=== PATIENT | female | born 1965 | race Caucasian/White ===

== ENCOUNTER 2024-10-25 10:07 | Inpatient (IN) | payer MEDICARE, SELFPAY ==
[2024-10-25] VITALS (18 sets, daily range): BP systolic 106–124; BP diastolic 59–75; PULSE 100–119; RESP 16–20; TEMP 36.2–36.4; O2SAT 89–97; BMI 22.7
--- NOTE | 2024-10-25 11:17 | CRLHL7_ITS ---
For Patients: As a result of the 21st Century Cures Act, medical imaging exams and procedure reports are released immediately into your electronic medical record. You may view this report before your referring provider. If you have questions, please contact your health care provider. Indication: DIFFUSE ABD PAIN, HX PANCREAS CANCER Technique: CT abdomen/pelvis with IV contrast, 65 mL Isovue 370 Comparison: None Findings: Lower thorax: The heart is normal in size. Coronary artery calcifications/stenting. No pericardial effusion. Small left pleural effusion. Mild bibasilar atelectatic changes. Abdomen/pelvis: Diffuse hepatic steatosis without suspicious focal hepatic lesion. Postsurgical changes of Whipple without apparent complication. Atrophic pancreatic tail. The spleen is unremarkable with small splenule seen anterior to the spleen. No adrenal nodules. The kidneys are normal in size and perfused in a normal fashion. No suspicious enhancing renal masses or lesions. Subcentimeter low-density right renal lesion likely a small benign cyst/angiomyolipoma, too small to characterize. Nonobstructing renal stones bilaterally measuring up to approximately 5 millimeters. No hydroureteronephrosis. The bladder is normal in appearance. The uterus and bilateral ovaries are normal in appearance. There is some thickening of the stomach and proximal small bowel with mild to moderate submucosal edema. There is no evidence of bowel obstruction. The appendix is within normal limits in appearance. Moderate volume abdominopelvic ascites. No free air. No abscess. No pathologically enlarged lymph nodes throughout the abdomen or pelvis. No abdominal aortic aneurysm. Mild calcific atherosclerosis of the aortoiliac system and its branches. Soft tissue/musculoskeletal: Moderate soft tissue anasarca. Small fat containing bilateral inguinal hernias. No acute fracture or malalignment. There are some degenerative changes of the spine. No suspicious osseous lesions. Impression: 1. There is some thickening of the stomach and proximal small bowel with mild to moderate submucosal edema, suggestive of gastritis/enteritis. There is no evidence of bowel obstruction. 2. Postsurgical changes of Whipple without apparent complication. 3. Moderate volume abdominopelvic ascites. No free air. No abscess. 4. Additional incidental findings as detailed above. Please note that all CT scans at this facility use dose modulation, iterative reconstruction, and/or weight-based dosing when appropriate to reduce radiation dose to as low as reasonably achievable. Dictated by Zaheer Felipe MD @ 10/25/2024 1:49:02 PM (Electronically Signed)
--- NOTE | 2024-10-25 11:18 | ED.GENADULT ---
HPI - General Adult General Chief complaint: Abdominal Pain Stated complaint: Abdominal pain Time Seen by Provider: 10/25/24 11:06 Source: patient Limitations: no limitations History of Present Illness HPI narrative: 59-year-old female coming in today complaining of abdominal pain for about a week. Patient was diagnosed with a large gastric ulcer the week of . She has been on Protonix b.i.d. and Carafate q.i.d. for the last month. In the last week the pain came back. It is epigastric it radiates everywhere around the belly according to the patient. Movement makes it worse. She states that she has not had a bowel movement in 2 days. Last week she had light green bowel movements with dark specks in it which appears similar to what she had when she was diagnosed with her ulcer. She has felt very nauseated with no appetite. She has not vomited. She denies any fevers or chills. She states that she has not passed gas in the last 2 days. She denies dysuria, increased urinary frequency or urgency. Past medical history significant for coronary artery disease status post [place] in 2008, diabetes type 2, fibromyalgia and chronic pain, peptic ulcer disease, migraine headaches, obesity, history of pancreatic cancer. Past surgical history significant for appendectomy, cholecystectomy, what sounds like a potential Whipple procedure for pancreatic cancer. Related Data Home Medications ?Medication ?Instructions ?Recorded ?Confirmed amitriptyline 50 mg tablet 50 mg PO QHS 10/25/24 10/25/24 aspirin 81 mg tablet,delayed 81 mg PO DAILY 10/25/24 10/25/24 release (Adult Low Dose Aspirin) atorvastatin 40 mg tablet 40 mg PO QHS 10/25/24 10/25/24 cetirizine 10 mg capsule 10 mg PO DAILY PRN 10/25/24 10/25/24 gabapentin 600 mg tablet 600 mg PO TID 10/25/24 10/25/24 insulin aspart U-100 100 unit/mL 1 sliding scale dose subcut 10/25/24 10/25/24 (3 mL) subcutaneous pen (Novolog USEASDIRECTD FlexPen U-100 Insulin aspart) insulin glargine 100 unit/mL (3 20 unit subcut QPM 10/25/24 10/25/24 mL) subcutaneous pen (Lantus Solostar U-100 Insulin) pantoprazole 40 mg granules 40 mg PO BID 10/25/24 10/25/24 delayed-release for susp in packet (Protonix) potassium chloride 10 mEq 10 meq PO BID 10/25/24 10/25/24 tablet,extended release (Klor-Con) sucralfate 1 gram tablet (Carafate) 1 g PO QID 10/25/24 10/25/24 topiramate 50 mg tablet (Topamax) 50 mg PO QHS 10/25/24 10/25/24 Allergies Allergy/AdvReac Type Severity Reaction Status Date / Time omeprazole Allergy Vomiting Verified 10/25/24 12:45 Penicillins Allergy Hive Verified 10/25/24 12:45 Review of Systems Status of ROS: Reports: 10 or more systems reviewed and unremarkable except as noted in History and below [facility] Social History Smoking Status: Former smoker What tobacco products do you use: cigarettes Smoking packs per day: 2 Smoking cigarettes per day: 40.0 Smoking quit date/years: <= 15 years ago Do you use any of these nicotine containing products: None Second hand tobacco smoke exposure: No How often do you have a drink containing alcohol: never AUDIT-C Alcohol total score: 0 Non-prescribed substance use: denies use service: No Exam Narrative: Exam Narrative: Centrally obese, well-developed patient in no acute distress. Alert and oriented. Answers questions appropriately. Mood and affect are appropriate. Thoughts are goal oriented and rational. No tangential or magical thinking noted. Patient speaks in full sentences without needing to catch her breath. HEENT: Normocephalic atraumatic. Pupils are equally round reactive to light. Extraocular muscles are intact. Conjunctivae are moist without any icterus noted. Dry mucous membranes. Posterior pharynx is normal. Neck is soft without any lymphadenopathy or thyromegaly. No masses are appreciated. Patient has poor dentition. Poor oral hygiene. Cardiovascular: Heart is regular rate and rhythm S1 and S2 are present without any murmurs. Lungs: Clear to auscultation bilaterally no wheezes rhonchi or rales are appreciated. Abdomen: Patient has diffuse abdominal tenderness throughout the entire abdomen. Abdomen is distended. Decreased bowel sounds. She is guarding. Extremities: Bilateral lower extremities show 2+ pitting edema bilaterally throughout both lower extremities and into the abdominal wall. She also has pitting edema of the upper extremities. Skin: Well perfused without any obvious rashes. Const: Vital Signs, click to edit/add: Vital Signs - 24 hr 10/25/24 10:37 10/25/24 11:45 10/25/24 12:38 Temperature 97.6 F Pulse Rate 104 H Pulse Rate [Pulse Oximeter] 109 H Respiratory Rate 20 Blood Pressure Blood Pressure [Ri ght Upper Arm] 111/69 Pulse Oximetry 96 96 93 Oxygen Delivery Me thod Room Air 10/25/24 12:45 10/25/24 13:08 10/25/24 13:09 Temperature Pulse Rate 102 H 101 H 100 Pulse Rate [Pulse Oximeter] Respiratory Rate 16 Blood Pressure 118/75 Blood Pressure [Ri ght Upper Arm] Pulse Oximetry 89 95 97 Oxygen Delivery Me thod Room Air 10/25/24 13:15 10/25/24 13:30 10/25/24 13:32 Temperature Pulse Rate 103 H 104 H 103 H Pulse Rate [Pulse Oximeter] Respiratory Rate Blood Pressure 118/71 Blood Pressure [Ri ght Upper Arm] Pulse Oximetry 97 96 95 Oxygen Delivery Me thod 10/25/24 13:45 10/25/24 14:00 10/25/24 14:02 Temperature Pulse Rate 104 H 108 H 106 H Pulse Rate [Pulse Oximeter] Respiratory Rate 18 Blood Pressure 114/74 Blood Pressure [Ri ght Upper Arm] Pulse Oximetry 96 96 95 Oxygen Delivery Me thod Room Air Course Course ED Course: Differential diagnosis includes small-bowel obstruction, colitis, diverticulitis, peptic ulcer disease. Unclear reason for anasarca but includes congestive heart failure, liver failure. IV is established, patient started on IV fluids and labs were drawn. Abdominal CT ordered. CBC showed hemoglobin of 11.6, otherwise unremarkable. Chemistries are unremarkable. Glucose 127. Calcium slightly low at 8.1. LFTs minimally abnormal with an AST of 39, ALT of 41, alkaline phosphatase of 189. CRP elevated at 3. BNP minimally elevated at 868. Protein levels and albumin levels are low at 5.2 and 2.8 respectively. Normal lipase. UA showing 2+ protein, 4+ ketones, 2+ urine bilirubin. CT scan showing anasarca, abdominal ascites and the mild to moderate submucosal edema of the stomach and proximal bowel consistent with a gastritis or enteritis. Given the amount of fluid visualized inside the abdomen we did proceed with a chest x-ray, TSH and coagulation studies. Chest x-ray, read by me, was unremarkable. Vital Signs Vital signs: Initial Vital Signs Temperature 97.6 F 10/25/24 10:37 Temperature Source Temporal Artery Scan 10/25/24 10:37 Pulse Rate 109 H 10/25/24 10:37 Respiratory Rate 20 10/25/24 10:37 Blood Pressure 111/69 10/25/24 10:37 Blood Pressure Mean 83 10/25/24 10:37 Blood Pressure Position Sitting 10/25/24 10:37 Pulse Oximetry 96 10/25/24 10:37 Oxygen Delivery Method Room Air 10/25/24 10:37 Vital Signs Temperature 97.6 F 10/25/24 10:37 Pulse Rate 109 H 10/25/24 10:37 Respiratory Rate 20 10/25/24 10:37 Blood Pressure 111/69 10/25/24 10:37 Pulse Oximetry 96 10/25/24 10:37 Oxygen Delivery Method Room Air 10/25/24 10:37 Temperature 97.6 F 10/25/24 10:37 Pulse Rate 106 H 10/25/24 14:02 Respiratory Rate 18 10/25/24 14:02 Blood Pressure 114/74 10/25/24 14:02 Pulse Oximetry 95 10/25/24 14:02 Oxygen Delivery Method Room Air 10/25/24 14:02 Medications Administered Medications: Discontinued Medications Generic Name Dose Route Start Last Admin Trade Name Freq PRN Reason Stop Dose Admin Sodium Chloride 1,000 mls @ 500 mls/hr 10/25/24 11:18 10/25/24 12:12 0.9 % Sodium Chloride 1000 Ml IV 10/25/24 13:17 500 mls/hr .Q2H BRODY Administration Morphine Sulfate 2 mg 10/25/24 12:32 10/25/24 12:42 Morphine 2 Mg/Ml Inj IVP 10/25/24 12:33 2 mg ONCE ONE Administration Ondansetron HCl 4 mg 10/25/24 12:32 10/25/24 12:42 Ondansetron 2 Mg/Ml Inj IVP 10/25/24 12:33 4 mg ONCE ONE Administration Medical Decision Making [facility] Narrative Medical decision making narrative: 59-year-old female with diffuse abdominal discomfort, anasarca and abdominal ascites. Patient does need more diagnostic studies pain management. Therefore she will be admitted for management at this time. Lab Data Lab results reviewed: Yes I reviewed the patient's lab results Labs: Lab Results 10/25/24 10/25/24 Range/Units 11:46 12:30 WBC 7.27 (4.50-11.00) K/uL RBC 3.78 L (4.00-5.20) m/uL Hgb 11.6 L (12.0-16.0) gm/dL Hct 36.6 (33.0-51.0) % MCV 97 (80-100) fL MCH 31 (26-34) pg MCHC 32 (32-36) gm/dL RDW Coeff of Konstantin 14.1 (11.5-15.5) % Plt Count 189 (140-440) K/uL Neut % (Auto) 71.9 (42.0-72.0) % Lymph % (Auto) 18.3 L (20-44) % [place] % (Auto) 9.4 (0.0-11.0) % Eos % (Auto) 0.3 (0.0-7.0) % Baso % (Auto) 0.0 (0.0-3.0) % Neut # (Auto) 5.23 (1.7-7.0) K/uL Lymph # (Auto) 1.30 (0.90-2.90) K/uL [place] # (Auto) 0.70 (0.00-0.90) K/UL Eos # (Auto) 0.02 (0.00-0.50) K/uL Baso # (Auto) 0.00 (0.00-0.30) K/uL Abs Immat Gran (auto) 0.01 (0.00-0.30) K/uL Imm/Tot Granulo (auto) 0.1 % Sodium 136 (135-149) mmol/L Potassium 3.5 L (3.6-5.1) mmol/L Chloride 107 (96-114) mmol/L Carbon Dioxide 20 (20-32) mmol/L Anion Gap 9 (7-15) mEq/L BUN 8 (7-30) mg/dL Creatinine 0.7 (0.5-1.5) mg/dL Estimated Creat Clear 73.80 Estimated GFR 99 ml/min Glucose 127 H (60-115) mg/dL Lactate 0.9 (0.5-1.9) mmol/L Calcium 8.1 L (8.4-10.6) mg/dL Total Bilirubin 0.7 (0.1-1.5) mg/dL Direct Bilirubin 0.4 (0.0-0.5) mg/dL AST 39 H (12-35) U/L ALT 41 H (4-35) U/L Alkaline Phosphatase 189 H (40-150) U/L C-Reactive Protein 3.0 H (0.5-1.0) mg/dL NT-Pro-B Natriuret Pep 868 pg/mL Total Protein 5.2 L (6.0-8.3) g/dL Albumin 2.8 L (3.3-5.0) g/dL Lipase 69 (23-300) U/L Urine Color Dark yellow (Yellow) Urine Appearance Clear (Clear) Urine pH 6.0 (5.0-8.5) Ur Specific [place] >= 1.030 (1.000-1.030) Urine Protein 2+ A (Negative) Urine Glucose (UA) Negative (Negative) Urine Ketones 4+ A (Negative) Urine Blood Negative (Negative) Urine Nitrite Negative (Negative) Urine Bilirubin 2+ A (Negative) Urine Urobilinogen 0.2 (0.2-1.0) Ur Leukocyte Esterase Negative (Negative) Urine RBC 0-2 (0-2) Urine WBC 0-2 (0-5) Ur Squamous Epith Cells Few (None-Few) Urine Bacteria Few A (None) Urine Mucus Many A (None) Imaging Data CT scan - abdomen: Attestation: I have reviewed the pertinent imaging results. Radiologist's impression: Indication: DIFFUSE ABD PAIN, HX PANCREAS CANCER Technique: CT abdomen/pelvis with IV contrast, 65 mL Isovue 370 Comparison: None Findings: Lower thorax: The heart is normal in size. Coronary artery calcifications/stenting. No pericardial effusion. Small left pleural effusion. Mild bibasilar atelectatic changes. Abdomen/pelvis: Diffuse hepatic steatosis without suspicious focal hepatic lesion. Postsurgical changes of Whipple without apparent complication. Atrophic pancreatic tail. The spleen is unremarkable with small splenule seen anterior to the spleen. No adrenal nodules. The kidneys are normal in size and perfused in a normal fashion. No suspicious enhancing renal masses or lesions. Subcentimeter low-density right renal lesion likely a small benign cyst/angiomyolipoma, too small to characterize. Nonobstructing renal stones bilaterally measuring up to approximately 5 millimeters. No hydroureteronephrosis. The bladder is normal in appearance. The uterus and bilateral ovaries are normal in appearance. There is some thickening of the stomach and proximal small bowel with mild to moderate submucosal edema. There is no evidence of bowel obstruction. The appendix is within normal limits in appearance. Moderate volume abdominopelvic ascites. No free air. No abscess. No pathologically enlarged lymph nodes throughout the abdomen or pelvis. No abdominal aortic aneurysm. Mild calcific atherosclerosis of the aortoiliac system and its branches. Soft tissue/musculoskeletal: Moderate soft tissue anasarca. Small fat containing bilateral inguinal hernias. No acute fracture or malalignment. There are some degenerative changes of the spine. No suspicious osseous lesions. Impression: 1. There is some thickening of the stomach and proximal small bowel with mild to moderate submucosal edema, suggestive of gastritis/enteritis. There is no evidence of bowel obstruction. 2. Postsurgical changes of Whipple without apparent complication. 3. Moderate volume abdominopelvic ascites. No free air. No abscess. 4. Additional incidental findings as detailed above. Chest x-ray: Attestation: I have reviewed the pertinent imaging results. Radiologist's impression: Chest radiographs, 2 views. COMPARISON: None. FINDINGS: Cardiovascular/Mediastinum: Normal heart size. Unremarkable. Lungs: No focal consolidation. Linear band like opacification of the lungs bilaterally, likely subsegmental atelectasis and/or scarring. Airways: Trachea remains midline. Pleura: No pleural effusions or pneumothorax. Bones: No acute osseous abnormalities. Upper abdomen: Unremarkable. IMPRESSION: No acute cardiopulmonary process. Discharge Plan Discharge Clinical Impression: Anasarca, Abdominal ascites Prescriptions: No Action topiramate [Topamax] 50 mg tablet 50 mg PO QHS potassium chloride [Klor-Con 10] 10 mEq tablet extended release 10 meq PO BID atorvastatin 40 mg tablet 40 mg PO QHS pantoprazole [Protonix] [address] for susp in packet 40 mg PO BID sucralfate [Carafate] 1 gram tablet 1 g PO QID gabapentin 600 mg tablet 600 mg PO TID amitriptyline 50 mg tablet 50 mg PO QHS cetirizine 10 mg capsule 10 mg PO DAILY PRN insulin aspart U-100 [Novolog FlexPen U-100 Insulin] 100 unit/mL (3 mL) insulin pen 1 sliding scale dose subcut USEASDIRECTD insulin glargine [Lantus Solostar U-100 Insulin] 100 unit/mL (3 mL) insulin pen 20 unit subcut QPM aspirin [Adult Low Dose Aspirin] 81 mg tablet,delayed release (DR/EC) 81 mg PO DAILY Follow Up/Referrals: Provider,Not a Local [Primary Care Provider] -
[2024-10-25 11:54] LABS: Lactate* 0.9 mmol/L (0.5-1.9)
[2024-10-25 11:57] LABS: Eosinophils Absolute Auto 0.02 K/uL (0.00-0.50); Eosinophils Percent Auto 0.3 % (0.0-7.0); Hematocrit 36.6 % (33.0-51.0); Hemoglobin* 11.6 gm/dL (12.0-16.0); Immature Granulocytes Abs Auto 0.01 K/uL (0.00-0.30); Immature Granulocytes Pct Auto 0.1 %; Lymphocytes Percent Auto 18.3 % (20-44); Mean Corpuscular HGB Conc 32 gm/dL (32-36); Mean Corpuscular Hemoglobin 31 pg (26-34); Mean Corpuscular Volume 97 fL (80-100); Monocytes Percent Auto 9.4 % (0.0-11.0); Neutrophils Absolute Auto 5.23 K/uL (1.7-7.0); Neutrophils Percent Auto 71.9 % (42.0-72.0); Platelet Count* 189 K/uL (140-440); RDW Coefficient of Variation % 14.1 % (11.5-15.5); Red Blood Count 3.78 m/uL (4.00-5.20); White Blood Count* 7.27 K/uL (4.50-11.00)
[2024-10-25 12:00] LABS: Slide Review Reflex No
[2024-10-25] MEDS: 0.9 % SODIUM CHLORIDE 1000 ml 1,000 ML 500 ML IV (12:12)
[2024-10-25 12:15] LABS: Albumin* 2.8 g/dL (3.3-5.0); Chloride* 107 mmol/L (96-114); Sodium* 136 mmol/L (135-149)
[2024-10-25 12:16] LABS: Potassium* 3.5 mmol/L (3.6-5.1)
[2024-10-25 12:18] LABS: Anion Gap 9 mEq/L (7-15); Aspartate Amino Transferase* 39 U/L (12-35); Bilirubin Direct* 0.4 mg/dL (0.0-0.5); Bilirubin Total* 0.7 mg/dL (0.1-1.5); Blood Urea Nitrogen* 8 mg/dL (7-30); Carbon Dioxide* 20 mmol/L (20-32); Creatinine* 0.7 mg/dL (0.5-1.5); Estimated Glomerular Filt Rate 99 ml/min; Total Protein* 5.2 g/dL (6.0-8.3)
[2024-10-25 12:19] LABS: Alanine Aminotransferase* 41 U/L (4-35); Alkaline Phosphatase* 189 U/L (40-150); Calcium* 8.1 mg/dL (8.4-10.6); Glucose* 127 mg/dL (60-115); Lipase* 69 U/L (23-300)
[2024-10-25 12:31] LABS: NT Pro B Type NatriureticPept* 868 pg/mL
[2024-10-25] MEDS: ONDANSETRON 2 MG/ML inj 4 MG IVP (12:42)
[2024-10-25] MEDS: MORPHINE 2 MG/ML inj IVP (12:42)
[2024-10-25 12:43] LABS: Appearance Urine Clear (Clear); Bilirubin Urine 2+ (Negative); Blood Urine Negative (Negative); Color Urine Dark yellow (Yellow); Glucose Urine Negative (Negative); Ketones Urine 4+ (Negative); Leukocyte Esterase Urine Negative (Negative); Nitrite Urine Negative (Negative); Protein Urine 2+ (Negative); Specific Gravity Urine >= 1.030 (1.000-1.030); Urobilinogen Urine 0.2 (0.2-1.0)
[2024-10-25 13:03] LABS: Bacteria Urine Few; Mucus Urine Many; RBC Urine 0-2 (0-2); Squamous Epithelial Cell Urine Few (None-Few); WBC Urine 0-2 (0-5)
--- NOTE | 2024-10-25 14:00 | CRLHL7_ITS ---
For Patients: As a result of the Century Cures Act, medical imaging exams and procedure reports are released immediately into your electronic medical record. You may view this report before your referring provider. If you have questions, please contact your health care provider. INDICATION: Dyspnea. TECHNIQUE: Chest radiographs, 2 views. COMPARISON: None. FINDINGS: Cardiovascular/Mediastinum: Normal heart size. Unremarkable. Lungs: No focal consolidation. Linear band like opacification of the lungs bilaterally, likely subsegmental atelectasis and/or scarring. Airways: Trachea remains midline. Pleura: No pleural effusions or pneumothorax. Bones: No acute osseous abnormalities. Upper abdomen: Unremarkable. IMPRESSION: No acute cardiopulmonary process. Dictated by Suhail Carr MD @ 10/25/2024 2:41:23 PM (Electronically Signed)
[2024-10-25 15:04] LABS: INR 1.14 (0.91-1.10); Prothrombin Time 15.4 Seconds
--- NOTE | 2024-10-25 16:09 | P.IMHP_ITS ---
Hospitalist- H&P: HPI History of Present Illness Date Seen: 10/25/24 Chief complaint: Abdominal pain Narrative: ADMISSION HISTORY AND PHYSICAL - HOSPITALIST Chief Complaint: Progressive swelling in her abdomen and legs x2 weeks, weakness HPI: Patient is a 59-year-old white female with a significant history of pancreatic cancer, status post Whipple, who presents to our ED with increasing weakness and overall abdominal swelling and legs swelling. She is traveling for the holidays and is staying with her cousin. She typically receives healthcare in [place]. It was there that she was diagnosed with pancreatic cancer and had her Whipple. She is followed by Oncology there. She is a type 2 diabetic, even prior to the Whipple, and recently was hospitalized for a gastric ulcer. She also has chronic pain and migraines. We discussed her past medical history and current medications in the room. She was able to use her phone and navigate to her notes. Her cousin is with her tonight in the ED. ER COURSE: Labs, abdominal pelvic CT, chest x-ray CODE STATUS: FULL CODE EMERGENCY CONTACT PLAN: Juan M Crespo Rel To Pat Family/Other Cell I've updated the PFSH, medications and allergies in the Expanse tabs. INVESTIGATIONS: LABS/MICRO/ECG/IMAGING CBC shows a and anemia at 11.6. MCV is 97. Normal platelet count. INR is 1.14 glucose is 127. Potassium is a little low at 3.5 - liver enzymes are elevated mildly AST 39, ALT 41. GGT 270. Alk-phos 189. However, her total is normal. There is an ammonia level pending. Her BNP is only 868. She does have low protein and albumin. Amylase and lipase are negative. Under TSH is normal. A1c is pending. She has 4+ ketones, 2+ bilirubin in her urine. She seems volume contracted. Her UDS is positive for tricyclics and opiates but these are both prescribed to her. Alcohol level was less than 0.01. There is a hep panel pending. Sinus tachy on ECG. Impression: 1. There is some thickening of the stomach and proximal small bowel with mild to moderate submucosal edema, suggestive of gastritis/enteritis. There is no evidence of bowel obstruction. 2. Postsurgical changes of Whipple without apparent complication. 3. Moderate volume abdominopelvic ascites. No free air. No abscess. 4. Additional incidental findings as detailed above. 5. Questionable history of reported appendectomy; however, there is a tubular structure arising from the cecum (series number 2, image [id number]), that appears to be a normal appendix. REVIEW OF SYSTEMS: 12-point ROS completed with patient and negative unless otherwise stated in HPI or below. PHYSICAL EXAM: CONSTITUTIONAL: Pale. Conversive, good historian. A/O. Knows setting and context. Looks older than stated age. GENERAL: Well-developed and above ideal body weight, in no respiratory distress. VITAL SIGNS: see record. HEENT: Sclerae are anicteric. No petechiae. CARDIAC: rhythm is regular. There is no S3 or rub. No harsh murmurs. extremities show 3+ pitting edema PULM: good air entry with no wheeze. ABDOMEN: severe ascites without obvious spider angiomata; but tense and tender. NEURO: Speech is fluent. A brief neurologic exam is negative. SKIN: No rashes, petechiae, concerning changes PSYCHIATRIC: Euthymic. ADMIT TO MEDSURG: FLOOR CARE DVT: Lovenox GI: PO intake Time spent: Today I spent 75 minutes seeing the patient, discussing the patient with ER staff, reviewing Expanse and EPIC notes/diagnostics, discussing the care plan with our care time that includes social work, PT/OT, pharmacy, RT, senior care and documenting my impressions and plan in the medical record. MEDICAL NECESSITY FOR HOSPITALIZATION Anticipated midnights in the hospital: 2-3 Admitting diagnosis: Severe anasarca, dehydration (4+ ketones, tachycardia), new liver lesion, type 2 insulin diabetes Risk of morbidity and mortality: high Acuity is characterized as high and reflected in: The sudden onset and severity of her anasarca, unclear etiology as this is her 1st presentation with ascites, insulin-requiring type 2 diabetes, history of pancreatic cancer and status post Whipple procedure in the last 2 years, poor mobility and chronic opioid use all increase her mortality and morbidity related to this new diagnosis. This patient will require hospital services as outlined in the assessment and plan in order to stabilize and be safely discharged to a lower level of care. Because of the risk and acuity as described above, this patient cannot be managed at a lower level of care. LENGTH OF STAY: 2 IP ? Anticipated LOS>2 midnights due to acuity of clinical presentation requiring inpatient level of care [facility] Medical History (Updated 10/26/24 @ 01:52 by Yolanda Sanchez MD) Migraines ?G43.909 - Migraine, unspecified, not intractable, without status migrainosus (ICD-10) Chronic pain ?G89.29 - Other chronic pain (ICD-10) Hx of gastric ulcer ?Z87.11 - Personal history of peptic ulcer disease (ICD-10) Pancreatic cancer ?C25.9 - Malignant neoplasm of pancreas, unspecified (ICD-10) Type 2 diabetes mellitus with insulin therapy ?E11.9 - Type 2 diabetes mellitus without complications (ICD-10) ?Z79.4 - prison (current) use of insulin (ICD-10) Surgical History (Updated 10/26/24 @ 01:31 by Yolanda Sanchez MD) History of Whipple procedure ?Z90.410 - Acquired total absence of pancreas (ICD-10) ?Z90.49 - Acquired absence of other specified parts of digestive tract (ICD- 10) Social History (Updated 10/25/24 @ 15:05 by Selene Donald MD) What is your current living situation?: I presently have a place to live Problems where you live: no known problems Problems where you live details: none In the past 12 months, utilities in danger of being shut off: no In past 12 months, lack of transportation kept you from medical appts, meetings, work, or getting things needed for daily living: no In the past 12 mos, have been you worried that your food would run out before you had money to buy more?: never true In the past 12 mos, the food you bought just didn't last and you didn't have money to buy more?: never true Smoking Status: Former smoker What tobacco products do you use: cigarettes Smoking packs per day: 2 Smoking cigarettes per day: 40.0 Smoking quit date/years: <= 15 years ago Do you use any of these nicotine containing products: None Second hand tobacco smoke exposure: No How often do you have a drink containing alcohol: never AUDIT-C Alcohol total score: 0 Non-prescribed substance use: denies use How often does anyone, including family, friends and others, physically hurt you : never How often does anyone, including family, friends and others, insult or talk down to you: never How often does anyone, including family, friends and others, threaten you with harm: never How often does anyone, including family, friends and others, scream or curse at you: never service: No Meds Home Medications and Allergies Home Medications ?Medication ?Instructions ?Recorded ?Confirmed ?Type amitriptyline 50 mg tablet 50 mg PO HS 10/25/24 10/25/24 History aspirin 81 mg tablet,delayed 81 mg PO DAILY 10/25/24 10/25/24 History release (Adult Low Dose Aspirin) atorvastatin 40 mg tablet 40 mg PO HS 10/25/24 10/25/24 History cetirizine 10 mg capsule 10 mg PO DAILY PRN 10/25/24 10/25/24 History gabapentin 600 mg tablet 600 mg PO TID 10/25/24 10/25/24 History insulin aspart U-100 100 unit/mL 1 sliding scale dose subcut 10/25/24 10/25/24 History (3 mL) subcutaneous pen (Novolog USEASDIRECTD FlexPen U-100 Insulin aspart) insulin glargine 100 unit/mL (3 20 unit subcut HS 10/25/24 10/25/24 History mL) subcutaneous pen (Lantus Solostar U-100 Insulin) oxycodone 10 mg tablet 10 mg PO TID PRN pain 10/25/24 10/25/24 History pantoprazole 40 mg granules 40 mg PO BID 10/25/24 10/25/24 History delayed-release for susp in packet (Protonix) potassium chloride 10 mEq 10 meq PO BID 10/25/24 10/25/24 History tablet,extended release (Klor-Con) sucralfate 1 gram tablet (Carafate) 1 g PO QID 10/25/24 10/25/24 History topiramate 50 mg tablet (Topamax) 50 mg PO HS 10/25/24 10/25/24 History Allergies Allergy/AdvReac Type Severity Reaction Status Date / Time omeprazole Allergy Vomiting Verified 10/25/24 12:45 Penicillins Allergy Hive Verified 10/25/24 12:45 Exam Const: Vital Signs, click to edit/add: Vital Signs - 24 hr 10/25/24 10:37 10/25/24 11:45 10/25/24 12:38 Temperature 97.6 F Pulse Rate 104 H Pulse Rate [Pulse Oximeter] 109 H Respiratory Rate 20 Blood Pressure Blood Pressure [Ri ght Upper Arm] 111/69 Pulse Oximetry 96 96 93 Oxygen Delivery Me thod Room Air 10/25/24 12:45 10/25/24 13:08 10/25/24 13:09 Temperature Pulse Rate 102 H 101 H 100 Pulse Rate [Pulse Oximeter] Respiratory Rate 16 Blood Pressure 118/75 Blood Pressure [Ri ght Upper Arm] Pulse Oximetry 89 95 97 Oxygen Delivery Me thod Room Air 10/25/24 13:15 10/25/24 13:30 10/25/24 13:32 Temperature Pulse Rate 103 H 104 H 103 H Pulse Rate [Pulse Oximeter] Respiratory Rate Blood Pressure 118/71 Blood Pressure [Ri ght Upper Arm] Pulse Oximetry 97 96 95 Oxygen Delivery Me thod 10/25/24 13:45 10/25/24 14:00 10/25/24 14:02 Temperature Pulse Rate 104 H 108 H 106 H Pulse Rate [Pulse Oximeter] Respiratory Rate 18 Blood Pressure 114/74 Blood Pressure [Ri ght Upper Arm] Pulse Oximetry 96 96 95 Oxygen Delivery Me thod Room Air 10/25/24 14:03 10/25/24 15:01 10/25/24 15:02 Temperature Pulse Rate 106 H 111 H 107 H Pulse Rate [Pulse Oximeter] Respiratory Rate 18 Blood Pressure 114/73 Blood Pressure [Ri ght Upper Arm] Pulse Oximetry 97 95 95 Oxygen Delivery Me thod Room Air Hospitalist - H&P: Result Labs Labs: Short CBC 10/25/24 Range/Units 11:46 WBC 7.27 (4.50-11.00) K/uL Hgb 11.6 L (12.0-16.0) gm/dL Hct 36.6 (33.0-51.0) % Plt Count 189 (140-440) K/uL BMP 10/25/24 11:46 Sodium 136 Potassium 3.5 L Chloride 107 Carbon Dioxide 20 BUN 8 Creatinine 0.7 Glucose 127 H Calcium 8.1 L Liver Function 10/25/24 Range/Units 11:46 Total Bilirubin 0.7 (0.1-1.5) mg/dL Direct Bilirubin 0.4 (0.0-0.5) mg/dL AST 39 H (12-35) U/L ALT 41 H (4-35) U/L Alkaline Phosphatase 189 H (40-150) U/L Albumin 2.8 L (3.3-5.0) g/dL Urine 10/25/ Range/Units 12:30 Urine Color Dark yellow (Yellow) Urine Appearance Clear (Clear) Urine pH 6.0 (5.0-8.5) Ur Specific [place] >= 1.030 (1.000-1.030) Urine Protein 2+ A (Negative) Urine Glucose (UA) Negative (Negative) Assessment and Plan Assessment and plan (1) Abdominal ascites: Problem comment: Differential diagnosis: Portal hypertension? Portal vein thrombosis? CT reassuring. Paracentesis planned for [address] Mahoney. Malignancy? known pancreatic cancer. MRCP? bili is normal, lipase is normal, CT reassuring - could it be carcinomatosis? Heart failure? echo ordered; BNP is pretty unimpressive. Checking a ddimer as i'm leaving, consider PE or some other coagulopathic process. Not obviously infected; consider SPB -starting Lasix and Aldactone for ascites; gave albumin as well. -intravascularly dry - ketones/tachy - but lactate ok. gave 1 fluid bolus and then a few hours of IV normal saline after albumin. Status: Acute (2) Anasarca: Problem comment: downstream effect of primary process .... low albumin/protein. unclear etiology. ask about heavy nsaid use and repeat alcohol questions. Status: Acute (3) Dehydration: Problem comment: -as above Status: Acute (4) Type 2 diabetes mellitus with insulin therapy: Problem comment: -cut lantus in half; SSI with accuchecks. Status: Acute (5) Pancreatic cancer: Problem comment: -2 years ago in [place]. S/P Whipple. Need more details. -not necessarily causative of symptoms ... -value in MRCP? CTA of chest? (previous smoker) Status: Acute (6) Hx of gastric ulcer: Problem comment: -recent hospitalization for this in August 2024 - need records. Status: Acute (7) Chronic pain: Problem comment: chronic opioids for everywhere pain - fibro, OA, migraines. Status: Acute (8) Migraines: Status: Acute
[2024-10-25 16:30] LABS: Amylase* 33 U/L (18-89); Gamma Glutamyl Transpeptidase* 270 U/L (8-55)
[2024-10-25] MEDS: OXYCODONE 5 MG TABLET 10 MG PO (16:32)
[2024-10-25] MEDS: FUROSEMIDE 10 MG/ML inj 40 MG IVP (16:32)
[2024-10-25] MEDS: SUCRALFATE 1 GM TABLET PO ×2 (18:03→21:27)
--- NOTE | 2024-10-25 19:08 | PC.NURSE ---
Admission- 1900: The patient is pleasant and cooperative with cares. VSS on RA, except noted tachycardia. The patient complains of severe 7/10 abdominal pains, reports no appetite. Diabetic, voiding well. Up SBA to the BR I offered the purewick, although the patient stated she would rather get up even with her weakness and pain. Hypoactive bowel sounds. The patient reports no stool for 2 days. Anasarca throughout, call light within reach and the patient will make her needs known. The patient reported that oxy did not help her pain, MD was notified and orders to follow. The patient also complains of a cough (4 days), that is productive at times. Paracentesis tomorrow afternoon. Bronwyn COLEMAN BSN
[2024-10-25 19:39] LABS: Ethanol* < 0.01 % (0.01-0.03)
[2024-10-25 19:41] LABS: Amphetamine Screen Urine Negative (Negative); Barbiturate Screen Urine Negative (Negative); Benzodiazepines Screen Urine Negative (Negative); Cannabinoid Screen Urine Negative (Negative); Cocaine Screen Urine Negative (Negative); Methadone Screen Urine Negative (Negative); Methamphetamines Screen Urine Negative (Negative); Opiate Screen Urine POSITIVE (Negative); Oxycodone Screen Urine Negative (Negative); Phencyclidine Screen Urine Negative (Negative); Tricyclic Antidepressant Urine POSITIVE (Negative)
[2024-10-25] MEDS: ACETAMINOPHEN 650 MG TABLET ER 1300 MG PO (21:27)
[2024-10-25] MEDS: AMITRIPTYLINE 25 MG TABLET 50 MG PO (21:27)
[2024-10-25] MEDS: SPIRONOLACTONE 25 MG TABLET 50 MG PO (21:27)
[2024-10-25] MEDS: ENOXAPARIN 40 MG/0.4 ML INJ SUBCUT (21:28)
[2024-10-25] MEDS: INSULIN GLARGINE,HUM.REC.ANLOG 100 UNIT/ML INSULN.PEN 10 UNIT SUBCUT (21:28)
[2024-10-25] MEDS: TOPIRAMATE 50 MG TABLET PO (21:28)
[2024-10-25] MEDS: POTASSIUM CHLORIDE 10 MEQ CAPSULE ER 20 MEQ PO (21:28)
[2024-10-25] MEDS: ATORVASTATIN CALCIUM 40 MG TABLET PO (21:28)
[2024-10-25] MEDS: GABAPENTIN 600 MG TABLET PO (21:28)
[2024-10-25] MEDS: SODIUM CHLORIDE 0.9 % (FLUSH) 10 ML SYRINGE 5 ML IVF (21:29)
[2024-10-26] VITALS (9 sets, daily range): BP systolic 115–124; BP diastolic 68–85; PULSE 96–118; RESP 18–20; TEMP 36.3–37.1; O2SAT 88–95
[2024-10-26] MEDS: PANTOPRAZOLE SODIUM 40 MG INJ IVP (00:04)
[2024-10-26 02:06] LABS: D Dimer Quantitative* 2.36 ug/ml (0.00-0.50)
--- NOTE | 2024-10-26 02:41 | CRLHL7_ITS ---
For Patients: As a result of the 21st Century Cures Act, medical imaging exams and procedure reports are released immediately into your electronic medical record. You may view this report before your referring provider. If you have questions, please contact your health care provider. INDICATION: Elevated D-dimer. Tachycardia. Anasarca. History of pancreatic cancer. COMPARISON: Limited portions of a October 25, 2024 examination TECHNIQUE: : CT examination of the chest was performed with the uneventful intravenous administration of 95 cc of Isovue 370 while thin axial sections were obtained from above the apices of the lungs to the lung bases. The examination was timed as a pulmonary artery angiogram. Please note that all CT scans at this facility use dose modulation, iterative reconstruction, and/or weight-based dosing when appropriate to reduce radiation dose to as low as reasonably achievable. FINDINGS: : HEART and MEDIASTINUM: The heart size is normal. There is no mediastinal or hilar adenopathy or mass. There is no pericardial effusion. PULMONARY ARTERIAL CIRCULATION: There is no visible intraluminal filling defect to suggest pulmonary embolus. LUNGS and PLEURAL SPACES: There are a few patchy ground-glass opacities that are likely inflammatory.Consolidation is noted at the left base posteriorly. Fluid is noted within some of the lower lobe bronchi. This probably represents pneumonitis and maybe on the basis of aspiration based on the fluid and its distribution. Unless confluent opacity at the right base could be minimal aspiration or atelectasis. No right effusion. Very small left effusion VISUALIZED UPPER ABDOMEN: Findings related to the patient`s known pancreatic carcinoma. The ascites has visualized subjectively unchanged compared to the prior study. OSSEOUS STRUCTURES: Age-appropriate appearance. No acute fracture or destructive process.Body wall edema again identified TUBES and LINES: None. IMPRESSION: 1. There is no finding of pulmonary embolus. 2. A few patchy ground-glass opacities are noted which are likely inflammatory. 3. Bibasilar airspace opacities, left greater than right. The left base finding is probably pneumonia/pneumonitis and maybe on the basis of aspiration. Right base finding is probably atelectasis and may also be due to aspiration. 4. Findings related to the patient`s known stage IV pancreatic cancer. Please note that all CT scans at this facility use dose modulation, iterative reconstruction, and/or weight-based dosing when appropriate to reduce radiation dose to as low as reasonably achievable. Dictated by Geovanny Monahan MD @ 10/26/2024 4:41:17 AM (Electronically Signed)
[2024-10-26 04:31] LABS: Ammonia* 28.9 umol/L (13.1-30.0)
[2024-10-26] MEDS: 0.9 % SODIUM CHLORIDE 1000 ml 1,000 ML 100 ML IV ×2 (04:33→16:48)
[2024-10-26 04:34] LABS: Hemoglobin A1C* 6.5 % (0-5.6)
[2024-10-26] MEDS: ALBUMIN HUMAN 25% 100 ML VIAL IVPB (04:34)
[2024-10-26] MEDS: ACETAMINOPHEN 650 MG TABLET ER 1300 MG PO ×3 (04:36→21:38)
[2024-10-26] MEDS: MORPHINE 2 MG/ML inj IVP ×4 (04:40→21:05)
[2024-10-26 06:37] LABS: HCO3 VBG 27 mmol/L (21-28); PCO2 VBG 41 mmHG (40-50); PO2 VBG 61.7 mmHG (25-47); pH VBG 7.434 (7.32-7.43)
[2024-10-26 06:38] LABS: Hematocrit 32.2 % (33.0-51.0); Hemoglobin* 10.5 gm/dL (12.0-16.0); Mean Corpuscular HGB Conc 33 gm/dL (32-36); Mean Corpuscular Hemoglobin 31 pg (26-34); Mean Corpuscular Volume 95 fL (80-100); Platelet Count* 176 K/uL (140-440); Red Blood Count 3.39 m/uL (4.00-5.20); White Blood Count* 5.67 K/uL (4.50-11.00)
[2024-10-26 06:47] LABS: Slide Review Reflex No
[2024-10-26 06:55] LABS: Albumin* 2.7 g/dL (3.3-5.0); Chloride* 108 mmol/L (96-114)
[2024-10-26 06:56] LABS: Potassium* 3.2 mmol/L (3.6-5.1); Sodium* 139 mmol/L (135-149)
[2024-10-26 06:58] LABS: Alkaline Phosphatase* 147 U/L (40-150); Anion Gap 3 mEq/L (7-15); Aspartate Amino Transferase* 31 U/L (12-35); Bilirubin Direct* 0.4 mg/dL (0.0-0.5); Bilirubin Total* 0.7 mg/dL (0.1-1.5); Blood Urea Nitrogen* 7 mg/dL (7-30); Carbon Dioxide* 28 mmol/L (20-32); Creatinine* 0.7 mg/dL (0.5-1.5); Estimated Glomerular Filt Rate 99 ml/min
[2024-10-26 06:59] LABS: Alanine Aminotransferase* 32 U/L (4-35); Calcium* 7.8 mg/dL (8.4-10.6); Glucose* 59 mg/dL (60-115); Phosphorus* 2.4 mg/dL (2.5-4.5)
[2024-10-26 07:01] LABS: C Reactive Protein* 4.5 mg/dL (0.5-1.0)
--- NOTE | 2024-10-26 07:38 | PC.NURSE ---
Pt alert and oriented. Pt HR is tachycardic, 109-119, otherwise vitally stable. Tele reads sinus tachy. Pt rated pain 6-8/10 in abdomen throughout shift, prn morphine given, pt stated improvement. 20 gauge IV placed in right wrist for radiology. Pt moves via stand by assist, tolerates well. Pt continent uses call light appropriately. Pt appears to be resting, the call light within reach. ?
[2024-10-26] MEDS: FUROSEMIDE 40 MG TABLET PO (07:52)
[2024-10-26] MEDS: POTASSIUM CHLORIDE 10 MEQ CAPSULE ER 20 MEQ PO ×2 (09:09→21:04)
[2024-10-26] MEDS: ASPIRIN 81 MG TABLET EC PO (09:09)
[2024-10-26] MEDS: GABAPENTIN 600 MG TABLET PO ×3 (09:09→21:04)
[2024-10-26] MEDS: SUCRALFATE 1 GM TABLET PO ×4 (09:09→21:04)
[2024-10-26] MEDS: SPIRONOLACTONE 100 MG TABLET PO (09:29)
--- NOTE | 2024-10-26 11:40 | PM.GSCN ---
History of Present Illness Consult details Date Seen: 10/26/24 Consult date: 10/26/24 Narrative: Patient presented to the emergency department last night with abdominal pain and distension. She 1st noticed that her abdomen was getting bigger last week when she could not put on her pants. She says even her ?stretchy and largest pants would not fit?. She also noticed swelling in her legs and ankles. She has never had anything like this before. She does not take any diuretics on a normal basis. Along with the distension has been pain all over her abdomen. She cannot point to 1 area that is more painful than another. She denies any associated nausea or vomiting. No reported fevers. She does report a decrease in appetite. She lives in [place], but is currently visiting her cousin here. Her medical history is significant for pancreatic cancer. She had a Whipple performed 2 years ago. She never needed chemotherapy or radiation postoperatively. She is followed regularly by her oncologist down [facility] and is currently seeing her every 6 months. She does have a history of type 2 diabetes. She also reports a recent hospital stay for gastric ulcer. She has never had a paracentesis performed before. She does not take any blood thinners on a daily basis. Review of Systems Status of ROS: Reports: 10 or more systems reviewed and unremarkable except as noted in History and below [facility] Medical History (Updated 10/26/24 @ 01:52 by Yolanda Sanchez MD) Migraines ?G43.909 - Migraine, unspecified, not intractable, without status migrainosus (ICD-10) Chronic pain ?G89.29 - Other chronic pain (ICD-10) Hx of gastric ulcer ?Z87.11 - Personal history of peptic ulcer disease (ICD-10) Pancreatic cancer ?C25.9 - Malignant neoplasm of pancreas, unspecified (ICD-10) Type 2 diabetes mellitus with insulin therapy ?E11.9 - Type 2 diabetes mellitus without complications (ICD-10) ?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 (ICD-10) Surgical History (Updated 10/26/24 @ 01:31 by Yolanda Sanchez MD) History of Whipple procedure ?Z90.410 - Acquired total absence of pancreas (ICD-10) ?Z90.49 - Acquired absence of other specified parts of digestive tract (ICD-10) Social History (Updated 10/25/24 @ 15:05 by Selene Donald MD) What is your current living situation?: I presently have a place to live Problems where you live: no known problems Problems where you live details: none In the past 12 months, utilities in danger of being shut off: no In past 12 months, lack of transportation kept you from medical appts, meetings, work, or getting things needed for daily living: no In the past 12 mos, have been you worried that your food would run out before you had money to buy more?: never true In the past 12 mos, the food you bought just didn't last and you didn't have money to buy more?: never true Smoking Status: Former smoker What tobacco products do you use: cigarettes Smoking packs per day: 2 Smoking cigarettes per day: 40.0 Smoking quit date/years: <= 15 years ago Do you use any of these nicotine containing products: None Second hand tobacco smoke exposure: No How often do you have a drink containing alcohol: never AUDIT-C Alcohol total score: 0 Non-prescribed substance use: denies use How often does anyone, including family, friends and others, physically hurt you: never How often does anyone, including family, friends and others, insult or talk down to you: never How often does anyone, including family, friends and others, threaten you with harm: never How often does anyone, including family, friends and others, scream or curse at you: never service: No Meds Home Medications and Allergies Home Medications ?Medication ?Instructions ?Recorded ?Confirmed ?Type amitriptyline 50 mg tablet 50 mg PO HS 10/25/24 10/25/24 History aspirin 81 mg tablet,delayed 81 mg PO DAILY 10/25/24 10/25/24 History release (Adult Low Dose Aspirin) atorvastatin 40 mg tablet 40 mg PO HS 10/25/24 10/25/24 History cetirizine 10 mg capsule 10 mg PO DAILY PRN 10/25/24 10/25/24 History gabapentin 600 mg tablet 600 mg PO TID 10/25/24 10/25/24 History insulin aspart U-100 100 unit/mL 1 sliding scale dose subcut 10/25/24 10/25/24 History (3 mL) subcutaneous pen (Novolog USEASDIRECTD FlexPen U-100 Insulin aspart) insulin glargine 100 unit/mL (3 20 unit subcut HS 10/25/24 10/25/24 History mL) subcutaneous pen (Lantus Solostar U-100 Insulin) oxycodone 10 mg tablet 10 mg PO TID PRN pain 10/25/24 10/25/24 History pantoprazole 40 mg granules 40 mg PO BID 10/25/24 10/25/24 History delayed-release for susp in packet (Protonix) potassium chloride 10 mEq 10 meq PO BID 10/25/24 10/25/24 History tablet,extended release (Klor-Con) sucralfate 1 gram tablet (Carafate) 1 g PO QID 10/25/24 10/25/24 History topiramate 50 mg tablet (Topamax) 50 mg PO HS 10/25/24 10/25/24 History Allergies Allergy/AdvReac Type Severity Reaction Status Date / Time omeprazole Allergy Vomiting Verified 10/25/24 12:45 Penicillins Allergy Hive Verified 10/25/24 12:45 Exam Narrative: Exam Narrative: General: Alert and oriented, lying in bed. Respiratory: Clear breath sounds bilaterally, maintained on room air CV: Mild tachycardia, well perfused Abdomen: Large, distended abdomen. Generalized edema of tissue. Stretch talamantes of the lower abdomen. Midline incision well healed. Abdomen is nontender to palpation, no guarding or rebound. Positive fluid shift. Extremities: +2 bilateral lower extremity edema. Const: Vital Signs, click to edit/add: Vital Signs - 24 hr 10/25/24 11:45 10/25/24 12:38 10/25/24 12:45 Temperature Pulse Rate 104 H 102 H Pulse Rate [Pulse Oximeter] Respiratory Rate Blood Pressure Blood Pressure [Le ft Arm] Pulse Oximetry 96 93 89 Oxygen Delivery Me thod 10/25/24 13:08 10/25/24 13:09 10/25/24 13:15 Temperature Pulse Rate 101 H 100 103 H Pulse Rate [Pulse Oximeter] Respiratory Rate 16 Blood Pressure 118/75 Blood Pressure [Le ft Arm] Pulse Oximetry 95 97 97 Oxygen Delivery Me thod Room Air 10/25/24 13:30 10/25/24 13:32 10/25/24 13:45 Temperature Pulse Rate 104 H 103 H 104 H Pulse Rate [Pulse Oximeter] Respiratory Rate Blood Pressure 118/71 Blood Pressure [Le ft Arm] Pulse Oximetry 96 95 96 Oxygen Delivery Me thod 10/25/24 14:00 10/25/24 14:02 10/25/24 14:03 Temperature Pulse Rate 108 H 106 H 106 H Pulse Rate [Pulse Oximeter] Respiratory Rate 18 Blood Pressure 114/74 Blood Pressure [Le ft Arm] Pulse Oximetry 96 95 97 Oxygen Delivery Me thod Room Air 10/25/24 15:01 10/25/24 15:02 10/25/24 17:00 Temperature Pulse Rate 111 H 107 H Pulse Rate [Pulse Oximeter] Respiratory Rate 18 18 Blood Pressure 114/73 Blood Pressure [Le ft Arm] Pulse Oximetry 95 95 97 Oxygen Delivery Me thod Room Air Room Air 10/25/24 19:00 10/25/24 23:00 10/25/24 23:00 Temperature 97.1 F L 97.6 F Pulse Rate 109 H Pulse Rate [Pulse Oximeter] 113 H 119 H Respiratory Rate 16 18 Blood Pressure Blood Pressure [Le ft Arm] 124/70 106/59 L Pulse Oximetry 92 94 Oxygen Delivery Me thod Room Air Room Air 10/25/24 23:00 10/26/24 03:00 10/26/24 07:30 Temperature 98.1 F Pulse Rate Pulse Rate [Pulse Oximeter] 119 H 111 H 104 H Respiratory Rate 18 18 18 Blood Pressure Blood Pressure [Le ft Arm] 123/68 118/70 Pulse Oximetry 90 88 Oxygen Delivery Me thod Room Air Room Air Results Labs Labs: Abnormal lab results 10/25/24 10/25/24 10/25/24 Range/Units 11:46 11:48 12:30 RBC 3.78 L (4.00-5.20) m/uL Hgb 11.6 L (12.0-16.0) gm/dL Hct (33.0-51.0) % Lymph % (Auto) 18.3 L (20-44) % INR 1.14 H (0.91-1.10) D-Dimer Quant (PE/DVT) 2.36 H (0.00-0.50) ug/ml VBG pH (7.32-7.43) VBG pO2 (25-47) mmHG Potassium 3.5 L (3.6-5.1) mmol/L Anion Gap (7-15) mEq/L Glucose 127 H (60-115) mg/dL Hemoglobin A1c 6.5 H (0-5.6) % Calcium 8.1 L (8.4-10.6) mg/dL Phosphorus (2.5-4.5) mg/dL GGT 270 H (8-55) U/L AST 39 H (12-35) U/L ALT 41 H (4-35) U/L Alkaline Phosphatase 189 H (40-150) U/L C-Reactive Protein 3.0 H (0.5-1.0) mg/dL Total Protein 5.2 L (6.0-8.3) g/dL Albumin 2.8 L (3.3-5.0) g/dL Urine Protein 2+ A (Negative) Urine Ketones 4+ A (Negative) Urine Bilirubin 2+ A (Negative) Urine Bacteria Few A (None) Urine Mucus Many A (None) Urine Opiates Screen POSITIVE A (Negative) U Tricyclic Antidepress POSITIVE A (Negative) Ethyl Alcohol < 0.01 L (0.01-0.03) % 10/26/24 Range/Units 06:20 RBC 3.39 L (4.00-5.20) m/uL Hgb 10.5 L (12.0-16.0) gm/dL Hct 32.2 L (33.0-51.0) % Lymph % (Auto) (20-44) % INR (0.91-1.10) D-Dimer Quant (PE/DVT) (0.00-0.50) ug/ml VBG pH 7.434 H (7.32-7.43) VBG pO2 61.7 H (25-47) mmHG Potassium 3.2 L (3.6-5.1) mmol/L Anion Gap 3 L (7-15) mEq/L Glucose 59 L (60-115) mg/dL Hemoglobin A1c (0-5.6) % Calcium 7.8 L (8.4-10.6) mg/dL Phosphorus 2.4 L (2.5-4.5) mg/dL GGT (8-55) U/L AST (12-35) U/L ALT (4-35) U/L Alkaline Phosphatase (40-150) U/L C-Reactive Protein 4.5 H (0.5-1.0) mg/dL Total Protein 5.0 L (6.0-8.3) g/dL Albumin 2.7 L (3.3-5.0) g/dL Urine Protein (Negative) Urine Ketones (Negative) Urine Bilirubin (Negative) Urine Bacteria (None) Urine Mucus (None) Urine Opiates Screen (Negative) U Tricyclic Antidepress (Negative) Ethyl Alcohol (0.01-0.03) % Diabetes panel 10/25/24 10/26/24 Range/Units 11:46 06:20 Sodium 136 139 (135-149) mmol/L Potassium 3.5 L 3.2 L (3.6-5.1) mmol/L Chloride 107 108 (96-114) mmol/L Carbon Dioxide 20 28 (20-32) mmol/L BUN 8 7 (7-30) mg/dL Creatinine 0.7 0.7 (0.5-1.5) mg/dL Glucose 127 H 59 L (60-115) mg/dL Hemoglobin A1c 6.5 H (0-5.6) % Calcium 8.1 L 7.8 L (8.4-10.6) mg/dL AST 39 H 31 (12-35) U/L ALT 41 H 32 (4-35) U/L Alkaline Phosphatase 189 H 147 (40-150) U/L Total Protein 5.2 L 5.0 L (6.0-8.3) g/dL Albumin 2.8 L 2.7 L (3.3-5.0) g/dL Thyroid panel 10/25/24 Range/Units 11:48 TSH 1.730 (0.270-4.20) uIU/mL Calcium panel 10/25/24 10/26/24 Range/Units 11:46 06:20 Calcium 8.1 L 7.8 L (8.4-10.6) mg/dL Phosphorus 2.4 L (2.5-4.5) mg/dL Albumin 2.8 L 2.7 L (3.3-5.0) g/dL Pituitary panel 10/25/24 10/25/24 10/26/24 Range/Units 11:46 11:48 06:20 Sodium 136 139 (135-149) mmol/L Potassium 3.5 L 3.2 L (3.6-5.1) mmol/L Chloride 107 108 (96-114) mmol/L Carbon Dioxide 20 28 (20-32) mmol/L BUN 8 7 (7-30) mg/dL Creatinine 0.7 0.7 (0.5-1.5) mg/dL Glucose 127 H 59 L (60-115) mg/dL Calcium 8.1 L 7.8 L (8.4-10.6) mg/dL TSH 1.730 (0.270-4.20) uIU/mL Adrenal panel 10/25/24 10/26/24 Range/Units 11:46 06:20 Sodium 136 139 (135-149) mmol/L Potassium 3.5 L 3.2 L (3.6-5.1) mmol/L Chloride 107 108 (96-114) mmol/L Carbon Dioxide 20 28 (20-32) mmol/L BUN 8 7 (7-30) mg/dL Creatinine 0.7 0.7 (0.5-1.5) mg/dL Glucose 127 H 59 L (60-115) mg/dL Calcium 8.1 L 7.8 L (8.4-10.6) mg/dL Total Bilirubin 0.7 0.7 (0.1-1.5) mg/dL AST 39 H 31 (12-35) U/L ALT 41 H 32 (4-35) U/L Alkaline Phosphatase 189 H 147 (40-150) U/L Total Protein 5.2 L 5.0 L (6.0-8.3) g/dL Albumin 2.8 L 2.7 L (3.3-5.0) g/dL All other labs normal. Imaging Abdomen CT scan report/results: report reviewed and image reviewed General Surgery Procedures Paracentesis Time out performed: Yes Imaging guidance used: Yes Indication: Ascites Procedure: diagnostic paracentesis Location: LLQ Local anesthetic used: lidocaine 1% Bedside ultrasound used: yes, Ascites confirmed and location marked Preparation: sterile prep and drape Amount of fluid obtained (ml): 2,200 Fluid: clear Post procedure exam: awake, alert, normal BP, normal HR and normal SpO2 Patient tolerated procedure: well and no complications Complications: none Progress Note:A&P Assessment and plan (1) Abdominal ascites: Status: Acute Assessment and Plan: Patient is a 59-year-old female with new onset abdominal ascites. Unknown etiology. Hospitalist is requesting a diagnostic and therapeutic paracentesis. Risks of the procedure were discussed with the patient at length. Risks included, but were not limited to: Bleeding, infection and risk of damage to underlying structures. Will plan to use ultrasound guidance. Patient tolerated procedure well. 2200 mL clear serous fluid removed.
[2024-10-26 13:21] LABS: Magnesium* 1.9 mg/dL (1.5-2.6)
--- NOTE | 2024-10-26 14:20 | PM.IMPN1 ---
Progress Note: A&P Assessment and plan (1) Abdominal ascites: Problem details: - ddx: Malignancy, portal hypertension, renal disease - imaging so far reassuring, normal renal function - paracentesis performed 10/26/2024, results pending (treated with albumin postprocedure) - spironolactone and furosemide initiated 10/26/2024, follow electrolytes and vital signs closely Status: Acute (2) Pancreatic cancer: Problem details: - 2 years ago in [place], S/P Whipple - awaiting records Status: Acute (3) Anasarca: Problem details: - per above Status: Acute (4) Dehydration: Problem details: - appeared intravascularly dry on admission, follow fluid balance closely - given albumin pre- and post-paracentesis Status: Acute (5) Hx of gastric ulcer: Problem details: - recent hospitalization for this in August 2024 - need records Status: Acute (6) Type 2 diabetes mellitus with insulin therapy: Problem details: - half dose of home Lantus, accuchecks + SSI - notable hypoglycemic episodes since admission Status: Acute (7) Chronic pain: Problem details: - chronic opioids for everywhere pain - fibro, OA, migraines. Status: Acute Plan - per above - continues to require inpatient management to monitor electrolytes, fluid balance, symptoms Subjective Date Seen: 10/26/24 Interval history: Meron was admitted last night for new anasarca, she is status post Whipple procedure for pancreatic cancer, diagnosed 2 years ago. No history of ascites, no alcohol use. She is visiting family in [place], receives primary care in [place]. We have not yet received her outside records. Lasix and spironolactone initiated this morning. 2200mL taken off via paracentesis with Dr. Mahoney of general surgery today. Overall, Meron feels better today. She has an intermittent dry cough and is wondering about options for management of this. Exam Narrative: Exam Narrative: GEN: Alert and oriented, laying comfortably in bed. Appears pale, but nontoxic HEENT: EOMIs bilaterally, no scleral icterus CV: RRR, No concerning murmurs R: LCTA bilaterally without concerning wheezing Ab:+ fluid wave Ext: wwp, 2+ pitting edema. Erythematous excoriated rash of bilateral feet Skin: No caput medusa, no spider angiomas Neuro: No focal deficits, no resting tremor Psych: Appropriate Const: Vital Signs, click to edit/add: Vital Signs - 24 hr 10/25/24 15:01 10/25/24 15:02 10/25/24 17:00 Temperature Pulse Rate 111 H 107 H Pulse Rate [Pulse Oximeter] Respiratory Rate 18 18 Blood Pressure 114/73 Blood Pressure [Le ft Arm] Pulse Oximetry 95 95 97 Oxygen Delivery Me thod Room Air Room Air 10/25/24 19:00 10/25/24 23:00 10/25/24 23:00 Temperature 97.1 F L 97.6 F Pulse Rate 109 H Pulse Rate [Pulse Oximeter] 113 H 119 H Respiratory Rate 16 18 Blood Pressure Blood Pressure [Le ft Arm] 124/70 106/59 L Pulse Oximetry 92 94 Oxygen Delivery Me thod Room Air Room Air 10/25/24 23:00 10/26/24 03:00 10/26/24 07:30 Temperature 98.1 F Pulse Rate Pulse Rate [Pulse Oximeter] 119 H 111 H 104 H Respiratory Rate 18 18 18 Blood Pressure Blood Pressure [Le ft Arm] 123/68 118/70 Pulse Oximetry 90 88 Oxygen Delivery Me thod Room Air Room Air 10/26/24 07:30 10/26/24 12:12 Temperature 98.1 F Pulse Rate Pulse Rate [Pulse Oximeter] 98 98 Respiratory Rate 18 18 Blood Pressure Blood Pressure [Le ft Arm] 120/75 Pulse Oximetry 91 Oxygen Delivery Me thod Room Air Labs Labs: Laboratory Results - last 24 hr 10/25/24 10/25/24 10/25/24 11:46 11:48 12:30 WBC RBC Hgb Hct MCV MCH MCHC Plt Count INR 1.14 H D-Dimer Quant (PE/DVT) 2.36 H VBG pH VBG pCO2 VBG pO2 VBG HCO3 Sodium Potassium Chloride Carbon Dioxide Anion Gap BUN Creatinine Estimated Creat Clear Estimated GFR Glucose Hemoglobin A1c 6.5 H Calcium Phosphorus Magnesium Total Bilirubin Direct Bilirubin GGT 270 H AST ALT Alkaline Phosphatase Ammonia C-Reactive Protein Total Protein Albumin Amylase 33 TSH 1.730 Urine Opiates Screen POSITIVE A Ur Oxycodone Screen Negative Urine Methadone Screen Negative Ur Barbiturates Screen Negative U Tricyclic Antidepress POSITIVE A Ur Phencyclidine Scrn Negative Ur Amphetamines Screen Negative U Methamphetamines Scrn Negative U Benzodiazepines Scrn Negative Urine Cocaine Screen Negative U Marijuana (THC) Screen Negative Ur Drug Screen Comment See Note Ethyl Alcohol < 0.01 L Lab Acknowledgement 10/25/24 10/25/24 10/25/24 15:14 15:55 16:10 WBC RBC Hgb Hct MCV MCH MCHC Plt Count INR D-Dimer Quant (PE/DVT) VBG pH VBG pCO2 VBG pO2 VBG HCO3 Sodium Potassium Chloride Carbon Dioxide Anion Gap BUN Creatinine Estimated Creat Clear Estimated GFR Glucose Hemoglobin A1c Calcium Phosphorus Magnesium Total Bilirubin Direct Bilirubin GGT AST ALT Alkaline Phosphatase Ammonia 28.9 C-Reactive Protein Total Protein Albumin Amylase TSH Urine Opiates Screen Ur Oxycodone Screen Urine Methadone Screen Ur Barbiturates Screen U Tricyclic Antidepress Ur Phencyclidine Scrn Ur Amphetamines Screen U Methamphetamines Scrn U Benzodiazepines Scrn Urine Cocaine Screen U Marijuana (THC) Screen Ur Drug Screen Comment Ethyl Alcohol Lab Acknowledgement Test Added Test Added 10/25/24 10/26/24 10/26/24 19:09 01:32 06:20 WBC 5.67 RBC 3.39 L Hgb 10.5 L Hct 32.2 L MCV 95 MCH 31 MCHC 33 Plt Count 176 INR D-Dimer Quant (PE/DVT) VBG pH 7.434 H VBG pCO2 41 VBG pO2 61.7 H VBG HCO3 27 Sodium 139 Potassium 3.2 L Chloride 108 Carbon Dioxide 28 Anion Gap 3 L BUN 7 Creatinine 0.7 Estimated Creat Clear 73.80 Estimated GFR 99 Glucose 59 L Hemoglobin A1c Calcium 7.8 L Phosphorus 2.4 L Magnesium 1.9 Total Bilirubin 0.7 Direct Bilirubin 0.4 GGT AST 31 ALT 32 Alkaline Phosphatase 147 Ammonia C-Reactive Protein 4.5 H Total Protein 5.0 L Albumin 2.7 L Amylase TSH Urine Opiates Screen Ur Oxycodone Screen Urine Methadone Screen Ur Barbiturates Screen U Tricyclic Antidepress Ur Phencyclidine Scrn Ur Amphetamines Screen U Methamphetamines Scrn U Benzodiazepines Scrn Urine Cocaine Screen U Marijuana (THC) Screen Ur Drug Screen Comment Ethyl Alcohol Lab Acknowledgement Test Added Test Added 10/26/24 12:52 WBC RBC Hgb Hct MCV MCH MCHC Plt Count INR D-Dimer Quant (PE/DVT) VBG pH VBG pCO2 VBG pO2 VBG HCO3 Sodium Potassium Chloride Carbon Dioxide Anion Gap BUN Creatinine Estimated Creat Clear Estimated GFR Glucose Hemoglobin A1c Calcium Phosphorus Magnesium Total Bilirubin Direct Bilirubin GGT AST ALT Alkaline Phosphatase Ammonia C-Reactive Protein Total Protein Albumin Amylase TSH Urine Opiates Screen Ur Oxycodone Screen Urine Methadone Screen Ur Barbiturates Screen U Tricyclic Antidepress Ur Phencyclidine Scrn Ur Amphetamines Screen U Methamphetamines Scrn U Benzodiazepines Scrn Urine Cocaine Screen U Marijuana (THC) Screen Ur Drug Screen Comment Ethyl Alcohol Lab Acknowledgement Test Added
--- NOTE | 2024-10-26 14:46 | NUTR.NU ---
RDN with diet education related to diabetic and Heart Healthy diet orders. RDN attempted to visit with patient multiple times, however she was not available. RDN will attempt to visit at later date.
[2024-10-26 15:12] LABS: BF Clarity* Clear; BF Color Colorless; BF Total Volume* 25
[2024-10-26 15:13] LABS: Albumin Body Fluid* < 1.0 gm/dL; Glucose Body Fluid* 115 mg/dL; LDH Body Fluid* 63 U/L
[2024-10-26 15:14] LABS: Amylase Body Fluid* < 30 U/L
[2024-10-26 15:23] LABS: Mononuclear WBC Body Fluid* 88 %; Polynuclear WBC Body Fluid* 12 %; RBC, Body Fluid* 0 Cells/uL; WBC, Body Fluid* 102 Cells/uL
[2024-10-26] MEDS: ALBUMIN HUMAN 25% 25 GM/100 ML VIAL IVPB (15:23)
--- NOTE | 2024-10-26 15:54 | PC.NURSE ---
End of Shift: patient pleasant and cooperative, A&O. This morning patients SpO2 was mid 80's on RA. MD notified, oxygen applied, throughout shift patient no longer needed O2, all other VSS. Patients blood sugar this morning was 52, MD notified, snack given, BG then improved for remainder of shift. Paracentesis completed this shift. Patient reports pain in her abdomen this shift, managed with PRN medication, see MAR. LYNN in room.
[2024-10-26 16:53] LABS: Eosinophils Absolute Auto 0.03 K/uL (0.00-0.50); Eosinophils Percent Auto 0.7 % (0.0-7.0); Hematocrit 30.7 % (33.0-51.0); Hemoglobin* 9.9 gm/dL (12.0-16.0); Immature Granulocytes Abs Auto 0.03 K/uL (0.00-0.30); Immature Granulocytes Pct Auto 0.7 %; Lymphocytes Absolute Auto 1.22 K/uL (0.90-2.90); Lymphocytes Percent Auto 26.9 % (20-44); Mean Corpuscular HGB Conc 32 gm/dL (32-36); Mean Corpuscular Hemoglobin 31 pg (26-34); Mean Corpuscular Volume 96 fL (80-100); Monocytes Percent Auto 7.3 % (0.0-11.0); Neutrophils Absolute Auto 2.93 K/uL (1.7-7.0); Neutrophils Percent Auto 64.4 % (42.0-72.0); Platelet Count* 150 K/uL (140-440); RDW Coefficient of Variation % 14.3 % (11.5-15.5); Red Blood Count 3.19 m/uL (4.00-5.20); White Blood Count* 4.54 K/uL (4.50-11.00)
[2024-10-26 17:10] LABS: Chloride* 105 mmol/L (96-114); Slide Review Reflex No
[2024-10-26 17:11] LABS: Potassium* 3.3 mmol/L (3.6-5.1); Sodium* 139 mmol/L (135-149)
[2024-10-26 17:13] LABS: Anion Gap 6 mEq/L (7-15); Blood Urea Nitrogen* 7 mg/dL (7-30); Carbon Dioxide* 28 mmol/L (20-32); Creatinine* 0.6 mg/dL (0.5-1.5); Estimated Glomerular Filt Rate 103 ml/min; Lactate Dehydrogenase* 235 U/L (120-246); Total Protein* 5.1 g/dL (6.0-8.3)
[2024-10-26 17:14] LABS: Calcium* 7.9 mg/dL (8.4-10.6); Glucose* 125 mg/dL (60-115)
[2024-10-26] MEDS: ATORVASTATIN CALCIUM 40 MG TABLET PO (21:04)
[2024-10-26] MEDS: ENOXAPARIN 40 MG/0.4 ML INJ SUBCUT (21:04)
[2024-10-26] MEDS: AMITRIPTYLINE 25 MG TABLET 50 MG PO (21:04)
[2024-10-26] MEDS: TOPIRAMATE 50 MG TABLET PO (21:04)
[2024-10-26] MEDS: SODIUM CHLORIDE 0.9 % (FLUSH) 10 ML SYRINGE 5 ML IVF (21:05)
--- NOTE | 2024-10-26 22:43 | PC.NURSE ---
Pt alert ad oriented. Pt up with SBA. Pt had complaints of pain ranging from 7.5-8; see EMAR for intervention. Per MD Pt?s long acting insulin held this evening d/t low blood sugars this morning after previous nights administration. ?
[2024-10-27] VITALS (7 sets, daily range): BP systolic 103–115; BP diastolic 63–70; PULSE 92–106; RESP 14–20; TEMP 36.3–36.6; O2SAT 90–95
[2024-10-27] MEDS: OXYCODONE 5 MG TABLET 10 MG PO ×3 (02:25→21:43)
[2024-10-27] MEDS: 0.9 % SODIUM CHLORIDE 1000 ml 1,000 ML 100 ML IV (02:26)
[2024-10-27 04:01] LABS: CDIFFEPI 027 PRESUMPTIVE NEGATIVE (Negative)
[2024-10-27 04:36] LABS: C.Difficile POSITIVE (Negative)
[2024-10-27] MEDS: ACETAMINOPHEN 650 MG TABLET ER 1300 MG PO ×3 (05:10→21:42)
[2024-10-27 06:27] LABS: HCO3 VBG 28 mmol/L (21-28); PCO2 VBG 44 mmHG (40-50); PO2 VBG 46.5 mmHG (25-47); pH VBG 7.419 (7.32-7.43)
[2024-10-27 06:35] LABS: Basophils Percent Auto 0.2 % (0.0-3.0); Eosinophils Percent Auto 1.5 % (0.0-7.0); Hematocrit 32.1 % (33.0-51.0); Hemoglobin* 10.3 gm/dL (12.0-16.0); Immature Granulocytes Pct Auto 0.5 %; Lymphocytes Percent Auto 31.2 % (20-44); Mean Corpuscular HGB Conc 32 gm/dL (32-36); Mean Corpuscular Hemoglobin 31 pg (26-34); Mean Corpuscular Volume 96 fL (80-100); Monocytes Percent Auto 10.2 % (0.0-11.0); Neutrophils Percent Auto 56.4 % (42.0-72.0); Platelet Count* 157 K/uL (140-440); RDW Coefficient of Variation % 14.5 % (11.5-15.5); Red Blood Count 3.33 m/uL (4.00-5.20); White Blood Count* 4.13 K/uL (4.50-11.00)
[2024-10-27 06:43] LABS: Slide Review Reflex No
--- NOTE | 2024-10-27 06:44 | PC.NURSE ---
Addendum entered by Sarah Peacock RN 10/27/24 06:52: Pt requested TEDs be removed at 0300 this morning. Original Note: End of shift summary: Pt has been A&O, afebrile and VSS. She is SBA/Ax1 with gait belt for ambulation. She was a little off balance beginning of the shift but gained steadiness throughout the night. Independent bed mobility. Pt started having urgent loose stools overnight; C. Diff tested POSITIVE. Enhanced contact precautions initiated. LLQ paracentesis band-aid has some bloody drainage on it; may be removed in the morning. Pt reports abdominal pain at 7.5/10. PIV in right FA infusing NS @ 100 mL/hr. PIV in right hand SL and C/D/I. TELE has been SR- ST rate being in the 90s-1teens. PRN oxycodone given once @ 0225. ?
[2024-10-27 06:55] LABS: Albumin* 2.5 g/dL (3.3-5.0); Chloride* 107 mmol/L (96-114)
[2024-10-27 06:56] LABS: Potassium* 3.5 mmol/L (3.6-5.1); Sodium* 138 mmol/L (135-149)
[2024-10-27 06:58] LABS: Creatinine* 0.5 mg/dL (0.5-1.5); Est. Creatinine Clearance* 103.32; Estimated Glomerular Filt Rate 107 ml/min
[2024-10-27 06:59] LABS: Alanine Aminotransferase* 27 U/L (4-35); Alkaline Phosphatase* 132 U/L (40-150); Anion Gap 2 mEq/L (7-15); Aspartate Amino Transferase* 30 U/L (12-35); Bilirubin Direct* 0.3 mg/dL (0.0-0.5); Bilirubin Total* 0.8 mg/dL (0.1-1.5); Blood Urea Nitrogen* 7 mg/dL (7-30); Calcium* 7.5 mg/dL (8.4-10.6); Carbon Dioxide* 29 mmol/L (20-32); Gamma Glutamyl Transpeptidase* 228 U/L (8-55); Glucose* 116 mg/dL (60-115); Magnesium* 1.8 mg/dL (1.5-2.6); Phosphorus* 1.9 mg/dL (2.5-4.5); Total Protein* 4.8 g/dL (6.0-8.3)
[2024-10-27 07:02] LABS: C Reactive Protein* 4.9 mg/dL (0.5-1.0)
[2024-10-27 07:12] LABS: INR 1.26 (0.91-1.10); Prothrombin Time 16.7 Seconds; Troponin I* < 0.01 ng/mL (0.01-0.04)
[2024-10-27] MEDS: POTASSIUM CHLORIDE 10 MEQ CAPSULE ER 20 MEQ PO ×2 (09:04→20:38)
[2024-10-27] MEDS: FUROSEMIDE 40 MG TABLET PO (09:04)
[2024-10-27] MEDS: GABAPENTIN 600 MG TABLET PO ×3 (09:05→20:39)
[2024-10-27] MEDS: SPIRONOLACTONE 100 MG TABLET PO (09:05)
[2024-10-27] MEDS: SUCRALFATE 1 GM TABLET PO ×4 (09:05→20:38)
[2024-10-27] MEDS: ASPIRIN 81 MG TABLET EC PO (09:05)
[2024-10-27] MEDS: SODIUM CHLORIDE 0.9 % (FLUSH) 10 ML SYRINGE 5 ML IVF ×2 (09:06→20:39)
[2024-10-27] MEDS: VANCOMYCIN 125 MG CAPSULE PO ×4 (09:06→20:59)
--- NOTE | 2024-10-27 09:58 | PM.IMPN1 ---
Progress Note: A&P Assessment and plan (1) Abdominal ascites: Problem details: - new September 2024 - ddx: Malignancy (most likely), portal hypertension, renal disease - imaging so far reassuring, normal renal function - paracentesis performed 10/26/2024, cytology and culture pending. Initial Gram Stain reassuring - spironolactone and furosemide initiated 10/26/2024, follow electrolytes and vital signs closely - no evidence of SBP (afebrile, reassuring WBC) Status: Acute (2) Pancreatic cancer: Problem details: - 03/2022: pT3N1 tumor of pancreatic head, s/p Whipple Status: Acute (3) C. difficile diarrhea: Problem details: - first episode, + 10/26/24 - oral Vancomycin - diarrhea improving on medication Status: Acute (4) Dehydration: Problem details: - appeared intravascularly dry on admission, low dose IVFs initiated - given albumin pre- and post-paracentesis - stop IVFs on 10/27 to ensure patient can remain hydrated on oral intake Status: Acute (5) Type 2 diabetes mellitus with insulin therapy: Problem details: - half dose of home Lantus (at home takes 20U, was admitted on 10U), accuchecks + SSI on admission - notably has had lower blood sugars during stay, decreasing Lantus again to 5U 10/27 - last A1C 7.28 Feb 2024 per records Status: Acute (6) Chronic pain: Problem details: - chronic opioids for everywhere pain - fibro, OA, migraines - per chart review on Gabapentin 600mg TID and Oxycodone 10mg TID prn (congruent with Med Rec) Status: Acute (7) Hx of gastric ulcer: Problem details: - recent hospitalization for this in August 2024, was not noted in records - stable Hgb, normal BUN - continue PPI Status: Acute Plan - per above - if diarrhea remains stable, and electrolytes/VS remain stable on current diuretic regimen, likely d/c in 1-2 days Subjective Date Seen: 10/27/24 Interval history: Meron was admitted on 10/25 for new anasarca, s/p Whipple procedure for pancreatic cancer, diagnosed 2 years ago. No history of ascites, no alcohol use. She is visiting family in [place], receives primary care and Oncology Care in [place]. Lasix and spironolactone initiated 10/26. 2200mL taken off via paracentesis with Dr. Mahoney of General Surgery on 10/26. Initial Gram Stain negative, culture and cytology pending. Last night, had diarrhea and + C diff. Diarrhea is intermittent, not copious. Tolerating po intake and continues to feel a little better every day. Working with therapies. Exam Narrative: Exam Narrative: GEN: Alert and oriented, laying comfortably in bed. Appears chronically ill but not toxic HEENT: EOMIs bilaterally, no scleral icterus CV: RRR, No concerning murmurs R: LCTA bilaterally without concerning wheezing, air movement adequate Ab: Positive fluid wave, mild discomfort with palpation, no rebound or guarding Ext: 1-2+ bilateral lower extremity edema Neuro: Nonfocal Psych: Appropriate Const: Vital Signs, click to edit/add: Vital Signs - 24 hr 10/26/24 12:12 10/26/24 14:54 10/26/24 15:00 Temperature 98.1 F Pulse Rate 100 96 Pulse Rate [Pulse Oximeter] 98 Respiratory Rate 18 Blood Pressure [Le ft Arm] 120/75 Pulse Oximetry 91 Oxygen Delivery Me thod Room Air 10/26/24 15:40 10/26/24 15:40 10/26/24 15:40 Temperature 97.3 F L Pulse Rate Pulse Rate [Pulse Oximeter] 97 97 Respiratory Rate 20 20 20 Blood Pressure [Le ft Arm] 115/74 Pulse Oximetry 90 91 Oxygen Delivery Me thod Room Air Room Air 10/26/24 16:04 10/26/24 20:07 10/26/24 23:30 Temperature 98.7 F Pulse Rate 118 H Pulse Rate [Pulse Oximeter] 106 H Respiratory Rate 20 20 Blood Pressure [Le ft Arm] 124/85 Pulse Oximetry 91 95 Oxygen Delivery Me thod Room Air Room Air 10/26/24 23:30 10/26/24 23:30 10/26/24 23:30 Temperature 98 F Pulse Rate Pulse Rate [Pulse Oximeter] 116 H 116 H Respiratory Rate 18 18 18 Blood Pressure [Le ft Arm] 119/69 Pulse Oximetry 92 92 Oxygen Delivery Me thod Room Air Room Air 10/27/24 03:07 10/27/24 07:41 10/27/24 08:59 Temperature 97.5 F L 97.3 F L Pulse Rate 92 Pulse Rate [Pulse Oximeter] 99 102 H Respiratory Rate 20 14 Blood Pressure [Le ft Arm] 104/65 103/66 Pulse Oximetry 90 92 Oxygen Delivery Me thod Room Air Room Air Labs Labs: Laboratory Results - last 24 hr 10/26/24 10/26/24 10/26/24 06:20 12:52 14:05 WBC RBC Hgb Hct MCV MCH MCHC RDW Coeff of Konstantin Plt Count Neut % (Auto) Lymph % (Auto) [place] % (Auto) Eos % (Auto) Baso % (Auto) Neut # (Auto) Lymph # (Auto) [place] # (Auto) Eos # (Auto) Baso # (Auto) Abs Immat Gran (auto) Imm/Tot Granulo (auto) INR VBG pH VBG pCO2 VBG pO2 VBG HCO3 Sodium Potassium Chloride Carbon Dioxide Anion Gap BUN Creatinine Estimated Creat Clear Estimated GFR Glucose Calcium Phosphorus Magnesium 1.9 Total Bilirubin Direct Bilirubin GGT AST ALT Alkaline Phosphatase Lactate Dehydrogenase Troponin I C-Reactive Protein Total Protein Albumin Fluid Volume 25 Fluid Color Colorless Fluid Appearance Clear Fluid WBC 102 Fluid RBC 0 Fluid Polynuclear WBCs 12 Fluid Mononuclear WBCs 88 Fluid Glucose 115 Fluid Total Protein 2.0 Fluid Albumin < 1.0 Fluid LDH 63 Fluid Amylase < 30 Stl C. diff Tox B Gene Stl C. diff [id number]-[id number] Lab Acknowledgement Test Added 10/26/24 10/26/24 10/26/24 16:34 16:34 16:34 WBC 4.54 RBC 3.19 L Hgb 9.9 L Hct 30.7 L MCV 96 MCH 31 MCHC 32 RDW Coeff of Konstantin 14.3 Plt Count 150 Neut % (Auto) 64.4 Lymph % (Auto) 26.9 [place] % (Auto) 7.3 Eos % (Auto) 0.7 Baso % (Auto) 0.0 Neut # (Auto) 2.93 Lymph # (Auto) 1.22 [place] # (Auto) 0.30 Eos # (Auto) 0.03 Baso # (Auto) 0.00 Abs Immat Gran (auto) 0.03 Imm/Tot Granulo (auto) 0.7 INR VBG pH VBG pCO2 VBG pO2 VBG HCO3 Sodium 139 Potassium 3.3 L Chloride 105 Carbon Dioxide 28 Anion Gap 6 L BUN 7 Creatinine 0.6 Estimated Creat Clear 86.10 Estimated GFR 103 Glucose 125 H Calcium 7.9 L Phosphorus Magnesium Total Bilirubin Direct Bilirubin GGT AST ALT Alkaline Phosphatase Lactate Dehydrogenase Cancelled 235 Troponin I C-Reactive Protein Total Protein Cancelled 5.1 L Albumin Fluid Volume Fluid Color Fluid Appearance Fluid WBC Fluid RBC Fluid Polynuclear WBCs Fluid Mononuclear WBCs Fluid Glucose Fluid Total Protein Fluid Albumin Fluid LDH Fluid Amylase Stl C. diff Tox B Gene Stl C. diff NAP1-BI Lab Acknowledgement 10/27/24 10/27/24 03:06 06:10 WBC 4.13 L RBC 3.33 L Hgb 10.3 L Hct 32.1 L MCV 96 MCH 31 MCHC 32 RDW Coeff of Konstantin 14.5 Plt Count 157 Neut % (Auto) 56.4 Lymph % (Auto) 31.2 [place] % (Auto) 10.2 Eos % (Auto) 1.5 Baso % (Auto) 0.2 Neut # (Auto) 2.30 Lymph # (Auto) 1.30 [place] # (Auto) 0.40 Eos # (Auto) 0.10 Baso # (Auto) 0.00 Abs Immat Gran (auto) 0.00 Imm/Tot Granulo (auto) 0.5 INR 1.26 H VBG pH 7.419 VBG pCO2 44 VBG pO2 46.5 VBG HCO3 28 Sodium 138 Potassium 3.5 L Chloride 107 Carbon Dioxide 29 Anion Gap 2 L BUN 7 Creatinine 0.5 Estimated Creat Clear 103.32 Estimated GFR 107 Glucose 116 H Calcium 7.5 L Phosphorus 1.9 L Magnesium 1.8 Total Bilirubin 0.8 Direct Bilirubin 0.3 GGT 228 H AST 30 ALT 27 Alkaline Phosphatase 132 Lactate Dehydrogenase Troponin I < 0.01 L C-Reactive Protein 4.9 H Total Protein 4.8 L Albumin 2.5 L Fluid Volume Fluid Color Fluid Appearance Fluid WBC Fluid RBC Fluid Polynuclear WBCs Fluid Mononuclear WBCs Fluid Glucose Fluid Total Protein Fluid Albumin Fluid LDH Fluid Amylase Stl C. diff Tox B Gene POSITIVE A* Stl C. diff -NAP1-BI PRESUMPTIVE NEGATIVE Lab Acknowledgement
--- NOTE | 2024-10-27 11:51 | NUTR.NU ---
RDN with diet education related to diet orders. Patient admitted with guera, now C.Diff positive. Current weight 174lb 12.8oz; height 5ft 4in; BMI 30.0 kg/m2. Patient reports her usual weight is about 145 lbs, and attributes her weight gain to fluid. A1c 10/25/2024 - 6.5%. Current diet is Diabetic and Heart Healthy. Meal intakes since admit have been adequate at 50%+. RDN visited with patient whom reports knowing what she can and cannot have related to diabetes. RDN offered diet education related to diabetes and heart health, however patient declined at this time. No nutrition interventions with adequate intakes. Patient was encouraged to call with questions. Will continue to monitor.
--- NOTE | 2024-10-27 18:56 | PC.NURSE ---
End of Shift [id number]: Patient pleasant and cooperative. Patient vitally stable, lungs with crackles and diminished, BS WNL, IV SL and intact. Patient has rated abdominal pain 7-10/10, scheduled tylenol given and 10mg of oxy given once. Patient tolerating regular diet, urinating well, and has multiple loose stool, although patient did report stools are beginning to become more formed. Patient independent in room. Blood sugars 112, 124, and 138. Patient left side abdominal dressing C/D/I with scant old blood.
[2024-10-27] MEDS: ATORVASTATIN CALCIUM 40 MG TABLET PO (20:39)
[2024-10-27] MEDS: AMITRIPTYLINE 25 MG TABLET 50 MG PO (20:39)
[2024-10-27] MEDS: TOPIRAMATE 50 MG TABLET PO (20:39)
[2024-10-27] MEDS: INSULIN ASPART 100 UNIT/ML SUBCUT (20:54)
[2024-10-27] MEDS: INSULIN GLARGINE,HUM.REC.ANLOG 100 UNIT/ML INSULN.PEN SUBCUT (20:58)
[2024-10-27] MEDS: ENOXAPARIN 40 MG/0.4 ML INJ SUBCUT (20:59)
[2024-10-28] VITALS (11 sets, daily range): BP systolic 106–133; BP diastolic 60–76; PULSE 97–104; RESP 16–18; TEMP 36.5–36.8; O2SAT 90–94
[2024-10-28] MEDS: ACETAMINOPHEN 650 MG TABLET ER 1300 MG PO ×3 (05:47→23:34)
[2024-10-28 07:14] LABS: Basophils Absolute Auto 0.01 K/uL (0.00-0.30); Basophils Percent Auto 0.2 % (0.0-3.0); Eosinophils Absolute Auto 0.08 K/uL (0.00-0.50); Eosinophils Percent Auto 1.4 % (0.0-7.0); Immature Granulocytes Abs Auto 0.03 K/uL (0.00-0.30); Immature Granulocytes Pct Auto 0.5 %; Lymphocytes Absolute Auto 1.49 K/uL (0.90-2.90); Lymphocytes Percent Auto 25.6 % (20-44); Mean Corpuscular HGB Conc 31 gm/dL (32-36); Mean Corpuscular Hemoglobin 31 pg (26-34); Mean Corpuscular Volume 98 fL (80-100); Monocytes Percent Auto 9.8 % (0.0-11.0); Neutrophils Absolute Auto 3.65 K/uL (1.7-7.0); Neutrophils Percent Auto 62.5 % (42.0-72.0); Platelet Count* 176 K/uL (140-440); RDW Coefficient of Variation % 14.4 % (11.5-15.5); Red Blood Count 3.59 m/uL (4.00-5.20); White Blood Count* 5.83 K/uL (4.50-11.00)
[2024-10-28 07:18] LABS: Slide Review Reflex No
[2024-10-28 07:39] LABS: Albumin* 2.6 g/dL (3.3-5.0)
[2024-10-28 07:40] LABS: Chloride* 105 mmol/L (96-114); Potassium* 4.2 mmol/L (3.6-5.1); Sodium* 135 mmol/L (135-149)
[2024-10-28 07:42] LABS: Anion Gap 0 mEq/L (7-15); Aspartate Amino Transferase* 25 U/L (12-35); Bilirubin Total* 0.9 mg/dL (0.1-1.5); Carbon Dioxide* 30 mmol/L (20-32); Creatinine* 0.6 mg/dL (0.5-1.5); Estimated Glomerular Filt Rate 103 ml/min
[2024-10-28 07:43] LABS: Alanine Aminotransferase* 25 U/L (4-35); Alkaline Phosphatase* 141 U/L (40-150); Blood Urea Nitrogen* 10 mg/dL (7-30); Calcium* 8.1 mg/dL (8.4-10.6); Glucose* 113 mg/dL (60-115); Magnesium* 1.8 mg/dL (1.5-2.6); Phosphorus* 1.5 mg/dL (2.5-4.5); Total Protein* 4.9 g/dL (6.0-8.3)
--- NOTE | 2024-10-28 07:54 | PC.NURSE ---
Pt is alert and oriented x3. Afebrile. Pt reports 4-8/10 abdominal pain, managed with scheduled and PRN medications. Pt was on room air throughout night. Pt's posterior base lung sounds have fine crackles. Pt is up IND in room, voiding, and tolerating a therapeutic diet. No BM overnight.
[2024-10-28] MEDS: ASPIRIN 81 MG TABLET EC PO (08:55)
[2024-10-28] MEDS: GABAPENTIN 600 MG TABLET PO ×3 (08:55→21:38)
[2024-10-28] MEDS: POTASSIUM CHLORIDE 10 MEQ CAPSULE ER 20 MEQ PO ×2 (08:55→21:38)
[2024-10-28] MEDS: SUCRALFATE 1 GM TABLET PO ×4 (08:55→21:38)
[2024-10-28] MEDS: FUROSEMIDE 40 MG TABLET PO (08:55)
[2024-10-28] MEDS: VANCOMYCIN 125 MG CAPSULE PO ×4 (08:56→21:37)
[2024-10-28] MEDS: SPIRONOLACTONE 100 MG TABLET PO (09:00)
[2024-10-28] MEDS: SODIUM CHLORIDE 0.9 % (FLUSH) 10 ML SYRINGE 5 ML IVF ×2 (09:00→21:42)
[2024-10-28] MEDS: INSULIN ASPART 100 UNIT/ML SUBCUT ×2 (11:29→17:04)
[2024-10-28 11:57] LABS: Hep A Ab, IgM Negative (Negative); Hep B Core Ab, IgM Negative (Negative); Hep B Surface Antigen Negative (Negative); Hep C Ab by CIA Index 0.07 IV; Hep C Ab by CIA Interp Negative (Negative)
--- NOTE | 2024-10-28 12:38 | PM.IMPN1 ---
Progress Note: A&P Assessment and plan (1) Abdominal ascites: Problem details: - new September 2024 - ddx: Malignancy (most likely), portal hypertension, renal disease - imaging so far reassuring, normal renal function - paracentesis performed 10/26/2024, cytology and culture pending. Initial Gram Stain reassuring - spironolactone and furosemide initiated 10/26/2024, electrolytes and VSS - no evidence of SBP (afebrile, reassuring WBC) Status: Acute (2) Pancreatic cancer: Problem details: - 03/2022: pT3N1 tumor of pancreatic head, s/p Whipple Status: Acute (3) C. difficile diarrhea: Problem details: - first episode, + 10/26/24 - oral Vancomycin - diarrhea improving on medication Status: Acute (4) Dehydration: Problem details: - appeared intravascularly dry on admission, low dose IVFs initiated - given albumin pre- and post-paracentesis - stop IVFs on 10/27 to ensure patient can remain hydrated on oral intake Status: Acute (5) Type 2 diabetes mellitus with insulin therapy: Problem details: - half dose of home Lantus (at home takes 20U, was admitted on 10U), accuchecks + SSI on admission - notably has had lower blood sugars during stay, decreasing Lantus again to 5U 10/27 - last A1C 7.28 Feb 2024 per records Status: Acute (6) Chronic pain: Problem details: - chronic opioids for everywhere pain - fibro, OA, migraines - per chart review on Gabapentin 600mg TID and Oxycodone 10mg TID prn (congruent with Med Rec) Status: Acute (7) Hx of gastric ulcer: Problem details: - recent hospitalization for this in August 2024, was not noted in records - stable Hgb, normal BUN - continue PPI Status: Acute Plan - per above - plan to d/c tomorrow Subjective Date Seen: 10/28/24 Interval history: Meron was admitted on 10/25 for new anasarca, s/p Whipple procedure for pancreatic cancer, diagnosed 2 years ago. Source of ascites unknown (presumably 2/2 malignancy). No history of ascites, no alcohol use. Visiting her cousin in [place], receives primary care and Oncology Care in [place]. 2200mL of fluid taken off via paracentesis with Dr. Mahoney of General Surgery on 10/26. Initial Gram Stain negative, culture and cytology still pending. Not on antibiotics. VSS, afebrile. Lasix and spironolactone initiated 10/26. Had diarrhea on 10/26, + C Diff. Tolerating oral Vancomycin with improvement in diarrhea. Working with therapies; close to baseline, still having discomfort with movement. Exam Narrative: Exam Narrative: GEN: Alert and oriented, sitting in bed comfortably HEENT: EOMIs bilaterally, no scleral icterus CV: RRR, No concerning murmurs R: LCTA bilaterally without concerning wheezing Ab: Soft, + fluid wave, mild discomfort, no rebound or guarding Ext: 2+ BLE edema, stable Skin: Excoriated skin rash B feet, stable and unchanged Neuro: Nonfocal Psych: Appropriate Const: Vital Signs, click to edit/add: Vital Signs - 24 hr 10/27/24 16:36 10/27/24 16:36 10/27/24 16:36 Temperature 97.9 F Pulse Rate Pulse Rate [Pulse Oximeter] 106 H 106 H Respiratory Rate 16 16 16 Blood Pressure [Le ft Arm] 115/63 Pulse Oximetry 92 92 Oxygen Delivery Me thod Room Air Room Air 10/27/24 18:48 10/27/24 20:32 10/28/24 00:05 Temperature 97.3 F L Pulse Rate 104 H 97 Pulse Rate [Pulse Oximeter] 103 H Respiratory Rate 18 Blood Pressure [Le ft Arm] 103/67 Pulse Oximetry 91 Oxygen Delivery Me thod Room Air 10/28/24 00:05 10/28/24 00:50 10/28/24 05:48 Temperature 98.0 F 97.7 F Pulse Rate Pulse Rate [Pulse Oximeter] 102 H 102 H Respiratory Rate 16 16 18 Blood Pressure [Le ft Arm] 108/60 107/70 Pulse Oximetry 90 90 93 Oxygen Delivery Me thod Room Air Room Air Room Air 10/28/24 07:00 10/28/24 08:50 10/28/24 08:50 Temperature 98 F Pulse Rate 100 Pulse Rate [Pulse Oximeter] 103 H 103 H Respiratory Rate 16 16 Blood Pressure [Le ft Arm] 117/76 Pulse Oximetry 94 Oxygen Delivery Me thod Room Air 10/28/24 08:50 10/28/24 11:32 Temperature 98.1 F Pulse Rate Pulse Rate [Pulse Oximeter] Respiratory Rate 16 16 Blood Pressure [Le ft Arm] 108/66 Pulse Oximetry 94 92 Oxygen Delivery Me thod Room Air Room Air Labs Labs: Laboratory Results - last 24 hr 10/25/24 10/28/24 11:46 06:35 WBC 5.83 RBC 3.59 L Hgb 11.0 L Hct 35.0 MCV 98 MCH 31 MCHC 31 L RDW Coeff of Konstantin 14.4 Plt Count 176 Neut % (Auto) 62.5 Lymph % (Auto) 25.6 [place] % (Auto) 9.8 Eos % (Auto) 1.4 Baso % (Auto) 0.2 Neut # (Auto) 3.65 Lymph # (Auto) 1.49 [place] # (Auto) 0.60 Eos # (Auto) 0.08 Baso # (Auto) 0.01 Abs Immat Gran (auto) 0.03 Imm/Tot Granulo (auto) 0.5 Sodium 135 Potassium 4.2 Chloride 105 Carbon Dioxide 30 Anion Gap 0 L BUN 10 Creatinine 0.6 Estimated Creat Clear 86.10 Estimated GFR 103 Glucose 113 Calcium 8.1 L Ionized Calcium Debi 1.10 L Phosphorus 1.5 L Magnesium 1.8 Total Bilirubin 0.9 AST 25 ALT 25 Alkaline Phosphatase 141 Total Protein 4.9 L Albumin 2.6 L Hepatitis A IgM Ab Negative Hep Bs Antigen Negative Hep B Core IgM Ab Negative Hep C Ab Index (ALEJA) 0.07 Hep C Ab Interp ALEJA Negative Hepatitis Interpret See Note
[2024-10-28] MEDS: CALCIUM GLUC 1,000MG/50 ML 1,000 MG/50 ML BAG 100 MG IVPB (13:32)
--- NOTE | 2024-10-28 18:39 | PC.NURSE ---
End of Shift [id number]: Patient pleasant and cooperative. Patient vitally stable, lungs diminished and with fine crackles, BS WNL, IV SL and intact. Patient independent in room. Patient rates abdominal pain 7/10, only scheduled tylenol given. Patient abdominal wound dry and intact with only scant blood. Patient urinating well and had an incontinent large loose BM. Patient tolerating diet. Blood sugars 93, 200, and 108. Tele=NSR.
[2024-10-28] MEDS: ATORVASTATIN CALCIUM 40 MG TABLET PO (21:37)
[2024-10-28] MEDS: AMITRIPTYLINE 25 MG TABLET 50 MG PO (21:38)
[2024-10-28] MEDS: TOPIRAMATE 50 MG TABLET PO (21:39)
[2024-10-28] MEDS: ENOXAPARIN 40 MG/0.4 ML INJ SUBCUT (21:40)
[2024-10-28] MEDS: INSULIN GLARGINE,HUM.REC.ANLOG 100 UNIT/ML INSULN.PEN SUBCUT (21:41)
[2024-10-28] MEDS: OXYCODONE 5 MG TABLET 10 MG PO (21:45)
[2024-10-29 04:20] VITALS: BP 111/68; PULSE 102; RESP 20; TEMP 36.6; O2SAT 96
[2024-10-29 07:02] LABS: Basophils Absolute Auto 0.01 K/uL (0.00-0.30); Basophils Percent Auto 0.2 % (0.0-3.0); Eosinophils Absolute Auto 0.11 K/uL (0.00-0.50); Eosinophils Percent Auto 1.7 % (0.0-7.0); Hematocrit 34.9 % (33.0-51.0); Hemoglobin* 11.1 gm/dL (12.0-16.0); Immature Granulocytes Abs Auto 0.02 K/uL (0.00-0.30); Immature Granulocytes Pct Auto 0.3 %; Lymphocytes Absolute Auto 1.71 K/uL (0.90-2.90); Lymphocytes Percent Auto 27.2 % (20-44); Mean Corpuscular HGB Conc 32 gm/dL (32-36); Mean Corpuscular Hemoglobin 31 pg (26-34); Mean Corpuscular Volume 97 fL (80-100); Monocytes Percent Auto 10.8 % (0.0-11.0); Neutrophils Absolute Auto 3.76 K/uL (1.7-7.0); Neutrophils Percent Auto 59.8 % (42.0-72.0); Platelet Count* 178 K/uL (140-440); RDW Coefficient of Variation % 14.3 % (11.5-15.5); White Blood Count* 6.29 K/uL (4.50-11.00)
[2024-10-29 07:03] LABS: Slide Review Reflex No
[2024-10-29] MEDS: ACETAMINOPHEN 650 MG TABLET ER 1300 MG PO (07:06)
[2024-10-29 07:22] LABS: Albumin* 2.6 g/dL (3.3-5.0); Chloride* 107 mmol/L (96-114)
[2024-10-29 07:23] LABS: Potassium* 3.9 mmol/L (3.6-5.1); Sodium* 137 mmol/L (135-149)
[2024-10-29 07:25] LABS: Alkaline Phosphatase* 140 U/L (40-150); Anion Gap 4 mEq/L (7-15); Aspartate Amino Transferase* 27 U/L (12-35); Bilirubin Total* 0.7 mg/dL (0.1-1.5); Blood Urea Nitrogen* 9 mg/dL (7-30); Carbon Dioxide* 26 mmol/L (20-32); Creatinine* 0.6 mg/dL (0.5-1.5); Estimated Glomerular Filt Rate 103 ml/min; Glucose* 78 mg/dL (60-115); Total Protein* 4.9 g/dL (6.0-8.3)
[2024-10-29 07:26] LABS: Alanine Aminotransferase* 27 U/L (4-35); Calcium* 8.3 mg/dL (8.4-10.6)
--- NOTE | 2024-10-29 07:33 | PC.NURSE ---
Pt is alert and oriented x3. Afebrile. Pt reports 6-8/10 abdominal pain, managed with scheduled and PRN medications. Pt reports baseline pain at home is 6-8/10. Pt's posterior base lung sounds continue to have fine crackles, pt is on room air maintaining O2 stats of 90% and higher. Tele is showing sinus tachycardia. Pt is up IND in room, voiding, and tolerating a therapeutic diet. ?
[2024-10-29 08:04] VITALS: PULSE 104
--- NOTE | 2024-10-29 08:29 | P.DS_ITS ---
DS: Providers Provider Date Seen: 10/29/24 Date of admission: 10/25/24 20:09 Primary care physician: Not a Local Provider Admitting Clinician: Yolanda Sanchez MD Consults: OT, PT, SW Attending Physician on discharge: Yolanda Sanchez MD Date of Discharge: 10/29/24 DS: Diagnosis Discharge Diagnosis (1) Abdominal ascites: Status: Acute Problem details: - September 2024 - ddx: Malignancy (most likely), portal hypertension, renal disease - renal function and electrolytes stable, reassuring imaging - paracentesis performed 10/26/2024, cytology and culture pending upon discharge. Initial Gram Stain reassuring - spironolactone and furosemide initiated 10/26/2024, electrolytes and VSS and patient is appropriate for d/c on 10/29/24 - no evidence of SBP (afebrile, reassuring WBC, NGTD on fluid culture) (2) Pancreatic cancer: Status: Acute Problem details: - 03/2022: pT3N1 tumor of pancreatic head, s/p Whipple (3) C. difficile diarrhea: Status: Acute Problem details: - first episode, + 10/26/24 - oral Vancomycin - diarrhea improving on medication, stable on d/c (4) Dehydration: Status: Acute Problem details: - appeared intravascularly dry on admission, low dose IVFs initiated - given albumin pre- and post-paracentesis - stopped IVFs on 10/27 to ensure patient can remain hydrated on oral intake (5) Type 2 diabetes mellitus with insulin therapy: Status: Acute Problem details: - half dose of home Lantus (at home takes 20U, was admitted on 10U), accuchecks + SSI on admission - notably has had lower blood sugars during stay, decreasing Lantus again to 5U 10/27 - last A1C 7.28 Feb 2024 per records - on discharge, will start at 5U of Lantus and increase as po intake improves (6) Chronic pain: Status: Acute Problem details: - chronic opioids for everywhere pain - fibro, OA, migraines - per chart review on Gabapentin 600mg TID and Oxycodone 10mg TID prn (congruent with Med Rec) (7) Hx of gastric ulcer: Status: Acute Problem details: - recent hospitalization for this in August 2024, was not noted in records - stable Hgb, normal BUN - continue PPI DS: Summary Hospital Course Hospital Course: Meron was admitted on 10/25 for new anasarca, s/p Whipple procedure for pancreatic cancer, diagnosed in 2021. Source of ascites unknown (presumably 2/2 malignancy). No history of ascites, no alcohol use. Visiting her cousin in [place], receives primary care and Oncology Care in [place]. 2200mL of fluid taken off via paracentesis with Dr. Mahoney of General Surgery on 10/26. Initial Gram Stain negative, culture and cytology still pending upon discharge, did not require any antibiotics during stay. VSS, afebrile during stay. Lasix and spironolactone initiated 10/26, tolerated diuresis with stable VS and electrolytes. Noted diarrhea on 10/26, + C Diff. Tolerating oral Vancomycin with improvement in diarrhea. Worked with therapies during stay, walker recommended, no other further therapy needs identified. Status at Discharge Functional status at discharge: uses cane/walker Overall status at discharge: patient is progressing back to baseline Time Spent with Patient Time attestation: Total time spent providing and/or coordinating discharge services: Time spent: Greater than 30 minutes Specific discharge activities: Med rec, patient education Exam Narrative: Exam Narrative: GEN: Alert and oriented, nontoxic HEENT: EOMIs bilaterally, no scleral icterus CV: RRR, No concerning murmurs R: LCTA bilaterally without concerning wheezing Ab: + fluid wave, mild ttp Ext: 2-3+ edema, stable Neuro: Nonfocal Psych: Appropriate Const: Vital Signs, click to edit/add: Vital Signs - 24 hr 10/28/24 08:50 10/28/24 08:50 10/28/24 08:50 Temperature 98 F Pulse Rate Pulse Rate [Pulse Oximeter] 103 H 103 H Respiratory Rate 16 16 16 Blood Pressure [Le ft Arm] 117/76 Pulse Oximetry 94 94 Oxygen Delivery Me thod Room Air Room Air 10/28/24 11:32 10/28/24 15:00 10/28/24 16:52 Temperature 98.1 F 98.3 F Pulse Rate 99 Pulse Rate [Pulse Oximeter] 100 Respiratory Rate 16 18 Blood Pressure [Le ft Arm] 108/66 122/66 Pulse Oximetry 92 94 Oxygen Delivery Me thod Room Air Room Air 10/28/24 16:52 10/28/24 16:52 10/28/24 22:12 Temperature 97.9 F Pulse Rate Pulse Rate [Pulse Oximeter] 100 100 Respiratory Rate 18 18 18 Blood Pressure [Le ft Arm] 133/67 Pulse Oximetry 94 93 Oxygen Delivery Me thod Room Air Room Air 10/28/24 23:00 10/28/24 23:00 10/28/24 23:36 Temperature 97.9 F Pulse Rate Pulse Rate [Pulse Oximeter] 101 H 104 H Respiratory Rate 18 18 18 Blood Pressure [Le ft Arm] 106/76 Pulse Oximetry 91 92 Oxygen Delivery Me thod Room Air Room Air 10/29/24 04:20 Temperature 97.8 F Pulse Rate Pulse Rate [Pulse Oximeter] 102 H Respiratory Rate 20 Blood Pressure [Le ft Arm] 111/68 Pulse Oximetry 96 Oxygen Delivery Me thod Room Air DS: Data Data Completed and Pending Labs on day of discharge: Labs from last 24 hours 10/29/24 10/25/24 06:47 11:46 WBC 6.29 RBC 3.60 L Hgb 11.1 L Hct 34.9 MCV 97 MCH 31 MCHC 32 RDW Coeff of Konstantin 14.3 Plt Count 178 Neut % (Auto) 59.8 Lymph % (Auto) 27.2 [place] % (Auto) 10.8 Eos % (Auto) 1.7 Baso % (Auto) 0.2 Neut # (Auto) 3.76 Lymph # (Auto) 1.71 [place] # (Auto) 0.70 Eos # (Auto) 0.11 Baso # (Auto) 0.01 Abs Immat Gran (auto) 0.02 Imm/Tot Granulo (auto) 0.3 Sodium 137 Potassium 3.9 Chloride 107 Carbon Dioxide 26 Anion Gap 4 L BUN 9 Creatinine 0.6 Estimated Creat Clear 86.10 Estimated GFR 103 Glucose 78 Calcium 8.3 L Magnesium 2.0 Total Bilirubin 0.7 AST 27 ALT 27 Alkaline Phosphatase 140 Total Protein 4.9 L Albumin 2.6 L Hepatitis A IgM Ab Negative Hep Bs Antigen Negative Hep B Core IgM Ab Negative Hep C Ab Index (ALEJA) 0.07 Hep C Ab Interp ALEJA Negative Hepatitis Interpret See Note Preliminary micro results at discharge 10/26/24 14:05 Body Fluid Culture - Preliminary Peritoneal Fluid NO GROWTH AFTER 48 HOURS Discharge Plan Discharge Disposition: Home, Self-Care Date of Admission: 10/25/24 20:09 Attending Provider on Discharge: Beryl Bourne Primary Care Provider: Provider,Not a Local Condition: Improved Anticipated Discharge Date/Time: 10/29/24 08:03 Discharge Medications: New furosemide 40 mg Tablet 40 mg PO DAILY@0800 Qty: 30 0RF potassium chloride 10 mEq Capsule, Extended Release 20 meq PO BID Qty: 60 0RF spironolactone 100 mg Tablet 100 mg PO DAILY Qty: 30 0RF vancomycin 125 mg Capsule 125 mg PO QID 14 Days Qty: 56 0RF Continued topiramate [Topamax] 50 mg tablet 50 mg PO HS atorvastatin 40 mg tablet 40 mg PO HS pantoprazole [Protonix] [address] for susp in packet 40 mg PO BID sucralfate [Carafate] 1 gram tablet 1 g PO QID gabapentin 600 mg tablet 600 mg PO TID amitriptyline 50 mg tablet 50 mg PO HS cetirizine 10 mg capsule 10 mg PO DAILY PRN insulin aspart U-100 [Novolog FlexPen U-100 Insulin] 100 unit/mL (3 mL) insulin pen 1 sliding scale dose subcut USEASDIRECTD insulin glargine [Lantus Solostar U-100 Insulin] 100 unit/mL (3 mL) insulin pen 20 unit subcut HS aspirin [Adult Low Dose Aspirin] 81 mg tablet,delayed release (DR/EC) 81 mg PO DAILY oxycodone 10 mg tablet 10 mg PO TID PRN (Reason: pain) Discontinued potassium chloride [Klor-Con 10] 10 mEq tablet extended release 10 meq PO BID Discharge Orders: Discharge Order (Routine); Ordered 10/29/24 Ordered By: Beryl Bourne Patient Education: Spironolactone (By mouth), Furosemide (By mouth) (Lasix), Potassium Chloride (By mouth), Vancomycin (By mouth), C. Diff (Clostridioides Difficile) Infection (DC), Ascites (DC) Additional Instructions: New medications at [facility]: 1. SPIRONOLACTONE (diuretic) - take in the morning 2. FUROSEMIDE/LASIX (diuretic) - take in morning with Spironolactone 3. POTASSIUM twice/day 4. VANCOMYCIN (antibiotic for C-Diff) - take FOUR times/day For your insulin: start with 5U at night, increase back up to 20U as your sugars increase and you are eating normally. See one of our providers as scheduled with labs. Activity Level: Activity as Tolerated Discharge Diet: 2 gm Sodium Follow Up Appointments: Provider,Not a Local [Primary Care Provider] - (needs an appointment + BMP at [facility] the week of Nov 02 - any available provider) Medardo Dee MD [Staff Physician] - 11/02/24 9:45 am ([facility] for follow-up and BMP.) Forms: [employer] Info Instructions
[2024-10-29 08:39] VITALS: BP 106/68; PULSE 107; RESP 16; TEMP 36.6; O2SAT 96
[2024-10-29] MEDS: SPIRONOLACTONE 100 MG TABLET PO (08:40)
[2024-10-29] MEDS: ASPIRIN 81 MG TABLET EC PO (08:40)
[2024-10-29] MEDS: FUROSEMIDE 40 MG TABLET PO (08:40)
[2024-10-29] MEDS: SUCRALFATE 1 GM TABLET PO (08:40)
[2024-10-29] MEDS: GABAPENTIN 600 MG TABLET PO (08:40)
[2024-10-29] MEDS: VANCOMYCIN 125 MG CAPSULE PO (08:40)
[2024-10-29] MEDS: POTASSIUM CHLORIDE 10 MEQ CAPSULE ER 20 MEQ PO (08:40)
== END 2024-10-29 13:05 | disposition home or self-care (01) | DRG 948 ==
LOC: ED 11:59 → MEDSURG 15:15
PROVIDERS: Family Medicine; Admitting Provider Family Medicine; Emergency Provider Family Medicine; Visit Provider Family Medicine
DX: R18.8 Other ascites (principal); C25.9 Malignant neoplasm of pancreas, unspecified; A04.72 Enterocolitis due to Clostridium difficile, not specified as recurrent; E86.0 Dehydration; E11.9 Type 2 diabetes mellitus without complications; Z79.4 Long term (current) use of insulin; Z87.11 Personal history of peptic ulcer disease; G89.29 Other chronic pain; G43.909 Migraine, unspecified, not intractable, without status migrainosus; Z90.49 Acquired absence of other specified parts of digestive tract; Z90.410 Acquired total absence of pancreas
CPT/HCPCS: 36415; 49083; 71046; 71275; 74177; 80048; 80053; 80069; 80074; 80076; 80306; 81001; 82042; 82077; 82140; 82150; 82330; 82803; 82945; 82962; 82977; 83036; 83605; 83615; 83690; 83735; 83880; 84100; 84155; 84157; 84443; 84484; 85025; 85027; 85379; 85610; 86140; 87070; 87086; 87205; 87493; 88112; 88305; 89051; 93005; 93306; 94664; 94761; 97116; 97162; 97165; 97530; 97535; 99284; 99285; A9270; J0613; J1650; J1815; J1940; J2270; J2405; J2470; J7030; P9047; Q9967

== ENCOUNTER 2024-11-02 10:33 | Outpatient (CLI) | payer MEDICARE, SELFPAY | END 2024-11-02 10:34 | disposition home or self-care (01) | LOC: LKVREF 10:34 | PROVIDERS: Visit Provider Family Medicine | DX: Z13.21 Encounter for screening for nutritional disorder (principal) | CPT/HCPCS: 82607 ==

== ENCOUNTER 2025-02-05 10:15 | Outpatient (CLI) | payer MEDICARE, SELFPAY | END 2025-02-05 10:16 | disposition home or self-care (01) | LOC: NFLDREF 02-09 01:56 | PROVIDERS: PCP Family Medicine; Referring Provider Family Medicine; Visit Provider Family Medicine | DX: K74.60 Unspecified cirrhosis of liver (principal); E60 Dietary zinc deficiency; E55.9 Vitamin D deficiency, unspecified; E56.0 Deficiency of vitamin E; E50.9 Vitamin A deficiency, unspecified | CPT/HCPCS: 82306; 84446; 84590; 84630 ==

== ENCOUNTER 2025-02-26 14:06 | Outpatient (CLI) | payer MEDICARE, SELFPAY | END 2025-02-26 14:07 | disposition home or self-care (01) | LOC: LKVREF 14:06 | PROVIDERS: PCP Family Medicine; Visit Provider Family Medicine | DX: C25.0 Malignant neoplasm of head of pancreas (principal) | CPT/HCPCS: 80053 ==

== ENCOUNTER 2025-03-10 10:41 | Outpatient (CLI) | payer MEDICARE, SELFPAY ==
[2025-03-10 10:47] VITALS: BP 98/61; PULSE 94; RESP 16; O2SAT 100
== END 2025-03-10 11:56 | disposition home or self-care (01) ==
LOC: US 10:42
PROVIDERS: PCP Family Medicine; Visit Provider Internal Medicine
DX: R18.8 Other ascites (principal); K74.60 Unspecified cirrhosis of liver
CPT/HCPCS: 76705

== ENCOUNTER 2025-03-20 11:52 | Emergency (ER) | payer MEDICARE, SELFPAY ==
--- OUTSIDE RECORDS SUMMARY | 2025-03-20 11:55 | XMS_ITS | Encounter Summary ---
Author Organization [facility] Address [address] [facility] [place] [address] Care Team Providers Care Carbon Paper Machine Operator Name Role Phone Aaron Annia Primary Care Provider [phone] Yoly Michelle MD Unavailable Sofi Josue MD Unavailable [phone] Shaista Rivero MD Unavailable Jamal Liriano MD Unavailable Sagar Whaley MD Unavailable [phone] Encounter Details Date Type Department Care Team (Late st Contact Info) Description 02/19/2025 Orders Only [facility] - Hematology/Oncology [address] [place] [address] Sofi Josue MD [address] [facility] [address] [place] [address] Primary pancreatic neuroendocrine tumor (HCC) Social History Tobacco Use Types Packs/Day Years Used Date Smoking Tobacco: Former Cigarettes Q uit: 01/02/2023 Smokeless Tobacco: Never Alcohol Use Standard Drinks/Week Comments Not Currently 0 (1 standard drink = 0.6 oz pur e alcohol) AUDIT-C Answer Date Recorded Q1: How often do you have a drink containing alcohol? Never 09/21/2024 Q2: How many drinks containi ng alcohol do you have on a typical day when you are drinking? Patient does not drink Q3: How often do you have si x or more drinks on one occasion? Never 09/21/2024 PHQ-2 Answer Date Recorded Patient Health Questionnaire-2 Score 0 12/28/2024 Hunger Vital Sign Answer Date Recorded Within the past 12 months, y ou worried that your food would run out before you got the money to buy more. Sometimes true Within the past 12 months, t he food you bought just didn't last and you didn't have money to get more. Sometimes true Comments No Sex and Gender Information Value Date Recorded Sex Assigned at Female 10/13/2020 10:25 AM UNIX SYSTEMS ADMINISTRATOR Legal Sex Female 1:13 PM CDT Gender Identity Female 10/13/2020 10:25 AM UNIX SYSTEMS ADMINISTRATOR Sexual Orientation Straight 10/13/2020 10 :25 AM UNIX SYSTEMS ADMINISTRATOR documented as of this encounter Functional Status * Is person deaf or have serious hearing difficulty? Answer Date of Assessment Author No 09/21/2024 1:39 PM Maegan Ramos RN * Is person blind or have serious difficulty seeing? Answer Date of Assessment Author No 09/21/2024 1:39 PM Maegan Ramos RN * Does person have serious difficulty walking/climbing stairs? Answer Date of Assessment Author No 09/21/2024 1:39 PM Maegan Ramos RN * Does person have difficulty dressing/bathing? Answer Date of Assessment Author No 09/21/2024 1:39 PM Maegan Ramos RN * Does person have difficulty doing errands alone? Answer Date of Assessment Author No 09/21/2024 1:39 PM Maegan Ramos RN documented as of this encounter Mental Status * Does person have difficulty concentrating/remembering/making decisions? 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, any site documented in this encounter Care Teams Carbon Paper Machine Operator Relationship Specialty Start Date End Date Annia Walker DO [address] [place] [id number] PCP - General Family Medicine 06/20/20 Yoly Michelle MD [address] [place] [address] General Surgery 03/08/22 Sofi Josue MD [address] [place] [address] Hematology and Oncology 08/30/22 Shaista Rivero MD [address] [place] [address] Surgical Oncology 08/30/22 Jamal Liriano MD [address] [place] [address] Physician Endocrinology 06/24/23 Sagar Whaley MD [address] [place] [address] Gastroenterology 09/28/24 documented as of this encounter
--- OUTSIDE RECORDS SUMMARY | 2025-03-20 11:55 | XMS_ITS | Encounter Summary ---
Author Organization [facility] Address [address] [place] [address] Care Team Providers Care General Assignment Reporter Name Role Phone Elsewhere, Pcp Primary Care Provider Unavailabl e Reason for Visit * Reason Onset Date Comments Appt Request 02/22/2025 Encounter Details Date Type Department Care Team (Latest Contact Info) Description 02/22/2025 Clinical Communication Division of Gastroenterology in [place], [place] [address] [place] [phone] Inder Joshi III, M.D., Ph.D. [address] [place] [phone] Appt Request Social History Tobacco Use Types Packs/Day Years Used Date Smoking Tobacco: Former Cigarettes Smokeless Tobacco: Never Alcohol Use Standard Drinks/Week Comments Not Currently 0 (1 standard drink = 0.6 oz pur e alcohol) [facility] Utilities Answer Date Recorded In the past 12 months has [employer], gas, oil, or water [employer] threatened to shut off services in your home? No 12/30/2024 Humiliation, Afraid, Rape, and Kick questionnair e Answer Date Recorded Within the last year, have y ou been afraid of your partner or ex-partner? No 12/30/2024 Within the last year, have y ou been humiliated or emotionally abused in other ways by your partner or ex-partner? No Within the last year, have y ou been kicked, hit, slapped, or otherwise physically hurt by your partner or ex-partner? No 12/30/2024 Within the last year, have y ou been raped or forced to have any kind of sexual activity by your partner or ex-partner? No 12/30/2024 Hunger Vital Sign Answer Date Recorded Within the past 12 months, y ou worried that your food would run out before you got the money to buy more. Never true 12/31/19 25 Within the past 12 months, t he food you bought just didn't last and you didn't have money to get more. Never true 12/30/2024 PRAPARE - Transportation Answer Date Re corded In the past 12 months, has l ack of transportation kept you from medical appointments or from getting medications? No 02/2025 In the past 12 months, has l ack of transportation kept you from meetings, work, or from getting things needed for daily living? No 12/30/2024 Dental Answer Date Recorded Dental: Regular Dentist Unknown 10/26/20 Housing Stability Answer Date Recorded What is your living situation today? I have a [facility] place to live 12/30/2024 Comments Unknown Sex and Gender Information Value Date Recorded Sex Assigned at Not on file Legal Sex Female 2:54 PM CONVEYOR WORKER Gender Identity Not on file Sexual Orientation Not on file documented as of this encounter Plan of Treatment Upcoming Encounters Date Type Department Care Team (Latest Contact Info) Description 03/31/2025 11:00 AM CDT Appointment Department of Laboratory Medicine in [address] [phone] Katiana Carson M.D. 200 [place] [address] 03/31/2025 11:30 AM CDT Comprehensive Visit Department of Cardiovascular Diseases in [address] [address] Paul Fairbanks M.D. 200 [place] [address] Discharge Disposition: Home or Self Care 04/22/2025 8:30 AM CDT Telemedicine Department of Endocrinology in [place], [place] [address] [place] [phone] Verito Becker MPAS, P.A.-C., P.A. [address], [place] [address] Raj Gardner M.D. [address] [place] [phone] 05/28/2025 8:00 AM CDT Clinical Communication Virtual Review in [place], [place] 200 [place] [address] 05/31/2025 4:00 PM CDT Office Visit Division of Gastroenterology in [place], [place] [address] [place] [phone] Ranjan Anderson M.D., M.P.H. [address] [place] [phone] documented as of this encounter Visit Diagnoses Not on filedocumented in this encounter Care Teams General Assignment Reporter Relationship Specialty Start Date End Date Elsewhere, Pcp PCP - General Internal Medicine 01/27/25 documented as of this encounter
--- OUTSIDE RECORDS SUMMARY | 2025-03-20 11:55 | XMS_ITS | Encounter Summary ---
Author Organization [facility] Address [address] [place] [address] Care Team Providers Care Auction Assistant Name Role Phone Elsewhere, Pcp Primary Care Provider Unavailabl e Encounter Details Date Type Department Care Team (Late st Contact Info) Description 01/19/2025 Clinical Communication Pharmacy Prior Auth PAIGE [phone] Franca Wilson Social History Tobacco Use Types Packs/Day Years Used Date Smoking Tobacco: Former Cigarettes Smokeless Tobacco: Never Alcohol Use Standard Drinks/Week Comments Not Currently 0 (1 standard drink = 0.6 oz pur e alcohol) [facility] Utilities Answer Date Recorded In the past 12 months has e [employer], gas, oil, or water [employer] threatened to shut off services in your [...] your living situation today? I have a [facility] place to live 12/30/2024 Comments Unknown Sex and Gender Information Value Date Recorded Sex Assigned at Not on file Legal Sex Female 2:54 PM FORESTRY HUNTER Gender Identity Not on file Sexual Orientation Not on file documented as of this encounter Plan of Treatment Upcoming Encounters Date Type Department Care Team (Latest Contact Info) Description 03/31/2025 11:00 AM CDT Appointment Department of Laboratory Medicine in [address] [address] Katiana Carson M.D. [address] [place] [phone] 03/31/2025 11:30 AM CDT Comprehensive Visit Department of Cardiovascular Diseases in [address] [phone] Paul Fairbanks M.D. [address] [place] [phone] Discharge Disposition: Home or Self Care 04/22/2025 8:30 AM CDT Telemedicine Department of Endocrinology in [place] [address] [place] [phone] Verito Becker, [facility], [facility] P.A[facility] [address] [address] Raj Gardner M.D. [address] [place] [phone] 05/28/2025 8:00 AM CDT Clinical Communication Virtual Review in [place], [place] [address] [place] [address] 05/31/2025 4:00 PM CDT Office Visit Division of Gastroenterology in [place], [place] [address] [place] [phone] Ranjan Anderson M.D., M.P.H. [address] [place] [phone] documented as of this encounter Visit Diagnoses Not on filedocumented in this encounter Care Teams Auction Assistant Relationship Specialty Start Date End Date Elsewhere, Pcp PCP - General Internal Medicine 01/27/25 documented as of this encounter
--- OUTSIDE RECORDS SUMMARY | 2025-03-20 11:55 | XMS_ITS | Clinical Summary ---
Author Organization [facility] Address [address] [place] [address] Care Team Providers Care Upset Welding Machine Operator Name Role Phone No, Physician Primary Care Provider [phone] Allergies Active Allergy Reactions Criticality Noted Date Comments Penicillins Urticaria Medium 06/20/2020 Medications aspirin 81 mg enteric coated tablet Take 1 tablet (81 mg total) by mouth nightly Active vitamin B complex tablet extended release Take 1 tablet by mouth daily Active lancets misc 1 each by Not Applicable route 4 (four) times a day 3 Active magnesium oxide 300 mg magnesium tablet Take 30 mg by mouth daily Active amitriptyline (ELAVIL) 50 mg tablet Take 1 tablet (50 mg total) by mouth every evening Active atorvastatin (LIPITOR) 40 mg tablet Take 1 tablet (40 mg total) by mouth nightly Active Dexcom G7 Sensor device USE 1 EVERY 10 DAYS 4 Active cetirizine (ZyrTEC) 10 mg tablet Take 1 tablet (10 mg total) by mouth daily 4 Active glucose 4 gram chewable tablet Take 3 tablets (12 g total) by mouth as needed 4 Active ergocalciferol (VITAMIN D) 50,000 unit capsule Take 1 capsule (50,000 Units total) by mouth once a week 4 Active fluconazole (DIFLUCAN) 200 mg tablet 1 tablet (200 mg total) 4 Active gabapentin (NEURONTIN) 600 mg tablet Take 1 tablet (600 mg total) by mouth 3 (three) times a day Active NovoLOG 100 unit/mL (3 mL) pen for injection Inject 8-12 Units under the skin 4 Active LANTUS 100 unit/mL (3 mL) pen for injection Inject 20 Units under the skin nightly 4 Active Creon 36,000-114,000 - 180,000 unit capsule TAKE 1 (ONE) CAPSULE BY MOUTH 3 TIMES DAILY WITH MEALS REASONS: PANCREATIC INSUFFICIENCY 4 Active naloxone (Narcan) 4 mg/actuation spray,non-aero nicole Call 911. Administer a single spray of NARCAN in one nostril. Repeat every 2-3 minutes as needed if no or minimal response. 3 Active ondansetron (ZOFRAN) 4 mg tablet Take 1 tablet (4 mg total) by mouth every 6 (six) hours as needed 3 Active oxyBUTYnin (DITROPAN) 5 mg tablet Take 1 tablet (5 mg total) by mouth 3 (three) times a day as needed 4 Active oxyCODONE (ROXICODONE) 10 mg tablet Take 1 tablet (10 mg total) by mouth 3 (three) times a day as needed 4 Active Insupen Pen Needle 32 gauge x 5/32 needle Inject 1 each as directed 4 (four) times a day 4 Active polyethylene glycol (MIRALAX) 17 gram/dose bulk powder Take 17 g by mouth daily 4 Active potassium chloride ER 10 mEq CR tablet TAKE 1 (ONE) TABLET BY MOUTH 2 TIMES DAILY Active tiZANidine (ZANAFLEX) 4 mg tablet Take 1 tablet (4 mg total) by mouth every 8 (eight) hours as needed 4 Active topiramate (TOPAMAX) 50 mg tablet Take 1 tablet (50 mg total) by mouth daily 4 Active Active Problems Problem Noted Date Diagnosed Date Vitreous syneresis of both eyes 08/20/2024 Assessment & Plan (08/20/2024 9:19 AM CDT): With new onset of floaters in the right eye approximately 2 weeks ago, fortunately without tear or detachment of the retina today. Recommend observation. We will re-evaluate in roughly 2 or 3 weeks. Should all remains stable, we will spread out her visits Age-related nuclear cataract of both eyes 2023 Assessment & Plan (08/20/2024 9:20 AM CDT): With some mild significant changes, considering her good vision however recommend observation. 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 Type 2 diabetes mellitus wit hout complication, with long-term current use of insulin 08/20/2024 Assessment & Plan (08/20/2024 9:21 AM CDT): Without any significant diabetic retinopathy, recommend observation. Medical History Medical History Date Comments Fatigue Loss of appetite H/O heart artery stent Diabetes (HCC) Headache Numerous moles Pancreatic cancer (HCC) Social History Tobacco Use Types Packs/Day Years Used Date Smoking Tobacco: Former Cigarettes Tobacco Cessation:Counseling Given: Not Answered AUDIT-C Answer Date Recorded Q1: How often do you have a drink containing alc ohol? Never 08/20/2024 Average Number of Drinks Not on file 024 Frequency of Binge Drinking Not on file 07/29 Personal Safety Answer Date Recorded Getting School Help Needed Not on file 05/12 Comments Unknown Sex and Gender Information Value Date Recorded Sex Assigned at Not on file Legal Sex Female 1:19 PM CDT Gender Identity Not on file Sexual Orientation Not on file Obstetrics History Plan of Treatment Health Maintenance Due Date Last Done Comments Albumin Creatinine Ratio, Urine 1964 Cervical Cancer Screening 1964 Colon Cancer Screening-Colonoscopy 1964 Depression Screening 1964 Hepatitis C Screening 1964 eGFR 1964 Foot Exam 1964 Lipid Panel 1964 Hepatitis B Screening 1982 Regular Well Visit/Exam 18-64 1982 Hemoglobin A1C 09/21/2023 03/21/2023, 06/29, 03/31/2022, Additional history exists Covid-19 Vaccine (2023- 5 season) 2024 04/28/2024, 06/24/2023, 08/15/2022, Additional history exists Breast Cancer Screening-Mammogram 05/14/2025 024, 05/14/2024 Influenza Vaccine (Season Ended) 2025 06/27/20 23 Dilated Eye Exam 08/20/2025 08/20/2024 DTaP/Tdap/Td Vaccine (2 - Td or Tdap) 05/15/2033 05/15/2023 Pneumococcal vaccine <65 Completed 07/17/2023 Zoster Vaccine Completed 07/17/2023, 05/15/2023 Insurance [employer] HMO PPO [employer] MEDICARE ADVANTAGE Care Teams Upset Welding Machine Operator Relationship Specialty Start Date End Date No, Physician PCP - General 08/10/24
--- OUTSIDE RECORDS SUMMARY | 2025-03-20 11:55 | XMS_ITS | Encounter Summary ---
Author Organization [facility] Address [address] [place] [address] Care Team Providers Care Marble Installation Helper Name Role Phone Annia Walker DO Primary Care Provider [phone] Yoly Michelle MD Unavailable Sofi Josue MD Unavailable [phone] Shaista Rivero MD Unavailable Jamal Liriano MD Unavailable Sagar Whaley MD Unavailable [phone] Reason for Visit * Reason Comments Refill Request Encounter Details Date Type Department Care Team (Late st Contact Info) Description 02/03/2025 Refill [facility] - Family Medicine [address] [place] [address] nAnia Walker DO [address] [place] [phone] Refill Request Social History Tobacco Use Types Packs/Day [...] Sex Assigned at Female 10/13/2020 10:25 AM WAREHOUSE CONSULTANT Legal Sex Female 1:13 PM CDT Gender Identity Female 10/13/2020 10:25 AM WAREHOUSE CONSULTANT Sexual Orientation Straight 10/13/2020 10 :25 AM WAREHOUSE CONSULTANT documented as of this encounter Functional Status [...] Maegan Ramos RN documented in this encounter Miscellaneous Notes * Telephone Encounter - Angelika Ferrara LPN - 02/03/2025 3:49 PM CDT DOES NOT MEET PROTOCOL - SENT TO PROVIDER FOR REVIEW- Lipitor Potassium Last Office Visit with PCP: 11/11/2023 04/14/2024 PHOTOGRAPHIC EQUIPMENT ASSEMBLER [place] Acute- Allergies/Cough Last Video Visit with PCP: Visit date not found Next Appointment with PCP: Visit date not found Follow-up: Not Indicated Date of last refill: 10/12/2024 Please advise Recent Labs Component Name 12/25/24 0618 12/24/24 0540 12/23/24 0435 ALT 23 31 30 AST 31 38* 36* Recent Labs Component Name 05/17/21 0825 07/08/20 1142 CHOL 153 130 TRIG 262* 141 HDL 41 39* LDLCALC 60 63 Recent Labs Component Name 12/25/2418 12/24/24 0540 12/23/24 0435 SODIUM 132* 133* 136 POTASSIUM 3.1* 3.2* 3.5 CHLORIDE 104 104 108* CO2 21* 21* 15* BUN 13 13 15 CREATININE 0.77 0.84 0.79 GLUCOSE 141* 199* 120* CALCIUM 7.5* 7.4* 7.3* BP Readings from Last 3 Encounters: 12/25/24 112/68 11/16/24 107/67 09/25/24 115/74 --------- 12/03/2024 appt CANCELLED 11/17/2024 appt CANCELLED by office 10/01/2024 appt CANCELLED --------- MyChart message sent to patient at this time to schedule appointment. documented in this encounter Plan of Treatment Not on file documented as of this encounter Visit Diagnoses Not on filedocumented in this encounter Care Teams Marble Installation Helper Relationship Specialty Start Date End Date Annia Walker DO [address] [place] [address] PCP - General Family Medicine 06/20/20 Yoly Michelle MD [address] [place] [address] General Surgery 03/08/22 Sofi Josue MD [address] [address] Hematology and Oncology 08/30/22 Shaista Rivero MD [address] [place] [address] Surgical Oncology 08/30/22 Jamal Liriano MD [address] [place] [address] Physician Endocrinology 06/24/23 Sagar Whaley MD [address] [place] [address] Gastroenterology 09/28/24 documented as of this encounter
--- OUTSIDE RECORDS SUMMARY | 2025-03-20 11:55 | XMS_ITS ---
Author Organization [facility] Address [address] [place] [address] Care Team Providers Care Munitions Worker Name Role Phone Annia Walker DO Primary Care Provider [phone] Yoly Michelle MD Unavailable Sofi Josue MD Unavailable [phone] Shaista Rivero MD Unavailable Jamal Liriano MD Unavailable Sagar Whaley MD Unavailable [phone] Active Problems Problem Noted Date Diagnosed Date Anasarca 12/22/2024 FTT (failure to thrive) in adult 12/22/2024 Community acquired pneumonia of left lower lobe of lung 12/22/2024 NSTEMI (non-ST elevated myocardial infarction) 1 11/21/2023 Chest pain, unspecified type 09/21/2024 Metabolic dysfunction-associ ated steatotic liver disease (MASLD) 07/12/2024 Overview (07/12/2024): 07/09/24 Fibroscan CAP 372, LSM 64.3 kPa Metastatic cancer to intra-abdominal lymph nodes 04/14/2024 Overview (04/14/2024): ABD 01/2024 Unchanged 8 mm short axis para-aortic lymph node (series 3 image 106). Neuroendocrine tumor 03/30/2022 Dizziness 03/08/2022 Hypotension 03/08/2022 Dilation of pancreatic duct 01/12/2022 Kidney stone 10/13/2021 Left flank pain 10/13/2021 Long-term insulin use 08/16/2021 Overview (08/16/2021): 08/16/2021 Novolin Gastroparesis due to secondary diabetes 08/16/20 Erosive gastritis due to bile reflux 08/17/2020 Overview (05/30/2021): Dr. Whaley/GI 07/2020, 04/2021 History of myocardial infarction Migraine Hypertension Hyperlipidemia Gastroesophageal reflux disease without esophagi tis Diabetes mellitus CAD (coronary artery disease) Current Treatment and Therapy Plans No current plan information found. Past Treatment and Therapy Plans No past plan information found. Lifetime Dose Tracking * Chemical Lifetime Dose Automatic Entry Manual Entr y Dose Length Product 3,862.4 mGy-cm 3,862.4 mGy-cm 0 mG y-cm Resolved Problems Problem Noted Date Diagnosed Date Resolved Date Acute pancreatitis without i nfection or necrosis 01/12/2022 04/14/2024 Nausea and vomiting 05/26/2021 04/14/20 24
--- OUTSIDE RECORDS SUMMARY | 2025-03-20 11:55 | XMS_ITS | Clinical Summary ---
Author Organization [facility] [employer] Address [address] [place] [address] Care Team Providers Care Outreach Director Name Role Phone Annia Walker DO Primary Care Provider Yoly Michelle MD Unavailable Sofi Josue MD Unavailable [phone] Shaista Rivero MD Unavailable [phone] Jamal Liriano MD Unavailable Sagar Whaley MD Unavailable [phone] Source Comments [facility],non-owned Affiliates and Associated Physician Practices is amultiple site organization consisting of ambulatory clinics and hospital sitesin [place], [place] and [place]. This disclosure is being madepursuant to the Care Everywhere program and may not contain all information available regarding this patient. Last updated 18.[facility] [employer] Allergies Active Allergy Reactions Criticality Noted Date Comments Omeprazole Nausea and/or Vomiting 09/21/2024 Penicillins Urticaria Medium 06/20/2020 Medications * Be aware that medications may not be up to date on this document. Alwaysverify current medications with the patient. Multiple Vitamin (MULTIVITAMIN PO) Take 1 tablet by mouth once daily Active B Complex-C (SUPER B COMPLEX PO) Take 1 tablet by mouth once daily Active ASPIRIN 81 PO Take 81 mg by mouth at bedtime Active Blood Glucose Monitoring Suppl (OneTouch Verio Flex System) w/Device KITIndications:Ot her specified diabetes mellitus with other specified complication, unspecified whether machine long goods helper insulin use (HCC) Use 1 kit as directed 1 kit 11/09/19 Active Additional Information Patient not taking.Reported on 12/28/2024 lancetsIndication s:Other specified diabetes mellitus with other specified complication, unspecified whether machine long goods helper insulin use (HCC) Use 1 (one) Each 4 times daily 200 Each 11 11/09/19 Active Additional Information Patient not taking.Reported on 12/28/2024 ondansetron (Zofran) 4 MG tablet Take 1 (one) tablet by mouth every 6 hours as needed for Nausea/Vomiting 30 tablet 01/22/20 Active blood glucose (TheraVidaTouch Verio) test stripIndications: Other specified diabetes mellitus with other specified complication, unspecified whether [facility] insulin use (HCC) Use 1 (one) strip 4 times daily 200 strip 11 03/21/20 Active Additional Information Patient not taking.Reported on 12/28/2024 Continuous Blood Gluc Digital Measurement Advisor (Dexcom G7 Digital Measurement Advisor) DEVIIndications:T ype 1 diabetes mellitus with hyperglycemia (HCC) Use 1 kit as directed 1 Each 03/21/20 Active Dextrose, Diabetic Use, (glucose) 4 G chew tablet Take 3 (three) tablets by mouth as needed for Low blood sugar 100 tablet 11 02/27/20 24 Active polyethylene glycol 3350 (Miralax) 17 GM/SCOOP powder Take 17 (seventeen) g by mouth once daily 238 g 06/25/20 24 Active Glucose 4-6 GM-MG Take 12 g by mouth as needed 02/27/20 24 Active magnesium oxide (True Magnesium Oxide) 500 MG tablet Take 30 mg by mouth once daily Active Vitamins-Lipotrop ics (Complex B-068-Knfzicwl) TBCR Take 1 tablet by mouth once daily Active bisacodyl EC (Dulcolax) 5 MG tablet Take 4 tablets orally at noon 2 days before your colonoscopy. Take 4 tablets orally at noon the day before your colonoscopy 8 tablet 09/02/20 24 Active Additional Information Patient not taking.Reported on 12/28/2024 Nutritional Supplements (Ensure Enlive) LIQD Take 1 container by mouth 2 times daily 09/22/20 24 Active pantoprazole EC (Protonix) 40 MG tablet Take 1 (one) tablet by mouth 2 times daily for 60 days 120 tablet 09/25/20 Active sucralfate (Carafate) 1 GM tablet Take 1 (one) tablet by mouth 4 times daily - before meals & nightly 240 tablet 1 09/25/20 Active Additional Information Patient not taking.Reported on 12/28/2024 topiramate (Topamax) 50 MG tablet Take 1 (one) tablet by mouth once daily 90 tablet 10/20/20 24 Active gabapentin (Neurontin) 600 MG tablet Take 1 (one) tablet by mouth 3 times daily 90 tablet 11/23/19 25 Active oxyCODONE, immediate release, (Roxicodone) 10 MG tabletIndications :Neuroendocrine tumor (HCC),Chronic pain syndrome Take 1 (one) tablet by mouth 3 times daily as needed for Pain 90 tablet 11/23/19 25 Active amitriptyline (Elavil) 50 MG tabletIndications :Inguinal pain, unspecified laterality Take 1 (one) tablet by mouth every evening 90 tablet 12/14/19 25 Active insulin aspart (NovoLOG FLEXPEN) pen Inject 8 (eight) Units to 12 (twelve) Units subcutaneously 3 times daily before meals 8u for small, 10U for medium and 12u for a large meal, extra 2U if glucose over 200, daily max 40 units 15 mL 12/17/19 Active Lantus SoloStar pen Inject 20 (twenty) Units subcutaneously at bedtime 9 mL 12/17/19 Active Continuous Glucose Sensor (Dexcom G7 Sensor) MISCIndications:T ype 1 diabetes mellitus with hyperglycemia (HCC) Use 1 Each every 10 days 3 Each 12/17/19 Active Insulin Pen Needle 32G X 4 MM MISCIndications:O ther specified diabetes mellitus with other specified complication, unspecified whether [facility] insulin use (HCC) 1 Each by Injection route 4 times daily 200 Each 12/17/19 25 Active midodrine (Proamatine) 5 MG tablet Take 1 (one) tablet by mouth 3 times daily before meals for 30 days Hold if sbp >110 90 tablet 12/25/19 25 Active spironolactone (Aldactone) 100 MG tabletIndications :Hepatic Cirrhosis Take 1 (one) tablet by mouth once daily for 30 days Reasons: Hardening of the Liver 30 tablet 12/27/19 25 Active furosemide (Lasix) 40 MG tablet Take 1 (one) tablet by mouth once daily 30 tablet 12/25/19 25 Active atorvastatin (Lipitor) 40 MG tablet Take 1 (one) tablet by mouth at bedtime Overdue for appointment. Please call office to schedule. 90 tablet 02/05/20 25 Active potassium chloride ER 10 MEQ tablet Take 1 (one) tablet by mouth 2 times daily Overdue for appointment. Please call office to schedule. 180 tablet 02/05/20 25 Active cetirizine (ZyrTEC) 10 MG tablet Take 1 (one) tablet by mouth once daily 90 tablet 02/05/20 25 Active Active Problems Problem Noted Date Diagnosed [...] tis Diabetes mellitus CAD (coronary artery disease) Resolved Problems Problem Noted Date Diagnosed Date Resolved Date Acute pancreatitis without i nfection or necrosis 01/12/2022 04/14/2024 Nausea and vomiting 05/26/2021 04/14/20 24 Encounters Date Type Department Care Team Description 02/19/[address] [facility] - Hematology/Oncolog y [address] [place] [phone] Sofi Josue MD Primary pancreatic neuroendocrine tumor (HCC) 02/04/2025 Refill [facility] Family [facility] [address] [place] [address] Annia Walker, DO Refill Request 02/03/2025 Refill [facility] [address] [place] [address] Annia Walker, DO Refill Request 01/06/2025 Telephone [facility] - GI [address] [place] [address] Sagar Whaley MD No Show 12/28/2024 Transitional Care [facility] - Care Coordination [address] [place] [phone] Cole Benton RN Transitions Of Care 12/22/2024 1:04 AM GAS SPECIALIST - 12/25/2024 3:14 PM GAS SPECIALIST Hospital Encounter [facility] - Med Surg/Oncology [address] [place] [phone] Medardo Evans MD Ghazal-Albar, Naman, MD Tanguturi, Swetha, MD Hospitalist Discharge Disposition: Home or Self Care 12/21/2024 Travel from Last 3 Months Immunizations Immunization Administration Dates Next Due COVID PFIZER BIVALENT 12Y+ 30mcg/0.3ML Covid Moderna primary monovalent 12+ yr 0.5mL ,03/18/2021 INFLUENZA VACCINE, CELL CULT URE, QUADR. (FLUCELVAX QUADRIVALENT; 6MO+) (CCIIV4) 06/27/2023 Meningococcal ACWY (Menquadfi) Vac IM 07/17/2023 PNEUMOCOCCAL PCV20 CONJ VAC IM 07/17/2023 TDAP, HISTORIC VACCINE 05/15/2023 Zoster Hzv Vacc Recombinant Inj Im 07/17/2023, Family History Medical History Relation Name Comments Diabetes - Type 2 Father Diabetes - Type 2 Mother Relation Name Status Comments Daughter Alive Father Mother Sister Social History Tobacco Use Types Packs/Day Years Used Date Smoking Tobacco: Former Cigarettes Q uit: 01/02/2023 Smokeless Tobacco: Never Tobacco Cessation:Counseling Given: Not Answered Alcohol Use Standard Drinks/Week Comments Not Currently [...] Sex Assigned at Female 10/13/2020 10:25 AM GAS SPECIALIST Legal Sex Female 1:13 PM CDT Gender Identity Female 10/13/2020 10:25 AM GAS SPECIALIST Sexual Orientation Straight 10/13/2020 10 :25 AM GAS SPECIALIST Last Filed Vital Signs Vital Sign Reading Time Taken Comments Blood Pressure 112/68 12/25/2024 12:13 PM GAS SPECIALIST Pulse 121 12/25/2024 12:13 PM GAS SPECIALIST Temperature 36.5 C (97.7 F) 12/25/2024 12:13 PM GAS SPECIALIST Respiratory Rate 18 12/25/2024 12:13 PM GAS SPECIALIST Oxygen Saturation 97% 12/25/2024 12:13 PM GAS SPECIALIST Inhaled Oxygen Concentration 21% 04/07/2022 4 :05 AM CDT Weight 73.9 kg (163 lb) 12/24/2024 9:27 AM GAS SPECIALIST Height 162.6 cm (5' 4) 12/21/2024 10:54 PM GAS SPECIALIST Body Mass Index 27.98 12/21/2024 10:54 PM GAS SPECIALIST Plan of Treatment Health Maintenance Due Date Last Done Comments COLOGUARD (AGES 45-75) - COLON CA SCREENING 1964 CT COLONOGRAPHY - COLON CA SCREENING 1965 FIT - COLON CA SCREENING 1965 FLEX SIG - COLON CA SCREENING 1965 PAP SMEAR 1965 DIABETES-FOOT EXAM WITH MONOFILAMENT 11/09/2023 11/09/2022, 04/03/2021 COVID-19 VACCINE ( season) 2024 04/28/2024, 06/24/2023, 08/15/2022, Additional history exists Respiratory Syncytial Virus (RSV) Vaccine Pt: or over 60 yrs (1 - Risk 60-74 years 1-dose series) 2024 DIABETES-HGB A1C 08/29/2024 02/27/2024, , 03/21/2023, Additional history exists DEPRESSION SCREENING 10/28/2024 11/11/2023, 03/21/2023, 03/16/2022, Additional history exists DIABETES - URINE PROTEIN SCREENING 10/28/2024 07/18/2022, 05/17/2021 MEDICARE AWV CALENDAR YEAR 2024 DIABETES-SERUM CREATININE 12/25/20252024, 12/24/2024, 12/23/2024, Additional history exists MAMMOGRAM 05/14/2026 05/14/2024 DIABETES RETINOPATHY SCREENING 08/20/2026 08/20/2024, 07/07/2021, 07/07/2021 (Done Outside Per Patient) DTAP/TDAP/TD VACCINES (2 - Td or Tdap) 05/15/2033 05/15/2023 COLON MONITORING 03/30/2034 03/30/2024, 03/30/2024 COLONOSCOPY - COLON CA SCREENING 03/30/2034 03/30/2024, 03/30/2024 Colorectal Cancer Screening 03/30/2034 MENINGOCOCCAL GROUPS A/C/Y/W VACCINE Aged Out 07/17/2023 No longer eligible based on patient's age to complete this topic PNEUMOCOCCAL VACCINE 50+ Completed 07/17/2023 ZOSTER VACCINE Completed 07/17/2023, 05/15/2023 INFLUENZA VACCINE Completed 08/25/2024, 06/27/2023 HEPATITIS C SCREENING Discontinued 12/24/2024 , 01/14/2024, 10/30/2022 HEPATITIS B VACCINE Discontinued HIB VACCINE Aged Out No longer eligi ble based on patient's age to complete this topic HIV SCREENING Discontinued HPV VACCINE Aged Out No longer eligi ble based on patient's age to complete this topic MENINGOCOCCAL (Group B) VACCINE SHARED DECISION-MAKING Aged Out No longer eligible based on patient's age to complete this topic Medical Devices Implanted Type Area Caustic Room Attendant Device Identifier Shelf Expiration Date Model / Serial / Lot Stent Uret 6fr 26cm 2 Pgtl Crv 2 Drmtr Implanted:Qty: 1 on 10/14/2021 by Michael Douglass MD at [facility][note 3] Ureter [employer] Scimed 08/27/2024 [id number] / / [id number] Stent Uret 6fr 26cm Sft Tria Implanted:Qty: 1 on 07/21/2024 by Michael Douglass MD at [facility][note 3] Right: Ureter [employer] Shauna 05/06/2027 [id number] 0 / / [id number] Explanted Type Area Caustic Room Attendant Device Identifier Shelf Expiration Date Model / Serial / Lot Stent Uret 6fr 26cm Sft Tria Implanted:Qty: 1 on 06/23/2024 by Michael Douglass MD at [facility][note 3] Explanted:Qty: 1 on 07/21/2024 by Michael Douglass MD at [facility][note 3] Right: Ureter [employer] Shauna 12/25/2026 [id number] 0 / / [id number] Procedures Procedure Name Priority Date/Time Associated Diagnosis Comments GLUCOSE - POINT OF CARE Routine 12/25/2024 12:08 PM GAS SPECIALIST GLUCOSE - POINT OF CARE Routine 12/25/2024 8:29 AM GAS SPECIALIST COMPREHENSIVE METABOLIC PANEL AM Draw 12/25/2024 6:18 AM GAS SPECIALIST Abnormal LFTs GLUCOSE - POINT OF CARE Routine 12/24/2024 9:30 PM GAS SPECIALIST GLUCOSE - POINT OF CARE Routine 12/24/2024 5:01 PM GAS SPECIALIST GLUCOSE - POINT OF CARE Routine 12/24/2024 11:43 AM GAS SPECIALIST HEMOCHROMATOSIS MUTATION PANEL AM Draw 12/24/2024 9:55 AM GAS SPECIALIST CELIAC DISEASE COMPREHENSIVE AM Draw 12/24/2024 9:42 AM GAS SPECIALIST GLUCOSE - POINT OF CARE Routine 12/24/2024 8:55 AM GAS SPECIALIST VANCOMYCIN LEVEL RANDOM Add on 12/24/2024 5:40 AM GAS SPECIALIST COMPREHENSIVE METABOLIC PANEL AM Draw 12/24/2024 5:40 AM GAS SPECIALIST Abnormal LFTs SMOOTH MUSCLE ANTIBODY AM Draw 5:40 AM GAS SPECIALIST Abnormal LFTs IRON + TRANSFERRIN PANEL Routine 12/24/2024 5:40 AM GAS SPECIALIST Abnormal LFTs HEPATITIS C ANTIBODY Routine 12/24/2024 5:40 AM GAS SPECIALIST Abnormal LFTs HEPATITIS B SURFACE ANTIGEN W RFLX CONFIRMATION Routine 12/24/2024 5:40 AM GAS SPECIALIST Abnormal LFTs HEPATITIS B SURFACE ANTIBODY Routine 12/24/2024 5:40 AM GAS SPECIALIST Abnormal LFTs HEPATITIS B CORE ANTIBODY TOTAL AM Draw 12/24/2024 5:40 AM GAS SPECIALIST Abnormal LFTs FERRITIN Routine 12/24/2024 5:40 AM GAS SPECIALIST Abnormal LFTs CERULOPLASMIN AM Draw 12/24/2024 5:40 AM GAS SPECIALIST Abnormal LFTs ROZINA BLOOD SCREEN W/REFLEX TITER AM Draw 12/24/2024 5:40 AM GAS SPECIALIST Abnormal LFTs MITOCHONDRIAL ANTIBODY SCREEN AM Draw 12/24/2024 5:40 AM GAS SPECIALIST Abnormal LFTs [id number] BLOOD PHENOTYPING PANEL AM Draw 12/24/2024 5:40 AM GAS SPECIALIST Abnormal LFTs GLUCOSE - POINT OF CARE Routine 12/23/2024 8:49 PM GAS SPECIALIST GLUCOSE - POINT OF CARE Routine 12/23/2024 5:31 PM GAS SPECIALIST ECHO COMPLETE Routine 12/23/2024 3:33 PM GAS SPECIALIST Anasarca CULTURE BLOOD Timed 12/23/2024 1:31 PM GAS SPECIALIST Bacteremia CULTURE BLOOD Timed 12/23/2024 1:22 PM GAS SPECIALIST Bacteremia GLUCOSE - POINT OF CARE Routine 12/23/2024 12:21 PM GAS SPECIALIST GLUCOSE - POINT OF CARE Routine 12/23/2024 8:12 AM GAS SPECIALIST US ABDOMEN LTD W COMP DOPPLER Routine 12/23/2024 8:04 AM GAS SPECIALIST Abnormal LFTs URINALYSIS REFLEX MICROSCOPIC REFLEX CULTURE STAT 12/23/2024 4:51 AM GAS SPECIALIST BASIC METABOLIC PANEL (CALCIUM TOTAL) Routine 12/23/2024 4:35 AM GAS SPECIALIST Abnormal LFTs CBC W AUTO DIFFERENTIAL AM Draw 12/23/2024 4:35 AM GAS SPECIALIST Generalized abdominal pain HEPATIC FUNCTION PANEL AM Draw 4:35 AM GAS SPECIALIST Generalized abdominal pain GLUCOSE - POINT OF CARE Routine 12/22/2024 9:30 PM GAS SPECIALIST GLUCOSE - POINT OF CARE Routine 12/22/2024 4:42 PM GAS SPECIALIST US PARACENTESIS STAT 12/22/2024 4:07 PM GAS SPECIALIST Anasarca CYTOLOGY NON-TROUBLE DISPATCHER PANEL (STL) STAT 12/22/2024 3:47 PM GAS SPECIALIST Anasarca DIFFERENTIAL MANUAL FLUID STAT 12/22/2024 3:47 PM GAS SPECIALIST Anasarca LDH BODY FLUID STAT 12/22/2024 3:47 PM GAS SPECIALIST Anasarca PROTEIN BODY FLUID STAT 12/22/2024 3: 47 PM GAS SPECIALIST Anasarca ALBUMIN BODY FLUID STAT 12/22/2024 3 :47 PM GAS SPECIALIST Anasarca GLUCOSE BODY FLUID STAT 12/22/2024 3: 47 PM GAS SPECIALIST Anasarca CELL COUNT W DIFFERENTIAL FLUID STAT 12/22/2024 3:47 PM GAS SPECIALIST Anasarca CULTURE FLUID+GRAM STAIN STAT 12/22/2024 3:47 PM GAS SPECIALIST Anasarca GLUCOSE - POINT OF CARE Routine 12/22/2024 12:27 PM GAS SPECIALIST LACTIC ACID BLOOD REFLEX TO REPEAT Timed STAT 12/22/2024 10:25 AM GAS SPECIALIST LACTIC ACID BLOOD REFLEX TO REPEAT Timed STAT 12/22/2024 8:09 AM GAS SPECIALIST BCID PANEL Routine 12/22/2024 5:45 AM GAS SPECIALIST CULTURE BLOOD Timed 12/22/2024 5:45 AM GAS SPECIALIST LACTIC ACID BLOOD REFLEX TO REPEAT STAT 12/22/2024 5:30 AM GAS SPECIALIST CULTURE BLOOD Timed 12/22/2024 5:[address] ABDOMEN PELVIS W CONTRAST STAT 12/22/2024 3:16 AM GAS SPECIALIST Generalized abdominal pain HYDROXYBUTYRATE BETA STAT 12/22/2024 2:32 AM GAS SPECIALIST COMPREHENSIVE METABOLIC PANEL STAT 12/22/2024 2:32 AM GAS SPECIALIST PT-INR STAT 12/22/2024 1:57 AM GAS SPECIALIST LIPASE BLOOD STAT 12/22/2024 1:57 AM GAS SPECIALIST MAGNESIUM BLOOD STAT 12/22/2024 1:57 AM GAS SPECIALIST CBC W AUTO DIFFERENTIAL STAT 12/22/2024 1:57 AM GAS SPECIALIST SARS-COV-2 (COVID-19) FLU A/B RSV PCR RAPID STAT 12/22/2024 1:42 AM GAS SPECIALIST XR CHEST 1VW PORTABLE STAT 12/22/2024 1:41 AM GAS SPECIALIST Generalized abdominal pain EYE EXAM 08/20/2024 MAMMO BILAT SCREENING W ROX Routine 05/14/2024 10:01 AM CDT Visit for screening mammogram ENDOSCOPY, COLON, SCREENING Routine 03/30/2024 8:15 AM CDT HEMOGLOBIN A1C - POINT OF CARE (AMB) SLU Routine 02/27/2024 10:08 AM CDT Type 1 diabetes mellitus with hyperglycemia MICROALB/CREAT RATIO URINE RANDOM PANEL Routine 07/18/2022 10:10 AM CDT Diabetes mellitus without complication from Last 3 Months or Most Recently Relevant to Health Maintenance Results * (ABNORMAL) GLUCOSE - POINT OF CARE (12/25/2024 12:08 PM GAS SPECIALIST) Only the most recent of13 resultswithin the time period is included. Glucose WB/POC 216(H) 70 - 99 mg/dL 12/25/2024 5:09 PM [facility] Specimen Type Cap Fingerstick 2024 5:09 PM [facility] Blood BLOOD SPECIMEN / Unknown 12/25/2024 12:08 PM GAS SPECIALIST 12/25/2024 5:09 PM GAS SPECIALIST us Colleen May MD LAB - POINT OF CARE ORDERABL ES Final Result [facility] [address] [place] [address] * (ABNORMAL) COMPREHENSIVE METABOLIC PANEL (12/25/2024 6:18 AM GAS SPECIALIST) Only the most recent of3 resultswithin the time period is included. Glucose 141(H) 70 - 99 mg/dL 12/25/2024 6:50 AM [facility] Sodium 132(L) 136 - 145 mmol/L 12/25/2024 6:50 AM [facility] Potassium 3.1(L) 3.5 - 5.1 mmol/L 12/25/2024 6:50 AM [facility] Chloride 104 98 - 107 mmol/L 12/25/2024 6:50 AM [facility] CO2 21(L) 22 - 29 mmol/L 12/25/2024 6:50 AM [facility] Calcium 7.5(L) 8.4 - 10.4 mg/dL 12/25/2024 6:50 AM [facility] Anion Gap 7 6 - 16 mmol/L 12/25/2024 6:50 AM [facility] BUN 13 7 - 26 mg/dL 12/25/2024 6:50 AM [facility] Creatinine 0.77 0.57 - 1.11 mg/dL 12/25/2024 6:50 AM [facility] Alkaline Phosphatase 203(H) 40 - 150 U/L 12/25/2024 6:50 AM [facility] ALT 23 0 - 55 U/L 12/25/2024 6:50 AM [facility] AST 31 5 - 34 U/L 12/25/2024 6:50 AM [facility] Protein Total 4.8(L) 6.4 - 8.3 gm/dL 12/25/2024 6:50 AM [facility] Albumin 1.9(L) 3.4 - 5.0 gm/dL 12/25/2024 6:50 AM [facility] Bilirubin Total 1.1 0.2 - 1.2 mg/dL 12/25/2024 6:50 AM [facility] eGFR by CKD-EPI 88(L) >=90 mL/min/1.7 3 m2 12/25/2024 6:50 AM [facility] Blood BLOOD SPECIMEN / Unknown Lab Venipuncture / Unknown 12/25/2024 6:18 AM GAS SPECIALIST 12/25/2024 6:[address] [facility] Sagar Whaley MD LAB - CHEMISTRY ORDERABLES Fin al Result [facility] [address] [place] [address] * HEMOCHROMATOSIS MUTATION PANEL (12/24/2024 9:[address] [facility]) Hereditary Hemochromatosis Comment 12/30/2024 10:[address] [facility] ([facility]) Comment: Result: c.845G>A (p.Lpe351Dpq) - Not Detected c.187C>G (p.Koz81Qqs) - Not Detected c.193A>T (p.Dck09Lvm) - Not Detected Not associated with increased risk to develop clinical symptoms of Hereditary Hemochromatosis. In symptomatic individuals, other causes of iron overload should be evaluated. See Additional Information and Comments. Additional Clinical Information: Hereditary hemochromatosis (HFE related) is an autosomal recessive iron storage disorder. Patients may have a genetic diagnosis of hereditary hemochromatosis and never show clinical symptoms. Clinical symptoms typically appear between 40 to 60 years in males and after menopause in females. Signs and symptoms may include organ damage, primarily in the liver, risk for hepatocellular carcinoma, diabetes, and heart disease due to iron accumulation. Life expectancy may be decreased in individuals who develop cirrhosis. Treatment for clinically symptomatic individuals may include therapeutic phlebotomy. Liver transplant may be used to treat end stage liver failure. For preventive care, monitoring for iron overload is recommended for patients who are homozygous for c.845G>A (p.Weh744Orw) and have yet to experience clinical symptoms. Comments: The most common HFE variants associated with hereditary hemochromatosis are c.845G>A (p.Lcy644Zah), c.187C>G (p.Jns96Qim), c.193A>T (p.Ehk27Dqd). While patients homozygous for c.845G>A (p.Mty093Gkb) are the most likely to present clinical symptoms, less than 10% develop clinically significant iron overload with tissue and organ damage. Genetic counseling is recommended to discuss the potential clinical implications of positive results, as well as recommendations for testing family members. Genetic Coordinators are available for health care providers to discuss results at [phone] ([phone]). Test Details: Three variants analyzed: c.845G>A (p.Uwo849Rru), commonly referred to as C282Y c.187C>G (p.Cfw55Ixv), commonly referred to as H63D c.193A>T (p.Iht02Shw), commonly referred to as S65C Methods/Limitations: DNA Analysis of the HFE gene (NM_[id number]) was performed by PCR amplification followed by restriction enzyme digestion analyses. Results must be combined with clinical information for the most accurate interpretation. Molecular-based testing is highly accurate, but as in any laboratory test, diagnostic errors may occur. False positive or false negative results may occur for reasons that include genetic variants, blood transfusions, bone marrow transplantation, somatic or tissue-specific mosaicism, mislabeled samples, or erroneous representation of family relationships. This test was developed and its performance characteristics determined by [employer]. It has not been cleared or approved by the Food and Drug Administration. References: Salvador BR, Himanshu PC, Samantha KV, Nishant LW, Scotty ; [employer] Liver Diseases. Diagnosis and management of hemochromatosis: 2011 practice guideline by the [employer] Liver Diseases. Hepatology. 2011 Apr;54(1):328-43. doi: 10.1002/hep.50927. PMID: 46432492; PMCID: [id number]. Dorie G, David P, Kolton DW, Lucinda H, Jose O, Royer S, John I, Kevin M, Sanya Hernandez. [facility] best practice guidelines for the molecular genetic diagnosis of hereditary hemochromatosis (HH). Eur J Hum [place]. 2016 Jan;24(4):479-95. doi: 10.1038/ejhg.2015.128. Epub 2014May 04. PMID: 88908744; PMCID: OXO5999411. Reviewed By Comment 12/30/2024 10:10 AM [facility] Comment: Technical Component performed at [facility] Professional Component performed by: [employer] Braeden Nielsen, Ph.D., [facility] Director, [employer] [facility] [address] Blood BLOOD SPECIMEN / Unknown Lab Venipuncture / Unknown 12/24/2024 9:55 AM GAS SPECIALIST 12/24/2024 9:55 AM GAS SPECIALIST Narrative [facility] ([facility]) - 12/30/2024 10:10 AM GAS SPECIALIST Performed at: - [facility] [address] [place], [place] [id number] [employer] Consultant: Joe Pacheco [facility], Phone: [phone] us Sagar Whaley MD LAB - CHEMISTRY ORDERABLES Fin al Result [facility] [facility] [address] [place] [address] * CELIAC DISEASE COMPREHENSIVE (12/24/2024 9:42 AM GAS SPECIALIST) Antigliadin Antibody IgA 3 0 - 19 units 12/28/2024 3:09 PM GAS SPECIALIST [facility] ([facility]) Comment: Negative 0 - 19 Weak Positive 20 - 30 Moderate to Strong Positive >30 Gliadin Deamidated Antibody IgG 1 0 - 19 units 12/28/2024 3:09 PM GAS SPECIALIST [facility] ([facility]) Comment: Negative 0 - 19 Weak Positive 20 - 30 Moderate to Strong Positive >30 TTG Antibody IgA <2 0 - 3 U/mL 12/29/19 25 3:09 PM GAS SPECIALIST [facility] ([facility]) Comment: Negative 0 - 3 Weak Positive 4 - 10 Positive >10 Tissue Transglutaminase (tTG) has been identified as the endomysial antigen. Studies have demonstr- ated that endomysial IgA antibodies have over 99% specificity for gluten sensitive enteropathy. TTG Antibody IgG 2 0 - 5 U/mL 12/29/19 25 3:09 PM GAS SPECIALIST [facility] ([facility]) Comment: Negative 0 - 5 Weak Positive 6 - 9 Positive >9 Endomysial Antibody IgA Negative Negative 12/28/2024 3:09 PM GAS SPECIALIST [facility] ([facility]) IgA Quantitative 205 87 - 352 mg/dL 12/28/2024 3:09 PM GAS SPECIALIST [facility] ([facility]) Blood BLOOD SPECIMEN / Unknown Lab Venipuncture / Unknown 12/24/2024 9:42 AM GAS SPECIALIST 12/24/2024 9:42 AM GAS SPECIALIST Narrative [facility] ([facility]) - 12/28/2024 3:09 PM GAS SPECIALIST Performed at: [address] [place] [id number] [employer] Consultant: Morris Mcleod PhD, Phone: [phone] Sagar Whaley MD LAB - CHEMISTRY ORDERABLES Fin al Result [facility]) [address] [place] [address] * MITOCHONDRIAL ANTIBODY SCREEN (12/24/2024 5:40 AM GAS SPECIALIST) Mitochondrial M2 Antibody <20.0 0.0 - 20.0 Units 12/25/2024 4:11 PM GAS SPECIALIST [facility] ([facility]) Comment: Negative 0.0 - 20.0 Equivocal 20.1 - 24.9 Positive >24.9 Mitochondrial (M2) Antibodies are found in 90-96% of patients with primary biliary cirrhosis. Blood BLOOD SPECIMEN / Unknown Lab Venipuncture / Unknown 12/24/2024 5:40 AM GAS SPECIALIST 12/24/2024 5:57 AM GAS SPECIALIST Narrative [facility] ([facility]) - 12/25/2024 4:11 PM GAS SPECIALIST Performed at: 01 - [facility] [address] [place], [place] [id number] [employer] Consultant: Morris Mcleod PhD, Phone: [phone] Sagar Whaley MD LAB - CHEMISTRY ORDERABLES Fin al Result Performing Organization Address City/[facility] Co de Phone Number [facility] ([facility]) [address] [place] [address] * [id number] BLOOD PHENOTYPING PANEL (12/24/2024 5:40 AM GAS SPECIALIST) Pathologist [facility] Nbokl-[id number]-[id number] n Phenotype MM 12/29/2024 5:00 PM GAS SPECIALIST [facility] ([facility]) Comment: The patient appears to have a normal phenotype. All M alleles (including subtypes M1, M2, and M3) produce normal serum concentrations of fbkht-4-[id number] inhibitor and are not associated with clinical disease. Caution in interpretation is advised if the patient has been transfused within the previous 21 days. Performed By: [employer] [address] [place] [address] Clerk Supervisor: Nelson Rasmussen MD, PhD CLIA Number: [id number] [id number] n 152 90 - 200 mg/dL 12/29/2024 5:00 PM GAS SPECIALIST [facility] ([facility]) Comment:To convert to umol/L , multiply mg/dL by 0.185 Blood BLOOD SPECIMEN / Unknown Lab Venipuncture / Unknown 12/24/2024 5:40 AM GAS SPECIALIST 12/24/2024 5:57 AM GAS SPECIALIST Sagar Whaley MD LAB - CHEMISTRY ORDERABLES Fin al Result Performing Organization Address City/[facility]/ZIP Co de Phone Number [facility] ([facility]) [address] [place] [address] * ROZINA BLOOD SCREEN W/REFLEX TITER (12/24/2024 5:40 AM GAS SPECIALIST) ROZINA Negative Negative 12/25/2024 9:54 AM GAS SPECIALIST [facility] Blood BLOOD SPECIMEN / Unknown Lab Venipuncture / Unknown 12/24/2024 5:40 AM GAS SPECIALIST 12/24/2024 5:58 AM GAS SPECIALIST Narrative [facility] - 12/25/2024 9:54 AM GAS SPECIALIST Methodology: Indirect Immunofluorescence Assay (IFA) utilizing Hep-2-Gamma cells. Result [facility] Sagar Whaley MD LAB - CHEMISTRY ORDERABLES Fin al Result Performing Organization Address City/[facility]/ZIP Co de Phone Number [facility] [address] [place] [address] * CERULOPLASMIN (12/24/2024 5:40 AM GAS SPECIALIST) Ceruloplasmin 22 20 - 60 mg/dL 12/24/2024 12:18 PM GAS SPECIALIST [facility] Blood BLOOD SPECIMEN / Unknown Lab Venipuncture / Unknown 12/24/2024 5:40 AM GAS SPECIALIST 12/24/2024 5:57 AM GAS SPECIALIST Result [facility] Sagar Whaley MD LAB - CHEMISTRY ORDERABLES Fin al Result Performing Organization Address City/[facility]/ZIP Co de Phone Number [address] [address], [facility] [phone] * SMOOTH MUSCLE ANTIBODY (12/24/2024 5:40 AM GAS SPECIALIST) Actin (Smooth Muscle) Antibody 4 0 - 19 Units 12/25/2024 4:11 PM GAS SPECIALIST [facility] ([facility]) Comment: Negative 0 - 19 Weak positive 20 - 30 Moderate to strong positive >30 Actin Antibodies are found in 52-85% of patients with autoimmune hepatitis or chronic active hepatitis and in 22% of patients with primary biliary cirrhosis. Blood BLOOD SPECIMEN / Unknown Lab Venipuncture / Unknown 12/24/2024 5:40 AM GAS SPECIALIST 12/24/2024 5:57 AM GAS SPECIALIST Narrative [facility] ([facility]) - 12/25/2024 4:11 PM GAS SPECIALIST Performed at: [address] [id number] [employer] Consultant: Morris Mcleod PhD, Phone: [phone] Sagar Whaley MD LAB - SEROLOGY ORDERABLES Carol l Result [facility] ([facility]) [address] [place] [address] * HEPATITIS B SURFACE ANTIBODY (12/24/2024 5:40 AM GAS SPECIALIST) HBsAb Non Reactive Non Reactive 12/24/2024 10:34 AM GAS SPECIALIST [facility] Blood BLOOD SPECIMEN / Unknown Lab Venipuncture / Unknown 12/24/2024 5:40 AM GAS SPECIALIST 12/24/2024 5:57 AM GAS SPECIALIST Sagar Whaley MD LAB - CHEMISTRY ORDERABLES Fin al Result Performing Organization Address City/[facility]/ZIP Co de Phone Number [facility] [address] [place] [address] * HEPATITIS B CORE ANTIBODY TOTAL (12/24/2024 5:40 AM GAS SPECIALIST) Pathologist [facility] Hepatitis B Core Virus Antibody Total Negative Negative 12/25/2024 10:10 AM GAS SPECIALIST [facility] ([facility]) Blood BLOOD SPECIMEN / Unknown Lab Venipuncture / Unknown 12/24/2024 5:40 AM GAS SPECIALIST 12/24/2024 5:57 AM GAS SPECIALIST Narrative [facility] ([facility]) - 12/25/2024 10:10 AM GAS SPECIALIST [facility]formed [facility] [address], [place] [id number] [employer] Consultant: Morris Mcleod PhD, Phone: [phone] Sagar Whaley MD LAB - CHEMISTRY ORDERABLES Fin al Result [facility] ([facility]) [address] [place] [address] * HEPATITIS B SURFACE ANTIGEN W RFLX CONFIRMATION (12/24/2024 5:40 AM GAS SPECIALIST) HBsAg Non Reactive Non Reactive 12/24/2024 10:34 AM GAS SPECIALIST [facility] Blood BLOOD SPECIMEN / Unknown Lab Venipuncture / Unknown 12/24/2024 5:40 AM GAS SPECIALIST 12/24/2024 5:57 AM GAS SPECIALIST Sagar Whaley MD LAB - CHEMISTRY ORDERABLES Fin al Result Performing Organization Address [facility]/ZIP Co de Phone Number [facility] [address] [place] [address] * VANCOMYCIN LEVEL RANDOM (12/24/2024 5:40 AM GAS SPECIALIST) Vancomycin Random 6.5 <=40.0 ug/mL 12/24/2024 10:58 AM GAS SPECIALIST [facility] Blood BLOOD SPECIMEN / Unknown Lab Venipuncture / Unknown 12/24/2024 5:40 AM GAS SPECIALIST 12/24/2024 5:57 AM GAS SPECIALIST Narrative [facility] - 12/24/2024 10:58 AM GAS SPECIALIST No reference range available for random Vancomycin levels. All results interpreted by ordering physician. Leanna Chapman DO LAB - CHEMISTRY ORDERABLES F inal Result Performing Organization Address [facility] de Phone Number [facility] [address] [place] [address] * (ABNORMAL) IRON + TRANSFERRIN PANEL (12/24/2024 5:40 AM GAS SPECIALIST) Iron 52 40 - 150 ug/dL 12/24/2024 6:24 AM [facility] Transferrin 68(L) 174 - 382 mg/dL 12/24/2024 6:24 AM [facility] TIBC Calculated 85(L) 240 - 450 ug/dL 12/24/2024 6:24 AM [facility] Iron Saturation % 61(H) 20 - 50 % 12/24/2024 6:24 AM [facility] Blood BLOOD SPECIMEN / Unknown Lab Venipuncture / Unknown 12/24/2024 5:40 AM GAS SPECIALIST 12/24/2024 5:57 AM GAS SPECIALIST Sagar Whaley MD LAB - CHEMISTRY ORDERABLES Fin yohan Result Performing Organization Address City/[facility]/ZIP Co de Phone Number [facility] [address] [place] [address] * HEPATITIS C ANTIBODY (12/24/2024 5:40 AM GAS SPECIALIST) [facility] HCV Antibody Screen Non Reactive Non Reactive 12/24/2024 10:35 AM GAS SPECIALIST [facility] Blood BLOOD SPECIMEN / Unknown Lab Venipuncture / Unknown 12/24/2024 5:40 AM GAS SPECIALIST 12/24/2024 5:57 AM GAS SPECIALIST Narrative [facility] - 12/24/2024 10:35 AM GAS SPECIALIST Non Reactive - Antibodies to Hepatitis C virus (HCV) were not detected, result does not exclude early acute HCV infection. Sagar Whaley MD LAB - CHEMISTRY ORDERABLES Fin al Result Performing Organization Address [facility] Co de Phone Number [facility] [address] [place] [address] * (ABNORMAL) FERRITIN (12/24/2024 5:40 AM GAS SPECIALIST) [facility] Ferritin 223(H) 5 - 204 ng/mL 12/24/2024 6:46 AM GAS SPECIALIST [facility] Blood BLOOD SPECIMEN / Unknown Lab Venipuncture / Unknown 12/24/2024 5:40 AM GAS SPECIALIST 12/24/2024 5:57 AM GAS SPECIALIST Sagar Whaley MD LAB - CHEMISTRY ORDERABLES Fin al Result Performing Organization Address [facility] Co de Phone Number [facility] [address] [place] [address] * ECHO COMPLETE (12/23/2024 3:33 PM GAS SPECIALIST) [facility] IVSd 2D 0.988 cm SSM CV FUJ I PACS LVIDd 4.024 cm SSM CV FUJ I PACS LVIDs 2.745 cm SSM CV FUJ I PACS LVOT diam 2.117 cm SSM CV FUJ I PACS LVPWd 0.691 cm SSM CV FUJ I PACS LV biplane EF 56.992 % SSM CV FUJI PACS LV A2C EF 57.457 % SSM CV FUJ I PACS LV A4C EF 55.774 % SSM CV FUJ I PACS LV EDV A2C 87.855 ml SSM CV FU JI PACS LV EDV A4C 98.723 ml SSM CV FU JI PACS LV ESV A2C 37.376 ml SSM CV FU JI PACS LV ESV A4C 43.661 ml SSM CV FU JI PACS LVOT pk grad 3.062 mmHg SSM CV FUJI PACS LVOT pk zak 87.49 cm/s SSM CV F UJI PACS LVOT VTI 15.303 cm SSM CV FUJ I PACS RVIDd 3.085 cm SSM CV FUJ I PACS AV area pk zak 2.603 cm SSM CV FUJI PACS AV area cont VTI 2.843 cm SSM CV FUJI PACS AV pk grad 5.597 mmHg SSM CV FU JI PACS AV mn grad 2.789 mmHg SSM CV FU JI PACS AV pk zak 118.293 cm/s SSM CV FUJ I PACS AV VTI 18.942 cm SSM CV FUJ I PACS MV A pk zak 95.849 cm/s SSM CV F UJI PACS MV E pk zak 80.319 cm/s SSM CV F UJI PACS PV pk zak 89.233 cm/s SSM CV FUJ I PACS TR pk zak 208.567 cm/s SSM CV FUJ I PACS Ascending aorta 3.131 cm SSM CV FUJI PACS MV E' lateral zak 11.985 cm/s SS M CV FUJI PACS TAPSE 1.458 cm SSM CV FUJ I PACS AV area index 1.67 cm /m SSM CV FUJI PACS Dimensionless Index 0.808 unitless SSM CV FUJI PACS Myocardial strain charge 2 unitless SSM CV FUJI PACS Anatomical Region Laterality Modality Ultrasound 12/23/2024 2:58 PM GAS SPECIALIST Narrative 12/23/2024 4:32 PM GAS SPECIALIST Summary * The left ventricle is normal in size, with normal systolic function and an estimated ejection fraction of 57 % by biplane method of disks. Left ventricular wall motion is normal. * The left ventricular diastolic function is consistent with grade I diastolic dysfunction and normal left atrial filling pressure. * Right ventricle is normal in size with normal systolic function. * The pulmonary artery systolic pressure is normal, 25 mmHg. Patient Info Name: Meron Amaro Age: 59 years : 1965 Gender: Female Ht: 64 in Wt: 140 lb BSA: 1.70 m2 BP: 103 / 68 mmHg Exam Date: 12/23/2024 2:58 PM Patient Status: OPO Study Site: [facility] Primary Location: [facility] EStudy Info Technical Quality: Adequate Exam Type: ECHO COMPLETE Indications R60.1 - Anasarca Procedure(s) * A complete 2D, color Doppler, and spectral Doppler transthoracic echocardiogram was performed. Staff Referring Physician: Colleen May Ordering Provider: Colleen May Attending Physician: Colleen May District Administrative Assistant: Ryne Altamirano Left Ventricle The left ventricle is normal in size. Left ventricular systolic function is normal with an estimated ejection fraction of 57 % by biplane method of disks. The left ventricular mass is normal. Left ventricular segmental wall motion is normal. The left ventricular diastolic function is consistent with grade I diastolic dysfunction and normal left atrial filling pressure. Right Ventricle The right ventricle is normal in size. Right ventricular systolic function is normal. Left Atrium The left atrium is normal in size. Right Atrium The right atrium is normal in size. Atrial Septum Intact interatrial septum visualized by 2D and color Doppler imaging. Aortic Valve The aortic valve is trileaflet. There is no aortic valve stenosis. There is no aortic valve regurgitation. Pulmonic Valve The pulmonic valve is normal. There is no pulmonic valve stenosis. There is no pulmonic regurgitation. Mitral Valve The mitral valve is normal. There is no mitral valve stenosis. There is no mitral valve regurgitation. Tricuspid Valve The tricuspid valve is normal. There is no tricuspid valve regurgitation. The pulmonary artery systolic pressure is normal, 25 mmHg. Inferior Vena Cava The inferior vena cava is not well visualized and therefore the right atrial pressure is assumed to be 8 mmHg. There is < 50% collapse of the IVC upon inspiration with an estimated right atrial pressure of 8 mmHg. Pericardium/Pleural There is no pericardial effusion. Aorta The aortic root at the sinus of Valsalva is normal in size. The ascending aorta is normal in size. Measurements Left Ventricular Outflow Tract Name Value Normal LVOT 2D LVOT Diameter 2.1 cm LVOT Area 3.5 cm2 LVOT Doppler LVOT Peak Velocity 0.9 m/s LVOT Peak Gradient 3 mmHg LVOT Mean Velocity 56.70 cm/s LVOT Mean Gradient 1 mmHg LVOT VTI 15.3 cm LVOT VTI/AV VTI Ratio 0.8 LVOT Stroke Volume 54 ml LVOT Stroke Volume Index 32 ml/m2 35-58 Pulmonic Valve Name Value Normal PV Doppler PV Peak Velocity 0.9 m/s PV Peak Gradient 3 mmHg Mitral Valve Name Value Normal MV Diastolic Function MV E Peak Velocity 0.8 m/sec MV A Peak Velocity 1.0 m/sec MV E/A 0.8 MV Decel Time (PW) 145 ms MV Annular TDI MV Lateral e' Velocity 12 cm/s >=10 MV E/e' (Lateral) 7 <=8 Tricuspid Valve Name Value Normal TV Regurgitation Doppler TR Peak Velocity 2.1 m/s TR Peak Gradient 17 mmHg Estimated PAP/RSVP RA Pressure 8 mmHg <=5 PA Systolic Pressure 25 mmHg <35 RV Systolic Pressure 25 mmHg <36 TV Annular TDI TV Lateral Vashti s' Velocity 12 cm/s 10-19 Aorta Name Value Normal Ascending Aorta Asc Ao Diameter 3.1 cm 1.9-3.5 Asc Ao Diameter Index 1.8 cm/m2 1.0-2.2 Aortic Valve Name Value Normal AV Doppler AV Peak Velocity 1.18 m/s AV Peak Gradient 6 mmHg AV Mean Gradient 3 mmHg AV VTI 19 cm AV Area (Cont Eq VTI) 2.84 cm2 >=2.00 AV Area (Cont Eq Zak) 2.60 cm2 AV DI (VTI) 0.81 AV DI (Zak) 0.74 AV Regurgitation 2D LVOT Area 3.52 cm2 Ventricles Name Value Normal LV Dimensions 2D/MM IVS Diastolic Thickness (2D) 1.0 cm 0.6-0.9 LVID Diastole (2D) 4.0 cm 3.8-5.2 LVPW Diastolic Thickness (2D) 0.7 cm 0.6-0.9 LVID Systole (2D) 2.7 cm 2.2-3.5 LV Mass (2D Cubed) 101 g 67-162 LV Mass Index (2D Cubed) 59 g/m2 43-95 Relative Wall Thickness (2D) 0.34 <=0.42 LV Fractional Shortening/Ejection Fraction 2D/MM LV Fractional Shortening (2D) 32 % 27-45 LV EF (2D Teicholz) 60 % 54-74 LV Diastolic Volume (4C MOD) 99 ml LV EF (4C MOD) 56 % LV Diastolic Volume (2C MOD) 88 ml LV EF (2C MOD) 57 % LV Diastolic Volume (BP MOD) 94 ml 46-106 LV Diastolic Volume Index (BP MOD) 55 ml/m2 29-61 LV Systolic Volume (BP MOD) 40 ml 14-42 LV Systolic Volume Index (BP MOD) 24 ml/m2 8-24 LV EF (BP MOD) 57 % 54-74 LV Diastolic Length (4C) 7.6 cm LV Systolic Length (4C) 6.7 cm LV Stroke Volume (4C MOD) 55 ml RV Dimensions 2D/MM RVID Diastole (2D) 3.1 cm 2.5-3.5 TAPSE 1.5 cm >=1.7 Atria Name Value Normal LA Dimensions LA Volume Index (BP A-L) 21 ml/m2 16-34 Report Signatures Finalized by Richard Valle on 12/23/2024 04:32 PM Procedure Note Richard Valle MD - 12/23/2024 Summary * The left ventricle is normal in size, with normal systolic functionand an estimated ejection fraction of 57 % by biplane method of disks. Left ventricular wall motion is normal. * The left ventricular diastolic function is consistent with grade I diastolic dysfunction and normal left atrial filling pressure. * Right ventricle is normal in size with normal systolic function. * The pulmonary artery systolic pressure is normal, 25 mmHg. Patient Info Name: Meron Amaro Age: 59 years : 1965 Gender: Female Ht: 64 in Wt: 140 lb BSA: 1.70 m2 BP: 103 / 68 mmHg Exam Date: 12/23/2024 2:58 PM Patient Status: OPO Study Site: [facility] Primary Location: [facility] EStudy Info Technical Quality: Adequate Exam Type: ECHO COMPLETE Indications R60.1 - Anasarca Procedure(s) * A complete 2D, color Doppler, and spectral Doppler transthoracic echocardiogram was performed. Staff Referring Physician: Colleen May Ordering Provider: Colleen May Attending Physician: Colleen May District Administrative Assistant: Ryne Altamirano Left Ventricle The left ventricle is normal in size. Left ventricular systolic functionis normal with an estimated ejection fraction of 57 % by biplane method ofdisks. The left ventricular mass is normal. Left ventricular segmental wallmotion is normal. The left ventricular diastolic function is consistent with gradeI diastolic dysfunction and normal left atrial filling pressure. Right Ventricle The right ventricle is normal in size. Right ventricular systolicfunction is normal. Left Atrium The left atrium is normal in size. Right Atrium The right atrium is normal in size. Atrial Septum Intact interatrial septum visualized by 2D and color Doppler imaging. Aortic Valve The aortic valve is trileaflet. There is no aortic valve stenosis. Thereis no aortic valve regurgitation. Pulmonic Valve The pulmonic valve is normal. There is no pulmonic valve stenosis. Thereis no pulmonic regurgitation. Mitral Valve The mitral valve is normal. There is no mitral valve stenosis. There isno mitral valve regurgitation. Tricuspid Valve The tricuspid valve is normal. There is no tricuspid valveregurgitation. The pulmonary artery systolic pressure is normal, 25 mmHg. Inferior Vena Cava The inferior vena cava is not well visualized and therefore the rightatrial pressure is assumed to be 8 mmHg. There is < 50% collapse of the IVCupon inspiration with an estimated right atrial pressure of 8 mmHg. Pericardium/Pleural There is no pericardial effusion. Aorta The aortic root at the sinus of Valsalva is normal in size. Theascending aorta is normal in size. Measurements Left Ventricular Outflow Tract Name Value Normal LVOT 2D LVOT Diameter 2.1 cm LVOT Area 3.5 cm2 LVOT Doppler LVOT Peak Velocity 0.9 m/s LVOT Peak Gradient 3 mmHg LVOT Mean Velocity 56.70 cm/s LVOT Mean Gradient 1 mmHg LVOT VTI 15.3 cm LVOT VTI/AV VTI Ratio 0.8 LVOT Stroke Volume 54 ml LVOT Stroke Volume Index 32 ml/m2 35-58 Pulmonic Valve Name Value Normal PV Doppler PV Peak Velocity 0.9 m/s PV Peak Gradient 3 mmHg Mitral Valve Name Value Normal MV Diastolic Function MV E Peak Velocity 0.8 m/sec MV A Peak Velocity 1.0 m/sec MV E/A 0.8 MV Decel Time (PW) 145 ms MV Annular TDI MV Lateral e' Velocity 12 cm/s >=10 MV E/e' (Lateral) 7 <=8 Tricuspid Valve Name Value Normal TV Regurgitation Doppler TR Peak Velocity 2.1 m/s TR Peak Gradient 17 mmHg Estimated PAP/RSVP RA Pressure 8 mmHg <=5 PA Systolic Pressure 25 mmHg <35 RV Systolic Pressure 25 mmHg <36 TV Annular TDI TV Lateral Vashti s' Velocity 12 cm/s 10-19 Aorta Name Value Normal Ascending Aorta Asc Ao Diameter 3.1 cm 1.9-3.5 Asc Ao Diameter Index 1.8 cm/m2 1.0-2.2 Aortic Valve Name Value Normal AV Doppler AV Peak Velocity 1.18 m/s AV Peak Gradient 6 mmHg AV Mean Gradient 3 mmHg AV VTI 19 cm AV Area (Cont Eq VTI) 2.84 cm2 >=2.00 AV Area (Cont Eq Zak) 2.60 cm2 AV DI (VTI) 0.81 AV DI (Zak) 0.74 AV Regurgitation 2D LVOT Area 3.52 cm2 Ventricles Name Value Normal LV Dimensions 2D/MM IVS Diastolic Thickness (2D) 1.0 cm 0.6-0.9 LVID Diastole (2D) 4.0 cm 3.8-5.2 LVPW Diastolic Thickness (2D) 0.7 cm 0.6-0.9 LVID Systole (2D) 2.7 cm 2.2-3.5 LV Mass (2D Cubed) 101 g 67-162 LV Mass Index (2D Cubed) 59 g/m2 43-95 Relative Wall Thickness (2D) 0.34 <=0.42 LV Fractional Shortening/Ejection Fraction 2D/MM LV Fractional Shortening (2D) 32 % 27-45 LV EF (2D Teicholz) 60 % 54-74 LV Diastolic Volume (4C MOD) 99 ml LV EF (4C MOD) 56 % LV Diastolic Volume (2C MOD) 88 ml LV EF (2C MOD) 57 % LV Diastolic Volume (BP MOD) 94 ml 46-106 LV Diastolic Volume Index (BP MOD) 55 ml/m2 29-61 LV Systolic Volume (BP MOD) 40 ml 14-42 LV Systolic Volume Index (BP MOD) 24 ml/m2 8-24 LV EF (BP MOD) 57 % 54-74 LV Diastolic Length (4C) 7.6 cm LV Systolic Length (4C) 6.7 cm LV Stroke Volume (4C MOD) 55 ml RV Dimensions 2D/MM RVID Diastole (2D) 3.1 cm 2.5-3.5 TAPSE 1.5 cm >=1.7 Atria Name Value Normal LA Dimensions LA Volume Index (BP A-L) 21 ml/m2 16-34 Report Signatures Finalized by Richard Valle on 12/23/2024 04:32 PM us Colleen May MD ECHO CUPID Final Result * CULTURE BLOOD (12/23/2024 1:31 PM GAS SPECIALIST) Only the most recent of4 resultswithin the time period is included. Culture No growth day 5 LIZABETH 12/28/2024 2:31 PM GAS SPECIALIST [facility] Blood PERIPHERAL BLOOD / Unknown Lab Venipuncture / Unknown 12/23/2024 1:31 PM GAS SPECIALIST 12/23/2024 1:34 PM GAS SPECIALIST Leanna Villalff DO LAB - MICROBIOLOGY ORDERABLE S Final Result [facility] [address] [place], [place] [address], [facility] [phone] * US Abdomen Ltd W Comp Doppler (12/23/2024 8:04 AM GAS SPECIALIST) Anatomical Region Laterality Modality Abdomen Ultrasound 12/23/2024 4:32 PM GAS SPECIALIST Impressions 12/23/2024 5:34 PM GAS SPECIALIST IMPRESSION: Known advanced cirrhosis. Mild residual ascites. No detectable mass. Normal portal vein and hepatic vein flow direction but accuracy of quantitative values are suspect due to patient condition. Edited by Lola Gomez on 12/23/2024 4:39 PM > Interpreting Provider: Geovanny Mahoney MD on 12/23/2024 5:34 PM Narrative 12/23/2024 5:34 PM GAS SPECIALIST 1. UPPER ABDOMINAL ULTRASOUND, LIMITED. 2. ARTERIAL AND VENOUS DOPPLER ULTRASOUND INTERROGATION OF THE ABDOMEN PROCEDURE: US ABDOMEN LTD W COMP DOPPLER COMPARISON: CT 12/22/2024. CLINICAL INFORMATION (none relevant/not provided if blank): Indication: R79.89: Other specified abnormal findings of blood chemistry. HISTORY: Elevated LFTs , cirrhosis/fibrosis. TECHNIQUE: 1. Real-time ultrasound of the upper abdomen with DICOM image capture performed by dairy manufacturing technologist. 2. Real-time ultrasound of the upper abdomen vasculature with color and spectral Doppler analysis with DICOM image capture performed by dairy manufacturing technologist. Niño scale images were obtained; additionally, Color Doppler and pulse wave Spectral Doppler interrogation was performed and interpreted. FINDINGS: Exam sensitivity significantly reduced due to patient overall condition including limited breath holds. The following is interpreted in light of aforementioned sensitivity: 1. Liver is without suspicious mass or intra hepatic biliary dilatation. Concordant with prior CT, there is advanced cirrhosis with relative hyperechogenicity and nodular echotexture. Common bile duct size is within normal limits for patient demographic. The patient had recent paracentesis. There is residual small volume ascites. Cholecystectomy Visualized portions of the pancreas are generally obscured by bowel gas. No right kidney hydronephrosis. 2. Main, right and left portal veins are patent with normal flow direction. Right, middle and left hepatic veins are patent with normal flow direction. Hepatic artery demonstrates normal wave form. Main portal vein demonstrates 9.8 cm/s hepatopetal flow. Common/right hepatic artery demonstrates peak systolic velocity 53 cm/s. Resistive index could not be calculated. For Reference: OLMOS: Normal RI of OLMOS: 0.55-0.7; OLMOS PSV: approach 100 cm/s Portal Vein: Normal PV PSV: 20-40 cm/s; PV PSV: <16 cm/s suggests portal hypertension Procedure Note Geovanny Mahoney MD - 12/23/2024 1. UPPER ABDOMINAL ULTRASOUND, LIMITED. 2. ARTERIAL AND VENOUS DOPPLER ULTRASOUND INTERROGATION OF THE ABDOMEN PROCEDURE: US ABDOMEN LTD W COMP DOPPLER COMPARISON: CT 12/22/2024. CLINICAL INFORMATION (none relevant/not provided if blank): Indication: R79.89: Other specified abnormal findings of bloodchemistry. HISTORY: Elevated LFTs , cirrhosis/fibrosis. TECHNIQUE: 1. Real-time ultrasound of the upper abdomen with DICOM image capture performed by dairy manufacturing technologist. 2. Real-time ultrasound of the upper abdomen vasculature with color and spectral Doppler analysis with DICOM image capture performed byultrasound technologist. Niño scale images were obtained; additionally, ColorDoppler and pulse wave Spectral Doppler interrogation was performed and interpreted. FINDINGS: Exam sensitivity significantly reduced due to patient overall condition including limited breath holds. The following is interpreted in light of aforementioned sensitivity: 1. Liver is without suspicious mass or intra hepatic biliary dilatation. Concordant with prior CT, there is advanced cirrhosis with relative hyperechogenicity and nodular echotexture. Common bile duct size is within normal limits for patient demographic. The patient had recent paracentesis. There is residual small volume ascites. Cholecystectomy Visualized portions of the pancreas are generally obscured by bowel gas. No right kidney hydronephrosis. 2. Main, right and left portal veins are patent with normal flow direction. Right, middle and left hepatic veins are patent with normal flowdirection. Hepatic artery demonstrates normal wave form. Main portal vein demonstrates 9.8 cm/s hepatopetal flow. Common/right hepatic artery demonstrates peak systolic velocity 53 cm/s. Resistive index could not be calculated. For Reference: OLMOS: Normal RI of OLMOS: 0.55-0.7; OLMOS PSV: approach 100 cm/s Portal Vein: Normal PV PSV: 20-40 cm/s; PV PSV: <16 cm/s suggestsportal hypertension IMPRESSION: Known advanced cirrhosis. Mild residual ascites. No detectable mass. Normal portal vein and hepatic vein flow direction but accuracy of quantitative values are suspect due to patient condition. Edited by Lola Gomez on 12/23/2024 4:39 PM > Interpreting Provider: Geovanny Mahoney MD on 12/23/2024 5:34 PM us Sagar Whaley MD ORDERABLES Final Result * URINALYSIS REFLEX MICROSCOPIC REFLEX CULTURE (12/23/2024 4:51 AM GAS SPECIALIST) Color UA Yellow Yellow, Straw 12/23/2024 5:31 AM [facility] Clarity UA Clear Clear 12/23/2024 5:31 AM [facility] Glucose UA Normal Normal 12/23/2024 5:31 AM [facility] Bilirubin UA Negative Negative 12/23/2024 5:31 AM [facility] Ketone UA Negative Negative 12/23/2024 5:31 AM [facility] Specific [place] UA 1.017 1.005 - 1.030 12/23/2024 5:31 AM [facility] Blood UA Negative Negative 12/23/2024 5:31 AM [facility] pH UA 5.5 5.0 - 9.0 pH 12/23/2024 5:31 AM [facility] Protein UA Negative Negative 12/23/2024 5:31 AM [facility] Urobilinogen UA Normal Normal mg/dL 025 5:31 AM [facility] Nitrite UA Negative Negative 12/23/2024 5:31 AM [facility] Leukocyte UA Negative Negative 12/23/2024 5:31 AM [facility] Urine URINE SPECIMEN OBTAINED BY CLEAN CATCH PROCEDURE / Unknown Collection / Unknown 12/23/2024 4:51 AM GAS SPECIALIST 12/23/2024 4:58 AM GAS SPECIALIST us Medardo Evans MD LAB - URINALYSIS ORDERABL ES Final Result [facility] [address] [place] [address] * (ABNORMAL) CBC W AUTO DIFFERENTIAL (12/23/2024 4:35 AM GAS SPECIALIST) Only the most recent of2 resultswithin the time period is included. WBC 8.0 4.0 - 10.7 x10E9/L 12/23/2024 5:36 AM [facility] RBC Count 3.41(L) 3.90 - 5.20 x10E12/L 12/23/2024 5:36 AM [facility] Hemoglobin 11.7(L) 11.9 - 15.8 g/dL 12/23/2024 5:36 AM [facility] Hematocrit 33.4(L) 34.8 - 46.1 % 12/23/2024 5:36 AM [facility] MCV 97.9 80.0 - 98.0 fL 12/23/2024 5:36 AM [facility] MCH 34.3(H) 26.7 - 33.6 pg 12/23/2024 5:36 AM [facility] MCHC 35.0 31.7 - 36.3 g/dL 12/23/2024 5:36 AM [facility] RDW-CV 14.4 11.3 - 14.8 % 12/23/2024 5:36 AM [facility] Platelet Count 221 150 - 420 x10E9/L 12/23/2024 5:36 AM [facility] MPV 9.5 7.8 - 11.4 fL 12/23/2024 5:36 AM [facility] Neutrophil % 47.3 41.0 - 74.0 % 12/23/2024 5:36 AM [facility] Lymphocyte % 37.6 17.0 - 47.0 % 12/23/2024 5:36 AM [facility] Monocyte % 13.8(H) 3.0 - 11.0 % 12/23/2024 5:36 AM [facility] Eosinophil % 0.7 0.0 - 7.0 % 12/23/2024 5:36 AM [facility] Basophil % 0.2 0.0 - 1.6 % 12/23/2024 5:36 AM [facility] Immature Granulocytes % 0.4 0.0 - 1.0 % 12/23/2024 5:36 AM [facility] Neutrophil Absolute 3.79 1.60 - 7.50 x10E9/L 12/23/2024 5:36 AM [facility] Lymphocyte Absolute 3.02 1.00 - 4.40 x10E9/L 12/23/2024 5:36 AM [facility] Monocyte Absolute 1.11(H) 0.15 - 1.00 x10E9/L 12/23/2024 5:36 AM [facility] Eosinophil Absolute 0.06 0.00 - 0.60 x10E9/L 12/23/2024 5:36 AM [facility] Basophil Absolute 0.02 0.00 - 0.13 x10E9/L 12/23/2024 5:36 AM [facility] Blood BLOOD SPECIMEN / Unknown Lab Venipuncture / Unknown 12/23/2024 4:[address] [facility] 12/23/2024 5:[address] [facility] Sagar Whaley MD LAB - HEMATOLOGY ORDERABLES Fi nal Result [facility] [address] [place] [address] * (ABNORMAL) BASIC METABOLIC PANEL (CALCIUM TOTAL) (12/23/2024 4:[address] [facility]) [facility] Glucose 120(H) 70 - 99 mg/dL 12/23/2024 8:01 AM [facility] Sodium 136 136 - 145 mmol/L 12/23/2024 8:01 AM [facility] Potassium 3.5 3.5 - 5.1 mmol/L 12/23/2024 8:01 AM [facility] Chloride 108(H) 98 - 107 mmol/L 12/23/2024 8:01 AM [facility] CO2 15(L) 22 - 29 mmol/L 12/23/2024 8:01 AM [facility] Calcium 7.3(L) 8.4 - 10.4 mg/dL 12/23/2024 8:01 AM [facility] Anion Gap 13 6 - 16 mmol/L 12/23/2024 8:01 AM [facility] BUN 15 7 - 26 mg/dL 12/23/2024 8:01 AM [facility] Creatinine 0.79 0.57 - 1.11 mg/dL 12/23/2024 8:01 AM [facility] eGFR by CKD-EPI 86(L) >=90 mL/min/1.7 3 m2 12/23/2024 8:01 AM [facility] Blood BLOOD SPECIMEN / Unknown Lab Venipuncture / Unknown 12/23/2024 4:35 AM GAS SPECIALIST 12/23/2024 5:[address] [facility] us Colleen May MD LAB - CHEMISTRY ORDERABLES F inal Result [facility] [address] [place] [address] * (ABNORMAL) HEPATIC FUNCTION PANEL (12/23/2024 4:[address] [facility]) Alkaline Phosphatase 194(H) 40 - 150 U/L 12/23/2024 5:47 AM [facility] ALT 30 0 - 55 U/L 12/23/2024 5:47 AM [facility] AST 36(H) 5 - 34 U/L 12/23/2024 5:47 AM [facility] Protein Total 4.6(L) 6.4 - 8.3 gm/dL 12/23/2024 5:47 AM [facility] Albumin 1.8(L) 3.4 - 5.0 gm/dL 12/23/2024 5:47 AM [facility] Bilirubin Total 0.7 0.2 - 1.2 mg/dL 12/23/2024 5:47 AM [facility] Bilirubin Direct 0.409 0.10 - 0.50 mg/dL 12/23/2024 5:47 AM [facility] Blood BLOOD SPECIMEN / Unknown Lab Venipuncture / Unknown 12/23/2024 4:35 AM GAS SPECIALIST 12/23/2024 5:12 AM GAS SPECIALIST us Sagar Whaley MD LAB - CHEMISTRY ORDERABLES Fin al Result [facility] [address] [facility] [place] [address] * US Paracentesis (12/22/2024 4:07 PM GAS SPECIALIST) Anatomical Region Laterality Modality Abdomen Ultrasound 12/22/2024 4:42 PM GAS SPECIALIST Impressions 12/22/2024 4:42 PM GAS SPECIALIST IMPRESSION: Successful ultrasound-guided paracentesis. > Interpreting Provider: Bart Merchant MD on 12/22/2024 4:42 PM Narrative 12/22/2024 4:42 PM GAS SPECIALIST PROCEDURE: US PARACENTESIS DATE/TIME OF EXAM: 12/22/2024 4:07 PM CLINICAL INFORMATION: None relevant/not provided if blank. Indication: R60.1: Generalized edema Additional History: COMPARISON: None. PROCEDURE: The risks, benefits, and alternatives of the procedure were discussed with the patient, who agreed to proceed and signed informed consent. The patient was placed in the supine position. An appropriate skin entry site was chosen over the left lower abdomen. A sonographic image was obtained for the patient permanent medical record. The skin was prepped and draped in standard sterile fashion. Standard timeout was performed and [place] Protocol Policy steps were completed for the documented procedure. 1% lidocaine was utilized to anesthetize the skin and subcutaneous tissues at the proposed needle entry site. A tiny dermatotomy was made. A standard SSM stocked small bore needle catheter device was inserted into the peritoneal cavity. Appropriate needle placement was confirmed with return of fluid. The catheter was fed off the needle and the needle was withdrawn. The catheter was attached to vacuum drainage. A total of 5.46 liters of clear yellow fluid was aspirated. Fluid was sent to laboratory for analysis if indicated with orders. The patient tolerated the procedure well. There were no immediate complications. COMPLICATIONS: None immediate. Procedure Note Bart Merchant MD - 12/22/2024 PROCEDURE: US PARACENTESIS DATE/TIME OF EXAM: 12/22/2024 4:07 PM CLINICAL INFORMATION: None relevant/not provided if blank. Indication: R60.1: Generalized edema Additional History: COMPARISON: None. PROCEDURE: The risks, benefits, and alternatives of the procedure were discussedwith the patient, who agreed to proceed and signed informed consent. Thepatient was placed in the supine position. An appropriate skin entry site was chosen over the left lower abdomen. A sonographic image was obtained for the patient permanent medical record. The skin was prepped and draped in standard sterile fashion. Standard timeout was performed and [place] Protocol Policy steps were completed for the documented procedure. 1% lidocaine was utilized to anesthetize the skin and subcutaneoustissues at the proposed needle entry site. A tiny dermatotomy was made. Astandard SSM stocked small bore needle catheter device was inserted into the peritoneal cavity. Appropriate needle placement was confirmed withreturn of fluid. The catheter was fed off the needle and the needle waswithdrawn. The catheter was attached to vacuum drainage. A total of 5.46 liters of clear yellow fluid was aspirated. Fluid wassent to laboratory for analysis if indicated with orders. The patient tolerated the procedure well. There were no immediate complications. COMPLICATIONS: None immediate. IMPRESSION: Successful ultrasound-guided paracentesis. > Interpreting Provider: Bart Merchant MD on 12/22/2024 4:42 PM Colleen May MD US ORDERABLES Final Result * PROTEIN BODY FLUID (12/22/2024 3:47 PM GAS SPECIALIST) Protein Fluid 0.2 Not Established For Fluids g/dL 12/22/2024 5:05 PM [facility] Fluid Type Peritoneal Fluid 12/22/2024 5:05 PM [facility] Fluid PERITONEAL FLUID / Unknown Collection / Unknown 12/22/2024 3:47 PM GAS SPECIALIST 12/22/2024 4:48 PM GAS SPECIALIST Narrative [facility] - 12/22/2024 5:05 PM GAS SPECIALIST The analytical performance of this test has been independently validated by the laboratory. A reference range has not been established for this fluid. Comparison of this result with the concentration in blood, serum or plasma is recommended. Colleen May MD LAB - BODY FLUID ORDERABLES Final Result Performing Organization Address [facility] Co de Phone Number [facility] [address] [place] [address] * ALBUMIN BODY FLUID (12/22/2024 3:47 PM GAS SPECIALIST) Albumin Fluid <0.4 Not Established For Fluids g/dL 12/22/2024 10:23 PM GAS SPECIALIST [facility] Fluid Type Peritoneal Fluid 12/22/2024 10:23 PM [facility] Fluid PERITONEAL FLUID / Unknown Collection / Unknown 12/22/2024 3:47 PM GAS SPECIALIST 12/22/2024 4:08 PM GAS SPECIALIST Narrative [facility] - 12/22/2024 10:23 PM GAS SPECIALIST The analytical performance of this test has been independently validated by the laboratory. A reference range has not been established for this fluid. Comparison of this result with the concentration in blood, serum or plasma is recommended. Colleen May MD LAB - BODY FLUID ORDERABLES Final Result Performing Organization Address [facility] de Phone Number [facility] [address] [place] [address] [facility] [address] [place] [address] * LDH BODY FLUID (12/22/2024 3:47 PM GAS SPECIALIST) LD Fluid <30 Not Established For Fluids Units/L 12/22/2024 5:05 PM [facility] Fluid Type Peritoneal Fluid 12/22/2024 5:05 PM [facility] Fluid PERITONEAL FLUID / Unknown Collection / Unknown 12/22/2024 3:47 PM GAS SPECIALIST 12/22/2024 4:48 PM GAS SPECIALIST Narrative [facility] - 12/22/2024 5:05 PM GAS SPECIALIST The analytical performance of this test has been independently validated by the laboratory. A reference range has not been established for this fluid. Comparison of this result with the concentration in blood, serum or plasma is recommended. Colleen May MD LAB - BODY FLUID ORDERABLES Final Result Performing Organization Address [facility] Co de Phone Number [facility] [address] [place] [address] * GLUCOSE BODY FLUID (12/22/2024 3:47 PM GAS SPECIALIST) Glucose Fluid 258 Not Established For Fluids mg/dL 12/22/2024 5:05 PM GAS SPECIALIST [facility] Fluid Type Peritoneal Fluid 12/22/2024 5:05 PM GAS SPECIALIST [facility] Fluid PERITONEAL FLUID / Unknown Collection / Unknown 12/22/2024 3:47 PM GAS SPECIALIST 12/22/2024 4:48 PM GAS SPECIALIST Narrative [facility] - 12/22/2024 5:05 PM GAS SPECIALIST The analytical performance of this test has been independently validated by the laboratory. A reference range has not been established for this fluid. Comparison of this result with the concentration in blood, serum or plasma is recommended. Colleen May MD LAB - BODY FLUID ORDERABLES Final Result Performing Organization Address [facility] de Phone Number [facility] [address] [place] [address] * CYTOLOGY NON-TROUBLE DISPATCHER PANEL (STL) (12/22/2024 3:47 PM GAS SPECIALIST) Case Report Cytology Non Photoengraving Supervisor Report Case: [id number] Authorizing Provider: Colleen May MD Collected: 12/22/2024 03:47 PM Ordering Location: ER at [facility] Received: 12/23/2024 10:30 AM [facility] Pathologist: Karl Avery MD Specimen: Ascities Fluid 12/24/2024 12:36 PM GAS SPECIALIST [facility] Final Diagnosis Peritoneal fluid, cytology: Negative for malignancy Acute inflammation present Negative for malignancy 12/24/2024 12:36 PM GAS SPECIALIST [facility] at [address] GAS SPECIALIST Clinical History 59-year-old female status post Whipple for 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 CHF with liver abnormal on CT and mildly abnormal LFTs. Leukocytosis present. Newly developed ascites/anasarca-diff erential diagnosis spontaneous bacterial peritonitis, ascites and anasarca secondary to CHF and malignant ascites. Ultrasound-guided paracentesis yielded 5.46 L of clear yellow fluid. Sample submitted for cytology and other studies. 12/24/2024 12:36 PM [facility] Gross Description 25 ML, CLOUDY, YELLOW FLUID 12/24/2024 12:36 PM [facility] Microscopic Description From peritoneal fluid concentrated by thin prep and cytospin methods, 1 technically adequate Papanicolaou stained slide and 2 technically adequate Dodson stained slides, respectively, are examined. Cell block is prepared and 2 H&E stained levels reviewed. ThinPrep slide and cytospin slides are adequately cellular. Mesothelial, mononuclear and acute inflammatory cells are seen. Neutrophils are quite prominent on the cytospin slides. Cellblock sections show low but similar cellularity. There is no evidence of malignancy. 12/24/2024 12:36 PM [facility] Disclaimer All histochemical and/or immunohistochemical results are interpreted with controls that demonstrate appropriate staining reactions before reporting results. Note on use of immunocytochemistry reagents: This test was developed and its performance characteristic determined by [facility], Department of Laboratory Medicine. It has not been cleared or approved by the U.S. Food and Drug Administration (FDA). The FDA has determined that such clearance or approval is not necessary. The test is used for clinical purpose. It should not be regarded as investigational or for research. This laboratory is certified to perform high complexity testing. The performance characteristics of the IHC/SAM assays have been validated on formalin-fixed paraffin embedded tissues only. The assays have not been validated on decalcified tissues. Results should be interpreted with caution. 12/24/2024 12:36 PM [facility] Performed By [facility] at [address] [address]. 12/24/2024 12:36 PM [facility] Embedded Images 12/24/2024 12:36 PM [facility] Pathology/Cytolo gy ASCITIC FLUID SPECIMEN / Unknown Collection / Unknown 12/22/2024 3:47 PM GAS SPECIALIST 12/23/2024 10:30 AM GAS SPECIALIST us Colleen Tanguturi MD LAB - PATHOLOGY/CYTOLOGY ORD ERABLES Final Result Performing Organization Address [facility]/ZIP Co de Phone Number [facility] [address] [place] [address] * DIFFERENTIAL MANUAL FLUID (12/22/2024 3:47 PM GAS SPECIALIST) Fluid Source Peritoneal 12/22/2024 5:22 PM GAS SPECIALIST [facility] Body Fluid Total Cell Count 100 x10E6/L 12/22/2024 5:22 PM GAS SPECIALIST [facility] Neutrophils Fluid Percent 49 % 12/22/2024 5:22 PM GAS SPECIALIST [facility] Lymphocytes Fluid Percent 8 % 12/22/2024 5:22 PM GAS SPECIALIST [facility] Macrophages Fluid Percent 40 % 12/22/2024 5:22 PM GAS SPECIALIST [facility] Mesothelial Cells Fluid Percent 3 % 12/22/2024 5:22 PM GAS SPECIALIST [facility] Fluid PERITONEAL FLUID / Unknown Collection / Unknown 12/22/2024 3:47 PM GAS SPECIALIST 12/22/2024 4:08 PM GAS SPECIALIST Narrative [facility] - 12/22/2024 5:22 PM GAS SPECIALIST No reference ranges established for body fluid differential cell counts. The test results must be integrated into the clinical context for interpretation. Result [facility] Colleen May MD LAB - BODY FLUID ORDERABLES Final Result Performing Organization Address [facility] Co de Phone Number [facility] [address] [place] [address] * CULTURE FLUID+GRAM STAIN (12/22/2024 3:47 PM GAS SPECIALIST) Culture No growth LIZABETH 12/25/2024 11:40 PM GAS SPECIALIST [facility] Gram Stain No organisms seen 025 11:40 PM GAS SPECIALIST [facility] Gram Stain Light Polymorphonuclear cells 12/25/2024 11:40 PM GAS SPECIALIST [facility] Fluid PERITONEAL FLUID / Unknown Collection / Unknown 12/22/2024 3:47 PM GAS SPECIALIST 12/22/2024 4:12 PM GAS SPECIALIST Colleen May MD LAB - MICROBIOLOGY ORDERABLE S Final Result Performing Organization Address [facility] Co de Phone Number [facility] [address] [place] [address], [facility] [phone] * CELL COUNT W DIFFERENTIAL FLUID (12/22/2024 3:47 PM GAS SPECIALIST) Fluid Source Peritoneal 12/22/2024 5:22 PM GAS SPECIALIST [facility] Fluid Appearance CLEAR 12/22/2024 5:22 PM GAS SPECIALIST [facility] Fluid Color STRAW 12/22/2024 5:22 PM GAS SPECIALIST [facility] Total Nucleated Cells Fluid 162 Reference Range Not Established x10E6/L 12/22/2024 5:22 PM [facility] RBC Count Fluid <2,000 Reference Range Not Established x10E6/L 12/22/2024 5:22 PM [facility] Fluid PERITONEAL FLUID / Unknown Collection / Unknown 12/22/2024 3:47 PM GAS SPECIALIST 12/22/2024 4:08 PM GAS SPECIALIST Narrative [facility] - 12/22/2024 5:22 PM GAS SPECIALIST No reference ranges established for body fluid cell counts. Any reference ranges provided are derived from published literature. The test results must be integrated into the clinical context for interpretation. us Colleen May MD LAB - BODY FLUID ORDERABLES Final Result Performing Organization Address [facility] de Phone Number [facility] [address] [place] [address] * (ABNORMAL) LACTIC ACID BLOOD REFLEX TO REPEAT (12/22/2024 10:25 AM GAS SPECIALIST) Only the most recent of3 resultswithin the time period is included. Lactic Acid 2.55(H) <=2 mmol/L 12/22/2024 10:46 AM [facility] Blood BLOOD SPECIMEN / Unknown Venipuncture / Unknown 12/22/2024 10:25 AM GAS SPECIALIST 12/22/2024 10:27 AM GAS SPECIALIST us Medardo Evans MD LAB - CHEMISTRY ORDERABLE S Final Result Performing Organization Address [facility]/ZIP Co de Phone Number [facility] [address] [place] [address] * (ABNORMAL) BCID PANEL (12/22/2024 5:45 AM GAS SPECIALIST) [facility] Staphylococcus species Detected (A) Not detected 12/23/2024 12:[address] [facility] Comment:Staphylococcus speci es (not S. aureus, S. lugdunensis, or S. epidermidis). Empiric coverage for methicillin resistance is needed, if treatment indicated, since mecA/C gene detection cannot be determined by BCID2. Blood PERIPHERAL BLOOD / Unknown Venipuncture / Unknown 12/22/2024 5:45 AM GAS SPECIALIST 12/22/2024 6:55 AM GAS [address] [facility] - 12/23/2024 12:34 AM GAS SPECIALIST Blood Culture ID Panel performed by Checkr multiplex PCR. The Test panel includes: Gram Positive Bacteria: Enterococcus faecalis, Enterococcus faecium, Listeria monocytogenes, Staphylococcus (genus), Staphylococcus aureus, Staphylococcus epidermidis, Staphylococcus lugdunensis, Streptococcus (genus), Streptococcus agalactiae (Group B), Streptococcus pneumoniae, Streptococcus pyogenes (Group A). Gram Negative Bacteria: Acinetobacter baumannii complex, Bacteroides fragilis, Haemophilus influenzae, Neisseria meningitidis (encapsulated), Pseudomonas aeruginosa, Stenotrophomonas maltophilia, Enterobacterales (formerly Enterobacteriaceae family), Enterobacter cloacae complex, Escherichia coli, Klebsiella (formerly Enterobacter) aerogenes, Klebsiella oxytoca, Klebsiella pneumoniae group, Proteus (genus), Salmonella species, Serratia marcescens. YEAST: Eusebia albicans, Eusebia auris, Eusebia glabrata, Eusebia krusei, Eusebia parapsilosis, Eusebia tropicalis, Cryptococcus neoformans/gattii. Antimicrobial Resistance Genes: CTX-M (extended-spectrum beta-lactamase), IMP (metallo beta-lactamase), KPC (carbapenemase), mcr-1 (colistin resistance determinant) mecA/C (methicillin-resistance), mecA/C and MREJ (methicillin-resistance - MRSA), NDM ([place] xcaefuw-huse-taeanhrxn), OXA-48-like (oxacillinase beta-lactamase),Brady/B (vancomycin-resistance), VIM (Radha Intergrom-Encoded Metallo beta-lactamase). us Medardo Evans MD LAB - MICROBIOLOGY ORDERA BLES Final Result [facility] [address] [place], [place] [address], [facility] [phone] * CT ABDOMEN PELVIS W CONTRAST (12/22/2024 3:16 AM GAS SPECIALIST) Anatomical Region Laterality Modality Abdomen, Pelvis Computed Tomogra phy 12/22/2024 8:24 AM GAS SPECIALIST Impressions 12/22/2024 9:23 AM GAS SPECIALIST IMPRESSION: Status post Whipple procedure without evidence of metastatic disease given technique. Discontiguous areas of large and small bowel wall thickening as well as nonspecific gastric wall thickening. No obstruction. See Findings for differential diagnosis discussion. Appendix not seen. Abnormal hepatic changes consistent with hepatic dysfunction and portal hypertensive changes including ascites. Generalized anasarca changes. Edited by Julia Epstein on 12/22/2024 8:41 AM > Interpreting Provider: Geovanny Mahoney MD on 12/22/2024 9:23 AM Narrative 12/22/2024 9:23 AM GAS SPECIALIST PROCEDURE: CT ABDOMEN PELVIS W CONTRAST CLINICAL INFORMATION (none relevant/not provided if blank): Indication: R10.84: Generalized abdominal pain TECHNIQUE: [facility] CQ[facility] #436: All CT scans at [facility]: CT dose reduction technique was used, including Automated Exposure Control. Helical CT acquisition of abdomen and pelvis with intravenous iodinated contrast. CONTRAST (specific details in [facility] EMR):IOPAMIDOL 76 % IV SOLN:80 mL . RELEVANT COMPARISON: 05/2024 & prior; written report [facility] 08/20. ADDITIONAL HISTORY: Abdominal distention and diarrhea. History of pancreatic cancer with Whipple. FINDINGS: Right dependent atelectasis. Small left pleural effusion & retrocardiac reticular nodular/non-consolidative opacities: differential diagnosis includes atelectasis or pneumonia. Left hemidiaphragm eventration/elevation noted. Breast parenchyma is without suspicious finding given this technique; as a standard caveat, consider screening mammography for age 40 and greater. Coronary artery calcification is identified. There is generalized subcutaneous edema and moderate low density ascites, correlate for anasarca. Hepatic nodularity, caudate lobe enlargement and fissural widening noted. Otherwise: Liver is without suspicious intrahepatic biliary dilatation or suspicious hepatic mass. Postsurgical changes of reported Whipple procedure. No gallbladder. No imaging evidence of abnormal biliary dilatation or appreciable filling defects. There is atrophy of the upstream pancreatic body and tail without ductal dilatation or appreciable mass given the requested technique. No appreciable splenomegaly or suspicious splenic lesion. No appreciable splenomegaly or suspicious splenic lesion. Abdominal varices are noted; this is likely related to portal venous hypertension. Given technique and ACR guidance, no appreciable suspicious adrenal mass. Given technique, no appreciable obstructing renal calculi, hydronephrosis or suspicious renal lesion. Right small nonobstructing renal calyceal calculi. Moderate arterial atherosclerotic disease noted. Bladder collapse reduces sensitivity for assessment wall thickening. Uterus and related adnexa are without imaging evidence of active abnormality given the patient demographic. Fat containing left inguinal hernia without evidence of inflammatory change. Fat containing right inguinal hernia without evidence of inflammatory change. Absence of oral contrast may reduce exam sensitivity for pathologies of the viscous gastrointestinal organs. There is discontiguous areas of ucbb-rv-dtyjqiar colonic wall thickening, this is most notable in the transverse colon but areas are involved throughout the colon. Given the degree of bowel luminal distension, Differential diagnosis includes underdistention or colitis or hepatic colopathy. Patient is status post distal gastrectomy and jejunostomy. Gastric wall thickening noted. DIFFERENTIAL DIAGNOSIS: includes decompression artifact, gastritis or hepatic gastropathy; correlate for referable symptoms or evidence of hepatic dysfunction. Given the degree of bowel luminal distension, long segments of small bowel wall thickening noted, most notably in the proximal small bowel. Differential diagnosis includes underdistention or enteritis or hepatic enteropathy. No pneumatosis. No significant air-fluid levels or small bowel dilatation consistent with bowel obstruction. Appendix not seen. Musculoskeletal: Osseous degenerative changes. Procedure Note Geovanny Mahoney MD - 12/22/2024 PROCEDURE: CT ABDOMEN PELVIS W CONTRAST CLINICAL INFORMATION (none relevant/not provided if blank): Indication: R10.84: Generalized abdominal pain TECHNIQUE: [facility] #436: All CT scans at [facility]: CT dose reduction technique wasused, including Automated Exposure Control. Helical CT acquisition of abdomen and pelvis with intravenous iodinated contrast. CONTRAST (specific details in [facility] EMR):IOPAMIDOL 76 % IV SOLN:80 mL . RELEVANT COMPARISON: 05/2024 & prior; written report [facility] 08/20. ADDITIONAL HISTORY: Abdominal distention and diarrhea. History of pancreatic cancer with Whipple. FINDINGS: Right dependent atelectasis. Small left pleural effusion & retrocardiac reticular nodular/non-consolidative opacities: differential diagnosis includes atelectasis or pneumonia. Left hemidiaphragm eventration/elevation noted. Breast parenchyma is without suspicious finding given this technique; asa standard caveat, consider screening mammography for age 40 and greater. Coronary artery calcification is identified. There is generalized subcutaneous edema and moderate low densityascites, correlate for anasarca. Hepatic nodularity, caudate lobe enlargement and fissural wideningnoted. Otherwise: Liver is without suspicious intrahepatic biliary dilatationor suspicious hepatic mass. Postsurgical changes of reported Whipple procedure. No gallbladder. No imaging evidence of abnormal biliary dilatation or appreciablefilling defects. There is atrophy of the upstream pancreatic body and tail without ductal dilatation or appreciable mass given the requested technique. No appreciable splenomegaly or suspicious splenic lesion. No appreciable splenomegaly or suspicious splenic lesion. Abdominal varices are noted; this is likely related to portal venous hypertension. Given technique and ACR guidance, no appreciablesuspicious adrenal mass. Given technique, no appreciable obstructing renal calculi,hydronephrosis or suspicious renal lesion. Right small nonobstructing renal calyceal calculi. Moderate arterial atherosclerotic disease noted. Bladder collapse reduces sensitivity for assessment wall thickening. Uterus and related adnexa are without imaging evidence of active abnormality given the patient demographic. Fat containing left inguinal hernia without evidence of inflammatory change. Fat containing right inguinal hernia without evidence of inflammatory change. Absence of oral contrast may reduce exam sensitivity for pathologies ofthe viscous gastrointestinal organs. There is discontiguous areas of ogsy-hy-hlafbjzy colonic wallthickening, this is most notable in the transverse colon but areas are involved throughout the colon. Given the degree of bowel luminal distension, Differential diagnosis includes underdistention or colitis or hepatic colopathy. Patient is status post distal gastrectomy and jejunostomy. Gastric wall thickening noted. DIFFERENTIAL DIAGNOSIS: includes decompressionartifact, gastritis or hepatic gastropathy; correlate for referable symptoms or evidence of hepatic dysfunction. Given the degree of bowel luminal distension, long segments of smallbowel wall thickening noted, most notably in the proximal small bowel. Differential diagnosis includes underdistention or enteritis or hepatic enteropathy. No pneumatosis. No significant air-fluid levels or small bowel dilatation consistentwith bowel obstruction. Appendix not seen. Musculoskeletal: Osseous degenerative changes. IMPRESSION: Status post Whipple procedure without evidence of metastatic diseasegiven technique. Discontiguous areas of large and small bowel wall thickening as well as nonspecific gastric wall thickening. No obstruction. See Findings for differential diagnosis discussion. Appendix not seen. Abnormal hepatic changes consistent with hepatic dysfunction and portal hypertensive changes including ascites. Generalized anasarca changes. Edited by Julia Epstein on 12/22/2024 8:41 AM > Interpreting Provider: Geovanny Mahoney MD on 12/22/2024 9:23 AM Medardo Evans MD CT ORDERABLES Final Res ult * HYDROXYBUTYRATE BETA (12/22/2024 2:32 AM GAS SPECIALIST) Beta-Hydroxybu tyrate <0.50 <0.50 mmol/L 12/22/2024 2:53 AM GAS SPECIALIST [facility] Blood BLOOD SPECIMEN / Unknown Venipuncture / Unknown 12/22/2024 2:32 AM GAS SPECIALIST 12/22/2024 2:34 AM GAS SPECIALIST Narrative [facility] - 12/22/2024 2:53 AM GAS SPECIALIST Results >1.5 mmol/L may be indicative of diabetic ketoacidosis. Use in conjunction with Serum Glucose levels. Medardo Evans MD LAB - CHEMISTRY ORDERABLE S Final Result [facility] [address] [place] [address] * (ABNORMAL) PT-INR (12/22/2024 1:57 AM GAS SPECIALIST) PT 17.8(H) 12.1 - 14.8 sec 12/22/2024 2:19 AM GAS SPECIALIST [facility] INR 1.5(H) 0.9 - 1.1 12/22/2024 2:19 AM [facility] Blood BLOOD SPECIMEN / Unknown Venipuncture / Unknown 12/22/2024 1:57 AM GAS SPECIALIST 12/22/2024 2:04 AM GAS SPECIALIST Narrative [facility] - 12/22/2024 2:19 AM GAS SPECIALIST Conventional Warfarin Anticoagulant Therapy: INR Reference Range: 2.0-3.0 Intensive Warfarin Anticoagulant Therapy: INR Reference Range: 2.5-3.5 Medardo Evans MD LAB - COAGULATION ORDERAB LES Final Result Performing Organization Address [facility] Co de Phone Number [facility] [address] [place] [address] * (ABNORMAL) MAGNESIUM BLOOD (12/22/2024 1:57 AM GAS SPECIALIST) Magnesium 1.5(L) 1.6 - 2.6 mg/dL 12/22/2024 2:23 AM [facility] Blood BLOOD SPECIMEN / Unknown Venipuncture / Unknown 12/22/2024 1:57 AM GAS SPECIALIST 12/22/2024 2:04 AM GAS SPECIALIST Medardo Evans MD LAB - CHEMISTRY ORDERABLE S Final Result Performing Organization Address [facility] Co de Phone Number [facility] [address] [place] [address] * LIPASE BLOOD (12/22/2024 1:57 AM GAS SPECIALIST) Lipase 5 <60 U/L 12/22/2024 2:23 AM [facility] Blood BLOOD SPECIMEN / Unknown Venipuncture / Unknown 12/22/2024 1:57 AM GAS SPECIALIST 12/22/2024 2:04 AM GAS SPECIALIST Medardo Evans MD LAB - CHEMISTRY ORDERABLE S Final Result Performing Organization Address [facility] Co de Phone Number [facility] [address] [place] [address] * SARS-COV-2 (COVID-19) FLU A/B RSV PCR RAPID (12/22/2024 1:42 AM GAS SPECIALIST) COVID-19 PCR Not detected Not detected 12/22/19 2:43 AM [facility] Influenza A PCR Not detected Not detected 12/22/2024 2:43 AM GAS SPECIALIST [facility] Influenza B PCR Not detected Not detected 12/22/2024 2:43 AM GAS SPECIALIST [facility] RSV PCR Not detected Not detected 12/22/2024 2:43 AM [facility] Microbiology SPECIMEN FROM NASOPHARYNGEAL STRUCTURE / Unknown Collection / Unknown 12/22/2024 1:42 AM GAS SPECIALIST 12/22/2024 2:05 AM GAS SPECIALIST Narrative [facility] - 12/22/2024 2:43 AM GAS SPECIALIST This nucleic acid amplification assay has been authorized by the Food and Drug administration (FDA) under an Emergency Use Authorization (EUA). This test is only authorized for the duration of time the declaration that circumstances exist justifying the authorization of emergency use of in vitro diagnostic tests for detection of SARS-CoV-2 virus and/or diagnosis of COVID-19 infection under section 564(b)(1) of the Act, 21 U.S.C 360bbb-3 (b)(1), unless the authorization is terminated or revoked sooner. Fact Sheets for this EUA assay are available upon request. us Medardo Evans MD LAB - MICROBIOLOGY ORDERA BLES Final Result [facility] [address] [place] [id number] * XR CHEST 1VW PORTABLE (12/22/2024 1:41 AM GAS SPECIALIST) Anatomical Region Laterality Modality Chest Radiographic Katherine ging 12/22/2024 8:32 AM GAS SPECIALIST Impressions 12/22/2024 8:33 AM GAS SPECIALIST IMPRESSION: Small left pleural effusion and basilar infiltrate consistent with pneumonia > Interpreting Provider: Nelson Yip MD on 12/22/2024 8:33 AM Narrative 12/22/2024 8:33 AM GAS SPECIALIST PROCEDURE: XR CHEST 1VW PORTABLE DATE/TIME OF EXAM: 12/22/2024 1:41 AM INDICATION: R10.84: Generalized abdominal pain COMPARISON: September 21 ADDITIONAL CLINICAL INFORMATION (if provided): Ordering Provider Reason For Exam: Findings: The heart is not enlarged. The aorta is normal in caliber. There is a small left pleural effusion with lower lobe infiltrate and atelectasis. There is minor discoid atelectasis at the right lung base. There is no confluent infiltrate .. There is no pneumothorax. There is no mass or adenopathy.. Procedure Note Nelson Yip MD - 12/22/2024 PROCEDURE: XR CHEST 1VW PORTABLE DATE/TIME OF EXAM: 12/22/2024 1:41 AM INDICATION: R10.84: Generalized abdominal pain COMPARISON: September 21 ADDITIONAL CLINICAL INFORMATION (if provided): Ordering Provider Reason For Exam: Findings: The heart is not enlarged. The aorta is normal in caliber. There is asmall left pleural effusion with lower lobe infiltrate and atelectasis. Thereis minor discoid atelectasis at the right lung base. There is no confluent infiltrate .. There is no pneumothorax. There is no mass or adenopathy.. IMPRESSION: Small left pleural effusion and basilar infiltrate consistent with pneumonia > Interpreting Provider: Nelson Yip MD on 12/22/2024 8:33 AM Medardo Evans MD DIAGNOSTIC IMAGING ORDERA BLES Final Result * EYE EXAM (08/20/2024) Anatomical Region Laterality Modality Other 08/20/2024 Narrative 08/20/2024 Ordered by an unspecified provider. us Scanned Document SCANNING ONLY Final Result * MAMMO BILAT SCREENING W ROX (05/14/2024 10:01 AM CDT) Anatomical Region Laterality Modality Breast Bilateral Mammography 06/05/2024 11:0 7 AM CDT Impressions 06/05/2024 11:07 AM CDT : No mammographic evidence of malignancy. BI-RADS Category 1: Negative Mammogram. Recommendation: Resume routine yearly mammography schedule for women over age 40 or return sooner if clinically indicated. > Interpreting Provider: Zeyad Avendano MD on 06/05/2024 11:07 AM Narrative 06/05/2024 11:07 AM CDT Bilateral mammography. Comparison: None History: Screening mammogram. Technique: Bilateral breasts. Mammography views included: CC and MLO. Images interpreted with CAD. Following current [facility] protocol, 3D mammographic tomosynthesis images were obtained and reviewed on a dedicated viewing station. FINDINGS: Breast composition: Almost entirely fatty. No suspicious calcifications, masses, or areas of architectural distortion. us Annia Walker DO MAMMO ORDERABLES Final Resu lt * ENDOSCOPY, COLON, SCREENING (03/30/2024 8:15 AM CDT) Report Endoscopy POC Endoscopy Department Report _ Patient Name: Meron Amaro Procedure Date: 03/30/2024 8:15 AM Date of : 1965 Classification: Outpatient Gender: Female Ethnicity: Not or Race: White _ Providers: Suleman Sr MD, Philip Almazan (Fellow) Referring MD: Annia Walker (Referring MD) Procedure: Colonoscopy Indications: Screening for colorectal malignant neoplasm Medications: Monitored Anesthesia Care Patient Profile: This is a 58 year old female. Description of Procedure: Pre-Anesthesia Assessment: - Prior to the procedure, a History and Physical was performed, and patient medications and allergies were reviewed. The patient's tolerance of previous anesthesia was also reviewed. The risks and benefits of the procedure and the sedation options and risks were discussed with the patient. All questions were answered, and informed consent was obtained. Prior Anticoagulants: The patient has taken no anticoagulant or antiplatelet agents. ASA Grade Assessment: III - A patient with severe systemic disease. After reviewing the risks and benefits, the patient was deemed in satisfactory condition to undergo the procedure. After I obtained informed consent, the scope was passed under direct vision. Throughout the procedure, the patient's blood pressure, pulse, and oxygen saturations were monitored continuously. The [id number]-[id number] was introduced through the anus and advanced to the sigmoid colon. The colonoscopy was performed without difficulty. The patient tolerated the procedure well. The quality of the bowel preparation was evaluated using the BBPS (Waucoma Bowel Preparation Scale) with scores of: Right Colon = 0 (unprepared, mucosa not seen due to solid stool that cannot be cleared or unseen proximal colon segment in a colonoscopy aborted due to inadequate bowel prep). The total BBPS score equals 0. The quality of the bowel preparation was inadequate. The quality of the bowel preparation was inadequate. The rectum was photographed. Findings: The perianal and digital rectal examinations were normal. Extensive amounts of solid stool was found at the anus, in the rectum and in the recto-sigmoid colon, precluding visualization. Estimated Blood Loss: Estimated blood loss: none. Complications: No immediate complications. Impression: - Preparation of the colon was inadequate. - Stool at the anus, in the rectum and in the recto-sigmoid colon. Procedure aborted. - No specimens collected. Recommendation: - Patient has a contact number available for emergencies. The signs and symptoms of potential delayed complications were discussed with the patient. Return to normal activities tomorrow. Written discharge instructions were provided to the patient. - Resume previous diet. - Continue present medications. - Repeat colonoscopy at the next available appointment for screening purposes with 2-day bowel preparation at least. - Return to GI clinic as previously scheduled. Attending Participation: I was present and participated during the entire procedure, including non-lyon portions. Procedure Code(s): --- Professional --- G0121, 53, Colorectal cancer screening; colonoscopy on individual not meeting criteria for high risk Diagnosis Code(s): --- Professional --- Z12.11, Encounter for screening for malignant neoplasm of colon CPT copyright 2021 [employer]. All rights reserved. The codes documented in this report are preliminary and upon net mender review may be revised to meet current compliance requirements. Suleman Sr MD 03/31/2024 4:37:54 PM Note Initiated On: 03/30/2024 8:15 AM Number of Addenda: [address] [place] [address] [facility] 03/30/2024 8:15 AM CDT us Suleman Sr MD GI PROCEDURE ORDERABLES Edited Result - Final Performing Organization Address [facility]/ZIP Co de Phone Number [facility] * HEMOGLOBIN A1C - POINT OF CARE (AMB) [facility] (02/27/2024 10:08 AM CDT) Hemoglobin A1c POCT 7.3 % [address] BLOOD SPECIMEN / Unknown 02/27/2024 10:08 AM CDT us Jamal Liriano MD LAB - POINT OF CARE ORDERABLES F inal Result Performing Organization Address [facility] Co de Phone Number [facility] [address] [place] [address] [address] [facility] [place] [address], [facility] [phone] * MICROALB/CREAT RATIO URINE RANDOM PANEL (07/18/2022 10:10 AM CDT) Creatinine Urine 57.19 mg/dL 07/18/20 2:08 PM CDT [facility] Microalbumin Urine 0.8 mg/dL 07/18/2022 2:08 PM CDT [facility] Microalbumin/Crea tinine Ratio 13 <30 mg/g 07/18/2022 2:08 PM CDT [facility] Urine URINE SPECIMEN OBTAINED BY CLEAN CATCH PROCEDURE / Unknown Collection / Unknown 07/18/2022 10:10 AM CDT 07/18/2022 1:39 PM CDT us Dante Rodgers MD LAB - URINE CHEMISTRY KYRA RAMEY Final Result [facility] [address] [place] [address] from Last 3 Months or Most Recently Relevant to Health Maintenance Insurance MEDICAID - [place] [facility] MANAGED MEDICARE ADV Advance Directives * Full Code (Latest Code Status on File) Date Activated Date Inactivated Comments 12/22/2024 5:10 AM 12/25/2024 4:19 PM * Full Code Date Activated Date Inactivated Comments 09/21/2024 6:06 PM 09/25/2024 4:11 PM * Full Code Date Activated Date Inactivated Comments 09/21/2024 12:49 PM 09/21/2024 6:06 PM * Full Code Date Activated Date Inactivated Comments 03/30/2022 3:17 PM 04/07/2022 3:32 PM * Full Code Date Activated Date Inactivated Comments 03/08/2022 5:58 PM 03/11/2022 12:03 PM Care Teams Outreach Director Relationship Specialty Start Date End Date Annia Walker DO [address] [place] [id number] PCP - General Family Medicine 06/20/20 Yoly Michelle MD [address] [place] [address] General Surgery 03/08/22 Sofi Josue MD [address] [place] [address] Hematology and Oncology 08/30/22 Shaista Rivero MD [address] [place] [address] Surgical Oncology 08/30/22 Jamal Liriano MD [address] [place] [address] Physician Endocrinology 06/24/23 Sagar Whaley MD [address] [place] [address] Gastroenterology 09/28/24
--- OUTSIDE RECORDS SUMMARY | 2025-03-20 11:55 | XMS_ITS | Encounter Summary ---
Author Organization [facility] Address [address] [place] [address] Care Team Providers Care Precision Thread Grinder Operator Name Role Phone Elsewhere, Pcp Primary Care Provider Unavailabl e Reason for Referral * Outpatient (Routine) - Pending Review Specialty Diagnoses / Procedures Referred By Contact Referred To Contact Gastroenterology and Hepatology Ranjan Anderson M.D., M.P.H. [address] [place] [phone] Phone: tel: fax: Inder Joshi III, M.D., Ph.D. [address] [place] [phone] Phone: tel:[phone] fax: Referral ID Status Reason Start Date Expiration Date V isits Requested Visits Authorized [id number] Pending Review 01/06/2025 07/08/2026 1 1 Encounter Details Date Type Department Care Team (Latest Contact Info) Description 01/06/2025 Clinical Communication Division of Gastroenterology in [place], [place] [address] [place] [phone] Ranjan Anderson M.D., M.P.H. [address] [place] [phone] Social History Tobacco Use Types Packs/Day Years Used Date Smoking Tobacco: Former Cigarettes Smokeless Tobacco: Never Alcohol Use Standard Drinks/Week Comments Not Currently 0 (1 standard drink = 0.6 oz pur e alcohol) [facility] Utilities Answer Date Recorded In the past 12 months has th e electric, gas, oil, or water company threatened to shut off services in your [...] Date Recorded Dental: Regular Dentist Unknown 10/26/20 24 Housing Stability Answer Date Recorded What is your living situation today? 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 [address] [place] [phone] 03/31/2025 11:30 AM CDT Comprehensive Visit Department of Cardiovascular Diseases in [address] [phone] Paul Fairbanks M.D. [address] [place] [phone] Discharge Disposition: Home or Self Care 04/22/2025 8:30 AM CDT Telemedicine Department of Endocrinology in [place], [place] 404 [place] [phone] Verito Becker, MPAS, P.A.-C., P.A. [address] [phone] Raj Gardner M.D. 404 [place] [phone] 05/28/2025 8:00 AM CDT Clinical Communication Virtual Review in [place], [place] 200 [place] [address] 05/31/2025 4:00 PM CDT Office Visit Division of Gastroenterology in [address] [phone] Ranjan Anderson M.D., M.P.H. [address] [place] [phone] Scheduled Referrals Name Type Priority Associated Diagnoses Order Schedule Gastroenterology and Hepatology office visit (clinic) Outpatient Referral Routine Expected: 01/06/2025, Expires: 04/08/2026 documented as of this encounter Visit Diagnoses Not on filedocumented in this encounter Care Teams Precision Thread Grinder Operator Relationship Specialty Start Date End Date Elsewhere, Pcp PCP - General Internal Medicine 01/27/25 documented as of this encounter
--- OUTSIDE RECORDS SUMMARY | 2025-03-20 11:55 | XMS_ITS | Encounter Summary ---
Author Organization [facility] Address [address] [place] [address] Care Team Providers Care Bar Attendant Name Role Phone Elsewhere, Pcp Primary Care Provider Unavailabl e Reason for Visit * Reason Onset Date Comments Rx Prior Authorization 01/20/2025 LIDOCAINE PATCH Encounter Details Date Type Department Care Team (Latest Contact Info) Description 01/20/2025 Clinical Communication Division of Community Internal Medicine, [facility] in [place], [place] [address] [place] [phone] Katiana Carson M.D. [address] [place] [phone] Rx Prior Authorization (LIDOCAINE PATCH ) Social History Tobacco Use Types Packs/Day Years Used Date Smoking Tobacco: Former Cigarettes Smokeless Tobacco: Never Alcohol Use Standard Drinks/Week Comments Not Currently 0 (1 standard drink = 0.6 oz pur e alcohol) [facility] Utilities Answer Date Recorded In the past 12 months has [employer], gas, oil, or water [employer] threatened to shut off services in your [...] your living situation today? 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 200 [place] [address] 03/31/2025 11:30 AM CDT Comprehensive Visit Department of Cardiovascular Diseases in [address] [phone] Paul Fairbanks M.D. 200 [place] [phone] Discharge Disposition: Home or Self Care 04/22/2025 8:30 AM CDT Telemedicine Department of Endocrinology in [place], [place] [address] [place] [phone] Verito Becker, MPAS, P.A.-C., P.A. [address] [place] [phone] Raj Gardner M.D. [address] [place] [phone] 05/28/2025 8:00 AM CDT Clinical Communication Virtual Review in [place], [place] [address] [place] [address] 05/31/2025 4:00 PM CDT Office Visit Division of Gastroenterology in [place], [place] [address] [place] [phone] Ranjan Anderson M.D., M.P.H. [address] [place] [phone] documented as of this encounter Visit Diagnoses Not on filedocumented in this encounter Care Teams Bar Attendant Relationship Specialty Start Date End Date Elsewhere, Pcp PCP - General Internal Medicine 01/27/25 documented as of this encounter
--- OUTSIDE RECORDS SUMMARY | 2025-03-20 11:55 | XMS_ITS | Encounter Summary ---
Author Organization [facility] Address [address] [place] [address] Care Team Providers Care Religious Educator Name Role Phone Annia Walker DO Primary Care Provider [phone] Yoly Michelle MD Unavailable Sofi Josue MD Unavailable [phone] Shaista Rivero MD Unavailable Jamal Liriano MD Unavailable Sagar Whaley MD Unavailable [phone] Reason for Visit * Reason Comments Refill Request Encounter Details Date Type Department Care Team (Late st Contact Info) Description 02/04/2025 Refill [facility] - Family Medicine [address] [place] [address] Annia Walker DO [address] [place] [phone] Refill Request Social History Tobacco Use [...] Sex Assigned at Female 10/13/2020 10:25 AM SALES SERVICE COORDINATOR Legal Sex Female 1:13 PM CDT Gender Identity Female 10/13/2020 10:25 AM SALES SERVICE COORDINATOR Sexual Orientation Straight 10/13/2020 10 :25 AM SALES SERVICE COORDINATOR documented as of this encounter Functional Status [...] on filedocumented in this encounter Care Teams Religious Educator Relationship Specialty Start Date End Date Annia Walker DO [address] [place] [phone] PCP - General Family Medicine 06/20/20 Yoly Michelle MD [address] [place] [address] General Surgery 03/08/22 Sofi Josue MD [address] [place] [address] Hematology and Oncology 08/30/22 Shaista Rivero MD [address] [place] [address] Surgical Oncology 08/30/22 Jamal Liriano MD [address] [facility] [address] [place] [phone] Physician Endocrinology 06/24/23 Sagar Whaley MD [address] [place] [address] Gastroenterology 09/28/24 documented as of this encounter
--- OUTSIDE RECORDS SUMMARY | 2025-03-20 11:55 | XMS_ITS | Referral Summary ---
Author Organization [facility] Address [address] [place] [address] Care Team Providers Care Sheet Manufacturing Supervisor Name Role Phone No, Physician Primary Care Provider [phone] Allergies Active Allergy Reactions Criticality Noted Date [...] Without any significant diabetic retinopathy, recommend observation. Social History Tobacco Use Types Packs/Day Years [...] on file Sexual Orientation Not on file Plan of Treatment Not [place] [phone] [employer] MED[employer] HMO PPO [place]RI[place]EN [phone] [employer] MEDICARE ADVANTAGE Care Teams Sheet Manufacturing Supervisor Relationship Specialty Start Date End Date No, Physician PCP - General 08/10/24
--- OUTSIDE RECORDS SUMMARY | 2025-03-20 11:56 | XMS_ITS | Clinical Summary ---
Author Organization [facility] Address [address] [place] [address] Care Team Providers Care Tool Straightener Name Role Phone Elsewhere, Pcp Primary Care Provider Unavailabl e Source Comments Patient records contain information from all sites at [facility]. For routine questions regarding patient records, call [phone] during business hours, M-F 8:00 AM - 5:00 PM Central Time. Record requests for emergency care only can be directed to [phone] at any time.[facility] Allergies Active Allergy Reactions Criticality Noted Date Comments Omeprazole GI intolerance,Nausea And Vomiting 0 12/29/2024 Penicillins Hives only, no other systemic symptoms Medium 06/20/2020 Medications multivit-min/ir on fum/folic ac (THERA-M ORAL) Take 1 tablet by mouth daily. Active amitriptyline (ElaviL) 50 mg tablet Take 1 tablet by mouth at bedtime. [address] tablet Take 81 mg by mouth at bedtime. Active atorvastatin (Lipitor) 40 mg tablet Take 1 tablet by mouth at bedtime. 4 Active cetirizine (ZyrTEC) 10 mg tablet Take 1 tablet by mouth daily. 4 Active ondansetron (Zofran) 4 mg tablet Take 4 mg by mouth every 6 (six) hours as needed. 3 Active pantoprazole (Protonix) 40 mg EC tablet Take 40 mg by mouth 2 (two) times a day before morning and evening meals. 4 Active topiramate (Topamax) 50 mg tablet Take 1 tablet by mouth at bedtime. 4 Active VITAMIN B COMPLEX ORAL Take 1 tablet by mouth daily. Active amitriptyline 2 % gabapentin 5 % ketamine 5 % in lipoderm Apply topically to abdomen 4 (four) times a day. 60 g 02/01/2025 2:00 PM CDT 5 Active furosemide (Lasix) 20 mg tablet Take 0.5 tablets (10 mg total) by mouth daily. Please hold this medication until you are able to follow up with your primary care provider and have your blood pressure rechecked. 30 tablet 5 Active insulin glargine 100 unit/mL (3 mL) pen Inject 2 Units under the skin at bedtime. Pharmacy select brand per patient insurance/prefe rence. 15 mL 5 Active oxyCODONE (Roxicodone) 5 mg immediate release tabletIndicatio ns:Chronic Pain/Nonacute Pain Take 1 tablet (5 mg total) by mouth every 4 (four) hours as needed for moderate pain or score 4-6 of 10 or severe pain or score 7-10 of 10 Indication: Chronic Pain/Nonacute Pain. 12 tablet 5 Active spironolactone (Aldactone) 25 mg tablet Take 1 tablet (25 mg total) by mouth daily. Please hold this medication until you are able to follow up with your primary care provider and have your blood pressure rechecked. 30 tablet 5 Active DULoxetine (Cymbalta) [address] capsule Take 1 capsule (20 mg total) by mouth daily. 30 capsule 5 Active insulin lispro 100 unit/mL pen Inject 0-13 Units under the skin 3 (three) times a day. 15 mL 5 Active lactulose 10 gram/15 mL solution Take 22.5 mL (15 g total) by mouth 3 (three) times a day. 1892 mL 5 Active lidocaine (Lidoderm) 5 % adhesive patch,medicated Place 1 patch on the skin daily. Apply to left abdomen, remove after 12 hours, then leave the skin bare for at least 12 hours before applying another patch. 30 patch 5 Active lipase-protease -amylase (Creon) 24,000-76,000-1 20,[address] capsule Take 2 capsules (48,000 Units of lipase total) by mouth 3 (three) times a day with meals. Take 1 capsule as needed for snacks. 200 capsule 5 Active vitamin A 3,000 mcg (10,000 Unit) capsule Take 1 capsule (3,000 mcg total) by mouth daily. 100 capsule 5 Active vitamin E 180 mg (400 Unit) capsule Take 1 capsule (400 Units total) by mouth daily. 30 capsule 5 Active zinc sulfate 220 (50 mg zinc) capsule Take 1 capsule (220 mg total) by mouth daily with morning meal. 30 capsule 5 Active selenium 50 mcg tablet Take 1 tablet (50 mcg total) by mouth daily. 30 tablet 5 Active cholecalciferol (Vitamin D3) 1,250 mcg (50,000 Unit) capsule Take 1 capsule (1,250 mcg total) by mouth once a week for 5 doses. 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 Appt Request 01/20/2025 Clinical Communication Division of [facility], [facility], in [place], [place] [address] [place] [phone] Katiana Carson M.D. Rx Prior Authorization (LIDOCAINE PATCH ) 01/20/2025 Orders Only Pharmacy Prior Auth RO [phone] Rachel Machuca 01/20/2025 Remote Monitoring Remote Patient Monitoring [facility] [address] [place] [address] Shannon Cadena Remote Patient Monitoring (Direct connect; Patient Decline) 01/19/2025 Clinical Communication [facility] [address] [place] [phone] Katiana Carson M.D. Appt Request 01/19/2025 Clinical Communication Pharmacy Prior Auth RO [phone] Franca Wilson 01/14/2025 Clinical Communication [facility] [address] [place] [phone] Katiana Carson M.D. Appt Request (Med 3) 01/06/2025 Clinical Communication Division of Gastroenterology in [place], [place] [address] [place] [phone] Ranjan Anderson M.D., M.P.H. 12/31/2024 12:20 PM DIGITAL MARKETING ASSISTANT Ancillary Procedure Department of Internal Medicine 12/31/2024 12:15 PM DIGITAL MARKETING ASSISTANT Ancillary Procedure Department of Internal Medicine 12/31/2024 10:46 AM DIGITAL MARKETING ASSISTANT Anesthesia Event Division of Gastroenterology in [place], [place] [address] [place] [phone] Jojo Bob APRN, SUJIT 12/31/2024 10:05 AM DIGITAL MARKETING ASSISTANT Ancillary Procedure Department of Gastroenterology 12/30/2024 12:10 PM DIGITAL MARKETING ASSISTANT Ancillary Procedure Department of Internal Medicine 12/30/2024 9:20 AM DIGITAL MARKETING ASSISTANT Ancillary Procedure Department of Internal Medicine 12/29/2024 3:20 PM DIGITAL MARKETING ASSISTANT Ancillary Procedure Department of Emergency Medicine 12/29/2024 12:16 PM DIGITAL MARKETING ASSISTANT - 01/19/2025 1:44 PM CDT Hospital Encounter [facility], [facility], Third Floor [address] [place] [phone] Julia Chan P.A.-C. Earlene Sheridan M.D., M.S. Radha Temple M.D. Michael Patel M.D. Janette Lovelace M.D. Issa, Meltiady, M.D., M.B.A. Abdominal Pain (Primary Dx); Ascites; Weakness General; Decline Functional Status; Diabetes Mellitus Type 2 (HCC); Abnormal Liver Function Test; Other Cirrhosis Of Liver (HCC); Anasarca; Whipple Procedure Status Post; Cardiomyopathy Stress Induced Discharge Disposition: Home-Health Care [facility] from Last 3 Months Social History Tobacco Use Types Packs/Day Years Used Date Smoking Tobacco: Former Cigarettes Smokeless Tobacco: Never Alcohol Use Standard Drinks/Week Comments Not Currently 0 (1 standard drink = 0.6 oz pur e alcohol) [facility] Utilities Answer Date Recorded In the [...] money to buy more. Never true 12/31/19 Within the past 12 months, t he [...] your living situation today? I have a [facility] place to live 12/30/2024 Comments Unknown Sex and Gender Information Value Date Recorded Sex Assigned at Not on file Legal Sex Female 2:54 PM DIGITAL MARKETING ASSISTANT Gender Identity Not on file Sexual Orientation Not on file Last Filed Vital Signs Vital Sign Reading Time Taken Comments Blood Pressure 87/59 01/19/2025 1:10 PM CDT Pulse 100 01/19/2025 1:10 PM CDT Temperature 36.7 C (98.1 F) 01/19/2025 1:10 PM CDT Respiratory Rate 15 01/19/2025 8:24 AM CDT Oxygen Saturation 100% 01/19/2025 1:10 PM CDT Inhaled Oxygen Concentration - - Weight 55.5 kg (122 lb 5.7 oz) 01/19/2025 5:00 A M CDT Height 162.6 cm (5' 4) 12/29/2024 10:04 PM DIGITAL MARKETING ASSISTANT Body Mass Index 21 12/29/2024 10:04 PM DIGITAL MARKETING ASSISTANT Plan of Treatment Upcoming Encounters Date Type Department Care Team (Latest Contact Info) Description 03/31/2025 11:00 AM CDT Appointment Department of Laboratory Medicine in [address] [phone] Katiana Carson M.D. [address] [place] [phone] 03/31/2025 11:30 AM CDT Comprehensive Visit Department of Cardiovascular Diseases in [address] [phone] Paul Fairbanks M.D. [address] [place] [phone] Discharge Disposition: Home or Self Care 04/22/2025 8:30 AM CDT Telemedicine Department of Endocrinology in [place], [place] [address] [place] [address] Verito Becker, [facility] [address] [place] [phone] Raj Gardner M.D. [address] [place] [phone] 05/28/2025 8:00 AM CDT Clinical Communication Virtual Review in [place], [place] [address] [place] [phone] 05/31/2025 4:00 PM CDT Office Visit Division of Gastroenterology in [place], [place] [address] [place] [phone] Ranjan Anderson M.D., M.P.H. [address] [place] [phone] Health Maintenance Due Date Last Done Comments CT Colonography 1964 Cervical/Vaginal Cancer Screening 1964 Cologuard 1964 Diabetic Office Visit with Foot Exam 1964 Dilated Eye Exam 1964 FIT 1964 HIV Screening 1964 Hepatitis C Screening 1964 Lipid (Cholesterol) Screening 1964 Office Visit for Blood Pressure Check / Re-check 1964 Urine Albumin 1964 Pneumococcal vaccine (50+ years) (1 of 2 - PCV) 1983 COVID-19 Vaccine ( - season) 2024 06/24/2023, 04/12/2021, 03/18/2021 Hepatitis B Vaccines (1 of 3 - Risk 3-dose series) 2024 RSV vaccine - (32-36 weeks) or 60+ years (1 - Risk 60-74 years 1-dose series) 2024 Influenza Vaccine (#1) 2024 06/27/2023 Depression Screening (Annual PHQ-2) 10/28/2024 Mammogram 05/14/2025 05/14/2024, 05/14/2024 Abdominal Ultrasound 07/01/2025 12/29/2024, 12/22/2024, 12/22/2024, Additional history exists Hemoglobin A1C 07/02/2025 12/30/2024 Creatinine Level (Kidney Function Test) 01/18/2026 01/18/2025, 01/15/2025, 01/14/2025, Additional history exists Potassium Level 01/18/2026 01/18/2025, 12/27, 01/14/2025, Additional history exists Sodium Level 01/18/2026 01/18/2025, 12/27, 01/14/2025, Additional history exists Colonoscopy 03/30/2034 03/30/2024 Colorectal Cancer Screening 03/30/2034 DTaP,Tdap,and Td Vaccines (3 - Td or Tdap) 11/02/2034 11/02/2024, 05/15/2023 Zoster Vaccines Completed 07/17/2023, 05/15/2023 IPV Vaccines Aged Out No longer eligi ble based on patient's age to complete this topic Procedures Procedure Name Priority Date/Time Associated Diagnosis Comments GLUCOSE POCT, B Routine 01/19/2025 11:58 AM CDT GLUCOSE POCT, B Routine 01/19/2025 8:12 AM CDT GLUCOSE POCT, B Routine 01/19/2025 6:26 AM CDT GLUCOSE POCT, B Routine 01/18/2025 4:41 PM CDT GLUCOSE POCT, B Routine 01/18/2025 11:56 AM CDT (TTE) 2D ECHO DOPPLER COLOR AND CONTRAST Routine 01/18/2025 9:13 AM CDT GLUCOSE POCT, B Routine 01/18/2025 9:09 AM CDT BASIC METABOLIC PANEL, S/P Routine 01/18/2025 6:54 AM CDT HEPATIC FUNCTION PANEL, S Routine 2024 6:54 AM CDT CBC WITH DIFFERENTIAL, B Routine 025 6:54 AM CDT GLUCOSE POCT, B Routine 01/17/2025 5:02 PM CDT GLUCOSE POCT, B Routine 01/17/2025 11:43 AM CDT GLUCOSE POCT, B Routine 01/17/2025 7:40 AM CDT GLUCOSE POCT, B Routine 01/16/2025 10:52 PM CDT GLUCOSE POCT, B Routine 01/16/2025 5:11 PM CDT GLUCOSE POCT, B Routine 01/16/2025 12:05 PM CDT ECG Routine 01/16/2025 12:00 PM CDT GLUCOSE POCT, B Routine 01/16/2025 8:54 AM CDT GLUCOSE POCT, B Routine 01/16/2025 7:12 AM CDT GLUCOSE POCT, B Routine 01/15/2025 5:25 PM CDT GLUCOSE POCT, B Routine 01/15/2025 12:55 PM CDT GLUCOSE POCT, B Routine 01/15/2025 7:51 AM CDT RENAL FUNCTION PANEL, S Routine 01/16/20 7:47 AM CDT GLUCOSE POCT, B Routine 01/15/2025 7:15 AM CDT GLUCOSE POCT, B Routine 01/14/2025 4:54 PM CDT GLUCOSE POCT, B Routine 01/14/2025 11:51 AM CDT CBC WITH DIFFERENTIAL, B Routine 025 11:13 AM CDT PHOSPHORUS (INORGANIC), S Routine 2024 11:13 AM CDT MAGNESIUM, S Routine 01/14/2025 11:13 AM CDT BASIC METABOLIC PANEL, S/P Routine 01/14/2025 11:13 AM CDT ZINC, S Routine 01/14/2025 11:13 AM CDT GLUCOSE POCT, B Routine 01/14/2025 7:42 AM CDT GLUCOSE POCT, B Routine 01/13/2025 8:48 PM CDT GLUCOSE POCT, B Routine 01/13/2025 5:03 PM CDT GLUCOSE POCT, B Routine 01/13/2025 12:16 PM CDT GLUCOSE POCT, B Routine 01/13/2025 7:59 AM CDT CBC WITH DIFFERENTIAL, B Routine 025 7:47 AM CDT HEPATIC FUNCTION PANEL, S Routine 2024 7:47 AM CDT BASIC METABOLIC PANEL, S/P Routine 01/13/2025 7:42 AM CDT GLUCOSE POCT, B Routine 01/13/2025 5:32 AM CDT GLUCOSE POCT, B Routine 01/12/2025 8:20 PM CDT GLUCOSE POCT, B Routine 01/12/2025 4:37 PM CDT GLUCOSE POCT, B Routine 01/12/2025 11:04 AM CDT DX ABDOMEN 1 VIEW RAD - Routine (most inpatients and all outpatients) 01/12/2025 9:49 AM CDT GLUCOSE POCT, B Routine 01/12/2025 8:18 AM CDT GLUCOSE POCT, B Routine 01/11/2025 5:15 PM CDT GLUCOSE POCT, B Routine 01/11/2025 12:28 PM CDT MAGNESIUM, S Routine 01/11/2025 7:58 AM CDT RENAL FUNCTION PANEL, S Routine 01/12/20 25 7:58 AM CDT CBC WITH DIFFERENTIAL, B Routine 025 7:58 AM CDT GLUCOSE POCT, B Routine 01/11/2025 6:31 AM CDT GLUCOSE POCT, B Routine 01/10/2025 8:26 PM CDT GLUCOSE POCT, B Routine 01/10/2025 6:34 PM CDT GLUCOSE POCT, B Routine 01/10/2025 12:46 PM CDT MAGNESIUM, S Routine 01/10/2025 9:24 AM CDT RENAL FUNCTION PANEL, S Routine 01/11/20 25 9:24 AM CDT CBC WITH DIFFERENTIAL, B Routine 025 9:24 AM CDT GLUCOSE POCT, B Routine 01/10/2025 8:27 AM CDT GLUCOSE POCT, B Routine 01/10/2025 6:38 AM CDT GLUCOSE POCT, B Routine 01/09/2025 5:23 PM CDT GLUCOSE POCT, B Routine 01/09/2025 12:57 PM CDT GLUCOSE POCT, B Routine 01/09/2025 8:25 AM CDT MAGNESIUM, S Routine 01/09/2025 6:38 AM CDT RENAL FUNCTION PANEL, S Routine 01/10/20 25 6:38 AM CDT CBC WITH DIFFERENTIAL, B Routine 025 6:38 AM CDT GLUCOSE POCT, B Routine 01/09/2025 6:13 AM CDT GLUCOSE POCT, B Routine 01/08/2025 5:27 PM CDT GLUCOSE POCT, B Routine 01/08/2025 5:03 PM CDT GLUCOSE POCT, B Routine 01/08/2025 1:06 PM CDT GLUCOSE POCT, B Routine 01/08/2025 9:01 AM CDT MAGNESIUM, S Routine 01/08/2025 7:38 AM CDT COMPREHENSIVE METABOLIC PANEL, S/P Routine 01/08/2025 7:38 AM CDT CBC WITH DIFFERENTIAL, B Routine 025 7:38 AM CDT GLUCOSE POCT, B Routine 01/08/2025 5:51 AM CDT GLUCOSE POCT, B Routine 01/07/2025 5:28 PM CDT MAGNESIUM, S Timed 01/07/2025 4:16 PM CDT BASIC METABOLIC PANEL, S/P Timed 01/07/2025 4:16 PM CDT BASIC METABOLIC PANEL, S/P Routine 01/07/2025 4:16 PM CDT GLUCOSE POCT, B Routine 01/07/2025 12:25 PM CDT GLUCOSE POCT, B Routine 01/07/2025 8:51 AM CDT GLUCOSE POCT, B Routine 01/07/2025 6:26 AM CDT HEPATIC FUNCTION PANEL, S Routine 2024 6:19 AM CDT CBC WITH DIFFERENTIAL, B Routine 025 6:19 AM CDT GLUCOSE POCT, B Routine 01/06/2025 5:23 PM CDT GLUCOSE POCT, B Routine 01/06/2025 11:46 AM CDT GLUCOSE POCT, B Routine 01/06/2025 7:45 AM CDT GLUCOSE POCT, B Routine 01/06/2025 6:27 AM CDT HEPATIC FUNCTION PANEL, S Timed 2024 4:20 AM CDT CBC WITH DIFFERENTIAL, B Timed 025 4:20 AM CDT MAGNESIUM, S Timed 01/06/2025 4:20 AM CDT RENAL FUNCTION PANEL, S Timed 01/07/20 4:20 AM CDT GLUCOSE POCT, B Routine 01/05/2025 4:52 PM CDT RENAL FUNCTION PANEL, S Timed 01/06/20 4:15 PM CDT GLUCOSE POCT, B Routine 01/05/2025 12:36 PM CDT US PARACENTESIS WITH IMAGING GUIDANCE RAD - Routine (most inpatients and all outpatients) 01/05/2025 12:10 PM CDT CYTOLOGY NON-HOSPICE NURSE Timed 01/05/2025 11:42 AM CDT ALBUMIN, BODY FLUID Routine 01/05/2025 11:42 AM CDT PROTEIN, TOTAL, BF Timed 01/05/2025 11:42 AM CDT Abdominal Pain Ascites Weakness General Decline Functional Status Diabetes Mellitus Type 2 (HCC) Abnormal Liver Function Test Other Cirrhosis Of Liver (HCC) Anasarca CELL COUNT AND DIFFERENTIAL, BF Timed 01/05/2025 11:42 AM CDT Abdominal Pain Ascites Weakness General Decline Functional Status Diabetes Mellitus Type 2 (HCC) Abnormal Liver Function Test Other Cirrhosis Of Liver (HCC) Anasarca GLUCOSE POCT, B Routine 01/05/2025 8:42 AM CDT GLUCOSE POCT, B Routine 01/05/2025 6:31 AM CDT PREALBUMIN (PAB), S Timed 01/05/2025 4:10 AM CDT HEPATIC FUNCTION PANEL, S Timed 2024 4:10 AM CDT CBC WITH DIFFERENTIAL, B Timed 025 4:10 AM CDT MAGNESIUM, S Timed 01/05/2025 4:10 AM CDT RENAL FUNCTION PANEL, S Timed 01/06/20 25 4:10 AM CDT GLUCOSE POCT, B Routine 01/04/2025 5:54 PM CDT RENAL FUNCTION PANEL, S Timed 01/05/20 4:24 PM CDT GLUCOSE POCT, B Routine 01/04/2025 1:13 PM CDT GLUCOSE POCT, B Routine 01/04/2025 8:31 AM CDT HEPATIC FUNCTION PANEL, S Timed 2024 4:43 AM CDT CBC WITH DIFFERENTIAL, B Timed 025 4:43 AM CDT MAGNESIUM, S Timed 01/04/2025 4:43 AM CDT RENAL FUNCTION PANEL, S Timed 01/05/20 4:43 AM CDT PROTHROMBIN TIME (PT), P Timed 025 4:43 AM CDT GLUCOSE POCT, B Routine 01/03/2025 5:13 PM CDT CBC WITH DIFFERENTIAL, B Timed 025 12:58 PM CDT GLUCOSE POCT, B Routine 01/03/2025 12:02 PM CDT CBC WITHOUT DIFFERENTIAL, B Routine 01/03/2025 8:29 AM CDT IRON AND TOT IRON-BINDING CAPACITY, S/P Routine 01/03/2025 8:29 AM CDT FERRITIN, S Routine 01/03/2025 8:29 AM CDT RENAL FUNCTION PANEL, S Routine 01/04/20 25 8:29 AM CDT MAGNESIUM, S Routine 01/03/2025 8:23 AM CDT GLUCOSE POCT, B Routine 01/03/2025 7:45 AM CDT HEMOGLOBIN, B Timed 01/03/2025 4:59 AM CDT HEMATOCRIT, B Timed 01/03/2025 4:59 AM CDT PROTHROMBIN TIME (PT), P Routine 025 4:59 AM CDT TRANSFUSE RED BLOOD CELLS Routine 2024 11:58 PM DIGITAL MARKETING ASSISTANT GLUCOSE POCT, B Routine 01/02/2025 11:05 PM DIGITAL MARKETING ASSISTANT CBC WITHOUT DIFFERENTIAL, B Timed 01/02/2025 9:11 PM DIGITAL MARKETING ASSISTANT GLUCOSE POCT, B Routine 01/02/2025 5:48 PM DIGITAL MARKETING ASSISTANT MORPHOLOGY EVAL (SPECIAL SMEAR) STAT 01/02/2025 5:38 PM DIGITAL MARKETING ASSISTANT BASIC METABOLIC PANEL, S/P STAT 01/02/2025 5:38 PM DIGITAL MARKETING ASSISTANT HEPATIC FUNCTION PANEL, S STAT 2024 5:38 PM DIGITAL MARKETING ASSISTANT RETICULOCYTE PROFILE, B STAT 01/03/20 5:38 PM DIGITAL MARKETING ASSISTANT LACTATE DEHYDROGENASE (LD), S STAT 01/02/2025 5:38 PM DIGITAL MARKETING ASSISTANT ACTIVATED PARTIAL THROMBOPLASTIN TIME (APTT), P STAT 01/02/2025 5:38 PM DIGITAL MARKETING ASSISTANT FIBRINOGEN, P STAT 01/02/2025 5:38 PM DIGITAL MARKETING ASSISTANT PROTHROMBIN TIME (PT), P STAT 025 5:38 PM DIGITAL MARKETING ASSISTANT CBC WITH DIFFERENTIAL, B STAT 025 5:38 PM DIGITAL MARKETING ASSISTANT HAPTOGLOBIN, S STAT 01/02/2025 5:38 PM DIGITAL MARKETING ASSISTANT HEMATOCRIT, B Timed 01/02/2025 4:05 PM DIGITAL MARKETING ASSISTANT HEMOGLOBIN, B Timed 01/02/2025 4:[address] ABDOMEN PELVIS WITHOUT AND WITH IV CONTRAST RAD - Semiurgent (Fast; most ED patients; some inpatients) 01/02/2025 3:10 PM DIGITAL MARKETING ASSISTANT GLUCOSE POCT, B Routine 01/02/2025 1:41 PM DIGITAL MARKETING ASSISTANT HEMATOCRIT, B Timed 01/02/2025 1:04 PM DIGITAL MARKETING ASSISTANT HEMOGLOBIN, B Timed 01/02/2025 1:04 PM DIGITAL MARKETING ASSISTANT GLUCOSE POCT, B Routine 01/02/2025 12:45 PM DIGITAL MARKETING ASSISTANT SODIUM, RANDOM, U Timed 01/02/2025 10:15 AM DIGITAL MARKETING ASSISTANT GLUCOSE POCT, B Routine 01/02/2025 10:12 AM DIGITAL MARKETING ASSISTANT GLUCOSE POCT, B Routine 01/02/2025 8:37 AM DIGITAL MARKETING ASSISTANT PROTHROMBIN TIME (PT), P Routine 6:07 AM DIGITAL MARKETING ASSISTANT CBC WITH DIFFERENTIAL, B Routine 025 6:07 AM DIGITAL MARKETING ASSISTANT COMPREHENSIVE METABOLIC PANEL, S/P Routine 01/02/2025 6:07 AM DIGITAL MARKETING ASSISTANT PREPARE RED BLOOD CELLS STAT 01/03/20 25 6:02 AM DIGITAL MARKETING ASSISTANT TYPE AND SCREEN Routine 01/02/2025 6:02 AM DIGITAL MARKETING ASSISTANT GLUCOSE POCT, B Routine 01/01/2025 11:29 PM DIGITAL MARKETING ASSISTANT GLUCOSE POCT, B Routine 01/01/2025 5:40 PM DIGITAL MARKETING ASSISTANT GLUCOSE POCT, B Routine 01/01/2025 12:17 PM DIGITAL MARKETING ASSISTANT SPSMA RESULT Timed 01/01/2025 11:50 AM DIGITAL MARKETING ASSISTANT GLUCOSE POCT, B Routine 01/01/2025 9:30 AM DIGITAL MARKETING ASSISTANT GLUCOSE POCT, B Routine 01/01/2025 8:59 AM DIGITAL MARKETING ASSISTANT GLUCOSE POCT, B Routine 01/01/2025 7:46 AM DIGITAL MARKETING ASSISTANT CBC WITH DIFFERENTIAL, B Routine 025 6:37 AM DIGITAL MARKETING ASSISTANT MAGNESIUM, S Routine 01/01/2025 6:37 AM DIGITAL MARKETING ASSISTANT RENAL FUNCTION PANEL, S Routine 01/02/20 25 6:37 AM DIGITAL MARKETING ASSISTANT PROTHROMBIN TIME (PT), P Routine 025 6:37 AM DIGITAL MARKETING ASSISTANT CYSTATIN C WITH EGFR Routine 01/01/2025 6:31 AM DIGITAL MARKETING ASSISTANT GLUCOSE POCT, B Routine 12/31/2024 8:55 PM DIGITAL MARKETING ASSISTANT MAGNESIUM, S Timed 12/31/2024 5:31 PM DIGITAL MARKETING ASSISTANT RENAL FUNCTION PANEL, S Timed 01/01/20 5:31 PM DIGITAL MARKETING ASSISTANT GLUCOSE POCT, B Routine 12/31/2024 4:53 PM DIGITAL MARKETING ASSISTANT IR TRANSJUGULAR LIVER BIOPSY RAD - Routine (most inpatients and all outpatients) 12/31/2024 3:58 PM DIGITAL MARKETING ASSISTANT IR TRANSJUGULAR HEPATIC VENOGRAM WITH PRESSURES RAD - Routine (most inpatients and all outpatients) 12/31/2024 3:58 PM DIGITAL MARKETING ASSISTANT SURGICAL PATHOLOGY Routine 12/31/2024 3:37 PM DIGITAL MARKETING ASSISTANT Abdominal Pain Ascites Weakness General Decline Functional Status Diabetes Mellitus Type 2 (HCC) Abnormal Liver Function Test Other Cirrhosis Of Liver (HCC) Anasarca GLUCOSE POCT, B Routine 12/31/2024 2:40 PM DIGITAL MARKETING ASSISTANT GLUCOSE POCT, B Routine 12/31/2024 2:21 PM DIGITAL MARKETING ASSISTANT CREATININE, RANDOM, U Routine 12/31/2024 1:30 PM DIGITAL MARKETING ASSISTANT SODIUM, RANDOM, U Routine 12/31/2024 1:30 PM DIGITAL MARKETING ASSISTANT GLUCOSE POCT, B Routine 12/31/2024 12:33 PM DIGITAL MARKETING ASSISTANT INTERNAL MEDICINE IMAGE EXAM Routine 12/31/2024 12:14 PM DIGITAL MARKETING ASSISTANT INTERNAL MEDICINE IMAGE EXAM Routine 12/31/2024 12:13 PM DIGITAL MARKETING ASSISTANT GLUCOSE POCT, B Routine 12/31/2024 11:49 AM DIGITAL MARKETING ASSISTANT SURGICAL PATHOLOGY Routine 12/31/2024 10:59 AM DIGITAL MARKETING ASSISTANT GASTROENTEROLOGY IMAGE EXAM Routine 12/31/2024 10:05 AM DIGITAL MARKETING ASSISTANT UPPER GI ENDOSCOPY Routine 12/31/2024 10:03 AM DIGITAL MARKETING ASSISTANT EGD (ESOPHAGOGASTRODUODENOSCO PY) Routine 12/31/2024 10:03 AM DIGITAL MARKETING ASSISTANT GLUCOSE POCT, B Routine 12/31/2024 8:57 AM DIGITAL MARKETING ASSISTANT RENAL FUNCTION PANEL, S Routine 01/01/20 25 7:28 AM DIGITAL MARKETING ASSISTANT PROTHROMBIN TIME (PT), P Routine 025 7:28 AM DIGITAL MARKETING ASSISTANT ASCORBIC ACID (VITAMIN C), P Routine 12/31/2024 7:28 AM DIGITAL MARKETING ASSISTANT THIAMIN (VITAMIN B1), B Routine 01/01/20 7:28 AM DIGITAL MARKETING ASSISTANT PYRIDOXAL 5-PHOSPHATE (PLP), P Routine 12/31/2024 7:28 AM DIGITAL MARKETING ASSISTANT SELENIUM, S Routine 12/31/2024 7:28 AM DIGITAL MARKETING ASSISTANT VITAMIN A AND VITAMIN E, S Routine 12/31/2024 7:28 AM DIGITAL MARKETING ASSISTANT PHOSPHATIDYLETHANOL CONFIRMATION, B Routine 12/31/2024 7:28 AM DIGITAL MARKETING ASSISTANT CBC WITHOUT DIFFERENTIAL, B Routine 12/31/2024 7:28 AM DIGITAL MARKETING ASSISTANT GLUCOSE POCT, B Routine 12/31/2024 7:25 AM DIGITAL MARKETING ASSISTANT CYSTATIN C WITH EGFR Routine 12/31/2024 7:09 AM DIGITAL MARKETING ASSISTANT LACTATE FOR SEPSIS WITH REFLEX STAT 12/31/2024 12:56 AM DIGITAL MARKETING ASSISTANT GLUCOSE POCT, B Routine 12/30/2024 9:13 PM DIGITAL MARKETING ASSISTANT PANCREATIC ELASTASE,F Routine 12/30/2024 7:11 PM DIGITAL MARKETING ASSISTANT GLUCOSE POCT, B Routine 12/30/2024 5:10 PM DIGITAL MARKETING ASSISTANT (TTE) 2D ECHO DOPPLER COLOR AND CONTRAST Routine 12/30/2024 4:59 PM DIGITAL MARKETING ASSISTANT MAGNESIUM, S Routine 12/30/2024 4:23 PM DIGITAL MARKETING ASSISTANT RENAL FUNCTION PANEL, S Timed 12/31/19 4:23 PM DIGITAL MARKETING ASSISTANT PHOSPHORUS (INORGANIC), S Routine 2024 2:49 PM DIGITAL MARKETING ASSISTANT BASIC METABOLIC PANEL, S/P Timed 12/30/2024 2:49 PM DIGITAL MARKETING ASSISTANT GLUCOSE POCT, B Routine 12/30/2024 12:28 PM DIGITAL MARKETING ASSISTANT INTERNAL MEDICINE IMAGE EXAM Routine 12/30/2024 12:10 PM DIGITAL MARKETING ASSISTANT GLUCOSE POCT, B Routine 12/30/2024 12:02 PM DIGITAL MARKETING ASSISTANT GLUCOSE POCT, B Routine 12/30/2024 11:42 AM DIGITAL MARKETING ASSISTANT US KIDNEYS WITH RENAL ARTERY DOPPLER RAD - Routine (most inpatients and all outpatients) 12/30/2024 10:16 AM DIGITAL MARKETING ASSISTANT DIPSTICK, U Routine 12/30/2024 10:03 AM DIGITAL MARKETING ASSISTANT PH, U Routine 12/30/2024 10:03 AM DIGITAL MARKETING ASSISTANT MICROSCOPIC AUTOMATED Routine 12/30/2024 10:03 AM DIGITAL MARKETING ASSISTANT OSMOLALITY, U Routine 12/30/2024 10:03 AM DIGITAL MARKETING ASSISTANT CREATININE, RANDOM, U Routine 12/30/2024 10:03 AM DIGITAL MARKETING ASSISTANT SODIUM, RANDOM, U Routine 12/30/2024 10:03 AM DIGITAL MARKETING ASSISTANT URINALYSIS WITH MICROSCOPIC Routine 12/30/2024 10:03 AM DIGITAL MARKETING ASSISTANT PROTEIN/CREATININE RATIO, RANDOM, URINE Routine 12/30/2024 9:25 AM DIGITAL MARKETING ASSISTANT INTERNAL MEDICINE IMAGE EXAM Routine 12/30/2024 9:19 AM DIGITAL MARKETING ASSISTANT ECG Routine 12/30/2024 7:38 AM DIGITAL MARKETING ASSISTANT GLUCOSE POCT, B Routine 12/30/2024 7:23 AM DIGITAL MARKETING ASSISTANT LACTATE, B/P Timed 12/30/2024 4:48 AM DIGITAL MARKETING ASSISTANT MAGNESIUM, S Routine 12/30/2024 4:48 AM DIGITAL MARKETING ASSISTANT COPPER, S Routine 12/30/2024 4:48 AM DIGITAL MARKETING ASSISTANT ZINC, S Routine 12/30/2024 4:48 AM DIGITAL MARKETING ASSISTANT 25-HYDROXYVITAMIN D2 AND D3, S Routine 12/30/2024 4:48 AM DIGITAL MARKETING ASSISTANT VITAMIN B12 ASSAY, S Routine 12/30/2024 4:48 AM DIGITAL MARKETING ASSISTANT FOLATE, S Routine 12/30/2024 4:48 AM DIGITAL MARKETING ASSISTANT HEMOGLOBIN A1C, B Routine 12/30/2024 4:48 AM DIGITAL MARKETING ASSISTANT CALCIUM, IONIZED, S/B Routine 12/30/2024 4:48 AM DIGITAL MARKETING ASSISTANT CYSTATIN C WITH EGFR Routine 12/30/2024 4:48 AM DIGITAL MARKETING ASSISTANT COMPREHENSIVE METABOLIC PANEL, S/P Routine 12/30/2024 4:48 AM DIGITAL MARKETING ASSISTANT HEPATIC FUNCTION PANEL, S Timed 2024 4:48 AM DIGITAL MARKETING ASSISTANT LACTATE, B/P Timed 12/30/2024 4:48 AM DIGITAL MARKETING ASSISTANT CBC WITHOUT DIFFERENTIAL, B Timed 12/30/2024 4:48 AM DIGITAL MARKETING ASSISTANT GLUCOSE POCT, B Routine 12/30/2024 1:47 AM DIGITAL MARKETING ASSISTANT DX CHEST PORTABLE 1 VIEW RAD - Routine (most inpatients and all outpatients) 12/29/2024 10:54 PM DIGITAL MARKETING ASSISTANT BACTERIA / EUSEBIA CULTURE, BLOOD STAT 12/29/2024 10:51 PM DIGITAL MARKETING ASSISTANT LACTATE FOR SEPSIS WITH REFLEX STAT 12/29/2024 10:39 PM DIGITAL MARKETING ASSISTANT BACTERIA / EUSEBIA CULTURE, BLOOD STAT 12/29/2024 10:39 PM DIGITAL MARKETING ASSISTANT GLUCOSE POCT, B Routine 12/29/2024 9:48 PM DIGITAL MARKETING ASSISTANT GLUCOSE POCT, B Routine 12/29/2024 9:[address] MARKETING ASSISTANT CT ABDOMEN PELVIS WITH IV CONTRAST RAD - Semiurgent (Fast; most ED patients; some inpatients) 12/29/2024 5:24 PM DIGITAL MARKETING ASSISTANT BILIRUBIN DIRECT, S/P STAT 12/29/2024 4:37 PM DIGITAL MARKETING ASSISTANT ALKALINE PHOSPHATASE, S/P STAT 2024 4:37 PM DIGITAL MARKETING ASSISTANT ASPARTATE AMINOTRANSFERASE (AST), S/P STAT 12/29/2024 4:37 PM DIGITAL MARKETING ASSISTANT MAGNESIUM, S STAT 12/29/2024 4:37 PM DIGITAL MARKETING ASSISTANT POTASSIUM, S/P STAT 12/29/2024 4:37 PM DIGITAL MARKETING ASSISTANT LACTATE, B/P Timed 12/29/2024 4:37 PM DIGITAL MARKETING ASSISTANT CELL COUNT AND DIFFERENTIAL, BF STAT 12/29/2024 4:25 PM DIGITAL MARKETING ASSISTANT PARACENTESIS Routine 12/29/2024 3:58 PM DIGITAL MARKETING ASSISTANT EMERGENCY MEDICINE IMAGE EXAM Routine 12/29/2024 3:20 PM DIGITAL MARKETING ASSISTANT GLUCOSE POCT, B STAT 12/29/2024 2:59 PM DIGITAL MARKETING ASSISTANT CBC WITH DIFFERENTIAL, B STAT 025 2:38 PM DIGITAL MARKETING ASSISTANT HC URINALYSIS AUTO WO MICRO Routine 12/29/2024 2:34 PM DIGITAL MARKETING ASSISTANT MICROSCOPIC MANUAL STAT 12/29/2024 2:28 PM DIGITAL MARKETING ASSISTANT DIPSTICK, U STAT 12/29/2024 2:28 PM DIGITAL MARKETING ASSISTANT OSMOLALITY, U STAT 12/29/2024 2:28 PM DIGITAL MARKETING ASSISTANT PH, U STAT 12/29/2024 2:28 PM DIGITAL MARKETING ASSISTANT URINALYSIS WITH MICROSCOPIC STAT 12/29/2024 2:28 PM DIGITAL MARKETING ASSISTANT BACTERIAL CULTURE, AEROBIC + SUSC, URINE STAT 12/29/2024 2:28 PM DIGITAL MARKETING ASSISTANT PATIENT STATUS STAT 12/29/2024 1:27 PM DIGITAL MARKETING ASSISTANT VENOUS BLOOD GAS W/O COOX STAT 2024 1:27 PM DIGITAL MARKETING ASSISTANT LACTATE FOR SEPSIS WITH REFLEX, POCT STAT 12/29/2024 1:25 PM DIGITAL MARKETING ASSISTANT NT-PRO B-TYPE NATRIURETIC PEPTIDE (BNP), S STAT 12/29/2024 1:25 PM DIGITAL MARKETING ASSISTANT TYPE AND SCREEN STAT 12/29/2024 1:23 PM DIGITAL MARKETING ASSISTANT PROTHROMBIN TIME (PT), P STAT 025 1:23 PM DIGITAL MARKETING ASSISTANT THYROID-STIMULATING HORMONE-SENSITIVE (S-TSH) STAT 12/29/2024 1:23 PM DIGITAL MARKETING ASSISTANT HEPATIC FUNCTION PANEL, S STAT 2024 1:23 PM DIGITAL MARKETING ASSISTANT BASIC METABOLIC PANEL, S/P STAT 12/29/2024 1:23 PM DIGITAL MARKETING ASSISTANT from Last 3 Months Results * (ABNORMAL) Glucose, POCT (01/19/2025 11:58 AM CDT) Only the most recent of95 resultswithin the time period is included. Glucose, POCT, B 294(H) 70 - 140 mg/dL 01/19/2025 12:01 PM CDT PCLX Site Capillary 01/19/2025 12:01 PM CDT PCLX Blood 01/19/2025 11:5 8 AM CDT 01/19/2025 12:01 PM CDT us Unknown Provider LAB POCT ORDERABLES-MANUAL Carol l Result POC [facility] [address] [place] [address], [place] PCLX [facility] [place] P[facility] [address] [place] [address] * (TTE) 2D ECHO DOPPLER COLOR AND CONTRAST (01/18/2025 9:13 AM CDT) Pathologist [facility] Ejection Fraction 57 MC CV EIMS Wall Motion Score Index 1.44 MC CV EIMS LV End-Diastolic Volume 120 MC CV EIMS LV End-Systolic Volume 51 MC CV EIMS MV E Velocity 0.5 MC CV EIMS MV A Velocity 0.7 MC CV EIMS MV E/A 0.71 MC CV EIMS MV e' Velocity Medial 0.07 MC CV EIMS MV E/e' Medial 7.1 MC CV EIMS Left ventricular stroke volume index 32 MC CV EIMS Cardiac Output 4.6 MC CV EIMS Cardiac Index 2.91 MC CV EIMS Estimated RA Pressure (Echo RAP) 5 MC CV EIMS Anatomical Region Laterality Modality Echocardiography 01/18/2025 7:36 AM CDT Impressions 01/18/2025 11:12 AM CDT Last full echocardiogram performed 12/30/2024. Echo performed at the patient's bedside. LEFT VENTRICLE:Normal left ventricular chamber size. Calculated 2-D biplane volumetric left ventricular ejection fraction of 57%. Regional wall motion abnormalities were present (see wall motion graphics). Anomalous left ventricular chord. Normal left ventricular filling pressure. RIGHT VENTRICLE:Normal right ventricular chamber size. Normal right ventricular systolic function. Unable to detect peak tricuspid regurgitation velocity for pulmonary artery systolic pressure calculation. ATRIA:Enlarged left atrial size by visual estimate. Normal right atrial size by visual estimate. CARDIAC VALVES:Thickened aortic valve. No aortic valve regurgitation. Normal mitral valve. Trivial mitral valve regurgitation. Normal tricuspid valve. Trivial tricuspid valve regurgitation. OTHER ECHO FINDINGS:Normal inferior vena cava size with normal inspiratory collapse (>50%). No intracardiac mass or thrombus, but the left atrial appendage cannot be visualized adequately with transthoracic echo to exclude thrombus in this location. No pericardial effusion. Attempts were made to optimize the echocardiographic images and two or more left ventricular segments were not visualized adequately to evaluate cardiac structure. The patient's current allergies and medications have been screened. Intravenous Definity ultrasound enhancement agent(s) administered to enhance endocardial border definition. Imaging enhancement agent administered per Echocardiography Contrast Administration Protocol Reference Document [id number] Rev 02/08/2022. Patient met an inclusion criterion and did not have contraindications in screening sections. For the complete report, see the Order-Level Documents. Narrative 01/18/2025 11:12 AM CDT For the complete report, see the Order-Level Documents. Hemodynamics Heart Rate: 91 BPM Blood Pressure: 93 / 60 mmHg ECG: Sinus rhythm Final Impressions 1. Echocardiogram performed per left ventricular function protocol. 2. Normal left ventricular chamber size. 3. Calculated 2-D biplane volumetric left ventricular ejection fraction of 57%. Visual estimate: 55%. 4. Regional wall motion abnormalities were present (see wall motion graphics). 5. Normal right ventricular chamber size with normal systolic function. 6. No significant valvular heart disease. 7. Normal inferior vena cava size with normal inspiratory collapse (>50%). 8. No pericardial effusion. 9. Compared to the report of 12/30/2024 the following changes have occurred: there has been a slight degree of improvement in global left ventricular systolic function and regional wall motion. Side by side comparison of images performed. Procedure Note Cole Kilgore M.D. - 01/18/2025 For the complete report, see the Order-Level Documents. Hemodynamics Heart Rate: 91 BPM Blood Pressure: 93 / 60 mmHg ECG: Sinus rhythm Final Impressions 1. Echocardiogram performed per left ventricular function protocol. 2. Normal left ventricular chamber size. 3. Calculated 2-D biplane volumetric left ventricular ejection fraction of57%. Visual estimate: 55%. 4. Regional wall motion abnormalities were present (see wall motiongraphics). 5. Normal right ventricular chamber size with normal systolic function. 6. No significant valvular heart disease. 7. Normal inferior vena cava size with normal inspiratory collapse(>50%). 8. No pericardial effusion. 9. Compared to the report of 12/30/2024 the following changes haveoccurred: there has been a slight degree of improvement in global leftventricular systolic function and regional wall motion. Side by sidecomparison of images performed. Findings Last full echocardiogram performed 12/30/2024. Echo performed at thepatient's bedside. LEFT VENTRICLE:Normal left ventricular chamber size. Calculated 2-Dbiplane volumetric left ventricular ejection fraction of 57%. Regionalwall motion abnormalities were present (see wall motion graphics).Anomalous left ventricular chord. Normal left ventricular fillingpressure. RIGHT VENTRICLE:Normal right ventricular chamber size. Normal rightventricular systolic function. Unable to detect peak tricuspidregurgitation velocity for pulmonary artery systolic pressurecalculation. ATRIA:Enlarged left atrial size by visual estimate. Normal right atrialsize by visual estimate. CARDIAC VALVES:Thickened aortic valve. No aortic valve regurgitation.Normal mitral valve. Trivial mitral valve regurgitation. Normal tricuspidvalve. Trivial tricuspid valve regurgitation. OTHER ECHO FINDINGS:Normal inferior vena cava size with normal inspiratorycollapse (>50%). No intracardiac mass or thrombus, but the left atrialappendage cannot be visualized adequately with transthoracic echo toexclude thrombus in this location. No pericardial effusion. Attempts weremade to optimize the echocardiographic images and two or more leftventricular segments were not visualized adequately to evaluate cardiacstructure. The patient's current allergies and medications have beenscreened. Intravenous Definity ultrasound enhancement agent(s)administered to enhance endocardial border definition. Imaging enhancementagent administered per Echocardiography Contrast Administration ProtocolReference Document [id number] Rev 02/08/2022. Patient met an inclusioncriterion and did not have contraindications in screening sections. For the complete report, see the Order-Level Documents. Violet Kang M.D. CV ECHO PROCEDURES Final Re sult * (ABNORMAL) Hepatic Function Panel (01/18/2025 6:54 AM CDT) Only the most recent of9 resultswithin the time period is included. Bilirubin, Total, S 0.9 0.0 - 1.2 mg/dL 01/18/2025 8:21 AM CDT DTL Bilirubin, Direct, S 0.4(H) 0.0 - 0.3 mg/dL 01/18/2025 8:21 AM CDT DTL Aspartate Aminotransferase (AST), S 64(H) 8 - 43 U/L 01/18/2025 8:21 AM CDT DTL Alanine Aminotransferase (ALT), S 24 7 - 45 U/L 01/18/2025 8:21 AM CDT DTL Alkaline Phosphatase, S 148(H) 35 - 104 U/L 01/18/2025 8:21 AM CDT DTL Albumin, S 3.8 3.5 - 5.0 g/dL 01/18/2025 8:21 AM CDT DTL Protein, Total, S 5.8(L) 6.3 - 7.9 g/dL 01/18/2025 8:21 AM CDT DTL Blood (Blood, Venous) 01/18/2025 6:54 AM CDT 01/18/2025 7:55 AM CDT us Kieran Glez M.D. LAB BLOOD ADD-ON Final Re sult [facility] [address] [place] [address], [facility] [address] [place] [address] * (ABNORMAL) CBC with Differential, Blood (01/18/2025 6:54 AM CDT) Only the most recent of16 resultswithin the time period is included. Hemoglobin 10.5(L) 11.6 - 15.0 g/dL 01/18/2025 7:54 AM CDT DTL Hematocrit 31.5(L) 35.5 - 44.9 % 01/18/2025 7:54 AM CDT DTL Erythrocytes 3.09(L) 3.92 - 5.13 x10(12)/L 01/18/2025 7:54 AM CDT DTL MCV 101.9(H) 78.2 - 97.9 fL 01/18/2025 7:54 AM CDT DTL RBC Distrib Width 17.1(H) 12.2 - 16.1 % 01/18/2025 7:54 AM CDT DTL Platelet Count 248 157 - 371 x10(9)/L 01/18/2025 7:54 AM CDT DTL Leukocytes 4.5 3.4 - 9.6 x10(9)/L 01/18/2025 7:54 AM CDT DTL Neutrophils 2.11 1.56 - 6.45 x10(9)/L 01/18/2025 7:54 AM CDT DHPM Lymphocytes 1.52 0.95 - 3.07 x10(9)/L 01/18/2025 7:54 AM CDT DTL Monocytes 0.69 0.26 - 0.81 x10(9)/L 01/18/2025 7:54 AM CDT DTL Eosinophils 0.10 0.03 - 0.48 x10(9)/L 01/18/2025 7:54 AM CDT DTL Basophils 0.03 0.01 - 0.08 x10(9)/L 01/18/2025 7:54 AM CDT DTL Blood (Blood, Venous) 01/18/2025 6:54 AM CDT 01/18/2025 7:37 AM CDT Kieran Glez M.D. LAB BLOOD ADD-ON Final Re sult [facility] [address] [place] [address], [facility] DTL [facility] [address] [place], [place] [id number] [place] [address] [address] [place] [address] * (ABNORMAL) Basic Metabolic Panel (01/18/2025 6:54 AM CDT) Only the most recent of8 resultswithin the time period is included. [facility] Potassium, S 4.4 3.6 - 5.2 mmol/L 01/18/2025 8:21 AM CDT DTL Sodium, S 136 135 - 145 mmol/L 01/18/2025 8:21 AM CDT DTL Chloride, S 104 98 - 107 mmol/L 01/18/2025 8:21 AM CDT DTL Bicarbonate, S 24 22 - 29 mmol/L 01/18/2025 8:21 AM CDT DTL Anion Gap 8 7 - 15 01/18/2025 8:21 AM CDT DTL BUN (Blood Urea Nitrogen), S 9 6 - 21 mg/dL 01/18/2025 8:21 AM CDT DTL Creatinine 0.66 0.59 - 1.04 mg/dL 01/18/2025 8:21 AM CDT DTL Estimated GFR (eGFR) >90 >=60 mL/min/BSA 01/18/2025 8:21 AM CDT DTL Comment: Estimated GFR calculated using the 2020 CKD_EPI creatinine equation. Calcium, Total, S 9.2 8.8 - 10.2 mg/dL 01/18/2025 8:21 AM CDT DTL Glucose, S 192(H) 70 - 140 mg/dL 01/18/2025 8:21 AM CDT DTL Blood (Blood, Venous) 01/18/2025 6:54 AM CDT 01/18/2025 7:55 AM CDT Berta Cooley M.D., M.B.A. LAB BLOOD [place] [address], [place] [address] * ECG 12 Lead (01/16/2025 12:00 PM CDT) Only the most recent of2 resultswithin the time period is included. Ventricular Rate ECG/Min 93 BPM MUSE [place] Interval 158 ms MUSE QRSD Interval 86 ms MUSE QT Interval 346 ms MUSE QTC Interval 430 ms MUSE P [place] 71 degrees MUSE R [place] [facility] 34 degrees MUSE T Wave [place] [facility] 75 degrees MUSE 01/16/2025 12:0 0 PM CDT 01/16/2025 12:03 PM CDT Impressions MUSE - 01/16/2025 12:03 PM CDT Normal sinus rhythm Low anterior forces When compared with ECG of 30-Dec-2024 07:38, T wave changes Reviewed by DWAIN Fuller Narrative Procedure Note Mikal Mtz M.D. - 01/16/2025 IMPRESSION: Normal sinus rhythm Low anterior forces When compared with ECG of 30-Dec-2024 07:38, T wave changes Reviewed by DWAIN Fuller us Violet Kang M.D. ECG ORDERABLES Final Resul t MUSE NA * (ABNORMAL) Renal Function Panel (01/15/2025 7:47 AM CDT) Only the most recent of14 resultswithin the time period is included. Potassium, S 4.6 3.6 - 5.2 mmol/L 01/15/2025 9:09 AM CDT DTL Sodium, S 136 135 - 145 mmol/L 01/15/2025 9:09 AM CDT DTL Chloride, S 101 98 - 107 mmol/L 01/15/2025 9:09 AM CDT DTL Bicarbonate, S 23 22 - 29 mmol/L 01/15/2025 9:09 AM CDT DTL Anion Gap 12 7 - 15 01/15/2025 9:09 AM CDT DTL BUN (Blood Urea Nitrogen), S 8 6 - 21 mg/dL 01/15/2025 9:09 AM CDT DTL Creatinine 0.54(L) 0.59 - 1.04 mg/dL 01/15/2025 9:09 AM CDT DTL Estimated GFR (eGFR) >90 >=60 mL/min/BSA 01/15/2025 9:09 AM CDT DTL Comment: Estimated GFR calculated using the 2020 CKD_EPI creatinine equation. Calcium, Total, S 9.3 8.8 - 10.2 mg/dL 01/15/2025 9:09 AM CDT DTL Glucose, S 176(H) 70 - 140 mg/dL 01/15/2025 9:09 AM CDT DTL Albumin, S 3.8 3.5 - 5.0 g/dL 01/15/2025 9:09 AM CDT DTL Phosphorus (Inorganic), S 3.4 2.5 - 4.5 mg/dL 01/15/2025 9:09 AM CDT DTL Blood (Blood, Venous) 01/15/2025 7:47 AM CDT 01/15/2025 8:50 AM CDT Kieran Glez M.D. LAB BLOOD ADD-ON Final Re sult Performing Organization Address City/[facility]/ZIP Co de Phone Number [facility] [address] [place] [address], [place] DTL [facility] [address] [place] [address] * Zinc (01/14/2025 11:13 AM CDT) Only the most recent of2 resultswithin the time period is included. Zinc, S 64 60 - 106 mcg/dL 01/14/2025 6:17 PM CDT [facility] Comment: ----ADDITIONAL INFORMATION---- This test was developed and its performance characteristics determined by [facility] in a manner consistent with CLIA requirements. This test has not been cleared or approved by the U.S. Food and Drug Administration. Blood (Blood, Venous) 01/14/2025 11:13 AM CDT 01/14/2025 2:48 PM CDT Violet Kang M.D. LAB BLOOD NON ADD-ON Final Result Performing Organization Address [facility] Co de Phone Number [facility] [address] [place] [address] [facility] [address] [place] [address] [place] [address] * Phosphorus Inorganic (01/14/2025 11:13 AM CDT) Only the most recent of2 resultswithin the time period is included. Phosphorus (Inorganic), S 3.2 2.5 - 4.5 mg/dL 01/14/2025 12:25 PM CDT DTL Blood (Blood, Venous) 01/14/2025 11:13 AM CDT 01/14/2025 12:04 PM CDT Violet Kang M.D. LAB BLOOD ADD-ON Final Resu lt Performing Organization Address [facility] [place] [place] [address] * Magnesium (01/14/2025 11:13 AM CDT) Only the most recent of15 resultswithin the time period is included. Magnesium, S 1.9 1.7 - 2.3 mg/dL 01/14/2025 12:25 PM CDT DTL Blood (Blood, Venous) 01/14/2025 11:13 AM CDT 01/14/2025 12:04 PM CDT us Violet Kang M.D. LAB BLOOD ADD-ON Final Resu lt Performing Organization Address [facility] [place] [place] [address] * DX Abdomen 1 View (01/12/2025 9:49 AM CDT) Anatomical Region Laterality Modality Abdomen, Abdominal RST LOS, Abdominal ARZ LOS, Abdominal FLA LOS N/A Digital Radiography Impressions 01/12/2025 11:27 AM CDT Nonobstructive bowel gas pattern. Vascular calcifications. Abdominal surgical clips. Left upper quadrant surgical staple line. Degenerative changes both hips. Narrative 01/12/2025 11:27 AM CDT EXAM: DX ABDOMEN 1 VIEW Procedure Note Mil Schuster M.D. - 01/12/2025 EXAM: DX ABDOMEN 1 VIEW IMPRESSION: Nonobstructive bowel gas pattern. Vascular calcifications. Abdominalsurgical clips. Left upper quadrant surgical staple line. Degenerativechanges both hips. us Kieran Glez M.D. IMG DIAGNOSTIC IMAGING [place] OCEDURES Final Result * (ABNORMAL) Comprehensive Metabolic Panel (01/08/2025 7:38 AM CDT) Only the most recent of3 resultswithin the time period is included. [facility] Potassium, S 4.2 3.6 - 5.2 mmol/L 01/08/2025 9:14 AM CDT DTL Sodium, S 138 135 - 145 mmol/L 01/08/2025 9:14 AM CDT DTL Chloride, S 105 98 - 107 mmol/L 01/08/2025 9:14 AM CDT DTL Bicarbonate, S 23 22 - 29 mmol/L 01/08/2025 9:14 AM CDT DTL Anion Gap 10 7 - 15 01/08/2025 9:14 AM CDT DTL BUN (Blood Urea Nitrogen), S 6 6 - 21 mg/dL 01/08/2025 9:14 AM CDT DTL Creatinine 0.66 0.59 - 1.04 mg/dL 01/08/2025 9:14 AM CDT DTL Estimated GFR (eGFR) >90 >=60 mL/min/BS A 01/08/2025 9:14 AM CDT DTL Comment: Estimated GFR calculated using the 2020 CKD_EPI creatinine equation. Calcium, Total, S 8.5(L) 8.8 - 10.2 mg/dL 01/08/2025 9:14 AM CDT DTL Glucose, S 155(H) 70 - 140 mg/dL 01/08/2025 9:14 AM CDT DTL Protein, Total, S 4.9(L) 6.3 - 7.9 g/dL 01/08/2025 9:14 AM CDT DTL Albumin, S 3.2(L) 3.5 - 5.0 g/dL 01/08/2025 9:14 AM CDT DTL Aspartate Aminotransferase (AST), S 43 8 - 43 U/L 01/08/2025 9:14 AM CDT DTL Alkaline Phosphatase, S 148(H) 35 - 104 U/L 01/08/2025 9:14 AM CDT DTL Alanine Aminotransferase (ALT), S 18 7 - 45 U/L 01/08/2025 9:14 AM CDT DTL Bilirubin, Total, S 0.9 0.0 - 1.2 mg/dL 01/08/2025 9:14 AM CDT DTL Blood (Blood, Venous) 01/08/2025 7:38 AM CDT 01/08/2025 8:49 AM CDT us Netta Schmitz M.D. LAB BLOOD ADD-ON Final Resul t [facility] [address] [place] [address], [facility] [address] [place] [address] * US Paracentesis with Imaging Guidance (01/05/2025 12:10 PM CDT) Anatomical Region Laterality Modality Abdomen, Ultrasound RST LOS, Ultrasound ARZ LOS, Procedure FLA LOS, Abdominal FLA LOS, Procedural, Procedural NWWI LOS N/A Ultrasound Impressions 01/05/2025 3:01 PM CDT Ultrasound-guided paracentesis (aspirated volume of 2118 cc). CP Narrative 01/05/2025 3:01 PM CDT EXAM: US PARACENTESIS WITH IMAGING GUIDANCE PRE-PROCEDURE: Patient seen and evaluated. Allergies, pertinent medications, and history reviewed. Discussed risks, benefits, alternatives for procedure, and obtained informed consent. Patient understands information and questions answered. Immediately prior to starting the procedure, in the presence of the assisting personnel, procedural pause was conducted to verify correct patient identity and verification of procedure to be performed, and as applicable, correct side and site, correct patient position, availability of implants, special equipment, or special requirements, and all image and specimen identification data. The roles and responsibilities of care team members, residents, and fellows were discussed. TECHNIQUE: Sterile. 1% lidocaine for local anesthesia. US guidance. Location: Right upper quadrant peritoneal space. Needle size: 5 Fr centesis catheter. Volume aspirated: 2118 cc. Appearance of aspirate: Clear yellow. Complication: None. Blood loss: None. Purpose: Diagnostic and therapeutic. PATIENT INSTRUCTIONS: Patient may be dismissed from the radiology department when dismissal criteria met. POST-PROCEDURE DIAGNOSIS: Ascites. Procedure Note Suleman Trimble M.D. - 01/05/2025 EXAM: US PARACENTESIS WITH IMAGING GUIDANCE PRE-PROCEDURE: Patient seen and evaluated. Allergies, pertinentmedications, and history reviewed. Discussed risks, benefits, alternativesfor procedure, and obtained informed consent. Patient understandsinformation and questions answered. Immediately prior to starting the procedure, in the presence of the assistingpersonnel, procedural pause was conducted to verify correct patientidentity and verification of procedure to be performed, and as applicable,correct side and site, correct patient position, availability of implants, special equipment, or specialrequirements, and all image and specimen identification data. The rolesand responsibilities of care team members, residents, and fellows werediscussed. TECHNIQUE: Sterile. 1% lidocaine for local anesthesia. US guidance. Location: Right upper quadrant peritoneal space. Needle size: 5 Fr centesis catheter. Volume aspirated: 2118 cc. Appearance of aspirate: Clear yellow. Complication: None. Blood loss: None. Purpose: Diagnostic and therapeutic. PATIENT INSTRUCTIONS: Patient may be dismissed from the radiologydepartment when dismissal criteria met. POST-PROCEDURE DIAGNOSIS: Ascites. IMPRESSION: Ultrasound-guided paracentesis (aspirated volume of 2118 cc). CP us Kieran Glez M.D. IMG US PROCEDURES Final R esult * Cytology Non-HOSPICE NURSE (01/05/2025 11:42 AM CDT) 01/06/2025 4:09 PM CDT DTL Report electronically signed by Marie GallowayBRobbiSRobbi, Johnathan. I verify that I have examined all relevant slides/materia ls for the specimen(s) and rendered or confirmed the diagnosis. 01/06/2025 4:09 PM CDT DTL Gross Description Received 100 cc of cloudy yellow fluid. 01/06/2025 4:09 PM CDT DTL Source A. Peritoneal, fluid 01/06/2025 4:09 PM CDT DTL Interpretation A. Peritoneal, fluid (ThinPrep): Negative for malignancy. Reactive mesothelial cells present. 01/06/2025 4:09 PM CDT DTL 01/05/2025 11:4 2 AM CDT 01/05/2025 12:28 PM CDT Kieran Glez M.D. LAB SURG PATH ORDERABLES Final Result Performing Organization Address [facility] Co de Phone Number [facility] [address] [place], [place] [id number] [place] [address] [place] [address] * Protein, Total, Body Fluid (01/05/2025 11:42 AM CDT) Protein, Total, BF 1.0 See Comment g/dL 01/05/2025 12:54 PM CDT DT Comment: ----ADDITIONAL INFORMATION---- A pleural fluid total protein to serum total protein ratio >0.5 is most consistent with exudative effusion. A peritoneal fluid total protein > 2.5 g/dL in patients with a high serum ascites albumin gradient can be caused by heart failure. A peritoneal fluid total protein > 1.0 g/dL helps to differentiate secondary from spontaneous bacterial peritonitis in conjunction with other laboratory, imaging, and clinical findings. All other fluids refer to [email or web address] for further interpretive information. This test has been modified from the interactive marketing strategist's instructions. Its performance characteristics were determined by [facility] in a manner consistent with CLIA requirements. This test has not been cleared or approved by the U.S. Food and Drug Administration. Fluid Type, Protein, Total Fluid, Peritoneal Fluid 01/05/2025 12:15 PM CDT DT Fluid (Peritoneal Fluid) 01/05/2025 11:42 AM CDT Kieran Glez M.D. LAB BODY FLUIDS AND STOOL S ORDERABLES Final Result Performing Organization Address [facility]/ZIP Co de Phone Number [facility] [address] [place] [address], [facility] [address] [place] [address] * Cell Count and Differential, Body Fluid (01/05/2025 11:42 AM CDT) Only the most recent of2 resultswithin the time period is included. Fluid Type Peritoneal /Paracente sis 01/05/2025 12:48 PM CDT DHPM Gross Appearance Serous 01/06/20 25 12:48 PM CDT DHPM Total Nucleated Cells 174 /mcL 01/05/2025 12:48 PM CDT DHPM Comment: ----REFERENCE VALUE---- Synovial: <150 /mcL Peritoneal: <500 /mcL Pleural: <500 /mcL Pericardial: <500 /mcL ----ADDITIONAL INFORMATION---- This test has been modified from the interactive marketing strategist's instructions. Its performance characteristics were determined by [facility] in a manner consistent with CLIA requirements. This test has not been cleared or approved by the U.S. Food and Drug Administration. Neutrophils 11 % 01/05/2025 2:10 PM CDT DHPM Comment: ----REFERENCE VALUE---- Synovial: <25% Peritoneal: <25% Pleural: <25% Pericardial: <25% Lymphocytes 21 Synovial <75% % 01/05/2025 2:10 PM CDT DHPM Monocytes/Macropha ges 63 Synovial <70% % 01/05/2025 2:10 PM CDT DHPM Other Cells 5 % 01/05/2025 2:10 PM CDT DHPM Comment: ----REFERENCE VALUE---- The reference range and other method performance specifications have not been established for this bodyfluid. The test result must be integrated into the clinical context for interpretation. Other Cells Are: See Comment 01/05/2025 2:10 PM CDT DHPM Comment:Mesothelial cells Comment See Comment 01/05/2025 2:10 PM CDT DHPM Comment:Cytology concurrentl y ordered, see separate report. Reviewed by: Tech 01/05/2025 2:10 PM CDT DHPM Fluid (Peritoneal Fluid) 01/05/2025 11:42 AM CDT Kieran Glez M.D. LAB BODY FLUIDS AND STOOL S ORDERABLES Final Result [facility] [address] [place] [address], [facility] [address] [place] [address] * Albumin, Body Fluid (01/05/2025 11:42 AM CDT) Albumin BF 1.0 See Comment g/dL 01/06/2025 7:01 PM CDT DT Comment: ----ADDITIONAL INFORMATION---- Peritoneal fluid albumin is used to calculate the serum-ascites albumin gradient (SAAG). Values greater than or equal to 1.1 g/dL suggest portal hypertension. Pleural fluid albumin may be used to calculate a serum-effusion albumin gradient. Values greater than 1.2 g/dL are most consistent with a transudative process. All other fluids refer to www.[employer].com for further interpretive information. This test has been modified from the interactive marketing strategist's instructions. Its performance characteristics were determined by [facility] in a manner consistent with CLIA requirements. This test has not been cleared or approved by the U.S. Food and Drug Administration. Fluid Type, Albumin PERITONEAL 01/06/2025 6:49 PM CDT DT Fluid (Peritoneal Fluid) 01/05/2025 11:42 AM CDT 01/06/2025 6:48 PM CDT Michael Patel M.D. LAB BODY FLUIDS AND STOOLS O RDERABLES Final Result [facility] [place] [address], [facility] [place] [address] * (ABNORMAL) Prealbumin (PAB) (01/05/2025 4:10 AM CDT) Prealbumin (PAB), S 4(L) 19 - 38 mg/dL 01/05/2025 10:56 AM CDT [facility] Blood (Blood, Venous) 01/05/2025 4:10 AM CDT 01/05/2025 7:41 AM CDT Kieran Glez M.D. LAB BLOOD ADD-ON Final Re sult [facility] [address] [place] [address] [facility] [address] [place] [address] * (ABNORMAL) Prothrombin Time (PT) (01/04/2025 4:43 AM CDT) Only the most recent of7 resultswithin the time period is included. Prothrombin Time, P 16.2(H) 9.4 - 12.5 sec 01/04/2025 5:52 AM CDT DTL INR 1.5 0.9 - 1.1 01/04/2025 5:52 AM CDT DTL Comment: ----ADDITIONAL INFORMATION---- Standard intensity warfarin therapeutic range: 2.0 to 3.0 High intensity warfarin therapeutic range: 2.5 to 3.5 Blood (Blood, Venous) 01/04/2025 4:43 AM CDT 01/04/2025 5:31 AM CDT iLn Garrido M.D. LAB BLOOD ADD-ON Final Res ult [facility] [address] [place] [address], [facility] [address] [place] [address] * (ABNORMAL) Iron and Total Iron-Binding Capacity (01/03/2025 8:29 AM CDT) Iron 42 35 - 145 mcg/dL 01/03/2025 9:40 AM CDT DTL Total Iron Binding Capacity 38(L) 250 - 400 mcg/dL 01/03/2025 9:40 AM CDT DTL Percent Saturation >90(H) 14 - 50 % 01/03/2025 9:40 AM CDT DTL Blood (Blood, Venous) 01/03/2025 8:29 AM CDT 01/03/2025 9:14 AM CDT Lizbeth Whittaker M.D. LAB BLOOD ADD-ON Final Result [facility] [address] [place] [address], [facility] [address] [place] [address] * (ABNORMAL) CBC without Differential (01/03/2025 8:29 AM CDT) Only the most recent of4 resultswithin the time period is included. Hemoglobin 9.7(L) 11.6 - 15.0 g/dL 01/03/2025 9:09 AM CDT DTL Hematocrit 27.4(L) 35.5 - 44.9 % 01/03/2025 9:09 AM CDT DTL Erythrocytes 2.90(L) 3.92 - 5.13 x10(12)/L 01/03/2025 9:09 AM CDT DTL MCV 94.5 78.2 - 97.9 fL 01/03/2025 9:09 AM CDT DTL RBC Distrib Width 16.3(H) 12.2 - 16.1 % 01/03/2025 9:09 AM CDT DTL Platelet Count 111(L) 157 - 371 x10(9)/L 01/03/2025 9:09 AM CDT DTL Leukocytes 5.6 3.4 - 9.6 x10(9)/L 01/03/2025 9:09 AM CDT DTL Blood (Blood, Venous) 01/03/2025 8:29 AM CDT 01/03/2025 9:03 AM CDT Lizbeth Whittaker M.D. LAB BLOOD ADD-ON Final Result [facility] [address] [place] [address], [facility] [address] [place] [address] * Ferritin (01/03/2025 8:29 AM CDT) Ferritin, S 212 11 - 328 mcg/L 01/03/2025 9:40 AM CDT DTL Blood (Blood, Venous) 01/03/2025 8:29 AM CDT 01/03/2025 9:14 AM CDT us Lizbeth Whittaker M.D. LAB BLOOD ADD-ON Final Result [facility] [address] [place] [address] * (ABNORMAL) Hemoglobin (01/03/2025 4:59 AM CDT) Only the most recent of3 resultswithin the time period is included. Hemoglobin 9.6(L) 11.6 - 15.0 g/dL 01/03/2025 5:54 AM CDT DT Blood (Blood, Venous) 01/03/2025 4:59 AM CDT 01/03/2025 5:37 AM CDT us Violet Kang M.D. LAB BLOOD ADD-ON Final Resu lt Performing Organization Address City/[facility]/ZIP Co de Phone Number [facility] [address] [place] [address] * (ABNORMAL) Hematocrit (01/03/2025 4:59 AM CDT) Only the most recent of3 resultswithin the time period is included. Hematocrit 27.0(L) 35.5 - 44.9 % 01/03/2025 5:54 AM CDT DT Blood (Blood, Venous) 01/03/2025 4:59 AM CDT 01/03/2025 5:37 AM CDT Violet Kang M.D. LAB BLOOD ADD-ON Final Resu lt [facility] [address] [place] [address] * Transfuse Red Blood Cells : (01/03/2025 4:28 AM CDT) us Violet Kang M.D. BLOOD TRANSFUSION ORDERABLE S Final Result * (ABNORMAL) Reticulocyte Profile (01/02/2025 5:38 PM DIGITAL MARKETING ASSISTANT) Reticulocytes, B 2.32 0.60 - 2.71 % 01/02/2025 6:23 PM DIGITAL MARKETING ASSISTANT DTL Absolute Reticulocyte 55.7 30.4 - 110.9 x10(9)/L 01/02/2025 6:23 PM DIGITAL MARKETING ASSISTANT DTL Immature Reticulocyte Fraction 17.3(H) 3.0 - 15.9 % 01/02/2025 6:23 PM DIGITAL MARKETING ASSISTANT DTL Reticulocyte Hemoglobin 37.0 30.0 - 37.6 pg 01/02/2025 6:23 PM DIGITAL MARKETING ASSISTANT DTL Erythrocytes 2.43(L) 3.92 - 5.13 x10(12)/L 01/02/2025 5:46 PM DIGITAL MARKETING ASSISTANT [facility] Blood (Blood, Venous) 01/02/2025 5:38 PM DIGITAL MARKETING ASSISTANT 01/02/2025 6:13 PM DIGITAL MARKETING ASSISTANT Narrative [facility] - 01/02/2025 6:23 PM DIGITAL MARKETING ASSISTANT Specimen Information: Specimen ID: [id number] Specimen Type: Blood Specimen Collection Start Date: 01/02/2025 5:38 PM Specimen Received Date: 01/02/2025 6:13 PM Specimen ID: [id number] Specimen Type: Blood Specimen Collection Start Date: 01/02/2025 5:38 PM Specimen Received Date: 01/02/2025 5:44 PM us Lizbeth Whittaker M.D. LAB BLOOD ADD-ON Final Result [facility] [address] [place] [address], [facility] DTL [facility] [address] [place] [address] STMA [facility] [address] [place] [address] * Morphology Evaluation (Special Smear) (01/02/2025 5:38 PM DIGITAL MARKETING ASSISTANT) Neutrophilic Segs and Bands 70 50 - 75 % 01/02/2025 6:42 PM DIGITAL MARKETING ASSISTANT DHPM Lymphocytes 21 18 - 42 % 01/02/2025 6:42 PM DIGITAL MARKETING ASSISTANT DHPM Monocytes 8 2 - 11 % 01/02/2025 6:42 PM DIGITAL MARKETING ASSISTANT DHPM Eosinophils 1 1 - 3 % 01/02/2025 6:42 PM DIGITAL MARKETING ASSISTANT DHPM Manual Absolute Neutrophil Count 3.29 1.56 - 6.45 x10(9)/L 01/02/2025 6:42 PM DIGITAL MARKETING ASSISTANT DHPM Comment: ----ADDITIONAL INFORMATION---- The manual absolute neutrophil count is derived from a manual differential count and therefore is not exactly comparable to the automated absolute neutrophil count. Interpretation See Comment 6:42 PM DIGITAL MARKETING ASSISTANT DHPM Comment: No morphologic features of hemolysis are seen. No schistocytes are seen. No platelet clumping. Reviewed by: Heather 01/02/2025 6:42 PM DIGITAL MARKETING ASSISTANT [facility] Blood 01/02/2025 5:38 PM DIGITAL MARKETING ASSISTANT 01/02/2025 5:44 PM DIGITAL MARKETING ASSISTANT us Lizbeth Whittaker M.D. LAB PATHOLOGY/CYTOLOGY ORDERABLES Final Result [address] [address], [facility] [address] [place] [address] * (ABNORMAL) APTT (Activated Partial Thromboplastin Time) (01/02/2025 5:38 PM DIGITAL MARKETING ASSISTANT) Activated Partial Thrombopl Time, P 51(H) 25 - 37 sec 01/02/2025 5:56 PM DIGITAL MARKETING ASSISTANT [facility] Blood (Blood, Venous) 01/02/2025 5:38 PM DIGITAL MARKETING ASSISTANT 01/02/2025 5:44 PM DIGITAL MARKETING ASSISTANT us Lizbeth Whittaker M.D. LAB BLOOD ADD-ON Final Result Performing Organization Address City/[facility] Co de Phone Number [facility] [address] [place] [address], [facility] 200 [place] [address] * (ABNORMAL) Fibrinogen (01/02/2025 5:38 PM DIGITAL MARKETING ASSISTANT) [facility] Fibrinogen, P 120(L) 200 - 393 mg/dL 01/02/2025 6:03 PM DIGITAL MARKETING ASSISTANT [facility] Blood (Blood, Venous) 01/02/2025 5:38 PM DIGITAL MARKETING ASSISTANT 01/02/2025 5:44 PM DIGITAL MARKETING ASSISTANT us Lizbeth Whittaker M.D. LAB BLOOD ADD-ON Final Result Performing Organization Address [facility] Co de Phone Number [facility] [address] [place], [place] [address] [place] [address] [address] [place] [address] * LD (Lactate Dehydrogenase) (01/02/2025 5:38 PM DIGITAL MARKETING ASSISTANT) [facility] Shanelle LD 188 122 - 222 U/L 01/02/2025 6:43 PM DIGITAL MARKETING ASSISTANT DTL Blood (Blood, Venous) 01/02/2025 5:38 PM DIGITAL MARKETING ASSISTANT 01/02/2025 6:28 PM DIGITAL MARKETING ASSISTANT us Lizbeth Whittaker M.D. LAB BLOOD NON ADD-ON Fi nal Result Performing Organization Address City/[facility] Co de Phone Number [facility] [address] [place] [address], [facility] DTL [facility] [address] [place] [address] * (ABNORMAL) Haptoglobin (01/02/2025 5:38 PM DIGITAL MARKETING ASSISTANT) [facility] Haptoglobin, S 24(L) 30 - 200 mg/dL 01/04/2025 8:45 AM CDT [facility] Blood (Blood, Venous) 01/02/2025 5:38 PM DIGITAL MARKETING ASSISTANT 01/04/2025 6:42 AM CDT us Lizbeth Whittaker M.D. LAB BLOOD ADD-ON Final Result [facility] [address] [place] [address] [facility] [address] [place] [address] * CT Abdomen Pelvis without and with IV Contrast (01/02/2025 3:10 PM DIGITAL MARKETING ASSISTANT) Anatomical Region Laterality Modality Abdomen, Pelvis, Abdominal R ST LOS, Abdominal ARZ LOS, Abdominal FLA LOS N/A Computed Tomograp hy, Computed Tomography 01/02/2025 3:10 PM DIGITAL MARKETING ASSISTANT Impressions 01/02/2025 4:02 PM DIGITAL MARKETING ASSISTANT 1. No evidence of active bleeding within the abdomen or pelvis. 2. Otherwise no significant changes since CT abdomen pelvis with IV contrast 12/29/2024. Cirrhotic morphology of the liver with large volume simple ascites and severe truncal anasarca. There is also an associated small left pleural effusion. Narrative 01/02/2025 4:02 PM DIGITAL MARKETING ASSISTANT EXAM: CT ABDOMEN PELVIS WITHOUT AND WITH IV CONTRAST COMPARISON: CT abdomen pelvis with IV contrast 12/29/2024. FINDINGS: No evidence of contrast extravasation in the abdomen and pelvis suggest acute bleed. Specifically no evidence of hepatic hematoma. Large volume abdominopelvic ascites which appears to be simple fluid without evidence of blood product. Otherwise no significant changes since 12/29/2024. Cirrhotic appearing liver morphology. No focal hepatic lesions. Patent portal venous vasculature. Upper abdominal varices with evidence of splenorenal shunting. Again seen is nonspecific fat stranding around the edna hepatis. Severe truncal anasarca. Postoperative changes of Whipple procedure. Unremarkable appearance of the pancreatico jejunal anastomosis. Atrophy of the remnant pancreas. Cholecystectomy. Splenule. Nonobstructing right renal calculus. Bilateral renal parenchymal scarring. Normal adrenal glands. Symmetric nephrograms without hydroureteronephrosis. Normal appearance of the rectum, appendix, terminal ileum. No bowel dilatation or wall thickening. Atherosclerotic disease of the aortobiiliac vasculature. Muscular skeletal degenerative changes. Small left pleural effusion with associated left basilar atelectasis. Procedure Note Bold, Adryan Heranndez M.D. - 01/02/2025 EXAM: CT ABDOMEN PELVIS WITHOUT AND WITH IV CONTRAST COMPARISON: CT abdomen pelvis with IV contrast 12/29/2024. FINDINGS: No evidence of contrast extravasation in the abdomen and pelvis suggestacute bleed. Specifically no evidence of hepatic hematoma. Large volumeabdominopelvic ascites which appears to be simple fluid without evidenceof blood product. Otherwise no significant changes since 12/29/2024. Cirrhotic appearing livermorphology. No focal hepatic lesions. Patent portal venous vasculature.Upper abdominal varices with evidence of splenorenal shunting. Again seenis nonspecific fat stranding around the edna hepatis. Severe truncal anasarca. Postoperative changes of Whipple procedure. Unremarkable appearance of thepancreatico jejunal anastomosis. Atrophy of the remnant pancreas.Cholecystectomy. Splenule. Nonobstructing right renal calculus. Bilateralrenal parenchymal scarring. Normal adrenal glands. Symmetric nephrograms without hydroureteronephrosis.Normal appearance of the rectum, appendix, terminal ileum. No boweldilatation or wall thickening. Atherosclerotic disease of the aortobiiliac vasculature. Muscular skeletaldegenerative changes. Small left pleural effusion with associated leftbasilar atelectasis. IMPRESSION: 1. No evidence of active bleeding within the abdomen or pelvis. 2. Otherwise no significant changes since CT abdomen pelvis with IVcontrast 12/29/2024. Cirrhotic morphology of the liver with large volumesimple ascites and severe truncal anasarca. There is also an associatedsmall left pleural effusion. Lizbteh Whittaker M.D. [facility] PROCEDURES Final Result * Sodium, Random, Urine (01/02/2025 10:15 AM DIGITAL MARKETING ASSISTANT) Only the most recent of3 resultswithin the time period is included. Sodium, Random, U 72 mmol/L 01/02/2025 11:05 AM DIGITAL MARKETING ASSISTANT DTL Comment: ----REFERENCE VALUE---- Random urine sodium may be interpreted in conjunction with serum sodium, using both values to calculate fractional excretion of sodium. Urine (Urine, Midstream) 01/02/2025 10:15 AM DIGITAL MARKETING ASSISTANT 01/02/2025 10:44 AM DIGITAL MARKETING ASSISTANT Lin Garrido M.D. LAB URINE ORDERABLES Final Result Performing Organization Address [facility] Co de Phone Number [facility] [address] [place] [address], [facility] DTL [facility] [address] [place] [address] * Type and Screen (with Reflex Antibody ID) (01/02/2025 6:02 AM DIGITAL MARKETING ASSISTANT) Only the most recent of2 resultswithin the time period is included. Pathologist [facility] ABORh A Pos Not applicable 01/02/2025 6:05 PM DIGITAL MARKETING ASSISTANT STRM Antibody Screen Negative Negative 01/02/2025 6:19 PM DIGITAL MARKETING ASSISTANT STRM Type & Screen Expiration 01/05/2025 23:59 01/02/2025 6:05 PM DIGITAL MARKETING ASSISTANT STRM Testing Location [facility] DEFAULT 01/02/2025 5:44 PM DIGITAL MARKETING ASSISTANT STRM Blood (Blood, Venous) 01/02/2025 6:02 AM DIGITAL MARKETING ASSISTANT 01/02/2025 5:44 PM DIGITAL MARKETING ASSISTANT Lizbeth Whittaker M.D. LAB BLOOD BANK TEST ORD ERABLES Final Result Performing Organization Address [facility] Co de Phone Number [facility] [address] [place] [address], [facility] STRM [facility] [address] [place] [address] * Morphology Eval (special smear) (01/01/2025 11:50 AM DIGITAL MARKETING ASSISTANT) Neutrophilic Segs and Bands 73 50 - 75 % 01/01/2025 1:30 PM DIGITAL MARKETING ASSISTANT DHPM Lymphocytes 18 18 - 42 % 01/01/2025 1:30 PM DIGITAL MARKETING ASSISTANT DHPM Monocytes 7 2 - 11 % 01/01/2025 1:30 PM DIGITAL MARKETING ASSISTANT DHPM Eosinophils 2 1 - 3 % 01/01/2025 1:30 PM DIGITAL MARKETING ASSISTANT DHPM Interpretation See Comment 1:30 PM DIGITAL MARKETING ASSISTANT DHPM Comment: No schistocytes are seen. No platelet clumping. No morphologic features of hemolysis are seen. Reviewed by: Heather 01/01/2025 1:30 PM DIGITAL MARKETING ASSISTANT [facility] Blood (Blood, Venous) 01/01/2025 11:50 AM DIGITAL MARKETING ASSISTANT 01/01/2025 12:09 PM DIGITAL MARKETING ASSISTANT Lin Garrido M.D. LAB BLOOD ADD-ON Final Res ult Performing Organization Address City/[facility] Co de Phone Number [facility] [address] [place], [place] [id number] [place] [address] [address] [place] [address] * (ABNORMAL) Cystatin C with Estimated GFR (01/01/2025 6:31 AM DIGITAL MARKETING ASSISTANT) Only the most recent of3 resultswithin the time period is included. eGFR by Cystatin C 43(L) >60 mL/min/BSA 01/01/2025 8:04 PM DIGITAL MARKETING ASSISTANT DTL Comment: Estimated GFR calculated using the CKD-EPI Cystatin C (2012) equation. ----ADDITIONAL INFORMATION---- Cystatin C-based eGFR may differ substantially from creatinine- based eGFR in patients with abnormal muscle mass or acutely changing renal function. Please interpret together with relevant clinical features. On 03/23/2021 the cystatin C assay method changed. Cystatin C eGFR results > 50 ml/min/1.73m2 are approximately 10% lower with the new assay. Cystatin C 1.48(H) 0.67 - 1.21 mg/L 01/01/2025 8:04 PM DIGITAL MARKETING ASSISTANT DTL Blood (Blood, Venous) 01/01/2025 6:31 AM DIGITAL MARKETING ASSISTANT 01/01/2025 7:41 PM DIGITAL MARKETING ASSISTANT us Lin Garrido M.D. LAB BLOOD ADD-ON Final Res ult Performing Organization Address City/[facility]/ZIP Co de Phone Number [facility] [address] [place] [address], [facility] DTL [facility] [address] [place] [address] * IR Transjugular Liver Biopsy (12/31/2024 3:58 PM DIGITAL MARKETING ASSISTANT) Anatomical Region Laterality Modality Abdomen, Vascular Interventi onal RST LOS, Vascular Interventional ARZ LOS, Vascular Interventional FLA LOS N/A Other Impressions 01/01/2025 8:59 AM DIGITAL MARKETING ASSISTANT 1. Transjugular liver biopsy with five cores sent for pathologic analysis. 2. Average hepatic venous pressure gradient of 19.5 mmHg consistent with portal hypertension. EP Narrative 01/01/2025 8:59 AM DIGITAL MARKETING ASSISTANT EXAM: IR TRANSJUGULAR HEPATIC VENOGRAM WITH PRESSURES, IR TRANSJUGULAR LIVER BIOPSY CLINICAL HISTORY: 59-year-old female presents for transjugular liver biopsy for workup of cirrhosis. TECHNIQUE: The right neck was prepped and draped in the routine sterile fashion. Lidocaine was administered for local anesthesia. Under ultrasound guidance, a 18-gauge needle was advanced into the right internal jugular vein. A 0.035 wire was advanced through the needle and into the inferior vena cava. The needle was exchanged for a 9 [place] sheath. A JB1 catheter was used to select the right hepatic vein. Positioning was confirmed with hepatic venogram. The catheter was exchanged for a balloon wedge catheter and free and wedged hepatic pressures were obtained; a total of four measurements were obtained. A transjugular liver biopsy set was then used to obtain a total of five core biopsy samples from the right hepatic vein. The sheath was removed and hemostasis was achieved with manual compression. Patient tolerated procedure well. Sterile dressing applied. PRESSURE MEASUREMENTS: * First Measurement: * Wedged hepatic: 31 mmHg * Free hepatic: 10 mmHg * Gradient: 21 mmHg * Second Measurement: * Wedged hepatic: 27 mmHg * Free hepatic: 9 mmHg * Gradient: 18 mmHg * Third Measurement: * Wedged hepatic: 27 mmHg * Free hepatic: 8 mmHg * Gradient: 17 mmHg * Fourth Measurement: * Wedged hepatic: 28 mmHg * Free hepatic: 6 mmHg * Gradient: 22 mmHg PREPROCEDURE: Patient seen, evaluated, history reviewed, and approved for sedation. Airway, heart, and lung exam satisfactory for sedation. Discussed risks, benefits, alternatives for procedure, and/or sedation. The roles and responsibilities of care team members, residents, and fellows were discussed. Patient understands information and questions answered. Informed consent obtained from the patient. Immediately prior to starting the procedure, in the presence of the assisting personnel, a procedural pause was conducted to verify correct patient identity and verification of procedure to be performed, and as applicable, correct side and site, correct patient position, availability of implants, special equipment, or special requirements, and all image and specimen identification data. INTRAPROCEDURE: Moderate sedation was administered by sedation nurse under my supervision. The patient was continuously monitored with real time oxygen saturation, heart rate, ECG rhythm strip and blood pressure throughout administration of the sedation and performance of the procedure. The total intra-procedural sedation time was: 36 minutes. Estimated blood loss: none. us Shira Melchor. IMG IR PROCEDURES F inal Result * IR Transjugular Hepatic Venogram With Pressures (12/31/2024 3:58 PM DIGITAL MARKETING ASSISTANT) Anatomical Region Laterality Modality Abdomen, Vascular Interventi onal RST LOS, Vascular Interventional ARZ LOS, Vascular Interventional FLA LOS N/A X-Ray Angiography Impressions 01/01/2025 8:31 AM DIGITAL MARKETING ASSISTANT 1. Transjugular liver biopsy with five cores sent for pathologic analysis. 2. Average hepatic venous pressure gradient of 19.5 mmHg consistent with portal hypertension. EP Narrative 01/01/2025 8:31 AM DIGITAL MARKETING ASSISTANT EXAM: IR TRANSJUGULAR HEPATIC VENOGRAM WITH PRESSURES, IR TRANSJUGULAR LIVER BIOPSY CLINICAL HISTORY: 59-year-old female presents for transjugular liver biopsy for workup of cirrhosis. TECHNIQUE: The right neck was prepped and draped in the routine sterile fashion. Lidocaine was administered for local anesthesia. Under ultrasound guidance, a 18-gauge needle was advanced into the right internal jugular vein. A 0.035 wire was advanced through the needle and into the inferior vena cava. The needle was exchanged for a 9 Dominican sheath. A JB1 catheter was used to select the right hepatic vein. Positioning was confirmed with hepatic venogram. The catheter was exchanged for a balloon wedge catheter and free and wedged hepatic pressures were obtained; a total of four measurements were obtained. A transjugular liver biopsy set was then used to obtain a total of five core biopsy samples from the right hepatic vein. The sheath was removed and hemostasis was achieved with manual compression. Patient tolerated procedure well. Sterile dressing applied. PRESSURE MEASUREMENTS: * First Measurement: * Wedged hepatic: 31 mmHg * Free hepatic: 10 mmHg * Gradient: 21 mmHg * Second Measurement: * Wedged hepatic: 27 mmHg * Free hepatic: 9 mmHg * Gradient: 18 mmHg * Third Measurement: * Wedged hepatic: 27 mmHg * Free hepatic: 8 mmHg * Gradient: 17 mmHg * Fourth Measurement: * Wedged hepatic: 28 mmHg * Free hepatic: 6 mmHg * Gradient: 22 mmHg PREPROCEDURE: Patient seen, evaluated, history reviewed, and approved for sedation. Airway, heart, and lung exam satisfactory for sedation. Discussed risks, benefits, alternatives for procedure, and/or sedation. The roles and responsibilities of care team members, residents, and fellows were discussed. Patient understands information and questions answered. Informed consent obtained from the patient. Immediately prior to starting the procedure, in the presence of the assisting personnel, a procedural pause was conducted to verify correct patient identity and verification of procedure to be performed, and as applicable, correct side and site, correct patient position, availability of implants, special equipment, or special requirements, and all image and specimen identification data. INTRAPROCEDURE: Moderate sedation was administered by sedation nurse under my supervision. The patient was continuously monitored with real time oxygen saturation, heart rate, ECG rhythm strip and blood pressure throughout administration of the sedation and performance of the procedure. The total intra-procedural sedation time was: 36 minutes. Estimated blood loss: none. us Shira Melchor. IMG IR PROCEDURES F inal Result * Surgical Pathology (12/31/2024 3:37 PM DIGITAL MARKETING ASSISTANT) Only the most recent of2 resultswithin the time period is included. 01/01/2025 4:36 PM DIGITAL MARKETING ASSISTANT DTL Report electronically signed by Coy Ramsay M.D., Ph.D. I verify that I have examined all relevant slides/materials for the specimen(s) and rendered or confirmed the diagnosis. 01/01/2025 4:36 PM DIGITAL MARKETING ASSISTANT DTL Gross Description Received in formalin labeled with the patient's name, medical record number, and liver-routine are four pale laboy-pink soft tissue coresand four fragments, 0.1 cm in average diameter and ranging from 0.1-1.7 cm in length. Specimens are submitted en toto in cassettes A1,three cores and A2, one core and four fragments. Grossed by SHAKEEL. 01/01/2025 4:36 PM DIGITAL MARKETING ASSISTANT DTL Interpretation FINAL DIAGNOSIS Liver, needle biopsy: Marked macrovesicular steatosis with moderate steatohepatitis. Established cirrhosis (stage 4 of 4). COMMENT This needle biopsy is adequate for assessment. The liver shows nodular formation and pericellular fibrosis by trichrome stain, consistent with established cirrhosis. The portal tracts and fibrous septa show mild chronic inflammation predominantly composed of lymphocytes with focal mild interface activity. There is no definitive bile duct injury or ductopenia. Moderate bile ductular proliferation is identified. The hepatic lobules show marked (70%) macrovesicular steatosis with frequent ballooned hepatocytes and Cee-Denk bodies. There is mild lobular inflammation with lymphocytic and focal neutrophilic infiltrate. Iron stain is negative. PAS-D stain is negative for intracytoplasmic hyaline globules within hepatocytes. In summary, the liver shows a rather aggressive pattern of steatohepatitis with frequent Cee-Denk bodies, reminiscent of alcoholic steatohepatitis. These features may represent malnutrition-associ ated non-alcoholic steatohepatitis if alcoholic steatohepatitis and drug-induced steatohepatitis (amiodarone etc.) are excluded clinically. Reference: Geri et al. Aggressive non-alcoholic steatohepatitis following rapid weight loss and/or malnutrition. Moderate [id number];30:83 4 -842. Digital imaging was used in the diagnostic assessment of this case. 01/01/2025 4:36 PM DIGITAL MARKETING ASSISTANT DTL Tissue (Liver Biopsy) 12/31/2024 3:37 PM DIGITAL MARKETING ASSISTANT Comment:Liver biopsy Landon MelchorChir. LAB SURG PATH ORDER OG Final Result [facility] [address] [place] [address], [facility] DTL [address] [place] [address] * Creatinine, Random, Urine (12/31/2024 1:30 PM DIGITAL MARKETING ASSISTANT) Only the most recent of2 resultswithin the time period is included. Creatinine, Random, U 91 16 - 326 mg/dL 12/31/2024 2:38 PM DIGITAL MARKETING ASSISTANT DTL Urine (Urine, Midstream) 12/31/2024 1:30 PM DIGITAL MARKETING ASSISTANT 12/31/2024 2:00 PM DIGITAL MARKETING ASSISTANT Result [facility] Lin Garrido M.D. LAB URINE ORDERABLES Final Result Performing Organization Address [facility] Co de Phone Number [facility] [address] [place] [address], [facility] [address] [place] [address] * Leg-Internal Medicine Image Exam (12/31/2024 12:14 PM DIGITAL MARKETING ASSISTANT) Only the most recent of4 resultswithin the time period is included. 12/31/2024 12:1 2 PM DIGITAL MARKETING ASSISTANT Narrative [facility] - 12/31/2024 12:14 PM DIGITAL MARKETING ASSISTANT This order has been created and auto-finalized to support the import of images acquired without order. The clinical documentation to support these images can be found on the encounter that produced images. Provider Not In System IMG NON RAD IMAGING PROCE DURES Final Result Performing Organization Address [facility] Co de Phone Number [facility] NA * Upper GI endoscopy-Gastroenterology Image Exam (12/31/2024 10:05 AM DIGITAL MARKETING ASSISTANT) 12/31/2024 10:0 3 AM DIGITAL MARKETING ASSISTANT Narrative [facility] - 12/31/2024 11:17 AM DIGITAL MARKETING ASSISTANT This order has been created and auto-finalized to support the import of images acquired without order. The clinical documentation to support these images can be found on the encounter that produced images. us Provider Not In System IMG NON RAD IMAGING PROCE DURES Final Result Performing Organization Address [facility] Co de Phone Number [facility] NA * Upper GI Endoscopy (12/31/2024 10:03 AM DIGITAL MARKETING ASSISTANT) 12/31/2024 10:0 3 AM DIGITAL MARKETING ASSISTANT Impressions WETZEL PROVATION - 12/31/2024 11:15 AM DIGITAL MARKETING ASSISTANT Post-op Diagnoses: - Grade I esophageal varices. - Portal hypertensive gastropathy. Biopsied. - Patent (Billroth II) gastrojejunostomy was found, characterized by congestion. - Normal jejunum in both (afferent and efferent) limbs. Biopsied. Narrative MONTROSE PROVATION - 12/31/2024 11:15 AM LEONARD Dai 6 GI GI Patient Name: Meron Amaro Date of : 1965 Age: 59 Procedure Date: 12/31/2024 Procedure: Upper GI endoscopy Providers: CHAVO Fermin Referring Provider: Megha Nowak Pre-op Diagnoses: Suspected intestinal malabsorption, Exclusion of intestinal malabsorption Recommendation: - Await pathology results. - Return patient to [facility] for ongoing care. Findings: Grade I varices were found in the lower third of the esophagus. They were small in size. Moderate portal hypertensive gastropathy was found in the entire examined stomach. Biopsies were taken with a cold forceps for histology. Evidence of a patent (Billroth II anatomy) gastrojejunostomy was found. The gastrojejunal anastomosis was characterized by congestion with bile refluxate. This was traversed. The efferent limb was examined. The afferent limb was examined. Biopsies were taken with a cold forceps for histology from both (afferent and efferent) limbs. Procedural Details: The patient was seen, evaluated, history reviewed, airway and heart-lung exams were performed by licensed provider and were satisfactory for planned level of sedation care. The risks, benefits and alternatives for the procedure and sedation were discussed and informed consent was obtained. A procedural pause was conducted in the presence of assisting personnel to verify the correct patient identity and procedure to be performed. Throughout the procedure, the patient's blood pressure, pulse, and oxygen saturations were monitored continuously. The Gastroscope was introduced under direct vision through the mouth, and advanced to the second part of duodenum. The upper GI endoscopy was accomplished without difficulty. The patient tolerated the procedure well. Estimated Blood Loss: Minimal. Complications: No immediate complications. Sedation: See the other procedure note for documentation of moderate sedation with intraservice time. Attending Participation: I personally performed the entire procedure. CHAVO Fermin 12/31/2024 11:14:57 AM This report has been signed electronically. Number of Addenda: 0 us Megha Salazar BIra GI PROCEDURE ORDERA BLES Final Result RASHARD MILLER NA * Phosphatidylethanol Confirmation (12/31/2024 7:28 AM DIGITAL MARKETING ASSISTANT) PEth 16:0/18:1 (POPEth) by LC-MS/MS <10 Cutoff: 10 ng/mL 01/01/2025 4:22 AM DIGITAL MARKETING ASSISTANT [facility] Comment: Phosphatidylethanol (PEth) homologues result interpretation PEth 16:0/18:1 (POPEth) Less than 10 ng/mL: Not detected 10 - 19 ng/mL: Abstinence or light alcohol consumption (<2 drinks per day for several days a week) 20 - 200 ng/mL: Moderate alcohol consumption (up to 4 drinks per day for several days a week) Greater than 200 ng/mL: Heavy alcohol consumption or chronic alcohol use (at least 4 drinks per day several days a week) (Reference: Emil Buckley and Kenya Freeman 2018 J. Forensic Sci) PEth 16:0/18:2 (PLPEth) by LC-MS/MS <10 Cutoff: 10 ng/mL 01/01/2025 4:22 AM DIGITAL MARKETING ASSISTANT [facility] Comment: PEth 16:0/18:2 (PLPEth) Reference ranges are not well established PEth Interpretation Negative. 01/01 4:22 AM [facility] Comment: ----ADDITIONAL INFORMATION---- This report is intended for use in clinical monitoring and management of patients. It is not intended for use in employment-related testing. This test was developed and its performance characteristics determined by [facility] in a manner consistent with CLIA requirements. This test has not been cleared or approved by the U.S. Food and Drug Administration. Blood (Blood, Venous) 12/31/2024 7:28 AM DIGITAL MARKETING ASSISTANT 12/31/2024 9:52 AM DIGITAL MARKETING ASSISTANT us Megha Salazar BRobbiChir. LAB BLOOD ADD-ON Fi nal Result [facility] [address] [place] [address] [facility] [address] [place] [address] [place] [address] * (ABNORMAL) Vitamin A and Vitamin E (12/31/2024 7:28 AM DIGITAL MARKETING ASSISTANT) Vitamin A 9.4(L) 32.5 - 78.0 mcg/dL 01/01/2025 2:17 PM DIGITAL MARKETING ASSISTANT [facility] Comment: In this sample, the retinol (vitamin A) level indicates a severe deficiency. ----ADDITIONAL INFORMATION---- This test was developed and its performance characteristics determined by [facility] in a manner consistent with CLIA requirements. This test has not been cleared or approved by the U.S. Food and Drug Administration. A-Tocopherol, Vitamin E 3.6(L) 5.5 - 17.0 mg/L 01/01/2025 3:54 PM DIGITAL MARKETING ASSISTANT [facility] Blood (Blood, Venous) 12/31/2024 7:28 AM DIGITAL MARKETING ASSISTANT 12/31/2024 10:50 AM DIGITAL MARKETING ASSISTANT Shira Melchor. LAB BLOOD NON ADD-O N Final Result Performing Organization Address [facility] de Phone Number [facility] [address] [place] [address] [facility] [address] [place] [address] [place] [address] * (ABNORMAL) Pyridoxal 5-Phosphate (PLP) (12/31/2024 7:28 AM DIGITAL MARKETING ASSISTANT) Pyridoxal 5-Phosphate (PLP), P <2(L) 5 - 50 mcg/L 01/04/2025 3:48 PM CDT [facility] Comment: ----ADDITIONAL INFORMATION---- This test was developed and its performance characteristics determined by [facility] in a manner consistent with CLIA requirements. This test has not been cleared or approved by the U.S. Food and Drug Administration. Blood (Blood, Venous) 12/31/2024 7:28 AM DIGITAL MARKETING ASSISTANT 12/31/2024 5:25 PM DIGITAL MARKETING ASSISTANT Shira Melchor. LAB BLOOD NON ADD-O N Final Result Performing Organization Address [facility] de Phone Number [facility] [address] [place] [address] [facility] [address] [place] [address] [place] [address] * (ABNORMAL) Thiamine (Vitamin B1), Whole Blood (12/31/2024 7:28 AM DIGITAL MARKETING ASSISTANT) Thiamine (Vitamin B1), WB 250(H) 70 - 180 nmol/L 01/02/2025 12:58 PM DIGITAL MARKETING ASSISTANT [facility] Comment: ----ADDITIONAL INFORMATION---- This test was developed and its performance characteristics determined by [facility] in a manner consistent with CLIA requirements. This test has not been cleared or approved by the U.S. Food and Drug Administration. Blood (Blood, Venous) 12/31/2024 7:28 AM DIGITAL MARKETING ASSISTANT 12/31/2024 10:08 AM DIGITAL MARKETING ASSISTANT Shira Melchor. LAB BLOOD NON ADD-O N Final Result Performing Organization Address [facility]/ZIP Co de Phone Number [facility] [address] [place] [address] [facility] [address] [place] [address] [place] [address] * (ABNORMAL) Selenium (12/31/2024 7:28 AM DIGITAL MARKETING ASSISTANT) [facility] Selenium, S 46(L) 110 - 165 mcg/L 12/31/2024 3:48 PM DIGITAL MARKETING ASSISTANT [facility] Comment: ----ADDITIONAL INFORMATION---- This test was developed and its performance characteristics determined by [facility] in a manner consistent with CLIA requirements. This test has not been cleared or approved by the U.S. Food and Drug Administration. Blood (Blood, Venous) 12/31/2024 7:28 AM DIGITAL MARKETING ASSISTANT 12/31/2024 10:50 AM DIGITAL MARKETING ASSISTANT Shira Melchor. LAB BLOOD NON ADD-O N Final Result Performing Organization Address City/[facility]/ZIP Co de Phone Number [facility] [address] [place] [address] [facility] [address] [place] [address] [place] [address] * Ascorbic Acid (Vitamin C) (12/31/2024 7:28 AM DIGITAL MARKETING ASSISTANT) Pathologist [facility] Ascorbic Acid, P 0.6 0.4 - 2.0 mg/dL 01/01/2025 10:03 AM DIGITAL MARKETING ASSISTANT [facility] Comment: ----ADDITIONAL INFORMATION---- This test was developed and its performance characteristics determined by [facility] in a manner consistent with CLIA requirements. This test has not been cleared or approved by the U.S. Food and Drug Administration. Blood (Blood, Venous) 12/31/2024 7:28 AM DIGITAL MARKETING ASSISTANT 12/31/2024 4:07 PM DIGITAL MARKETING ASSISTANT us Megha Salazar, B.Chir. LAB BLOOD NON ADD-O N Final Result Performing Organization Address City/[facility]/ZIP Co de Phone Number [facility] [address] [place] [address] [facility] [address] [place] [address] [place] [address] * Lactate for Sepsis with Reflex (12/31/2024 12:56 AM DIGITAL MARKETING ASSISTANT) Only the most recent of2 resultswithin the time period is included. Pathologist [facility] Lactate, P 1.9 0.5 - 2.2 mmol/L 12/31/2024 1:39 AM DIGITAL MARKETING ASSISTANT DT Blood (Blood, Venous) 12/31/2024 12:56 AM DIGITAL MARKETING ASSISTANT 12/31/2024 1:26 AM DIGITAL MARKETING ASSISTANT Inga SalazarB.S. LAB BLOOD NON ADD-ON Final Result Performing Organization Address City/[facility]/ZIP Co de Phone Number [facility] [address] [place] [address], [place] [facility] [address] [place] [address] * (ABNORMAL) Pancreatic Elastase, Feces (12/30/2024 7:11 PM DIGITAL MARKETING ASSISTANT) [facility] Pancreatic Elastase, F <40(L) >200 (Normal) mcg/g 01/04/2025 2:23 PM CDT [facility] Comment: Interpretation: Abnormal (<100 mcg/g); Consistent with pancreatic insufficiency Stool (Stool) 12/30/2024 7:1 1 PM DIGITAL MARKETING ASSISTANT 01/02/2025 1:30 PM DIGITAL MARKETING ASSISTANT us Megha Salazar, BRobbiChir. LAB BODY FLUIDS AND STOOLS ORDERABLES Final Result [facility] [address] [place] [address] [facility] [address] [place] [address] * (TTE) 2D ECHO DOPPLER COLOR AND CONTRAST (12/30/2024 4:59 PM DIGITAL MARKETING ASSISTANT) Ejection Fraction 46 MC CV EIMS Sinus of Valsalva 34 MC CV EIMS Proximal Ascending Aorta 31 MC CV EIMS Wall Motion Score Index 1.75 MC CV EIMS LV Mass Index 56 MC CV EIMS LV End-Diastolic Diameter 48 MC CV EIMS LV End-Diastolic Volume 137 MC CV EIMS LV End-Systolic Volume 74 MC CV EIMS MV E Velocity 0.6 MC CV EIMS MV A Velocity 0.8 MC CV EIMS MV E/A 0.75 MC CV EIMS MV e' Velocity Medial 0.12 MC CV EIMS MV e' Velocity Lateral 0.14 MC CV EIMS MV E/e' Medial 5 MC CV EIMS MV E/e' Lateral 4.3 MC CV EIMS Left ventricular stroke volume index 34 MC CV EIMS Cardiac Output 6.53 MC CV EIMS Cardiac Index 3.44 MC CV EIMS LV Interventricular Septal Wall Thickness 6 MC CV EIMS LV Posterior Wall Thickness 8 MC CV EIMS LV Relative Wall Thickness 33 MC CV EIMS Tricuspid Annular S 0.15 MC CV EIMS TR Vmax 2.5 MC CV EIMS Estimated RA Pressure (Echo RAP) 5 MC CV EIMS RV Systolic Pressure (with Echo RAP) 30 MC CV EIMS AV mean gradient 4 MC CV EIMS Aortic valve area 3.08 MC CV EIMS Aortic Valve Dimensionless Index 0.81 MC CV EIMS LA Volume Index 33 MC CV EIMS Aortic Valve Systolic Peak Velocity 1.2 MC CV EIMS Anatomical Region Laterality Modality Echocardiography 12/30/2024 3:32 PM DIGITAL MARKETING ASSISTANT Impressions 12/30/2024 5:04 PM DIGITAL MARKETING ASSISTANT There are no previous [facility] echocardiograms available for comparison. Ascites. LEFT VENTRICLE:Normal left ventricular chamber size by 2D linear assessment. Normal left ventricular wall thickness. Calculated 2-D biplane volumetric left ventricular ejection fraction of 46%. Regional wall motion abnormalities were present (see wall motion graphics). Normal left ventricular filling pressure. Anomalous left ventricular chord. RIGHT VENTRICLE:Normal right ventricular chamber size. Normal right ventricular systolic function. Estimated right ventricular systolic pressure 30 mmHg (systolic blood pressure 91 mmHg). ATRIA:Borderline enlarged left atrial size. Left atrial volume index 33 ml/m2. Normal right atrial size by visual estimate. CARDIAC VALVES:Trileaflet aortic valve. Thickened aortic valve. No aortic valve regurgitation. Normal mitral valve. Trivial mitral valve regurgitation. Pulmonary valve not well visualized. Trivial pulmonary valve regurgitation. Normal tricuspid valve. Mild tricuspid valve regurgitation. OTHER ECHO FINDINGS:Inferior vena cava not well visualized. Normal proximal ascending aorta diameter of 31 mm. Abdominal aorta not visualized. Imaging inadequate for detection of atrial level shunt by color flow imaging. No intracardiac mass or thrombus, but the left atrial appendage cannot be visualized adequately with transthoracic echo to exclude thrombus in this location. No pericardial effusion. Attempts were made to optimize the echocardiographic images and two or more left ventricular segments were not visualized adequately to evaluate cardiac structure. The patient's current allergies and medications have been screened. Intravenous Definity ultrasound enhancement agent(s) administered to enhance endocardial border definition. Imaging enhancement agent administered per Echocardiography Contrast Administration Protocol Reference Document [id number] Rev 02/08/2022. Patient met an inclusion criterion and did not have contraindications in screening sections. For the complete report, see the Order-Level Documents. Narrative 12/30/2024 5:04 PM DIGITAL MARKETING ASSISTANT For the complete report, see the Order-Level Documents. Hemodynamics Heart Rate: 100 BPM Blood Pressure: 91 / 50 mmHg ECG: Sinus rhythm with ectopics Final Impressions 1. Normal left ventricular chamber size, regional wall motion abnormalities were present (see wall motion graphics), calculated 2-D biplane volumetric ejection fraction of 46%. 2. Normal left ventricular filling pressure. 3. Normal right ventricular chamber size, normal systolic function, estimated right ventricular systolic pressure 30 mmHg (systolic blood pressure 91 mmHg). 4. No hemodynamically significant valvular heart disease. 5. No pericardial effusion. 6. Normal inferior vena cava size with normal inspiratory collapse (>50%). 7. There are no previous [facility] echocardiograms available for comparison. Procedure Note Lindsay Montes M.D. - 12/30/2024 For the complete report, see the Order-Level Documents. Hemodynamics Heart Rate: 100 BPM Blood Pressure: 91 / 50 mmHg ECG: Sinus rhythm with ectopics Final Impressions 1. Normal left ventricular chamber size, regional wall motionabnormalities were present (see wall motion graphics), calculated 2-Dbiplane volumetric ejection fraction of 46%. 2. Normal left ventricular filling pressure. 3. Normal right ventricular chamber size, normal systolic function,estimated right ventricular systolic pressure 30 mmHg (systolic bloodpressure 91 mmHg). 4. No hemodynamically significant valvular heart disease. 5. No pericardial effusion. 6. Normal inferior vena cava size with normal inspiratory collapse(>50%). 7. There are no previous [facility] echocardiograms available forcomparison. Findings There are no previous [facility] echocardiograms available forcomparison. Ascites. LEFT VENTRICLE:Normal left ventricular chamber size by 2D linearassessment. Normal left ventricular wall thickness. Calculated 2-D biplanevolumetric left ventricular ejection fraction of 46%. Regional wall motionabnormalities were present (see wall motion graphics). Normal leftventricular filling pressure. Anomalous left ventricular chord. RIGHT VENTRICLE:Normal right ventricular chamber size. Normal rightventricular systolic function. Estimated right ventricular systolicpressure 30 mmHg (systolic blood pressure 91 mmHg). ATRIA:Borderline enlarged left atrial size. Left atrial volume index 33ml/m2. Normal right atrial size by visual estimate. CARDIAC VALVES:Trileaflet aortic valve. Thickened aortic valve. No aorticvalve regurgitation. Normal mitral valve. Trivial mitral valveregurgitation. Pulmonary valve not well visualized. Trivial pulmonaryvalve regurgitation. Normal tricuspid valve. Mild tricuspid valveregurgitation. OTHER ECHO FINDINGS:Inferior vena cava not well visualized. Normalproximal ascending aorta diameter of 31 mm. Abdominal aorta notvisualized. Imaging inadequate for detection of atrial level shunt bycolor flow imaging. No intracardiac mass or thrombus, but the left atrialappendage cannot be visualized adequately with transthoracic echo toexclude thrombus in this location. No pericardial effusion. Attempts weremade to optimize the echocardiographic images and two or more leftventricular segments were not visualized adequately to evaluate cardiacstructure. The patient's current allergies and medications have beenscreened. Intravenous Definity ultrasound enhancement agent(s)administered to enhance endocardial border definition. Imaging enhancementagent administered per Echocardiography Contrast Administration ProtocolReference Document [id number] Rev 02/08/2022. Patient met an inclusioncriterion and did not have contraindications in screening sections. For the complete report, see the Order-Level Documents. us Shira Melchor. CV ECHO PROCEDURES Final Result * US Kidneys with Renal Artery Doppler (12/30/2024 10:16 AM DIGITAL MARKETING ASSISTANT) Anatomical Region Laterality Modality Abdomen, Renal, Ultrasound R ST LOS, Ultrasound ARZ LOS, Ultrasound FLA LOS, Procedural, Vascular Interventional NWWI LOS N/A Ultrasound Impressions 12/30/2024 11:29 AM DIGITAL MARKETING ASSISTANT Limited study. 1. Renal measurements as above. Nonobstructive right lower pole calculus. 2. Patent right renal artery, no findings of hemodynamically significant stenosis. The left renal artery is not well assessed. 3. Elevated RI in the left upper segmental artery, possibly technical. Borderline elevated RI's and bilateral lower poles and right upper segmental arteries, nonspecific. If clinically indicated, these could be reassessed on a follow-up study. 4. Nodular liver morphology suggestive of chronic liver disease/cirrhosis. Moderate ascites and diffuse body wall edema. Narrative 12/30/2024 11:29 AM DIGITAL MARKETING ASSISTANT EXAM: US KIDNEYS WITH RENAL ARTERY DOPPLER Exam performed with color and spectral Doppler analysis. COMPARISON: No prior renal ultrasound. CT abdomen and pelvis 12/30/2023 FINDINGS: Technical limitations include body habitus, diffuse body wall edema and bowel gas. Right kidney: Normal echogenicity and parenchymal thickness. No hydronephrosis. Echogenic 6 mm lower pole calculus. Right renal artery: Negative for stenosis; single vessel well seen. Left kidney: Limited visualization of the left kidney.. Echogenicity and parenchymal thickness appears grossly within normal limits. No hydronephrosis. Left renal artery: not well seen. Patent at the renal hilum. Right Renal Measurements: Right renal Length: 10.7 cm Right segmental artery - Upper Pole RI: 0.79 Right segmental artery - Lower Pole RI: 0.77 Right renal artery origin PSV: 101 cm/s Right renal artery prox PSV: 131 cm/s Right renal artery mid PSV: 159 cm/s Right renal artery distal PSV: 137 cm/s Left Renal Measurements: Left renal length: 9.3 cm Left segmental artery - upper pole RI: 0.84 Left segmental artery - lower pole RI: 0.76 The left renal renal artery origin, proximal and mid segments are not adequately visualized, no velocity measurements could be obtained. Left renal artery distal PSV: 100 cm/s (spectral Doppler only) Aorta: Normal caliber proximally, obscured by overlying bowel gas distally. Aorta PSV: 72 cm/s proximally. Bladder: Not visualized due to body habitus, diffuse overlying edema and bowel gas.. Moderate ascites. Incidentally depicted nodular hepatic contour suggestive of chronic liver disease/cirrhosis. Diffuse body wall edema. Procedure Note Mayra Moctezuma M.B., B.Ch., B.A.O. - 12/30/2024 EXAM: US KIDNEYS WITH RENAL ARTERY DOPPLER Exam performed with color and spectral Doppler analysis. COMPARISON: No prior renal ultrasound. CT abdomen and pelvis 12/30/2023 FINDINGS: Technical limitations include body habitus, diffuse body walledema and bowel gas. Right kidney: Normal echogenicity and parenchymal thickness. Nohydronephrosis. Echogenic 6 mm lower pole calculus. Right renal artery:Negative for stenosis; single vessel well seen. Left kidney: Limited visualization of the left kidney.. Echogenicity and parenchymal thickness appears grossly within normallimits. No hydronephrosis. Left renal artery: not well seen. Patent at the renal hilum. Right Renal Measurements: Right renal Length: 10.7 cm Right segmental artery - Upper Pole RI: 0.79 Right segmental artery - Lower Pole RI: 0.77 Right renal artery origin PSV: 101 cm/s Right renal artery prox PSV: 131 cm/s Right renal artery mid PSV: 159 cm/s Right renal artery distal PSV: 137 cm/s Left Renal Measurements: Left renal length: 9.3 cm Left segmental artery - upper pole RI: 0.84 Left segmental artery - lower pole RI: 0.76 The left renal renal artery origin, proximal and mid segments are notadequately visualized, no velocity measurements could be obtained. Left renal artery distal PSV: 100 cm/s (spectral Doppler only) Aorta: Normal caliber proximally, obscured by overlying bowel gasdistally. Aorta PSV: 72 cm/s proximally. Bladder: Not visualized due to body habitus, diffuse overlying edema andbowel gas.. Moderate ascites. Incidentally depicted nodular hepatic contour suggestiveof chronic liver disease/cirrhosis. Diffuse body wall edema. IMPRESSION: Limited study. 1. Renal measurements as above. Nonobstructive right lower polecalculus. 2. Patent right renal artery, no findings of hemodynamically significantstenosis. The left renal artery is not well assessed. 3. Elevated RI in the left upper segmental artery, possibly technical.Borderline elevated RI's and bilateral lower poles and right uppersegmental arteries, nonspecific. If clinically indicated, these could bereassessed on a follow-up study. 4. Nodular liver morphology suggestive of chronic liverdisease/cirrhosis. Moderate ascites and diffuse body wall edema. Megha Salazar, B.Chir. IMG US PROCEDURES F inal Result * (ABNORMAL) Dipstick, Urine (12/30/2024 10:03 AM DIGITAL MARKETING ASSISTANT) Only the most recent of2 resultswithin the time period is included. Hemoglobin, QL, U Negative Negative 12/30/2024 10:21 AM DIGITAL MARKETING ASSISTANT DTL Leukocyte Esterase, U Moderate(A) Negative 12/30/2024 10:21 AM DIGITAL MARKETING ASSISTANT DTL Nitrite, U Negative Negative 12/30/2024 10:21 AM DIGITAL MARKETING ASSISTANT DTL Ketone, U Negative Negative mg/dL 12/30/2024 10:21 AM DIGITAL MARKETING ASSISTANT DTL Glucose, U Negative Negative mg/dL 12/30/2024 10:21 AM DIGITAL MARKETING ASSISTANT DTL Urine 12/30/2024 10:0 3 AM DIGITAL MARKETING ASSISTANT 12/30/2024 10:04 AM DIGITAL MARKETING ASSISTANT us Megha Amaya., Shira. LAB URINE ORDERABLE S Final Result Performing Organization Address City/[facility]/ZIP Co de Phone Number [facility] [address] [place] [address] * (ABNORMAL) Microscopic Automated (12/30/2024 10:03 AM DIGITAL MARKETING ASSISTANT) Microscopy Abnormal 12/30/2024 10:21 AM DIGITAL MARKETING ASSISTANT DTL RBC <3 <3 /hpf 12/30/2024 10:21 AM DIGITAL MARKETING ASSISTANT DTL WBC 21-30(A) /hpf 12/30/2024 10:21 AM DIGITAL MARKETING ASSISTANT DTL Comment: ----REFERENCE VALUE---- <4 (Males) <11 (Females) Casts, Hyaline 11-20 /lpf 12/30/2024 10:21 AM DIGITAL MARKETING ASSISTANT DTL Urine 12/30/2024 10:0 3 AM DIGITAL MARKETING ASSISTANT 12/30/2024 10:04 AM DIGITAL MARKETING ASSISTANT us Shira Melchor. LAB URINE ORDERABLE S Final Result Performing Organization Address [facility] Co de Phone Number [facility] [address] [place] [address] * pH, Urine (12/30/2024 10:03 AM DIGITAL MARKETING ASSISTANT) Only the most recent of2 resultswithin the time period is included. pH, U 4.5 4.5 - 8.0 12/30/2024 10: 46 AM DIGITAL MARKETING ASSISTANT DTL Urine 12/30/2024 10:0 3 AM DIGITAL MARKETING ASSISTANT 12/30/2024 10:04 AM DIGITAL MARKETING ASSISTANT us Megha Salazar, Shira. LAB URINE ORDERABLE S Final Result Performing Organization Address City/[facility]/ZIP Co de Phone Number [facility] [address] [facility] [address] [place] [address] * Osmolality, Urine (12/30/2024 10:03 AM DIGITAL MARKETING ASSISTANT) Only the most recent of2 resultswithin the time period is included. Osmolality, U 310 150 - 1150 mOsm/kg 12/30/2024 10:46 AM DIGITAL MARKETING ASSISTANT DTL Urine 12/30/2024 10:0 3 AM DIGITAL MARKETING ASSISTANT 12/30/2024 10:04 AM DIGITAL MARKETING ASSISTANT us Megha Salazar, B.Chir. LAB URINE ORDERABLE S Final Result Performing Organization Address City/[facility]/ZIP Co de Phone Number [facility] [address] [place] [address], [facility] [address] [place] [address] * Urinalysis, with Microscopic: Urine, Catheter (12/30/2024 10:03 AM DIGITAL MARKETING ASSISTANT) Only the most recent of2 resultswithin the time period is included. Source Urine, Urine, Catheter 12/30/2024 10:03 AM DIGITAL MARKETING ASSISTANT DTL Color, U Yellow 12/30/2024 10:04 AM DIGITAL MARKETING ASSISTANT DTL Clarity, U Clear 12/30/2024 10:04 AM DIGITAL MARKETING ASSISTANT DTL Protein, U 7 <26 mg/dL 12/30/2024 10:50 AM DIGITAL MARKETING ASSISTANT DTL Protein/Osmola lity 0.23 <0.42 ratio 12/30/2024 10:50 AM DIGITAL MARKETING ASSISTANT DTL Predicted 24 HR Protein, U 173 <229 mg/24 h 12/30/2024 10:50 AM DIGITAL MARKETING ASSISTANT DTL Predicted Range 43-701 mg/24 h 12/30/2024 10:50 AM DIGITAL MARKETING ASSISTANT DTL Urine (Urine, Catheter) 12/30/2024 10:03 AM DIGITAL MARKETING ASSISTANT 12/30/2024 10:03 AM DIGITAL MARKETING ASSISTANT us Megha Salazar, B.Chir. LAB URINE ORDERABLE S Final Result [facility] [address] [place], [place] [address] [address] [place] [address] * Protein/Creatinine Ratio, Random, Urine (12/30/2024 9:25 AM DIGITAL MARKETING ASSISTANT) Protein, Total, Random, U 7 mg/dL 12/30/2024 1:12 PM DIGITAL MARKETING ASSISTANT DTL Creatinine, Random, U 49 16 - 326 mg/dL 12/30/2024 1:12 PM DIGITAL MARKETING ASSISTANT DTL Protein/Creatin ine Ratio 0.14 <0.18 mg/mg 12/30/2024 1:12 PM DIGITAL MARKETING ASSISTANT DT Urine (Urine, Midstream) 12/30/2024 9:25 AM DIGITAL MARKETING ASSISTANT 12/30/2024 12:19 PM DIGITAL MARKETING ASSISTANT Rajat Knott M.D. LAB URINE ORDERABLES Final Result Performing Organization Address [facility] Co de Phone Number [facility] [address] [place], [place] [address] [address] [place] [address] * (ABNORMAL) Copper (12/30/2024 4:48 AM DIGITAL MARKETING ASSISTANT) Pathologist [facility] Copper, S 74(L) 77 - 206 mcg/dL 12/30/2024 11:41 AM DIGITAL MARKETING ASSISTANT [facility] Comment: ----ADDITIONAL INFORMATION---- This test was developed and its performance characteristics determined by [facility] in a manner consistent with CLIA requirements. This test has not been cleared or approved by the U.S. Food and Drug Administration. Blood (Blood, Venous) 12/30/2024 4:48 AM DIGITAL MARKETING ASSISTANT 12/30/2024 8:18 AM DIGITAL MARKETING ASSISTANT Bryan Pimentel M.D. LAB BLOOD NON ADD-ON F inal Result [facility] [address] [place] [place] [address] [facility] [address] [place] [address] [place] [address] * (ABNORMAL) 25-Hydroxyvitamin D2 and D3 (12/30/2024 4:48 AM DIGITAL MARKETING ASSISTANT) 25-Hydroxy D2 <4.0 ng/mL 12/31/2024 9:39 AM DIGITAL MARKETING ASSISTANT [facility] 25-Hydroxy D3 6.7 ng/mL 12/31/2024 9:39 AM DIGITAL MARKETING ASSISTANT [facility] 25-Hydroxy D Total 6.7(L) ng/mL 2024 9:39 AM DIGITAL MARKETING ASSISTANT [facility] Comment: Interpretation: <10 ng/mL (severe deficiency) ----REFERENCE VALUE---- 25-HYDROXY D TOTAL (D2+D3) Optimum levels in the healthy population are 20-50. ----ADDITIONAL INFORMATION---- This test was developed and its performance characteristics determined by [facility] in a manner consistent with CLIA requirements. This test has not been cleared or approved by the U.S. Food and Drug Administration. Blood (Blood, Venous) 12/30/2024 4:48 AM DIGITAL MARKETING ASSISTANT 12/30/2024 7:56 AM DIGITAL MARKETING ASSISTANT us Bryan Pimentel M.D. LAB BLOOD ADD-ON Final Result Performing Organization Address City/[facility]/ZIP Co de Phone Number [facility] [address] [place] [address] [facility] [address] [place] [address] [place] [address] * (ABNORMAL) Lactate (12/30/2024 4:48 AM DIGITAL MARKETING ASSISTANT) Only the most recent of3 resultswithin the time period is included. Lactate, P 3.4(H) 0.5 - 2.2 mmol/L 12/30/2024 5:11 AM DIGITAL MARKETING ASSISTANT [facility] Blood 12/30/2024 4:48 AM DIGITAL MARKETING ASSISTANT 12/30/2024 4:58 AM DIGITAL MARKETING ASSISTANT us Bryan Pimentel M.D. LAB BLOOD NON ADD-ON F inal Result Performing Organization Address City/[facility]/ZIP Co de Phone Number [facility] [address] [facility] [address] [place] [address] * (ABNORMAL) Hemoglobin A1c (12/30/2024 4:48 AM DIGITAL MARKETING ASSISTANT) [facility] Hemoglobin A1c, B 7.5(H) 4.0 - 5.6 % 12/30/2024 5:43 AM DIGITAL MARKETING ASSISTANT DTL Comment: Hemoglobin A1c values greater than or equal to 6.5 percent are diagnostic for diabetes mellitus. Diagnosis should be confirmed by repeat testing. In diabetic patients, HbA1c goals should be discussed with healthcare provider. Blood (Blood, Venous) 12/30/2024 4:48 AM DIGITAL MARKETING ASSISTANT 12/30/2024 5:20 AM DIGITAL MARKETING ASSISTANT Bryan Pimentel M.D. LAB BLOOD ADD-ON Final Result Performing Organization Address City/[facility]/ZIP Co de Phone Number [facility] [address] [facility] [address] [place] [address] * Folate (12/30/2024 4:48 AM DIGITAL MARKETING ASSISTANT) [facility] Folate, S 16.4 >=4.0 mcg/L 12/30/2024 8: 03 AM DIGITAL MARKETING ASSISTANT DTL Blood (Blood, Venous) 12/30/2024 4:48 AM DIGITAL MARKETING ASSISTANT 12/30/2024 5:35 AM DIGITAL MARKETING ASSISTANT Bryan Pimentel M.D. LAB BLOOD ADD-ON Final Result [facility] [address] [place] [address] * (ABNORMAL) Vitamin B12 Assay (12/30/2024 4:48 AM DIGITAL MARKETING ASSISTANT) [facility] Vitamin B12 Assay, S 1053(H) 180 - 914 ng/L 12/30/2024 8:11 AM DIGITAL MARKETING ASSISTANT DTL Comment: ----ADDITIONAL INFORMATION---- In patients being evaluated for vitamin B12 deficiency who have intrinsic factor blocking antibodies (IFBA), false elevations of B12 may occur due to IFBA interference thus potentially obscuring a physiological deficiency of B12. If observed B12 concentrations are discordant with clinical presentation, measurement of methylmalonic acid (MMA) should be considered. Blood (Blood, Venous) 12/30/2024 4:48 AM DIGITAL MARKETING ASSISTANT 12/30/2024 5:35 AM DIGITAL MARKETING ASSISTANT Bryan Pimentel M.D. LAB BLOOD ADD-ON Final Result Performing Organization Address [facility] Co de Phone Number [facility] [address] [place], [place] [address] [place] [address] * Calcium, Ionized (12/30/2024 4:48 AM DIGITAL MARKETING ASSISTANT) [facility] Calcium, Ionized, S 4.69 4.57 - 5.43 mg/dL 12/30/2024 5:37 AM DIGITAL MARKETING ASSISTANT DTL Comment: ----ADDITIONAL INFORMATION---- This test has been modified from the interactive marketing strategist's instructions. Its performance characteristics were determined by [facility] in a manner consistent with CLIA requirements. This test has not been cleared or approved by the U.S. Food and Drug Administration. pH for Ionized Calcium 7.44 7.35 - 7.48 12/30/2024 5:37 AM DIGITAL MARKETING ASSISTANT DTL Blood (Blood, Venous) 12/30/2024 4:48 AM DIGITAL MARKETING ASSISTANT 12/30/2024 5:25 AM DIGITAL MARKETING ASSISTANT Bryan Pimentel M.D. LAB BLOOD NON ADD-ON F inal Result Performing Organization Address [facility] Co de Phone Number [facility] [address] [place] [address], [facility] [address] [place] [address] * DX Chest Portable 1 View (12/29/2024 10:54 PM DIGITAL MARKETING ASSISTANT) Anatomical Region Laterality Modality Chest, Thoracic RST LOS, Tho racic ARZ LOS, Thoracic FLA LOS N/A Digital Radiography Impressions 12/30/2024 7:32 AM DIGITAL MARKETING ASSISTANT No comparison chest radiograph is available. Trace left pleural effusion. No pneumothorax. Mild bibasilar atelectasis, left greater than right. No interstitial edema. Aortic calcifications. Narrative 12/30/2024 7:32 AM DIGITAL MARKETING ASSISTANT EXAM: DX CHEST PORTABLE 1 VIEW Procedure Note Baldo Wallace M.D. - 12/30/2024 EXAM: DX CHEST PORTABLE 1 VIEW IMPRESSION: No comparison chest radiograph is available. Trace left pleural effusion.No pneumothorax. Mild bibasilar atelectasis, left greater than right. Nointerstitial edema. Aortic calcifications. us Bryan Pimentel M.D. IMG DIAGNOSTIC IMAGING PROCEDURES Final Result * Bacteria / Eusebia Culture, Blood #2 (12/29/2024 10:51 PM DIGITAL MARKETING ASSISTANT) Only the most recent of2 resultswithin the time period is included. Bacteria/Lisa da Culture, Blood No growth after 5 days of incubation. 01/04/2025 1:02 AM CDT DTL Blood (Blood, Peripheral Draw) 12/29/2024 10:51 PM DIGITAL MARKETING ASSISTANT 12/29/2024 11:26 PM DIGITAL MARKETING ASSISTANT Comment:Specimen Source Site : Blood us Bryan Pimentel M.D. LAB MICROBIOLOGY - GEN ERAL ORDERABLES Final Result [facility] [address] [place] [address], [facility] [address] [place] [address] * CT Abdomen Pelvis with IV Contrast (12/29/2024 5:24 PM DIGITAL MARKETING ASSISTANT) Anatomical Region Laterality Modality Abdomen, Pelvis, Abdominal R ST LOS, Abdominal ARZ LOS, Abdominal FLA LOS N/A Computed Tomograp hy, Computed Tomography 12/29/2024 5:16 PM DIGITAL MARKETING ASSISTANT Impressions 12/29/2024 5:34 PM DIGITAL MARKETING ASSISTANT 1. Cirrhotic appearance of moderately to severely fatty infiltrated liver parenchyma. 2. Moderate to severe abdominopelvic ascites and severe truncal anasarca, presumably due to decompensated liver disease. 3. 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 4. No obvious recurrent pancreatic cancer, however, large amount of abdominopelvic ascites could mask peritoneal carcinomatosis. 5. Nonspecific soft tissue stranding around celiac axis without any vascular obstruction. SMV, portal circulation and splenic vein remain patent. 6. Short gastric varices, spontaneous splenorenal shunting, minimal esophageal varices. Narrative 12/29/2024 5:34 PM DIGITAL MARKETING ASSISTANT REVISED REPORT: EXAM: CT ABDOMEN PELVIS WITH IV CONTRAST COMPARISON: No prior is available for comparison FINDINGS: Liver: Overall low attenuation of background liver parenchyma could be indicative of severe fatty infiltration/steatosis; however, nodular surface contour suggests that chronic fibrotic liver disease is present, cirrhotic appearance of the liver. There are no focal enhancing liver lesions. The hepatic vasculature is patent. SMV, portal vein and splenic vein patent. Patient has fairly extensive short gastric varices and to lesser extent small esophageal varices. There is spontaneous splenorenal shunting. There is an atrophic remnant pancreatic stump, the patient appears to have undergone a Whipple operation. Pancreaticojejunal anastomosis demonstrates normal postoperative appearance. Presumably also normal hepaticojejunostomy as there is no obstruction of the intrahepatic bile ducts. Gastrojejunal anastomosis also appears normal. The patient has extensive abdominopelvic ascites. There is also massive anasarca affecting the trunk and all visualized soft tissues. Extensive amount of abdominopelvic ascites could potentially mask peritoneal disease or be a reflection thereof. Moderate flow limitation by plaque at the origin of the SMA, plaque adjacent to celiac origin does not appear to impede the vessel. There is nonspecific soft tissue stranding surrounding the edna hepatis and proper hepatic artery without any associated occlusion. Bowel loops are unobstructed, moderate to large amount of fecal matter seen in the colon. Nonobstructing lower pole right renal stone, some left-sided renal cortical atrophy. Pelvis: Uterus and adnexa are unremarkable, symmetric appearance of both ovaries which are suspended in ascites. Bladder is normal. Patent left-sided processus vaginalis, fluid is tracking into a left fat-containing inguinal hernia. Marked nonspecific edema of the rectal wall. Procedure Note Nikko Nance M.D., Ph.D. - 01/07/2025 REVISED REPORT: EXAM: CT ABDOMEN PELVIS WITH IV CONTRAST COMPARISON: No prior is available for comparison FINDINGS: Liver: Overall low attenuation of background liver parenchyma could be indicativeof severe fatty infiltration/steatosis; however, nodular surface contoursuggests that chronic fibrotic liver disease is present, cirrhoticappearance of the liver. There are no focal enhancing liver lesions. The hepatic vasculature is patent. SMV,portal vein and splenic vein patent. Patient has fairly extensive shortgastric varices and to lesser extent small esophageal varices. There isspontaneous splenorenal shunting. There is an atrophic remnant pancreatic stump, the patient appears to haveundergone a Whipple operation. Pancreaticojejunal anastomosis demonstratesnormal postoperative appearance. Presumably also normalhepaticojejunostomy as there is no obstruction of the intrahepatic bile ducts. Gastrojejunal anastomosis also appearsnormal. The patient has extensive abdominopelvic ascites. There is also massiveanasarca affecting the trunk and all visualized soft tissues. Extensiveamount of abdominopelvic ascites could potentially mask peritoneal diseaseor be a reflection thereof. Moderate flow limitation by plaque at the origin of the SMA, plaqueadjacent to celiac origin does not appear to impede the vessel. There isnonspecific soft tissue stranding surrounding the edna hepatis and properhepatic artery without any associated occlusion. Bowel loops are unobstructed, moderate to large amount of fecal matterseen in the colon. Nonobstructing lower pole right renal stone, someleft-sided renal cortical atrophy. Pelvis: Uterus and adnexa are unremarkable, symmetric appearance of both ovarieswhich are suspended in ascites. Bladder is normal. Patent left-sidedprocessus vaginalis, fluid is tracking into a left fat-containing inguinalhernia. Marked nonspecific edema of the rectal wall. IMPRESSION: 1. Cirrhotic appearance of moderately to severely fatty infiltrated liverparenchyma. 2. Moderate to severe abdominopelvic ascites and severe truncal anasarca,presumably due to decompensated liver disease. 3. Postoperative changes related to Whipple operation for pancreaticcancer, absence of biliary ductal dilatation suggests likely patency ofbiliary intestinal anastomosis, atrophic remnant pancreatic stump alsogrossly normal in appearance with no evidence for pancreatic ductal dilatation suggestive of normalpancreaticojejunal anastomosis. 4. No obvious recurrent pancreatic cancer, however, large amount ofabdominopelvic ascites could mask peritoneal carcinomatosis. 5. Nonspecific soft tissue stranding around celiac axis without anyvascular obstruction. SMV, portal circulation and splenic vein remainpatent. 6. Short gastric varices, spontaneous splenorenal shunting, minimalesophageal varices. us Julia Chan P.A.-C. IMG CT PROCEDURES Xavier mone Result - Final * AST (Aspartate Aminotransferase) (12/29/2024 4:37 PM DIGITAL MARKETING ASSISTANT) Aspartate Aminotransferase (AST), S 31 8 - 43 U/L 12/29/2024 5:29 PM DIGITAL MARKETING ASSISTANT DTL Blood 12/29/2024 4:37 PM DIGITAL MARKETING ASSISTANT 12/29/2024 5:13 PM DIGITAL MARKETING ASSISTANT Julia Chan P.A.-C. LAB BLOOD ADD-ON Carol l Result [facility] [address] [place] [address], [facility] [address] [place] [address] * Potassium (12/29/2024 4:37 PM DIGITAL MARKETING ASSISTANT) Potassium, P 4.3 3.6 - 5.2 mmol/L 12/29/2024 5:00 PM DIGITAL MARKETING ASSISTANT STMA Blood 12/29/2024 4:37 PM DIGITAL MARKETING ASSISTANT 12/29/2024 4:47 PM DIGITAL MARKETING ASSISTANT Julia Chan P.A.-C. LAB BLOOD ADD-ON Carol l Result [facility] [address] [place] [address], [facility] [address] [place] [address] * (ABNORMAL) Alkaline Phosphatase (12/29/2024 4:37 PM DIGITAL MARKETING ASSISTANT) Alkaline Phosphatase, S 231(H) 35 - 104 U/L 12/29/2024 5:29 PM DIGITAL MARKETING ASSISTANT DTL Blood 12/29/2024 4:37 PM DIGITAL MARKETING ASSISTANT 12/29/2024 5:13 PM DIGITAL MARKETING ASSISTANT Julia Chan P.A.-C. LAB BLOOD ADD-ON Carol l Result [facility] [address] [place] [address] * (ABNORMAL) Bilirubin, Direct (12/29/2024 4:37 PM DIGITAL MARKETING ASSISTANT) Bilirubin, Direct, S 0.6(H) 0.0 - 0.3 mg/dL 12/29/2024 5:29 PM DIGITAL MARKETING ASSISTANT DTL Blood 12/29/2024 4:37 PM DIGITAL MARKETING ASSISTANT 12/29/2024 5:13 PM DIGITAL MARKETING ASSISTANT Julia Chan P.A.-C. LAB BLOOD ADD-ON Carol l Result [facility] [address] [place] [address], [facility] [address] [place] [address] * Paracentesis (12/29/2024 3:58 PM DIGITAL MARKETING ASSISTANT) Narrative Katharina Mayorga M.D. - 12/29/2024 3:58 PM DIGITAL MARKETING ASSISTANT Katharina Mayorga M.D. 12/29/2024 4:16 PM Paracentesis Performed by: Katharina Mayorga M.D. Authorized by: Earlene Sheridan M.D., M.S. PROCEDURE DETAILS Equipment: paracentesis tray Ultrasound image guidance used to localize target, identify at risk structures, and dynamically used to direct therapy to the target. Image(s) acquired and saved. Puncture site: left lower quadrant Fluid removed amount (mL): 5000 Fluid appearance: yellow and serous Specimen: specimen sent per request CONSENT Consent obtained: verbal Consent given by: patient The benefits, risks and alternatives to the procedure and the potential need for sedation or anesthesia as well as the names, roles, and responsibilities of healthcare team members performing significant interventional tasks were discussed with the patient and/or decision maker. UNIVERSAL PROTOCOL All relevant documentation and testing were reviewed and available. All required blood products, implants, devices and or special equipment were made available as applicable. Pre-procedure verification was conducted and the correct site was marked if required. A fire risk and smoke assessment were done as applicable. The procedural time-out to verify correct patient, correct side/site, and procedure was conducted prior to performing the procedure and confirmed in a procedural pause. PRE-PROCEDURE DETAILS Procedure purpose: diagnostic and therapeutic Indications: ascites and r/o spontaneous bacterial peritonitis Appropriate hand hygiene, gown, cap, mask, protective eyewear, sterile gloves, skin preparation, sterile drape, and strict aseptic technique were utilized as applicable for the procedure.: yes Skin preparation: chlorhexidine SEDATION / ANESTHESIA Anesthesia method: local infiltration Local infiltrate type: lidocaine (4mL) POST-PROCEDURE DETAILS Albumim Replacement: albumin ordered by Julia CERNA. Dressing: adhesive bandage Procedure completed successfully: yes Complications: no apparent complications us Earlene Sheridan M.D., M.S. PROCEDURE/M INOR SURGICAL ORDERABLES Edited Result - Final * ABD-Emergency Medicine Image Exam (12/29/2024 3:20 PM DIGITAL MARKETING ASSISTANT) 12/29/2024 3:20 PM DIGITAL MARKETING ASSISTANT Narrative IIMS - 12/29/2024 4:04 PM DIGITAL MARKETING ASSISTANT This order has been created and auto-finalized to support the import of images acquired without order. The clinical documentation to support these images can be found on the encounter that produced images. us Provider Not In System IMG NON RAD IMAGING PROCE DURES Final Result IIM[facility] NA * (ABNORMAL) Dipstick, POCT, Urine (12/29/2024 2:34 PM DIGITAL MARKETING ASSISTANT) Glucose, POCT, U 250(A) Negative mg/dL 12/29/2024 2:35 PM DIGITAL MARKETING ASSISTANT PCED Ketone, POCT, U Negative Negative mg/dL 12/29/2024 2:35 PM DIGITAL MARKETING ASSISTANT PCED Specific [place], POCT, U >=1.030 1.005 - 1.030 12/29/2024 2:35 PM DIGITAL MARKETING ASSISTANT PCED Blood, POCT, U Negative Negative 12/29/2024 2:35 PM DIGITAL MARKETING ASSISTANT PCED pH, POCT, Urine 5.0 5.0 - 8.0 12/29/2024 2:35 PM DIGITAL MARKETING ASSISTANT PCED Protein, POCT, U Negative Negative mg/dL 12/29/2024 2:35 PM DIGITAL MARKETING ASSISTANT PCED Nitrites, POCT, U Negative Negative 12/29/2024 2:35 PM DIGITAL MARKETING ASSISTANT PCED Leukocytes, POCT, U Negative Negative 12/29/2024 2:35 PM DIGITAL MARKETING ASSISTANT PCED Urine 12/29/2024 2:34 PM DIGITAL MARKETING ASSISTANT 12/29/2024 2:35 PM DIGITAL MARKETING ASSISTANT us Unknown Provider LAB POCT ORDERABLES - DEVICE Fi nal Result Performing Organization Address City/[facility] Co de Phone Number POC RST [facility] [address] [place] [address], [facility] PCED [facility]OC [address] [place] [address] * Microscopic Manual (12/29/2024 2:28 PM DIGITAL MARKETING ASSISTANT) Microscopy Normal 12/29/2024 3:33 PM DIGITAL MARKETING ASSISTANT DTL RBC <3 <3 /hpf 12/29/2024 3:33 PM DIGITAL MARKETING ASSISTANT DTL WBC None Seen /hpf 12/29/2024 3:33 PM DIGITAL MARKETING ASSISTANT DTL Comment: ----REFERENCE VALUE---- <4 (Males) <11 (Females) Casts, Hyaline 11-20 /lpf 12/29/2024 3:33 PM DIGITAL MARKETING ASSISTANT DTL Crystals Calcium Oxalate crystals present 12/29/2024 3:33 PM DIGITAL MARKETING ASSISTANT DTL Urine 12/29/2024 2:28 PM DIGITAL MARKETING ASSISTANT 12/29/2024 2:54 PM DIGITAL MARKETING ASSISTANT Julia hCan P.A.-C. LAB URINE ORDERABLES Final Result [facility] [address] [place] [address] * Bacterial Culture, Aerobic + Susceptibility, Urine (12/29/2024 2:28 PM DIGITAL MARKETING ASSISTANT) Urine Culture No growth after 1 day of incubation. 12/30/2024 10:04 AM DIGITAL MARKETING ASSISTANT DT Urine (Urine, Straight Catheter) 12/29/2024 2:28 PM DIGITAL MARKETING ASSISTANT 12/29/2024 3:24 PM DIGITAL MARKETING ASSISTANT Comment:Specimen Source Site : Urine Julia Chan P.A.-C. LAB MICROBIOLOGY - GE NERAL ORDERABLES Final Result Performing Organization Address City/[facility]/ZIP Co de Phone Number [facility] [address] [place] [address] * Patient Status (12/29/2024 1:27 PM DIGITAL MARKETING ASSISTANT) FIO2 0.21 0.21=AIR 12/29/2024 1:38 PM DIGITAL MARKETING ASSISTANT STMA Spont. breaths/min 13 12/29/2024 1:38 PM DIGITAL MARKETING ASSISTANT STMA Blood 12/29/2024 1:27 PM DIGITAL MARKETING ASSISTANT 12/29/2024 1:38 PM DIGITAL MARKETING ASSISTANT us Julia Chan P.A.-C. LAB BLOOD NON ADD-ON Final Result Performing Organization Address City/[facility]/ZIP Co de Phone Number [facility] [address] STMA [facility] [address] [place] [address] * Blood Gas without Coox, Venous (12/29/2024 1:27 PM DIGITAL MARKETING ASSISTANT) pO2, Venous, B 28 Not applicable mm Hg 12/29/2024 1:40 PM DIGITAL MARKETING ASSISTANT STMA pCO2, Venous, B 41 41 - 51 mm Hg 12/29/2024 1:40 PM DIGITAL MARKETING ASSISTANT STMA pH, Venous, B 7.33 7.32 - 7.43 pH 025 1:40 PM DIGITAL MARKETING ASSISTANT STMA Base Excess, Venous, B -4 Not applicable mmol/L 12/29/2024 1:40 PM DIGITAL MARKETING ASSISTANT STMA HCO3, Venous, B 22 Not applicable mmol/L 12/29/2024 1:40 PM DIGITAL MARKETING ASSISTANT STMA Sample Site, Venous, B Venipunct 12/29/2024 1:38 PM DIGITAL MARKETING ASSISTANT STMA Blood (Blood, Venous) 12/29/2024 1:27 PM DIGITAL MARKETING ASSISTANT 12/29/2024 1:38 PM DIGITAL MARKETING ASSISTANT Julia Chan P.A.-C. LAB BLOOD NON ADD-ON Final Result Performing Organization Address City/[facility]/ZIP Co de Phone Number [facility] [address] STMA [facility] [address] [place] [address] * (ABNORMAL) Lactate for Sepsis with Reflex, POCT (12/29/2024 1:25 PM DIGITAL MARKETING ASSISTANT) Lactate, POCT 4.54(H) 0.50 - 2.20 mmol/L 12/29/2024 1:59 PM DIGITAL MARKETING ASSISTANT PCLX Blood (Blood, Venous) 12/29/2024 1:25 PM DIGITAL MARKETING ASSISTANT 12/29/2024 1:25 PM DIGITAL MARKETING ASSISTANT Julia Chan P.A.-C. LAB POCT ORDERABLES - DEVICE Final Result Performing Organization Address City/[facility]/ZIP Co de Phone Number POC [facility] [address] [place] [address], [facility] PCLX [facility] POC [address] [place] [address] * (ABNORMAL) NT-Pro B-Type Natriuretic Peptide (BNP) (12/29/2024 1:25 PM DIGITAL MARKETING ASSISTANT) NT-Pro BNP 669(H) <=226 pg/mL 12/29/2024 2:47 PM DIGITAL MARKETING ASSISTANT [facility] Comment: NT-proBNP values less than 300 pg/mL have a 99% negative predictive value for excluding acute congestive heart failure. A cutoff of 1200 pg/mL for patients with an eGFR<60 yields a diagnostic sensitivity and specificity of 89% and 72% for acute congestive heart failure. A diagnostic NT-proBNP cutoff of 900 pg/mL has been suggested in adults 50-75 years of age in the absence of renal failure. Blood (Blood, Venous) 12/29/2024 1:25 PM DIGITAL MARKETING ASSISTANT 12/29/2024 1:38 PM DIGITAL MARKETING ASSISTANT Julia Chan P.A.-C. LAB BLOOD ADD-ON Carol l Result [facility] [address] [place] [address], [facility] [address] [place] [address] * (ABNORMAL) S-TSH (Thyroid-Stimulating Hormone - Sensitive) (12/29/2024 1:23 PM DIGITAL MARKETING ASSISTANT) Pathologist [facility] TSH, Sensitive 4.3(H) 0.3 - 4.2 mIU/L 12/29/2024 3:23 PM DIGITAL MARKETING ASSISTANT DT Blood (Blood, Venous) 12/29/2024 1:23 PM DIGITAL MARKETING ASSISTANT 12/29/2024 1:59 PM DIGITAL MARKETING ASSISTANT Julia Chan P.A.-C. LAB BLOOD ADD-ON Carol l Result [facility] [address] [place] [address], [facility] DTL [facility] [address] [place] [address] from Last 3 [place] [address] Advance Directives For more information, please contact: [phone] * Full Code (Latest Code Status on File) Date Activated Date Inactivated Comments 12/29/2024 9:23 PM 01/19/2025 3:55 PM Question Answer Comments Full Code: Discussed Care Teams Tool Straightener Relationship Specialty Start Date End Date Elsewhere, Pcp PCP - General Internal Medicine 01/27/25
--- OUTSIDE RECORDS SUMMARY | 2025-03-20 11:56 | XMS_ITS | Encounter Summary ---
Author Organization [facility] Address [address] [facility] [place] [address] Care Team Providers Care Repair Operator Name Role Phone Annia Walker DO Primary Care Provider Sagar Whaley MD Unavailable [phone] Annia Walker DO Unavailable [phone] Yoly Michelle MD Unavailable Ashlee Somers RN Unavailable Sofi Josue MD Unavailable [phone] Shaista Rivero MD Unavailable Annia Walker DO Unavailable Jamal Liriano MD Unavailable Annia Walker DO Unavailable Juhi Cook RN Unavailable Unavailable Sagar Whaley MD Unavailable [phone] Violet Ambrose Unavailable Cole Benton RN Unavailable Encounter Details Date Type Department Care Team (Late st Contact Info) Description 03/21/2022 Telephone [facility] General Surgery [address] [place] [address] Yoly Michelle MD [address] [address] Social History Tobacco Use Types Packs/Day Years Used Date Smoking Tobacco: Every Day Cigarettes Smokeless Tobacco: Never Alcohol Use Standard Drinks/Week Comments Not Currently 0 (1 standard drink = 0.6 oz pur e alcohol) AUDIT-C Answer Date Recorded Q1: How often do you have a drink containing alcohol? Never 03/08/2022 Q2: How many drinks containi ng alcohol do you have on a typical day when you are drinking? Patient does not drink Q3: How often do you have si x or more drinks on one occasion? Never 03/08/2022 PHQ-2 Answer Date Recorded PHQ2 TOTAL SCORE 0 03/06/2022 Hunger Vital Sign Answer Date Recorded Within the past 12 months, y ou worried that your food would run out before you got the money to buy more. Never true 03/09/20 22 Within the past 12 months, t he food you bought just didn't last and you didn't have money to get more. Never true 03/09/2022 Comments No Sex and Gender Information Value Date Recorded Sex Assigned at Female 10/13/2020 10:25 AM DINING ROOM CAPTAIN Legal Sex Female 1:13 PM CDT Gender Identity Female 10/13/2020 10:25 AM DINING ROOM CAPTAIN Sexual Orientation Straight 10/13/2020 10 :25 AM DINING ROOM CAPTAIN documented as of this encounter Functional Status * Is person deaf or have serious hearing difficulty? Answer Date of Assessment Author No 03/10/2022 8:50 PM CDT Colton Otoole RN * Is person blind or have serious difficulty seeing? Answer Date of Assessment Author No 03/10/2022 8:50 PM CDT Colton Otoole RN * Does person have serious difficulty walking/climbing stairs? Answer Date of Assessment Author No 03/10/2022 8:50 PM Colton Hernandez RN * Does person have difficulty dressing/bathing? Answer Date of Assessment Author No 03/10/2022 8:50 PM CDT Colton Otoole RN * Does person have difficulty doing errands alone? Answer Date of Assessment Author No 03/10/2022 8:50 PM CDT Colton Otoole RN documented as of this encounter Mental Status * Does person have difficulty concentrating/remembering/making decisions? Answer Entry Date Author No 03/10/2022 8:50 PM CDT Colton Otoole RN documented in this encounter Plan of Treatment Not on file documented as of this encounter Visit Diagnoses Not on filedocumented in this encounter Additional Health Concerns Infection Onset Date Last Indicated Resolved Time COVID-19 Under Investigation 04/14/2024 04/14/2024 04/14/2024 2:12 PM CDT COVID-19 Under Investigation 12/22/2024 12/22/2024 12/22/2024 2:43 AM DINING ROOM CAPTAIN documented as of this encounter Care Teams Repair Operator Relationship Specialty Start Date End Date Annia Walker DO [address] [facility] [place] [address] PCP - General Family Medicine 06/20/20 Annia Walker DO [address] [facility] [place] [address] PCP - Attributed-[employer] Commercial 01/26/21 08/07/22 Annia Walker DO [address] [facility] [place] [address] PCP - Attributed-[employer] Medicaid ST[place] 07/30/22 08/14/23 Annia Walker DO [address] [facility] [place] [id number] PCP - Attributed-[place] [employer] Medicaid ST[place] 08/28/23 10/14/24 Sagar Whaley MD [address] [place], [place] [id number] Gastroenterology 10/14/20 06/23/23 Yoly Michelle MD [address] [place] [address] General Surgery 03/08/22 Ashlee Somers RN Skeins Yarn Examiner 03/12/22 07/22/22 Sofi Josue MD [address] [place] [address] Hematology and Oncology 08/30/22 Shaista Rivero MD [address] [place] [address] Surgical Oncology 08/30/22 Jamal Liriano MD [address] [place] [id number] Physician Endocrinology 06/24/23 Juhi Cook, pulp drier firer 09/28/24 09/30/24 Sagar Whaley MD [address] [place] [address] Gastroenterology 09/28/24 Violet Ambrose Care Coordination Specialist Care Management 11/26/24 01/10/25 Cole Benton, [place] [address] [facility] [address] [place] [address] Skeins Yarn ExaminerWash Rack Operator 12/28/24 12/28/24 documented as of this encounter
[2025-03-20 12:03] VITALS: BP 102/65; PULSE 89; RESP 18; TEMP 36.4; O2SAT 100; BMI 19.8
--- NOTE | 2025-03-20 12:18 | ED.GENADULT ---
HPI - General Adult General Chief complaint: Abdominal Pain Stated complaint: Pt Bleeding Time Seen by Provider: 03/20/25 12:16 History of Present Illness HPI narrative: Diffuse abdominal pain x1 week, constant. Patient noticed bright red blood in BM this morning, and in urine this morning. HX whipple, cirrhosis - care via [facility]. PCP Dr. Dee . 59-year-old woman presenting to the emergency department with concern of bright red blood with bowel movements. Noted in urine as well this morning. Is accompanied by care provider said she looked in nasal area and noted numerous hemorrhoids. Meron says her pain extends from her upper abdomen all the way down to ?my tushie?. Has had pain for about a week she says. Care provider notes that chronically with sensitive tummy indicating that cirrhosis is thought to be related. Review of records does show a history of abdominal ascites. Meron notes that has not had any recent imaging although I am able to find abdominal ultrasound from 03/10 25 Is worried that she is bleeding on the inside somewhere. History of Whipple for pancreatic cancer. History of cirrhosis of the liver as well and abdominal ascites. She is currently noting nausea. She does note that she has a lump that seems to move about from her left lower abdomen up into the umbilicus. Like a tennis ball. CT imaging from [facility] on December of 2024 showed postoperative changes consistent with Whipple. Status post cholecystectomy. Right renal calculus. Large volume ascites with cirrhotic liver and severe truncal anasarca. small left pleural effusion as well Blood sugars have been quite elevated on review. Over 600. Related Data Home Medications ?Medication ?Instructions ?Recorded ?Confirmed aspirin 81 mg tablet,delayed 81 mg PO DAILY 10/25/24 03/09/25 release (Adult Low Dose Aspirin) multivitamin 1 tab PO QDAY 02/26/25 03/09/25 selenium 200 mcg tablet 200 mcg PO QDAY 02/26/25 03/09/25 vitamin A 2,400 mcg capsule 2,400 mcg PO QDAY 02/26/25 03/09/25 Previous Rx's ?Medication ?Instructions ?Recorded furosemide 40 mg tablet 40 mg PO DAILY@0800 #30 tabs 10/29/24 amitriptyline 50 mg tablet 50 mg PO HS #90 tabs 01/27/25 atorvastatin 40 mg tablet 40 mg PO HS #90 tabs 01/27/25 cetirizine 10 mg capsule 10 mg PO DAILY PRN allergy 01/27/25 symptoms #90 caps topiramate 50 mg tablet (Topamax) 50 mg PO HS #90 tabs 01/27/25 vitamin E 268 mg (400 unit) capsule 268 mg PO QDAY #90 caps 01/27/25 zinc sulfate 50 mg zinc (220 mg) 50 mg PO QDAY #90 tabs 01/28/25 tablet gabapentin 100 mg capsule 100 mg PO TID #100 caps 02/26/25 insulin glargine 100 unit/mL (3 10 unit (0.1 mL) subcut QPM #15 mL 02/26/25 mL) subcutaneous pen (Lantus Solostar U-100 Insulin) lactulose 10 gram/15 mL oral 10 g (15 mL) PO QDAY #1,200 mL 02/26/25 solution gnhkka-eczwlfjc-wvukysy 2 cap PO TID #200 caps 02/26/25 24,000-76,000-120,000 unit capsule,delayed rel pen needle, diabetic 31 gauge x #200 ea 02/26/25/ (Comfort EZ Pen Cable) spironolactone 50 mg tablet 50 mg PO QAM #90 tabs 03/09/25 oxycodone 5 mg tablet 2.5 mg (1/2 x 5 mg) PO Q6H PRN 03/10/25 pain #28 tabs ketorolac 10 mg tablet 10 mg PO Q8H PRN pain #15 tabs 03/20/25 polyethylene glycol 3350 17 17 g PO DAILY #238 grams 03/20/25 gram/dose oral powder (Miralax) sennosides 8.6 mg tablet (senna) 8.6 - 17.2 mg (1 - 2 x 8.6 mg) PO 03/20/25 DAILY PRN constipation #30 tabs Allergies Allergy/AdvReac Type Severity Reaction Status Date / Time omeprazole Allergy Vomiting Verified 03/20/25 12:03 Penicillins Allergy Hive Verified 03/20/25 12:03 Review of Systems Status of ROS: Reports: 6 or more systems reviewed and unremarkable except as noted in History and below [facility] Medical History Type 2 diabetes mellitus with insulin therapy ?E11.9 - Type 2 diabetes mellitus without complications (ICD-10) ?Z79.4 - 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 difficile diarrhea ?A04.72 - Enterocolitis due to Clostridium difficile, not specified as recurrent (ICD-10) Hx of gastric ulcer ?Z87.11 - Personal history of peptic ulcer disease (ICD-10) Abdominal ascites ?R18.8 - Other ascites (ICD-10) Surgical History S/P cystoscopy with ureteral stent placement ?Z96.0 - Presence of urogenital implants (ICD-10) History of Whipple procedure ?Z90.410 - Acquired total absence of pancreas (ICD-10) ?Z90.49 - Acquired absence of other specified parts of digestive tract (ICD-10) Family History Father Diabetes High blood pressure Mother Diabetes Heart disease High blood pressure Liver disease Kidney disease Maternal Grandfather Heart disease Social History Narrative: Single Education high school 2 children Retired What is your current living situation?: I presently have a place to live Problems where you live: no known problems Problems where you live details: none In the past 12 months, utilities in danger of being shut off: no In past 12 months, lack of transportation kept you from medical appts, meetings, work, or getting things needed for daily living: no In the past 12 mos, have been you worried that your food would run out before you had money to buy more?: never true In the past 12 mos, the food you bought just didn't last and you didn't have money to buy more?: never true Smoking Status: Former smoker What tobacco products do you use: cigarettes Smoking packs per day: 2 Smoking cigarettes per day: 40.0 Smoking quit date/years: <= 15 years ago Do you use any of these nicotine containing products: None Second hand tobacco smoke exposure: No How often do you have a drink containing alcohol: never AUDIT-C Alcohol total score: 0 Non-prescribed substance use: denies use How often does anyone, including family, friends and others, physically hurt you: never How often does anyone, including family, friends and others, insult or talk down to you: never How often does anyone, including family, friends and others, threaten you with harm: never How often does anyone, including family, friends and others, scream or curse at you: never service: No Exam Narrative: Exam Narrative: Pleasant. Blunted affect. Breathing easily; lungs clear. Heart regular rate and rhythm. Lower extremities are without edema. She is well-perfused. Skin with forearm bruising. Thinning head hair. Abdomen is protuberant. Diffusely moderately tender but distractible. Bowel sounds are present. Large midline well-healed surgical scar. With small sit up does demonstrated diastasis recti as well as a left periumbilical hernia. Soft. Certainly not incarcerated. Later with head orthopedic team physician present, I do anal area exam. There appears to be some mild irritation also between the labia but no active bleeding. There is very small noninflamed hemorrhoidal tissue. Anoscopy exam not reveal any evidence of bleeding at this time. Const: Vital Signs, click to edit/add: Vital Signs - 24 hr 03/20/25 12:03 03/20/25 13:15 03/20/25 15:18 Temperature 97.5 F L 98.9 F Pulse Rate [Pulse Oximeter] 89 88 97 Respiratory Rate 18 18 16 Blood Pressure [Le ft Upper Arm] 102/65 130/71 130/78 Pulse Oximetry 100 97 96 Oxygen Delivery Me thod Room Air Room Air Room Air 03/20/25 17:07 Temperature 98.8 F Pulse Rate [Pulse Oximeter] 90 Respiratory Rate 16 Blood Pressure [Le ft Upper Arm] 130/74 Pulse Oximetry 96 Oxygen Delivery Me thod Room Air Documenting provider has reviewed patient's vital signs: yes Course Vital Signs Vital signs: Initial Vital Signs Temperature 97.5 F L 03/20/25 12:03 Temperature Source Temporal Artery Scan 03/20/25 12:03 Pulse Rate 89 03/20/25 12:03 Respiratory Rate 18 03/20/25 12:03 Blood Pressure 102/65 03/20/25 12:03 Blood Pressure Mean 77 03/20/25 12:03 Blood Pressure Position Sitting 03/20/25 12:03 Pulse Oximetry 100 03/20/25 12:03 Oxygen Delivery Method Room Air 03/20/25 12:03 Vital Signs Temperature 97.5 F L 03/20/25 12:03 Pulse Rate 89 03/20/25 12:03 Respiratory Rate 18 03/20/25 12:03 Blood Pressure 102/65 03/20/25 12:03 Pulse Oximetry 100 03/20/25 12:03 Oxygen Delivery Method Room Air 03/20/25 12:03 Temperature 98.8 F 03/20/25 17:07 Pulse Rate 90 03/20/25 17:07 Respiratory Rate 16 03/20/25 17:07 Blood Pressure 130/74 03/20/25 17:07 Pulse Oximetry 96 03/20/25 17:07 Oxygen Delivery Method Room Air 03/20/25 17:07 Medications Administered Medications: Discontinued Medications Generic Name Dose Route Start Last Admin Trade Name Freq PRN Reason Stop Dose Admin Sodium Chloride 1,000 mls @ 1,200 mls/hr 03/20/25 15:45 03/20/25 16:34 0.9 % Sodium Chloride 1000 Ml IV 03/20/25 16:34 Infused .Q50M ONE Infusion Insulin Human Regular 12 unit 03/20/25 16:16 03/20/25 16:29 Insulin Regular, Human 100 Unit/Ml Vial IVP 03/20/25 16:17 12 unit ONCE ONE Administration Ketorolac Tromethamine 30 mg 03/20/25 15:55 03/20/25 15:58 Ketorolac 30 Mg/Ml Inj IVP 03/20/25 15:56 30 mg ONCE ONE Administration Magnesium Hydroxide 30 ml 03/20/25 16:15 03/20/25 16:41 Magnesium Hydroxide 30 Ml Oral.Susp PO 03/20/25 16:16 30 ml ONCE ONE Administration Ondansetron HCl 4 mg 03/20/25 12:35 03/20/25 12:51 Ondansetron 2 Mg/Ml Inj IVP 03/20/25 12:36 4 mg ONCE ONE Administration Oxycodone HCl 5 mg 03/20/25 13:11 03/20/25 13:15 Oxycodone 5 Mg Tablet PO 03/20/25 13:12 5 mg ONCE ONE Administration Senna/Docusate Sodium 2 tab 03/20/25 15:47 03/20/25 15:58 Sennosides/Docusate Tablet PO 03/20/25 15:48 2 tab ONCE ONE Administration Medical Decision Making MDM Narrative Medical decision making narrative: I do not believe that the hernias are the source of this pain. I think does struggle with some chronic abdominal pain; functional? Does have ascites; I do not think this is peritonitis. Initiating IV fluids. Given usual tab of oxycodone. She says that she takes 1 only before bed typically. Given persistent complaints of pain and there concern for potential hernia as discussed above, do not have chemistries back due to analyzer going down, therefore no creatinine, will proceed with non contrasted CT of abdomen and pelvis. I did review images. Significant amount of stool in the bowel without distension. Right-sided renal stones. Noted on prior imaging as well. Radiology over-read below. INDICATION: Diffuse abdominal pain TECHNIQUE: CT abdomen and pelvis without contrast. COMPARISON: CT 10/25/2024 FINDINGS: Study limited due to lack of contrast. Lower chest: Unremarkable. Liver: Normal in size and attenuation. No suspicious masses. Gallbladder and bile ducts: Cholecystectomy. Pancreas: Status post Whipple procedure. The pancreas atrophic residual body and tail of the pancreas calcifications within could be seen with chronic pancreatitis. No change. Spleen: Normal in size. No masses. Adrenal glands: Normal in size. No nodules. Kidneys: Nonobstructing right renal calculi. Slight prominence of the right renal pelvis no obstructing stones GI tract: Abundant stool in the colon. Fecalized prominent small bowel loops in the right lower quadrant the abdomen could be related to ileus. No transition point seen. Normal appendix. Vasculature: Abdominal aorta is normal in caliber. Lymph nodes: No lymphadenopathy. Prominent in the Peritoneum/Abdominal Wall: Mild ascites. Hernias Small fat containing inguinal. Mild subcutaneous edema unremarkable. No pelvic masses. Bones: Mild superior endplate compression of L5 which appears new, age indeterminate IMPRESSION: 1. Study limited by lack of contrast. Post Whipple changes appear stable. 2. Mildly prominent fecalized distal small bowel Loops no transition point clearly seen. Findings could be related to ileus. Developing low-grade obstruction not completely excluded. 3. Mild ascites. Mild subcutaneous edema. 4. Minimal superior endplate compression of L5 new from the prior study age indeterminate Please note that all CT scans at this facility use dose modulation, iterative reconstruction, and/or weight-based dosing when appropriate to reduce radiation dose to as low as reasonably achievable. Dictated by Tami Monroe MD @ 03/20/2025 3:20:16 PM Sodium finally returns at 125. Blood sugar also at greater than 625. Corrected sodium that is probably over 133. I do however suspect that is likely dehydrated to some degree and would benefit from L of normal saline which was given. She would still like some pain management. Creatinine looks good. Given ketorolac. Also given senna due to findings in CT imaging and daily opiate intake. Possible this ?fecalization? could be contributing to her abdominal pain. We did discuss taking her insulin. Says she does not take it; that it does not make a difference. Acknowledged that a singular dose may not make much of a difference. She needs to get on her prescribed regular treatment regimen. And then follow-up for treatment discussion in clinic. Did give 12 units of regular insulin here in the emergency department. Blood sugar dropped from the mid 600s or 700 to mid 300s. Has a couple right-sided kidney stones; 1 of which is in the renal pelvis. Wonder if this might be contributing to some of the blood we're seeing in the urine. Doubtful contributing to pain. Given a dose of milk of magnesium and senna here in the emergency department. If this is rectal bleeding though would recommend follow-up colonoscopy. Discussed Treated finally with ketorolac which apparently finally did improve her discomfort. Also was given L normal saline. See patient discharge plan for further discussion I am relieved you are feeling better. I can prescribe more of this Toradol/ketorolac for outpatient dosing as well as seem to be helpful for you. If taking daily, should not take more than 5 days straight. Your blood sugar showed remarkable improvement with singular dosing of insulin here. I have hope that regular dosing of your insulin as prescribed will actually be helpful (as long as you are not experiencing other illness that might be driving blood sugar up) I am sending in a prescription of MiraLax that I would like you to use daily taking between 1-3 doses a day; adjusting to stool consistency. On the days that you might be taking oxycodone, I would also consider taking a tablet or 2 of a senna-containing product. This is sent in as well. Please follow-up with primary care provider to discuss further treatments or success of treatment and to address your blood sugars. As far as this rectal bleeding, please discuss potential colonoscopy with your primary care provider. You had a small amount of blood in your urine today. This might be related to a kidney stone on the right. I do not think this is the reason for your pain. Would also follow up in primary care to recheck your urine. Medical Records Medical records reviewed: Yes I reviewed the patient's medical records Lab Data Lab results reviewed: Yes I reviewed the patient's lab results Labs: Lab Results 03/20/25 03/20/25 03/20/25 Range/Units 12:50 13:00 13:10 WBC 4.24 L (4.50-11.00) K/uL RBC 3.57 L (4.00-5.20) m/uL Hgb 11.4 L (12.0-16.0) gm/dL Hct 34.5 (33.0-51.0) % MCV 97 (80-100) fL MCH 32 (26-34) pg MCHC 33 (32-36) gm/dL RDW Coeff of Konstantin 12.4 (11.5-15.5) % Plt Count 132 L (140-440) K/uL Neut % (Auto) 62.1 (42.0-72.0) % Lymph % (Auto) 26.4 (20-44) % [place] % (Auto) 9.9 (0.0-11.0) % Eos % (Auto) 0.9 (0.0-7.0) % Baso % (Auto) 0.5 (0.0-3.0) % Neut # (Auto) 2.60 (1.7-7.0) K/uL Lymph # (Auto) 1.10 (0.90-2.90) K/uL [place] # (Auto) 0.40 (0.00-0.90) K/UL Eos # (Auto) 0.00 (0.00-0.50) K/uL Baso # (Auto) 0.00 (0.00-0.30) K/uL Abs Immat Gran (auto) 0.00 (0.00-0.30) K/uL Imm/Tot Granulo (auto) 0.2 % INR 1.13 H (0.91-1.10) APTT 35 H (23-33) Seconds Sodium 125 L (135-149) mmol/L Potassium 5.1 (3.6-5.1) mmol/L Chloride 94 L (96-114) mmol/L Carbon Dioxide 24 (20-32) mmol/L Anion Gap 7 (7-15) mEq/L BUN 14 (7-30) mg/dL Creatinine 0.7 (0.5-1.5) mg/dL Estimated Creat Clear 70.50 Estimated GFR 99 ml/min Glucose 738 H* (60-115) mg/dL Calcium 9.6 (8.4-10.6) mg/dL Total Bilirubin 0.9 (0.1-1.5) mg/dL Direct Bilirubin 0.5 (0.0-0.5) mg/dL AST 55 H (12-35) U/L ALT 44 H (4-35) U/L Alkaline Phosphatase 179 H (40-150) U/L C-Reactive Protein < 0.5 L (0.5-1.0) mg/dL Total Protein 7.3 (6.0-8.3) g/dL Albumin 4.0 (3.3-5.0) g/dL Lipase 29 (23-300) U/L Urine Color Yellow (Yellow) Urine Appearance Clear (Clear) Urine pH 7.0 (5.0-8.5) Ur Specific Dexter 1.010 (1.000-1.030) Urine Protein Negative (Negative) Urine Glucose (UA) 3+ A (Negative) Urine Ketones Negative (Negative) Urine Blood 2+ A (Negative) Urine Nitrite Negative (Negative) Urine Bilirubin Negative (Negative) Urine Urobilinogen 0.2 (0.2-1.0) Ur Leukocyte Esterase Negative (Negative) Urine RBC 5-10 A (0-2) Urine WBC 0-2 (0-5) Ur Squamous Epith Cells Few (None-Few) Urine Bacteria None (None) Lab Acknowledgement Test Added Discharge Plan Discharge Clinical Impression: Abdominal pain, Constipation, Rectal bleeding Patient Disposition: Home w/ Parent or Adult Condition: Improved Additional Instructions: I am relieved you are feeling better. I can prescribe more of this Toradol/ketorolac for outpatient dosing as well as seem to be helpful for you. If taking daily, should not take more than 5 days straight. Your blood sugar showed remarkable improvement with singular dosing of insulin here. I have hope that regular dosing of your insulin as prescribed will actually be helpful (as long as you are not experiencing other illness that might be driving blood sugar up) I am sending in a prescription of MiraLax that I would like you to use daily taking between 1-3 doses a day; adjusting to stool consistency. On the days that you might be taking oxycodone, I would also consider taking a tablet or 2 of a senna-containing product. This is sent in as well. Please follow-up with primary care provider to discuss further treatments or success of treatment and to address your blood sugars. As far as this rectal bleeding, please discuss potential colonoscopy with your primary care provider. You had a small amount of blood in your urine today. This might be related to a kidney stone on the right. I do not think this is the reason for your pain. Would also follow up in primary care to recheck your urine. Prescriptions: New polyethylene glycol 3350 [Miralax] 17 gram/dose powder 17 g PO DAILY Qty: 238 1RF Rx Instructions: 1 - 3 dosings daily each in at least 8 oz of liquid ketorolac 10 mg tablet 10 mg PO Q8H PRN (Reason: pain) Qty: 15 0RF Rx Instructions: maximum total duration of 5 days from all oral, intranasal, or parenteral formulations sennosides [senna] 8.6 mg tablet 8.6 - 17.2 mg PO DAILY PRN (Reason: constipation) Qty: 30 0RF No Action atorvastatin 40 mg tablet 40 mg PO HS Qty: 90 3RF amitriptyline 50 mg tablet 50 mg PO HS Qty: 90 3RF cetirizine 10 mg capsule 10 mg PO DAILY PRN (Reason: allergy symptoms) Qty: 90 3RF topiramate [Topamax] 50 mg tablet 50 mg PO HS Qty: 90 3RF vitamin E 268 mg (400 unit) capsule 268 mg PO QDAY Qty: 90 3RF zinc sulfate 50 mg zinc (220 mg) tablet 50 mg PO QDAY Qty: 90 3RF selenium 200 mcg tablet 200 mcg PO QDAY vitamin A 2,400 mcg capsule 2,400 mcg PO QDAY multivitamin Tablet 1 tab PO QDAY insulin glargine [Lantus Solostar U-100 Insulin] 100 unit/mL (3 mL) insulin pen 10 unit subcut QPM Qty: 15 3RF gabapentin 100 mg capsule 100 mg PO TID Qty: 100 5RF wdnuue-fscwzrzx-tbuuasa 24,000-76,000 -120,000 unit capsule,delayed release(DR/EC) 2 cap PO TID Qty: 200 5RF Rx Instructions: administer with meals and/or snacks lactulose 10 gram/15 mL solution 10 g PO QDAY Qty: 1200 4RF (DME) pen needle, diabetic [Comfort EZ Pen Cable] 31 gauge x 3/16 needle See Rx Instructions .Route Qty: 200 5RF Rx Instructions: As directed, Whatever is covered, 4 times a day spironolactone 50 mg tablet 50 mg PO QAM Qty: 90 3RF aspirin [Adult Low Dose Aspirin] 81 mg tablet,delayed release (DR/EC) 81 mg PO DAILY furosemide 40 mg Tablet 40 mg PO DAILY@0800 Qty: 30 0RF oxycodone 5 mg tablet 2.5 mg PO Q6H PRN (Reason: pain) Qty: 28 0RF Follow Up/Referrals: Medardo Dee MD [Primary Care Provider, Family Practice] Stand Alone Forms: MyHealth Info Instructions
[2025-03-20] MEDS: ONDANSETRON 2 MG/ML inj 4 MG IVP (12:51)
[2025-03-20 13:02] LABS: Basophils Percent Auto 0.5 % (0.0-3.0); Eosinophils Percent Auto 0.9 % (0.0-7.0); Hematocrit 34.5 % (33.0-51.0); Hemoglobin* 11.4 gm/dL (12.0-16.0); Immature Granulocytes Pct Auto 0.2 %; Lymphocytes Percent Auto 26.4 % (20-44); Mean Corpuscular HGB Conc 33 gm/dL (32-36); Mean Corpuscular Hemoglobin 32 pg (26-34); Mean Corpuscular Volume 97 fL (80-100); Monocytes Percent Auto 9.9 % (0.0-11.0); Neutrophils Percent Auto 62.1 % (42.0-72.0); Platelet Count* 132 K/uL (140-440); RDW Coefficient of Variation % 12.4 % (11.5-15.5); Red Blood Count 3.57 m/uL (4.00-5.20); White Blood Count* 4.24 K/uL (4.50-11.00)
[2025-03-20 13:05] LABS: Slide Review Reflex No
[2025-03-20 13:15] VITALS: BP 130/71; PULSE 88; RESP 18; O2SAT 97
[2025-03-20] MEDS: OXYCODONE 5 MG TABLET PO (13:15)
[2025-03-20 13:17] LABS: Appearance Urine Clear (Clear); Bilirubin Urine Negative (Negative); Blood Urine 2+ (Negative); Color Urine Yellow (Yellow); Glucose Urine 3+ (Negative); Ketones Urine Negative (Negative); Leukocyte Esterase Urine Negative (Negative); Nitrite Urine Negative (Negative); Protein Urine Negative (Negative); Urobilinogen Urine 0.2 (0.2-1.0)
[2025-03-20 13:24] LABS: INR 1.13 (0.91-1.10); Partial Thromboplastin Time* 35 Seconds (23-33); Prothrombin Time 15.4 Seconds
[2025-03-20 13:39] LABS: Squamous Epithelial Cell Urine Few (None-Few); WBC Urine 0-2 (0-5)
--- NOTE | 2025-03-20 14:18 | CRLHL7_ITS ---
For Patients: As a result of the Century Cures Act, medical imaging exams and procedure reports are released immediately into your electronic medical record. You may view this report before your referring provider. If you have questions, please contact your health care provider. INDICATION: Diffuse abdominal pain TECHNIQUE: CT abdomen and pelvis without contrast. COMPARISON: CT 10/25/2024 FINDINGS: Study limited due to lack of contrast. Lower chest: Unremarkable. Liver: Normal in size and attenuation. No suspicious masses. Gallbladder and bile ducts: Cholecystectomy. Pancreas: Status post Whipple procedure. The pancreas atrophic residual body and tail of the pancreas calcifications within could be seen with chronic pancreatitis. No change. Spleen: Normal in size. No masses. Adrenal glands: Normal in size. No nodules. Kidneys: Nonobstructing right renal calculi. Slight prominence of the right renal pelvis no obstructing stones GI tract: Abundant stool in the colon. Fecalized prominent small bowel loops in the right lower quadrant the abdomen could be related to ileus. No transition point seen. Normal appendix. Vasculature: Abdominal aorta is normal in caliber. Lymph nodes: No lymphadenopathy. Prominent in the Peritoneum/Abdominal Wall: Mild ascites. Hernias Small fat containing inguinal. Mild subcutaneous edema unremarkable. No pelvic masses. Bones: Mild superior endplate compression of L5 which appears new, age indeterminate IMPRESSION: 1. Study limited by lack of contrast. Post Whipple changes appear stable. 2. Mildly prominent fecalized distal small bowel Loops no transition point clearly seen. Findings could be related to ileus. Developing low-grade obstruction not completely excluded. 3. Mild ascites. Mild subcutaneous edema. 4. Minimal superior endplate compression of L5 new from the prior study age indeterminate Please note that all CT scans at this facility use dose modulation, iterative reconstruction, and/or weight-based dosing when appropriate to reduce radiation dose to as low as reasonably achievable. Dictated by Tami Monroe MD @ 03/20/2025 3:20:16 PM (Electronically Signed)
[2025-03-20 15:01] LABS: Chloride* 94 mmol/L (96-114)
[2025-03-20 15:02] LABS: Potassium* 5.1 mmol/L (3.6-5.1)
[2025-03-20 15:04] LABS: Alanine Aminotransferase* 44 U/L (4-35); Anion Gap 7 mEq/L (7-15); Aspartate Amino Transferase* 55 U/L (12-35); Bilirubin Direct* 0.5 mg/dL (0.0-0.5); Bilirubin Total* 0.9 mg/dL (0.1-1.5); Blood Urea Nitrogen* 14 mg/dL (7-30); Calcium* 9.6 mg/dL (8.4-10.6); Carbon Dioxide* 24 mmol/L (20-32); Creatinine* 0.7 mg/dL (0.5-1.5); Estimated Glomerular Filt Rate 99 ml/min; Sodium* 125 mmol/L (135-149); Total Protein* 7.3 g/dL (6.0-8.3)
[2025-03-20 15:05] LABS: Alkaline Phosphatase* 179 U/L (40-150)
[2025-03-20 15:18] VITALS: BP 130/78; PULSE 97; RESP 16; TEMP 37.2; O2SAT 96
[2025-03-20] MEDS: 0.9 % SODIUM CHLORIDE 1000 ml 1,000 ML 1200 ML IV (15:51)
[2025-03-20] MEDS: SENNOSIDES/DOCUSATE TABLET 2 TAB PO (15:58)
[2025-03-20] MEDS: KETOROLAC 30 MG/ML inj IVP (15:58)
[2025-03-20 15:59] LABS: C Reactive Protein* < 0.5 mg/dL (0.5-1.0)
[2025-03-20 16:11] LABS: Lipase* 29 U/L (23-300)
[2025-03-20] MEDS: INSULIN REGULAR, HUMAN 100 UNIT/ML VIAL 12 UNIT IVP (16:29)
[2025-03-20] MEDS: MAGNESIUM HYDROXIDE 30 ML ORAL.SUSP PO (16:41)
[2025-03-20 17:07] VITALS: BP 130/74; PULSE 90; RESP 16; TEMP 37.1; O2SAT 96
[2025-03-20 17:55] LABS: Glucose* 738 mg/dL (60-115)
--- NOTE | 2025-03-20 17:56 | PC.NURSE ---
Lab called and reported final glucose of 738. Pt has already been discharged. Blood Sugar has come down. Physician informed.
== END 2025-03-20 17:22 | disposition home or self-care (01) ==
PROVIDERS: Emergency Provider Family Medicine; PCP Family Medicine
DX: R10.9 Unspecified abdominal pain (principal); K90.81 Whipple's disease; K62.5 Hemorrhage of anus and rectum; R11.0 Nausea; J90 Pleural effusion, not elsewhere classified
CPT/HCPCS: 36415; 74176; 80048; 80076; 81001; 83690; 85025; 85610; 85730; 86140; 96374; 96375; 99284; A9270; J1885; J2405; J7030

== ENCOUNTER 2025-03-28 14:29 | Emergency (ER) | payer MEDICARE, SELFPAY ==
--- OUTSIDE RECORDS SUMMARY | 2025-02-22 10:30 | XMS_ITS | Continuity of Care Document ---
Author Organization [facility] Address [address] [address] [place] [address] Phone Care Team Providers Care Time Clock Repairer Name Role Phone Geovanny Barfield MD Unavailabl e Advance Directives Directive Yes / No Effective Date File Name No Information Encounters Encounter Description Practice Location Reason(s) For Visit Diagnoses Date Provider Providers Copied on Encounter [facility], [address] [address], [place], [place], [id number], [place] tel:[phone] [facility] No Information Oli Small. [address] [facility], [facility] [address], [place], [place], [id number], [place]. tel:[phone] Family History Family Member Type Diagnosis Age At Onset No Information Immunizations Vaccine Date Status Comments tetanus toxoid, reduced diphtheria toxoid, and acellular pertussis vaccine, adsorbed administered Note: [facility] bi-direct ional interface ; Source: Other Registry Payers Payer name Insurance type Covered libertarian ID Authoriza tion(s) No Information Social History Type Description Quantity Date Captured Comments Sex Female Smoking Status No Information Chief Complaint And Reason For Visit No Information Reason For Referral Reason For Referral No Information History Of Present Illness Encounter Date Complaint History Of Prese nt Illness No Information Functional Status Date Functional Assessmen t No Information Instructions Date Instruction Additional Infor mation No Information Assessments Type Assessment Date No Information Patient Care Teams Name Effective Dates (start - stop) Status Members No Information
[2025-03-28] VITALS (13 sets, daily range): BP systolic 111–115; BP diastolic 70–72; PULSE 88–99; RESP 10–18; TEMP 36.6; O2SAT 98–100; BMI 19.7
--- OUTSIDE RECORDS SUMMARY | 2025-03-28 14:35 | XMS_ITS | Encounter Summary ---
Author Organization [facility] Address [address] [place] [address] Care Team Providers Care Cloth Cutting Inspector Name Role Phone Elsewhere, Pcp Primary Care Provider Unavailabl e Encounter Details Date Type Department Care Team (Late st Contact Info) Description 01/19/2025 Clinical Communication Pharmacy Prior Auth [facility] [phone] Franca Wilson Social History Tobacco Use Types Packs/Day Years Used Date Smoking Tobacco: Former Cigarettes Smokeless Tobacco: Never Alcohol Use Standard Drinks/Week Comments Not Currently 0 (1 standard drink = 0.6 oz pur e alcohol) [facility] Utilities Answer Date Recorded In the past 12 months has [facility] [employer], gas, oil, or water [employer] threatened to shut off services in your [...] your living situation today? 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 [address] [place] [phone] 03/31/2025 11:30 AM CDT Comprehensive Visit Department of Cardiovascular Diseases in [address] [phone] Paul Fairbanks M.D. [address] [place] [phone] Discharge Disposition: Home or Self Care 04/22/2025 8:30 AM CDT Telemedicine Department of Endocrinology in [place], [place] [address] [place] [phone] Verito Becker, [facility] [address], [place] [address] Raj Gardner M.D. [address] [place] [phone] 05/28/2025 8:00 AM CDT Clinical Communication Virtual Review in [place], [place] [address] [place] [address] 05/31/2025 4:00 PM CDT Office Visit Division of Gastroenterology in [place], [place] [address] [place] [phone] Ranjan Anderson M.D., M.P.H. [address] [place] [phone] documented as of this encounter Visit Diagnoses Not on filedocumented in this encounter Care Teams Cloth Cutting Inspector Relationship Specialty Start Date End Date Elsewhere, Pcp PCP - General Internal Medicine 01/27/25 documented as of this encounter
--- OUTSIDE RECORDS SUMMARY | 2025-03-28 14:35 | XMS_ITS | Clinical Summary ---
Author Organization [facility] Address [address] [place] [address] Care Team Providers Care Clinical Rehab Specialist Name Role Phone No, Physician Primary Care Provider [phone] Allergies Active Allergy Reactions Criticality Noted Date [...] HMO PPO [employer]HC MEDICARE ADVANTAGE Care Teams Clinical Rehab Specialist Relationship Specialty Start Date End Date No, Physician PCP - General 08/10/24
--- OUTSIDE RECORDS SUMMARY | 2025-03-28 14:35 | XMS_ITS ---
Author Organization [facility] Address [address] [facility] [place] [address] Care Team Providers Care Machine Ironer Name Role Phone Annia Walker DO Primary Care Provider Yoly Michelle MD Unavailable Sofi Josue MD Unavailable Shaista Rivero MD Unavailable [phone] Jamal Liriano MD Unavailable Sagar Whaley MD Unavailable [phone] Active Problems Problem Noted Date Diagnosed [...]
--- OUTSIDE RECORDS SUMMARY | 2025-03-28 14:35 | XMS_ITS | Clinical Summary ---
Author Organization [facility] Address [address] [place] [address] Care Team Providers Care Mathematics Technician Name Role Phone Elsewhere, Pcp Primary Care Provider Unavailabl e Source Comments Patient records contain information from all sites at [facility]. For routine questions regarding patient records, call [phone] during business hours, M-F 8:00 AM - 5:00 PM Central Time. Record requests for emergency care only can be directed to [phone] at any time.[facility] Allergies Active Allergy Reactions Criticality Noted Date [...] mcg total) by mouth daily. 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 Appt Request 01/20/2025 Clinical Communication Division of [facility], [facility], in [place], [place] [address] [place] [address] Katiana Carson M.D. Rx Prior Authorization (LIDOCAINE PATCH ) 01/20/2025 Orders Only Pharmacy Prior Auth [id number] Rachel Machuca 01/20/2025 Remote Monitoring Remote Patient Monitoring [facility] [address] [place] [address] Shannon Cadena Remote Patient Monitoring (Direct connect; Patient Decline) 01/19/2025 Clinical Communication [facility] [address] [place] [address] Katiana Carson M.D. Appt Request 01/19/2025 Clinical Communication Pharmacy Prior Auth PAIGE [id number] Franca Wilson 01/14/2025 Clinical Communication [facility] [address] [place] [phone] Katiana Carson M.D. Appt Request (Med 3) 01/06/2025 Clinical Communication Division of Gastroenterology in [place], [place] [address] [place] [address] Ranjan Anderson M.D., M.P.H. 12/31/2024 12:20 PM SAUSAGE WRAPPER Ancillary Procedure Department of Internal Medicine 12/31/2024 12:15 PM SAUSAGE WRAPPER Ancillary Procedure Department of Internal Medicine 12/31/2024 10:46 AM SAUSAGE WRAPPER Anesthesia Event Division of Gastroenterology in [place], [place] [address] [place] [phone] Jojo Bob APRN, CRNA 12/31/2024 10:05 AM SAUSAGE WRAPPER Ancillary Procedure Department of Gastroenterology 12/30/2024 12:10 PM SAUSAGE WRAPPER Ancillary Procedure Department of Internal Medicine 12/30/2024 9:20 AM SAUSAGE WRAPPER Ancillary Procedure Department of Internal Medicine 12/29/2024 3:20 PM SAUSAGE WRAPPER Ancillary Procedure Department of Emergency Medicine 12/29/2024 12:16 PM SAUSAGE WRAPPER - 01/19/2025 1:44 PM CDT Hospital Encounter [facility], [facility], Third Floor [address] [place] [phone] Julia Chan P.A.-C. Earlene Sheridan M.D., M.S. Radha Temple M.D. Michael Patel M.D. Colbenson, Gretchen A, M.D. Issa, Meltiady, M.D., M.B.A. Abdominal Pain (Primary Dx); Ascites; Weakness General; Decline Functional Status; Diabetes Mellitus Type 2 (HCC); Abnormal Liver Function Test; Other Cirrhosis Of Liver (HCC); Anasarca; Whipple Procedure Status Post; Cardiomyopathy Stress Induced Discharge Disposition: Home-Health Care [facility] from Last 3 Months Social History Tobacco Use Types Packs/Day Years Used Date Smoking Tobacco: Former Cigarettes Smokeless Tobacco: Never Alcohol Use Standard Drinks/Week Comments Not Currently 0 (1 standard drink = 0.6 oz pur e alcohol) [facility] Utilities Answer Date Recorded In the past 12 months has e electric, gas, oil, or water company [...] your living situation today? I have a [facility] place to live 12/30/2024 Comments Unknown Sex and Gender Information Value Date Recorded Sex Assigned at Not on file Legal Sex Female 2:54 PM SAUSAGE WRAPPER Gender Identity Not on file Sexual Orientation [...] 162.6 cm (5' 4) 12/29/2024 10:04 PM SAUSAGE WRAPPER Body Mass Index 21 12/29/2024 10:04 PM SAUSAGE WRAPPER Plan of Treatment Upcoming Encounters Date Type Department Care Team (Latest Contact Info) Description 03/31/2025 11:00 AM CDT Appointment Department of Laboratory Medicine in [address] [phone] Katiana Carson M.D. [address] [place] [phone] 03/31/2025 11:30 AM CDT Comprehensive Visit Department of Cardiovascular Diseases in [address] [phone] Paul Fairbanks M.D. [address] [place] [phone] Discharge Disposition: Home or Self Care 04/22/2025 8:30 AM CDT Telemedicine Department of Endocrinology in [place], [place] [address] [place] [phone] Verito Becker, [facility] [address] [phone] Raj Gardner M.D. [address] [place] [phone] 05/28/2025 8:00 AM CDT Clinical Communication Virtual Review in [place], [place] [address] [place] [phone] 05/31/2025 4:00 PM CDT Office Visit Division of Gastroenterology in [place], [place] [address] [place] [address] Ranjan Anderson M.D., M.P.H. [address] [place] [address] Health Maintenance Due Date Last Done Comments [...] of 2 - PCV) 1983 COVID-19 Vaccine (4 - season) 2024 06/24/2023, 04/12/2021, 03/18/2021 Hepatitis [...] all outpatients) 01/05/2025 12:10 PM CDT CYTOLOGY NON-QUICK MIXER OPERATOR Timed 01/05/2025 11:42 AM CDT ALBUMIN, BODY [...] CDT RENAL FUNCTION PANEL, S Timed 01/05/20 25 4:24 PM CDT GLUCOSE POCT, B Routine [...] CDT RENAL FUNCTION PANEL, S Routine 01/04/20 8:29 AM CDT MAGNESIUM, S Routine 01/03/2025 8:23 AM CDT GLUCOSE POCT, B Routine 01/03/2025 7:45 AM CDT HEMOGLOBIN, B Timed 01/03/2025 4:59 AM CDT HEMATOCRIT, B Timed 01/03/2025 4:59 AM CDT PROTHROMBIN TIME (PT), P Routine 025 4:59 AM CDT TRANSFUSE RED BLOOD CELLS Routine 2024 11:58 PM SAUSAGE WRAPPER GLUCOSE POCT, B Routine 01/02/2025 11:05 PM SAUSAGE WRAPPER CBC WITHOUT DIFFERENTIAL, B Timed 01/02/2025 9:11 PM SAUSAGE WRAPPER GLUCOSE POCT, B Routine 01/02/2025 5:48 PM SAUSAGE WRAPPER MORPHOLOGY EVAL (SPECIAL SMEAR) STAT 01/02/2025 5:38 PM SAUSAGE WRAPPER BASIC METABOLIC PANEL, S/P STAT 01/02/2025 5:38 PM SAUSAGE WRAPPER HEPATIC FUNCTION PANEL, S STAT 2024 5:38 PM SAUSAGE WRAPPER RETICULOCYTE PROFILE, B STAT 01/03/20 25 5:38 PM SAUSAGE WRAPPER LACTATE DEHYDROGENASE (LD), S STAT 01/02/2025 5:38 PM SAUSAGE WRAPPER ACTIVATED PARTIAL THROMBOPLASTIN TIME (APTT), P STAT 01/02/2025 5:38 PM SAUSAGE WRAPPER FIBRINOGEN, P STAT 01/02/2025 5:38 PM SAUSAGE WRAPPER PROTHROMBIN TIME (PT), P STAT 025 5:38 PM SAUSAGE WRAPPER CBC WITH DIFFERENTIAL, B STAT 025 5:38 PM SAUSAGE WRAPPER HAPTOGLOBIN, S STAT 01/02/2025 5:38 PM SAUSAGE WRAPPER HEMATOCRIT, B Timed 01/02/2025 4:05 PM SAUSAGE WRAPPER HEMOGLOBIN, B Timed 01/02/2025 4:[address] ABDOMEN PELVIS WITHOUT AND WITH IV CONTRAST RAD - Semiurgent (Fast; most ED patients; some inpatients) 01/02/2025 3:10 PM SAUSAGE WRAPPER GLUCOSE POCT, B Routine 01/02/2025 1:41 PM SAUSAGE WRAPPER HEMATOCRIT, B Timed 01/02/2025 1:04 PM SAUSAGE WRAPPER HEMOGLOBIN, B Timed 01/02/2025 1:04 PM SAUSAGE WRAPPER GLUCOSE POCT, B Routine 01/02/2025 12:45 PM SAUSAGE WRAPPER SODIUM, RANDOM, U Timed 01/02/2025 10:15 AM SAUSAGE WRAPPER GLUCOSE POCT, B Routine 01/02/2025 10:12 AM SAUSAGE WRAPPER GLUCOSE POCT, B Routine 01/02/2025 8:37 AM SAUSAGE WRAPPER PROTHROMBIN TIME (PT), P Routine 025 6:07 AM SAUSAGE WRAPPER CBC WITH DIFFERENTIAL, B Routine 025 6:07 AM SAUSAGE WRAPPER COMPREHENSIVE METABOLIC PANEL, S/P Routine 01/02/2025 6:07 AM SAUSAGE WRAPPER PREPARE RED BLOOD CELLS STAT 01/03/20 6:02 AM SAUSAGE WRAPPER TYPE AND SCREEN Routine 01/02/2025 6:02 AM SAUSAGE WRAPPER GLUCOSE POCT, B Routine 01/01/2025 11:29 PM SAUSAGE WRAPPER GLUCOSE POCT, B Routine 01/01/2025 5:40 PM SAUSAGE WRAPPER GLUCOSE POCT, B Routine 01/01/2025 12:17 PM SAUSAGE WRAPPER SPSMA RESULT Timed 01/01/2025 11:50 AM SAUSAGE WRAPPER GLUCOSE POCT, B Routine 01/01/2025 9:30 AM SAUSAGE WRAPPER GLUCOSE POCT, B Routine 01/01/2025 8:59 AM SAUSAGE WRAPPER GLUCOSE POCT, B Routine 01/01/2025 7:46 AM SAUSAGE WRAPPER CBC WITH DIFFERENTIAL, B Routine 025 6:37 AM SAUSAGE WRAPPER MAGNESIUM, S Routine 01/01/2025 6:37 AM SAUSAGE WRAPPER RENAL FUNCTION PANEL, S Routine 01/02/20 25 6:37 AM SAUSAGE WRAPPER PROTHROMBIN TIME (PT), P Routine 025 6:37 AM SAUSAGE WRAPPER CYSTATIN C WITH EGFR Routine 01/01/2025 6:31 AM SAUSAGE WRAPPER GLUCOSE POCT, B Routine 12/31/2024 8:55 PM SAUSAGE WRAPPER MAGNESIUM, S Timed 12/31/2024 5:31 PM SAUSAGE WRAPPER RENAL FUNCTION PANEL, S Timed 01/01/20 25 5:31 PM SAUSAGE WRAPPER GLUCOSE POCT, B Routine 12/31/2024 4:53 PM SAUSAGE WRAPPER IR TRANSJUGULAR LIVER BIOPSY RAD - Routine (most inpatients and all outpatients) 12/31/2024 3:58 PM SAUSAGE WRAPPER IR TRANSJUGULAR HEPATIC VENOGRAM WITH PRESSURES RAD - Routine (most inpatients and all outpatients) 12/31/2024 3:58 PM SAUSAGE WRAPPER SURGICAL PATHOLOGY Routine 12/31/2024 3:37 PM SAUSAGE WRAPPER Abdominal Pain Ascites Weakness General Decline Functional Status Diabetes Mellitus Type 2 (HCC) Abnormal Liver Function Test Other Cirrhosis Of Liver (HCC) Anasarca GLUCOSE POCT, B Routine 12/31/2024 2:40 PM SAUSAGE WRAPPER GLUCOSE POCT, B Routine 12/31/2024 2:21 PM SAUSAGE WRAPPER CREATININE, RANDOM, U Routine 12/31/2024 1:30 PM SAUSAGE WRAPPER SODIUM, RANDOM, U Routine 12/31/2024 1:30 PM SAUSAGE WRAPPER GLUCOSE POCT, B Routine 12/31/2024 12:33 PM SAUSAGE WRAPPER INTERNAL MEDICINE IMAGE EXAM Routine 12/31/2024 12:14 PM SAUSAGE WRAPPER INTERNAL MEDICINE IMAGE EXAM Routine 12/31/2024 12:13 PM SAUSAGE WRAPPER GLUCOSE POCT, B Routine 12/31/2024 11:49 AM SAUSAGE WRAPPER SURGICAL PATHOLOGY Routine 12/31/2024 10:59 AM SAUSAGE WRAPPER GASTROENTEROLOGY IMAGE EXAM Routine 12/31/2024 10:05 AM SAUSAGE WRAPPER UPPER GI ENDOSCOPY Routine 12/31/2024 10:03 AM SAUSAGE WRAPPER EGD (ESOPHAGOGASTRODUODENOSCO PY) Routine 12/31/2024 10:03 AM SAUSAGE WRAPPER GLUCOSE POCT, B Routine 12/31/2024 8:57 AM SAUSAGE WRAPPER RENAL FUNCTION PANEL, S Routine 01/01/20 25 7:28 AM SAUSAGE WRAPPER PROTHROMBIN TIME (PT), P Routine 025 7:28 AM SAUSAGE WRAPPER ASCORBIC ACID (VITAMIN C), P Routine 12/31/2024 7:28 AM SAUSAGE WRAPPER THIAMIN (VITAMIN B1), B Routine 01/01/20 25 7:28 AM SAUSAGE WRAPPER PYRIDOXAL 5-PHOSPHATE (PLP), P Routine 12/31/2024 7:28 AM SAUSAGE WRAPPER SELENIUM, S Routine 12/31/2024 7:28 AM SAUSAGE WRAPPER VITAMIN A AND VITAMIN E, S Routine 12/31/2024 7:28 AM SAUSAGE WRAPPER PHOSPHATIDYLETHANOL CONFIRMATION, B Routine 12/31/2024 7:28 AM SAUSAGE WRAPPER CBC WITHOUT DIFFERENTIAL, B Routine 12/31/2024 7:28 AM SAUSAGE WRAPPER GLUCOSE POCT, B Routine 12/31/2024 7:25 AM SAUSAGE WRAPPER CYSTATIN C WITH EGFR Routine 12/31/2024 7:09 AM SAUSAGE WRAPPER LACTATE FOR SEPSIS WITH REFLEX STAT 12/31/2024 12:56 AM SAUSAGE WRAPPER GLUCOSE POCT, B Routine 12/30/2024 9:13 PM SAUSAGE WRAPPER PANCREATIC ELASTASE,F Routine 12/30/2024 7:11 PM SAUSAGE WRAPPER GLUCOSE POCT, B Routine 12/30/2024 5:10 PM SAUSAGE WRAPPER (TTE) 2D ECHO DOPPLER COLOR AND CONTRAST Routine 12/30/2024 4:59 PM SAUSAGE WRAPPER MAGNESIUM, S Routine 12/30/2024 4:23 PM SAUSAGE WRAPPER RENAL FUNCTION PANEL, S Timed 12/31/19 4:23 PM SAUSAGE WRAPPER PHOSPHORUS (INORGANIC), S Routine 2024 2:49 PM SAUSAGE WRAPPER BASIC METABOLIC PANEL, S/P Timed 12/30/2024 2:49 PM SAUSAGE WRAPPER GLUCOSE POCT, B Routine 12/30/2024 12:28 PM SAUSAGE WRAPPER INTERNAL MEDICINE IMAGE EXAM Routine 12/30/2024 12:10 PM SAUSAGE WRAPPER GLUCOSE POCT, B Routine 12/30/2024 12:02 PM SAUSAGE WRAPPER GLUCOSE POCT, B Routine 12/30/2024 11:42 AM SAUSAGE WRAPPER US KIDNEYS WITH RENAL ARTERY DOPPLER RAD - Routine (most inpatients and all outpatients) 12/30/2024 10:16 AM SAUSAGE WRAPPER DIPSTICK, U Routine 12/30/2024 10:03 AM SAUSAGE WRAPPER PH, U Routine 12/30/2024 10:03 AM SAUSAGE WRAPPER MICROSCOPIC AUTOMATED Routine 12/30/2024 10:03 AM SAUSAGE WRAPPER OSMOLALITY, U Routine 12/30/2024 10:03 AM SAUSAGE WRAPPER CREATININE, RANDOM, U Routine 12/30/2024 10:03 AM SAUSAGE WRAPPER SODIUM, RANDOM, U Routine 12/30/2024 10:03 AM SAUSAGE WRAPPER URINALYSIS WITH MICROSCOPIC Routine 12/30/2024 10:03 AM SAUSAGE WRAPPER PROTEIN/CREATININE RATIO, RANDOM, URINE Routine 12/30/2024 9:25 AM SAUSAGE WRAPPER INTERNAL MEDICINE IMAGE EXAM Routine 12/30/2024 9:19 AM SAUSAGE WRAPPER ECG Routine 12/30/2024 7:38 AM SAUSAGE WRAPPER GLUCOSE POCT, B Routine 12/30/2024 7:23 AM SAUSAGE WRAPPER LACTATE, B/P Timed 12/30/2024 4:48 AM SAUSAGE WRAPPER MAGNESIUM, S Routine 12/30/2024 4:48 AM SAUSAGE WRAPPER COPPER, S Routine 12/30/2024 4:48 AM SAUSAGE WRAPPER ZINC, S Routine 12/30/2024 4:48 AM SAUSAGE WRAPPER 25-HYDROXYVITAMIN D2 AND D3, S Routine 12/30/2024 4:48 AM SAUSAGE WRAPPER VITAMIN B12 ASSAY, S Routine 12/30/2024 4:48 AM SAUSAGE WRAPPER FOLATE, S Routine 12/30/2024 4:48 AM SAUSAGE WRAPPER HEMOGLOBIN A1C, B Routine 12/30/2024 4:48 AM SAUSAGE WRAPPER CALCIUM, IONIZED, S/B Routine 12/30/2024 4:48 AM SAUSAGE WRAPPER CYSTATIN C WITH EGFR Routine 12/30/2024 4:48 AM SAUSAGE WRAPPER COMPREHENSIVE METABOLIC PANEL, S/P Routine 12/30/2024 4:48 AM SAUSAGE WRAPPER HEPATIC FUNCTION PANEL, S Timed 2024 4:48 AM SAUSAGE WRAPPER LACTATE, B/P Timed 12/30/2024 4:48 AM SAUSAGE WRAPPER CBC WITHOUT DIFFERENTIAL, B Timed 12/30/2024 4:48 AM SAUSAGE WRAPPER GLUCOSE POCT, B Routine 12/30/2024 1:47 AM SAUSAGE WRAPPER DX CHEST PORTABLE 1 VIEW RAD - Routine (most inpatients and all outpatients) 12/29/2024 10:54 PM SAUSAGE WRAPPER BACTERIA / EUSEBIA CULTURE, BLOOD STAT 12/29/2024 10:51 PM SAUSAGE WRAPPER LACTATE FOR SEPSIS WITH REFLEX STAT 12/29/2024 10:39 PM SAUSAGE WRAPPER BACTERIA / EUSEBIA CULTURE, BLOOD STAT 12/29/2024 10:39 PM SAUSAGE WRAPPER GLUCOSE POCT, B Routine 12/29/2024 9:48 PM SAUSAGE WRAPPER GLUCOSE POCT, B Routine 12/29/2024 9:[address] ABDOMEN PELVIS WITH IV CONTRAST RAD - Semiurgent (Fast; most ED patients; some inpatients) 12/29/2024 5:24 PM SAUSAGE WRAPPER BILIRUBIN DIRECT, S/P STAT 12/29/2024 4:37 PM SAUSAGE WRAPPER ALKALINE PHOSPHATASE, S/P STAT 2024 4:37 PM SAUSAGE WRAPPER ASPARTATE AMINOTRANSFERASE (AST), S/P STAT 12/29/2024 4:37 PM SAUSAGE WRAPPER MAGNESIUM, S STAT 12/29/2024 4:37 PM SAUSAGE WRAPPER POTASSIUM, S/P STAT 12/29/2024 4:37 PM SAUSAGE WRAPPER LACTATE, B/P Timed 12/29/2024 4:37 PM SAUSAGE WRAPPER CELL COUNT AND DIFFERENTIAL, BF STAT 12/29/2024 4:25 PM SAUSAGE WRAPPER PARACENTESIS Routine 12/29/2024 3:58 PM SAUSAGE WRAPPER EMERGENCY MEDICINE IMAGE EXAM Routine 12/29/2024 3:20 PM SAUSAGE WRAPPER GLUCOSE POCT, B STAT 12/29/2024 2:59 PM SAUSAGE WRAPPER CBC WITH DIFFERENTIAL, B STAT 025 2:38 PM SAUSAGE WRAPPER HC URINALYSIS AUTO WO MICRO Routine 12/29/2024 2:34 PM SAUSAGE WRAPPER MICROSCOPIC MANUAL STAT 12/29/2024 2:28 PM SAUSAGE WRAPPER DIPSTICK, U STAT 12/29/2024 2:28 PM SAUSAGE WRAPPER OSMOLALITY, U STAT 12/29/2024 2:28 PM SAUSAGE WRAPPER PH, U STAT 12/29/2024 2:28 PM SAUSAGE WRAPPER URINALYSIS WITH MICROSCOPIC STAT 12/29/2024 2:28 PM SAUSAGE WRAPPER BACTERIAL CULTURE, AEROBIC + SUSC, URINE STAT 12/29/2024 2:28 PM SAUSAGE WRAPPER PATIENT STATUS STAT 12/29/2024 1:27 PM SAUSAGE WRAPPER VENOUS BLOOD GAS W/O COOX STAT 2024 1:27 PM SAUSAGE WRAPPER LACTATE FOR SEPSIS WITH REFLEX, POCT STAT 12/29/2024 1:25 PM SAUSAGE WRAPPER NT-PRO B-TYPE NATRIURETIC PEPTIDE (BNP), S STAT 12/29/2024 1:25 PM SAUSAGE WRAPPER TYPE AND SCREEN STAT 12/29/2024 1:23 PM SAUSAGE WRAPPER PROTHROMBIN TIME (PT), P STAT 025 1:23 PM SAUSAGE WRAPPER THYROID-STIMULATING HORMONE-SENSITIVE (S-TSH) STAT 12/29/2024 1:23 PM SAUSAGE WRAPPER HEPATIC FUNCTION PANEL, S STAT 2024 1:23 PM SAUSAGE WRAPPER BASIC METABOLIC PANEL, S/P STAT 12/29/2024 1:23 PM SAUSAGE WRAPPER from Last 3 Months Results * (ABNORMAL) [...] LAB POCT ORDERABLES-MANUAL Carol l Result POC [facility] [address] [place] [address], [place] PCLX [facility] [place] POC [address] [place] [address] * (TTE) 2D ECHO DOPPLER COLOR AND CONTRAST (01/18/2025 9:13 AM CDT) Ejection Fraction 57 MC CV EIMS Wall [...] per Echocardiography Contrast Administration Protocol Reference Document [id number] Rev 02/08/2022. Patient met an inclusion criterion [...] administered per Echocardiography Contrast Administration ProtocolReference Document [id number] Rev 02/08/2022. Patient met an inclusioncriterion and [...] M.D. LAB BLOOD ADD-ON Final Re sult [facility] [address] [place] [address], [facility] DTFormerly named [facility] [address] [place] [address] * (ABNORMAL) CBC with Differential, Blood (01/18/2025 [...] 6:54 AM CDT 01/18/2025 7:37 AM CDT us Kieran Glez M.D. LAB BLOOD ADD-ON Final Re sult [facility] [address] [place] [address], [facility] DTL [facility] [address] [place], [place] [phone] [place] [address] [address] [place] [address] * (ABNORMAL) Basic Metabolic Panel (01/18/2025 6:54 AM CDT) Only the most recent of8 resultswithin the time period is included. Pathologist [facility] Potassium, S 4.4 3.6 - 5.2 [...] M.B.A. LAB BLOOD ADD-ON Carol l Result [facility] [address] [place] [address], [facility] [address] [place] [address] * ECG 12 Lead (01/16/2025 12:00 PM CDT) Only the most recent of2 resultswithin the time period is included. Ventricular Rate ECG/Min 93 BPM MUSE NV Interval 158 ms MUSE QRSD Interval 86 ms MUSE QT Interval 346 ms MUSE QTC Interval 430 ms MUSE P [place] 71 degrees MUSE R [place] 34 degrees MUSE T Wave [place] 75 degrees MUSE 01/16/2025 12:0 0 PM [...] 7:47 AM CDT 01/15/2025 8:50 AM CDT us Kieran Glez M.D. LAB BLOOD ADD-ON Final Re sult Performing Organization Address City/[facility] Co de Phone Number [facility] [address] [place] [address], [facility] DTFormerly named [facility] [address] [place] [address] * Zinc (01/14/2025 11:13 AM CDT) Only the most recent of2 resultswithin the time period is included. Zinc, S 64 60 - 106 mcg/dL 01/14/2025 6:17 PM CDT [facility] Comment: ----ADDITIONAL INFORMATION---- This test was developed and its performance characteristics determined by [facility] in a manner consistent with CLIA requirements. This test has not been cleared or approved by the U.S. Food and Drug Administration. Blood (Blood, Venous) 01/14/2025 11:13 AM CDT 01/14/2025 2:48 PM CDT us Violet Kang M.D. LAB BLOOD NON ADD-ON Final Result Performing Organization Address [facility] Co de Phone Number [facility] [address] [place] [address] [facility] [address] [place] [address] [place] [address] * Phosphorus Inorganic (01/14/2025 11:13 AM CDT) Only the most recent of2 resultswithin the time period is included. Pathologist [facility] Phosphorus (Inorganic), S 3.2 2.5 - 4.5 mg/dL 01/14/2025 12:25 PM CDT DTL Blood (Blood, Venous) 01/14/2025 11:13 AM CDT 01/14/2025 12:04 PM CDT us Violet Kang M.D. LAB BLOOD ADD-ON Final Resu lt Performing Organization Address [facility] Co de Phone Number [facility] [address] [place] [address], [facility] DTFormerly named [facility] [address] [place] [address] * Magnesium (01/14/2025 11:13 AM CDT) Only the most recent of15 resultswithin the time period is included. Magnesium, S 1.9 1.7 - 2.3 mg/dL 01/14/2025 12:25 PM CDT DTL Blood (Blood, Venous) 01/14/2025 11:13 AM CDT 01/14/2025 12:04 PM CDT us Violet Kang M.D. LAB BLOOD ADD-ON Final Resu lt [facility] [address] [place] [address], [facility] DTFormerly named [facility] [address] [place] [address] * DX Abdomen 1 View (01/12/2025 9:49 [...] us Kieran Glez M.D. IMG DIAGNOSTIC IMAGING NV OCEDURES Final Result * (ABNORMAL) Comprehensive Metabolic Panel (01/08/2025 7:38 AM CDT) Only the most recent of3 resultswithin the time period is included. Potassium, S 4.2 3.6 - 5.2 mmol/L [...] M.D. LAB BLOOD ADD-ON Final Resul t [facility] [address] [place] [address], [place] DTL [facility] [address] [place] [address] * US Paracentesis with Imaging Guidance (01/05/2025 [...] paracentesis (aspirated volume of 2118 cc). CP Kieran Glez M.D. IMG US PROCEDURES Final R esult * Cytology Non-QUICK MIXER OPERATOR (01/05/2025 11:42 AM CDT) 01/06/2025 4:09 PM CDT DTL Report electronically signed by Kisha Galloway M.D. I verify that I have examined all [...] PATH ORDERABLES Final Result Performing Organization Address [facility] de Phone Number [facility] [address] [place] [address], [facility] 200 [facility] [address] [place] [address] * Protein, Total, Body Fluid (01/05/2025 11:42 AM CDT) Protein, Total, BF 1.0 See Comment g/dL 01/05/2025 12:54 PM CDT DTL Comment: ----ADDITIONAL INFORMATION---- A pleural fluid total [...] clinical findings. All other fluids refer to [email or web address] for further interpretive information. This test has been modified from the microsoft bi consultant's instructions. Its performance characteristics were determined by [facility] in a manner consistent with CLIA requirements. This test has not been cleared or approved by the U.S. Food and Drug Administration. Fluid Type, Protein, Total Fluid, Peritoneal Fluid 01/05/2025 12:15 PM CDT DTL Fluid (Peritoneal Fluid) 01/05/2025 11:42 AM CDT Kieran Glez M.D. LAB BODY FLUIDS AND STOOL S ORDERABLES Final Result Performing Organization Address [facility] Co de Phone Number [facility] [address] [place] [address], [facility] DTFormerly named [facility] [address] [place] [address] * Cell Count and Differential, Body Fluid [...] This test has been modified from the microsoft bi consultant's instructions. Its performance characteristics were determined by [facility] in a manner consistent with CLIA requirements. [...] y ordered, see separate report. Reviewed by: Heather 01/05/2025 2:10 PM CDT [facility] Fluid (Peritoneal Fluid) 01/05/2025 11:42 AM CDT us Kieran Glez M.D. LAB BODY FLUIDS AND STOOL S ORDERABLES Final Result [facility] [address] [place] [address], [facility] [address] [place] [address] * Albumin, Body Fluid (01/05/2025 11:42 AM CDT) Albumin BF 1.0 See Comment g/dL 01/06/2025 7:01 PM CDT [facility] Comment: ----ADDITIONAL INFORMATION---- Peritoneal fluid albumin is used to calculate the serum-ascites albumin gradient (SAAG). Values greater than or equal to 1.1 g/dL suggest portal hypertension. Pleural fluid albumin may be used to calculate a serum-effusion albumin gradient. Values greater than 1.2 g/dL are most consistent with a transudative process. All other fluids refer to [email or web address] for further interpretive information. This test has been modified from the microsoft bi consultant's instructions. Its performance characteristics were determined by [facility] in a manner consistent with CLIA requirements. This test has not been cleared or approved by the U.S. Food and Drug Administration. Fluid Type, Albumin PERITONEAL 01/06/2025 6:49 PM CDT [facility] Fluid (Peritoneal Fluid) 01/05/2025 11:42 AM CDT 01/06/2025 6:48 PM CDT Michael Patel M.D. LAB BODY FLUIDS AND STOOLS O RDERABLES Final Result Performing Organization Address [facility]/ZIP Co de Phone Number [facility] [address] [place] [address], [facility] [address] [place] [address] * (ABNORMAL) Prealbumin (PAB) (01/05/2025 4:10 AM CDT) Prealbumin (PAB), S 4(L) 19 - 38 mg/dL 01/05/2025 10:56 AM CDT [facility] Blood (Blood, Venous) 01/05/2025 4:10 AM CDT 01/05/2025 7:41 AM CDT Kieran Glez M.D. LAB BLOOD ADD-ON Final Re sult [facility] [address] [place] [address] [facility] [address] [place] [address] * (ABNORMAL) Prothrombin Time (PT) (01/04/2025 4:43 [...] 4:43 AM CDT 01/04/2025 5:31 AM CDT Lin Garrido M.D. LAB BLOOD ADD-ON Final Res ult Performing Organization Address City/[facility]/ZIP Co de Phone Number [facility] [address] DTL [facility] [address] [place] [address] * (ABNORMAL) Iron and Total Iron-Binding Capacity (01/03/2025 8:29 AM CDT) Pathologist [facility] Iron 42 35 - 145 mcg/dL 01/03/2025 9:40 AM CDT DTL Total Iron Binding Capacity 38(L) 250 - 400 mcg/dL 01/03/2025 9:40 AM CDT DTL Percent Saturation >90(H) 14 - 50 % 01/03/2025 9:40 AM CDT DTL Blood (Blood, Venous) 01/03/2025 8:29 AM CDT 01/03/2025 9:14 AM CDT Lizbeth Whittaker M.D. LAB BLOOD ADD-ON Final Result Performing Organization Address City/[facility]/ZIP Co de Phone Number [facility] [address] DTL [facility] [address] [place] [address] * (ABNORMAL) CBC without Differential (01/03/2025 8:29 [...] 8:29 AM CDT 01/03/2025 9:03 AM CDT us Lizbeth Whittaker M.D. LAB BLOOD ADD-ON Final Result [facility] [address] [place] [address], [facility] DTFormerly named [facility] [address] [place] [address] * Ferritin (01/03/2025 8:29 AM CDT) Pathologist [facility] Ferritin, S 212 11 - 328 mcg/L 01/03/2025 9:40 AM CDT DTL Blood (Blood, Venous) 01/03/2025 8:29 AM CDT 01/03/2025 9:14 AM CDT us Lizbeth Whittaker M.D. LAB BLOOD ADD-ON Final Result Performing Organization Address City/[facility]/ZIP Co de Phone Number [facility] [address] [place] [address] * (ABNORMAL) Hemoglobin (01/03/2025 4:59 AM CDT) Only the most recent of3 resultswithin the time period is included. Hemoglobin 9.6(L) 11.6 - 15.0 g/dL 01/03/2025 5:54 AM CDT DTL Blood (Blood, Venous) 01/03/2025 4:59 AM CDT 01/03/2025 5:37 AM CDT us Violet Kang M.D. LAB BLOOD ADD-ON Final Resu lt Performing Organization Address [facility] Co de Phone Number [facility] [address] [place] [address] * (ABNORMAL) Hematocrit (01/03/2025 4:59 AM CDT) Only the most recent of3 resultswithin the time period is included. Hematocrit 27.0(L) 35.5 - 44.9 % 01/03/2025 5:54 AM CDT DTL Blood (Blood, Venous) 01/03/2025 4:59 AM CDT 01/03/2025 5:37 AM CDT us Violet Kang M.D. LAB BLOOD ADD-ON Final Resu lt Performing Organization Address City/[facility]/ZIP Co de Phone Number [facility] [address] [place] [address] * Transfuse Red Blood Cells : (01/03/2025 4:28 AM CDT) us Violet Kang M.D. BLOOD TRANSFUSION ORDERABLE S Final Result * (ABNORMAL) Reticulocyte Profile (01/02/2025 5:38 PM SAUSAGE WRAPPER) Pathologist [facility] Reticulocytes, B 2.32 0.60 - 2.71 % 01/02/2025 6:23 PM SAUSAGE WRAPPER DTL Absolute Reticulocyte 55.7 30.4 - 110.9 x10(9)/L 01/02/2025 6:23 PM SAUSAGE WRAPPER DTL Immature Reticulocyte Fraction 17.3(H) 3.0 - 15.9 % 01/02/2025 6:23 PM SAUSAGE WRAPPER DTL Reticulocyte Hemoglobin 37.0 30.0 - 37.6 pg 01/02/2025 6:23 PM SAUSAGE WRAPPER DTL Erythrocytes 2.43(L) 3.92 - 5.13 x10(12)/L 01/02/2025 5:46 PM [facility] Blood (Blood, Venous) 01/02/2025 5:38 PM SAUSAGE WRAPPER 01/02/2025 6:13 PM SAUSAGE WRAPPER Narrative [facility] - 01/02/2025 6:23 PM SAUSAGE WRAPPER Specimen Information: Specimen ID: [id number] Specimen Type: Blood Specimen Collection Start Date: 01/02/2025 5:38 PM Specimen Received Date: 01/02/2025 6:13 PM Specimen ID: [id number] Specimen Type: Blood Specimen Collection Start Date: 01/02/2025 5:38 PM Specimen Received Date: 01/02/2025 5:44 PM Lizbeth Whittaker M.D. LAB BLOOD ADD-ON Final Result [facility] [address] [place] [address], [facility] DTL [facility] [address] [place] [address] STMA [facility] [address] [place] [address] * Morphology Evaluation (Special Smear) (01/02/2025 5:38 PM SAUSAGE WRAPPER) Pathologist [facility] Neutrophilic Segs and Bands 70 50 - 75 % 01/02/2025 6:42 PM SAUSAGE WRAPPER [facility] Lymphocytes 21 18 - 42 % 01/02/2025 6:42 PM SAUSAGE WRAPPER [facility] Monocytes 8 2 - 11 % 01/02/2025 6:42 PM SAUSAGE WRAPPER [facility] Eosinophils 1 1 - 3 % 01/02/2025 6:42 PM SAUSAGE WRAPPER [facility] Manual Absolute Neutrophil Count 3.29 1.56 - 6.45 x10(9)/L 01/02/2025 6:42 PM SAUSAGE WRAPPER [facility]PM Comment: ----ADDITIONAL INFORMATION---- The manual absolute neutrophil count is derived from a manual differential count and therefore is not exactly comparable to the automated absolute neutrophil count. Interpretation See Comment 6:42 PM SAUSAGE WRAPPER DHPM Comment: No morphologic features of hemolysis are seen. No schistocytes are seen. No platelet clumping. Reviewed by: Heather 01/02/2025 6:42 PM SAUSAGE WRAPPER [facility] Blood 01/02/2025 5:38 PM SAUSAGE WRAPPER 01/02/2025 5:44 PM SAUSAGE WRAPPER us Lizbeth Whittaker M.D. LAB PATHOLOGY/CYTOLOGY ORDERABLES Final Result Performing Organization Address City/[facility]/ZIP Co de Phone Number [facility] [address] [place] [address] * (ABNORMAL) APTT (Activated Partial Thromboplastin Time) (01/02/2025 5:38 PM SAUSAGE WRAPPER) Activated Partial Thrombopl Time, P 51(H) 25 - 37 sec 01/02/2025 5:56 PM SAUSAGE WRAPPER STMA Blood (Blood, Venous) 01/02/2025 5:38 PM SAUSAGE WRAPPER 01/02/2025 5:44 PM SAUSAGE WRAPPER us Lizbeth Whittaker M.D. LAB BLOOD ADD-ON Final Result Performing Organization Address City/[facility]/ZIP Co de Phone Number [facility] [address] [place] [address], [facility] STMA [facility] [address] [place] [address] * (ABNORMAL) Fibrinogen (01/02/2025 5:38 PM SAUSAGE WRAPPER) Pathologist [facility] Fibrinogen, P 120(L) 200 - 393 mg/dL 01/02/2025 6:03 PM [facility] Blood (Blood, Venous) 01/02/2025 5:38 PM SAUSAGE WRAPPER 01/02/2025 5:44 PM SAUSAGE WRAPPER us Lizbeth Whittaker M.D. LAB BLOOD ADD-ON Final Result [facility] [address] [place] [address], [facility] [address] [place] [address] * LD (Lactate Dehydrogenase) (01/02/2025 5:38 PM SAUSAGE WRAPPER) [facility] LD 188 122 - 222 U/L 01/02/2025 6:43 PM SAUSAGE WRAPPER DT Blood (Blood, Venous) 01/02/2025 5:38 PM SAUSAGE WRAPPER 01/02/2025 6:28 PM SAUSAGE WRAPPER us Lizbeth Whittaker M.D. LAB BLOOD NON ADD-ON Fi nal Result [facility] [address] [place] [address], [facility] DTL [facility] [address] [place] [address] * (ABNORMAL) Haptoglobin (01/02/2025 5:38 PM SAUSAGE WRAPPER) Pathologist [facility] Haptoglobin, S 24(L) 30 - 200 mg/dL 01/04/2025 8:45 AM CDT [facility] Blood (Blood, Venous) 01/02/2025 5:38 PM SAUSAGE WRAPPER 01/04/2025 6:42 AM CDT us Lizbeth Whittaker M.D. LAB BLOOD ADD-ON Final Result [facility] [address] [place] [address] [facility] [address] [place] [address] * CT Abdomen Pelvis without and with IV Contrast (01/02/2025 3:10 PM SAUSAGE WRAPPER) Anatomical Region Laterality Modality Abdomen, Pelvis, Abdominal R ST LOS, Abdominal ARZ LOS, Abdominal FLA LOS N/A Computed Tomograp hy, Computed Tomography 01/02/2025 3:10 PM SAUSAGE WRAPPER Impressions 01/02/2025 4:02 PM SAUSAGE WRAPPER 1. No evidence of active bleeding within the abdomen or pelvis. 2. Otherwise no significant changes since CT abdomen pelvis with IV contrast 12/29/2024. Cirrhotic morphology of the liver with large volume simple ascites and severe truncal anasarca. There is also an associated small left pleural effusion. Narrative 01/02/2025 4:02 PM SAUSAGE WRAPPER EXAM: CT ABDOMEN PELVIS WITHOUT AND WITH [...] with associated left basilar atelectasis. Procedure Note Malinda, Adryan Hernandez M.D. - 01/02/2025 EXAM: CT ABDOMEN PELVIS [...] is also an associatedsmall left pleural effusion. Lizbeth Whittaker M.D. IMG CT PROCEDURES Final Result * Sodium, Random, Urine (01/02/2025 10:15 AM SAUSAGE WRAPPER) Only the most recent of3 resultswithin the time period is included. Sodium, Random, U 72 mmol/L 01/02/2025 11:05 AM SAUSAGE WRAPPER DTL Comment: ----REFERENCE VALUE---- Random urine sodium may be interpreted in conjunction with serum sodium, using both values to calculate fractional excretion of sodium. Urine (Urine, Midstream) 01/02/2025 10:15 AM SAUSAGE WRAPPER 01/02/2025 10:44 AM SAUSAGE WRAPPER us Lin Garrido M.D. LAB URINE ORDERABLES Final Result [facility] [address] [place], [place] [address] [place] [address] DTL [facility] [address] [place] [address] * Type and Screen (with Reflex Antibody ID) (01/02/2025 6:02 AM SAUSAGE WRAPPER) Only the most recent of2 resultswithin the time period is included. Pathologist [facility] ABORh A Pos Not applicable 01/02/2025 6:05 PM SAUSAGE WRAPPER STRM Antibody Screen Negative Negative 01/02/2025 6:19 PM SAUSAGE WRAPPER STRM Type & Screen Expiration 01/05/2025 23:59 01/02/2025 6:05 PM SAUSAGE WRAPPER STRM Testing Location Kimberly DEFAULT 01/02/2025 5:44 PM SAUSAGE WRAPPER STRM Blood (Blood, Venous) 01/02/2025 6:02 AM SAUSAGE WRAPPER 01/02/2025 5:44 PM SAUSAGE WRAPPER Lizbeth Whittaker M.D. LAB BLOOD BANK TEST ORD ERABLES Final Result Performing Organization Address [facility] de Phone Number [facility] [address] [place] [address], [facility] STRM [facility] [address] [place] [address] * Morphology Eval (special smear) (01/01/2025 11:50 AM SAUSAGE WRAPPER) [facility] Neutrophilic Segs and Bands 73 50 - 75 % 01/01/2025 1:30 PM SAUSAGE WRAPPER DH[facility] Lymphocytes 18 18 - 42 % 01/01/2025 1:30 PM SAUSAGE WRAPPER [facility] Monocytes 7 2 - 11 % 01/01/2025 1:30 PM SAUSAGE WRAPPER [facility] Eosinophils 2 1 - 3 % 01/01/2025 1:30 PM SAUSAGE WRAPPER DH[facility] Interpretation See Comment 1:30 PM SAUSAGE WRAPPER DHPM Comment: No schistocytes are seen. No platelet clumping. No morphologic features of hemolysis are seen. Reviewed by: Heather 01/01/2025 1:30 PM SAUSAGE WRAPPER [facility] Blood (Blood, Venous) 01/01/2025 11:50 AM SAUSAGE WRAPPER 01/01/2025 12:09 PM SAUSAGE WRAPPER Lin Garrido M.D. LAB BLOOD ADD-ON Final Res ult [facility] [address] [facility] [address] [place] [address] * (ABNORMAL) Cystatin C with Estimated GFR (01/01/2025 6:31 AM SAUSAGE WRAPPER) Only the most recent of3 resultswithin the time period is included. eGFR by Cystatin C 43(L) >60 mL/min/BSA 01/01/2025 8:04 PM SAUSAGE WRAPPER DTL Comment: Estimated GFR calculated using the [...] 0.67 - 1.21 mg/L 01/01/2025 8:04 PM SAUSAGE WRAPPER DTL Blood (Blood, Venous) 01/01/2025 6:31 AM SAUSAGE WRAPPER 01/01/2025 7:41 PM SAUSAGE WRAPPER Lin Garrido M.D. LAB BLOOD ADD-ON Final Res ult [facility] [address] [place] [address], [facility] DTL [facility] [address] [place] [address] * IR Transjugular Liver Biopsy (12/31/2024 3:58 PM SAUSAGE WRAPPER) Anatomical Region Laterality Modality Abdomen, Vascular Interventi onal RST LOS, Vascular Interventional ARZ LOS, Vascular Interventional FLA LOS N/A Other Impressions 01/01/2025 8:59 AM SAUSAGE WRAPPER 1. Transjugular liver biopsy with five cores sent for pathologic analysis. 2. Average hepatic venous pressure gradient of 19.5 mmHg consistent with portal hypertension. EP Narrative 01/01/2025 8:59 AM SAUSAGE WRAPPER EXAM: IR TRANSJUGULAR HEPATIC VENOGRAM WITH PRESSURES, [...] The needle was exchanged for a 9 [place] sheath. A JB1 catheter was used to [...] was: 36 minutes. Estimated blood loss: none. Megha Salazar B.Ch., Marie, Shira. IMG IR PROCEDURES Final Result * IR Transjugular Hepatic Venogram With Pressures (12/31/2024 3:58 PM SAUSAGE WRAPPER) Anatomical Region Laterality Modality Abdomen, Vascular Interventi onal RST LOS, Vascular Interventional ARZ LOS, Vascular Interventional FLA LOS N/A X-Ray Angiography Impressions 01/01/2025 8:31 AM SAUSAGE WRAPPER 1. Transjugular liver biopsy with five cores sent for pathologic analysis. 2. Average hepatic venous pressure gradient of 19.5 mmHg consistent with portal hypertension. EP Narrative 01/01/2025 8:31 AM SAUSAGE WRAPPER EXAM: IR TRANSJUGULAR HEPATIC VENOGRAM WITH PRESSURES, [...] The needle was exchanged for a 9 [place] sheath. A JB1 catheter was used to [...] was: 36 minutes. Estimated blood loss: none. Megha Salazar, B., M.B., B.Chir. IMG IR PROCEDURES Final Result * Surgical Pathology (12/31/2024 3:37 PM SAUSAGE WRAPPER) Only the most recent of2 resultswithin the time period is included. 01/01/2025 4:36 PM SAUSAGE WRAPPER DTL Report electronically signed by Coy Ramsay M.D., Ph.D. I verify that I have examined all relevant slides/materials for the specimen(s) and rendered or confirmed the diagnosis. 01/01/2025 4:36 PM SAUSAGE WRAPPER DTL Gross Description Received in formalin labeled with the patient's name, medical record number, and liver-routine are four pale laboy-pink soft tissue coresand four fragments, 0.1 cm in average diameter and ranging from 0.1-1.7 cm in length. Specimens are submitted en toto in cassettes A1,three cores and A2, one core and four fragments. Grossed by AJJose. 01/01/2025 4:36 PM SAUSAGE WRAPPER DTL Interpretation FINAL DIAGNOSIS Liver, needle biopsy: [...] following rapid weight loss and/or malnutrition. Moderate [id number];30:83 4 -842. Digital imaging was used in the diagnostic assessment of this case. 01/01/2025 4:36 PM SAUSAGE WRAPPER DTL Tissue (Liver Biopsy) 12/31/2024 3:37 PM SAUSAGE WRAPPER Comment:Liver biopsy us Megha Salazar, Alejandra., M.B., B.Chir. LAB SINGH RG PATH ORDERABLES Final Result [facility] [address] [place] [address], [facility] DTL [address] [place] [address] * Creatinine, Random, Urine (12/31/2024 1:30 PM SAUSAGE WRAPPER) Only the most recent of2 resultswithin the time period is included. Creatinine, Random, U 91 16 - 326 mg/dL 12/31/2024 2:38 PM SAUSAGE WRAPPER DTL Urine (Urine, Midstream) 12/31/2024 1:30 PM SAUSAGE WRAPPER 12/31/2024 2:00 PM SAUSAGE WRAPPER us Lin Garrido M.D. LAB URINE ORDERABLES Final Result Performing Organization Address [facility] Co de Phone Number [facility] [address] [place] [address], [place] DTL [facility] [address] [place] [address] * Leg-Internal Medicine Image Exam (12/31/2024 12:14 PM SAUSAGE WRAPPER) Only the most recent of4 resultswithin the time period is included. 12/31/2024 12:1 2 PM SAUSAGE WRAPPER Narrative [facility] - 12/31/2024 12:14 PM SAUSAGE WRAPPER This order has been created and auto-finalized to support the import of images acquired without order. The clinical documentation to support these images can be found on the encounter that produced images. us Provider Not In System IMG NON RAD IMAGING PROCE DURES Final Result Performing Organization Address [facility] Co de Phone Number [facility] NA * Upper GI endoscopy-Gastroenterology Image Exam (12/31/2024 10:05 AM SAUSAGE WRAPPER) 12/31/2024 10:0 3 AM SAUSAGE WRAPPER Narrative [facility] - 12/31/2024 11:17 AM SAUSAGE WRAPPER This order has been created and auto-finalized to support the import of images acquired without order. The clinical documentation to support these images can be found on the encounter that produced images. us Provider Not In System IMG NON RAD IMAGING PROCE DURES Final Result Performing Organization Address [facility] de Phone Number [facility] NA * Upper GI Endoscopy (12/31/2024 10:03 AM SAUSAGE WRAPPER) 12/31/2024 10:0 3 AM SAUSAGE WRAPPER Impressions [employer] - 12/31/2024 11:15 AM SAUSAGE WRAPPER Post-op Diagnoses: - Grade I esophageal varices. - Portal hypertensive gastropathy. Biopsied. - Patent (Billroth II) gastrojejunostomy was found, characterized by congestion. - Normal jejunum in both (afferent and efferent) limbs. Biopsied. Narrative [facility] - 12/31/2024 11:15 AM LEONARD Dai [...] electronically. Number of Addenda: 0 us Megha Salazar, Norris, M.B., B.Chir. GI PRO CEDURE ORDERABLES Final Result [facility] NA * Phosphatidylethanol Confirmation (12/31/2024 7:28 AM SAUSAGE WRAPPER) PEth 16:0/18:1 (POPEth) by LC-MS/MS <10 Cutoff: 10 ng/mL 01/01/2025 4:22 AM SAUSAGE WRAPPER [facility] Comment: Phosphatidylethanol (PEth) homologues result interpretation [...] <10 Cutoff: 10 ng/mL 01/01/2025 4:[address] [facility] Comment: PEth 16:0/18:2 (PLPEth) Reference ranges are not well established PEth Interpretation Negative. 01/01 4:[address] [facility] Comment: ----ADDITIONAL INFORMATION---- This report is intended for use in clinical monitoring and management of patients. It is not intended for use in employment-related testing. This test was developed and its performance characteristics determined by [facility] in a manner consistent with CLIA requirements. This test has not been cleared or approved by the U.S. Food and Drug Administration. Blood (Blood, Venous) 12/31/2024 7:28 AM SAUSAGE WRAPPER 12/31/2024 9:52 AM SAUSAGE WRAPPER us Megha Salazar, BMl., M.B., B.Chir. LAB BL OOD ADD-ON Final Result [facility] [address] [place] [address] [facility] [address] [place] [address] [place] [address] * (ABNORMAL) Vitamin A and Vitamin E (12/31/2024 7:28 AM SAUSAGE WRAPPER) Vitamin A 9.4(L) 32.5 - 78.0 mcg/dL 01/01/2025 2:17 PM SAUSAGE WRAPPER [facility] Comment: In this sample, the retinol (vitamin A) level indicates a severe deficiency. ----ADDITIONAL INFORMATION---- This test was developed and its performance characteristics determined by [facility] in a manner consistent with CLIA requirements. This test has not been cleared or approved by the U.S. Food and Drug Administration. A-Tocopherol, Vitamin E 3.6(L) 5.5 - 17.0 mg/L 01/01/2025 3:[address] [facility] Blood (Blood, Venous) 12/31/2024 7:28 AM SAUSAGE WRAPPER 12/31/2024 10:50 AM SAUSAGE WRAPPER Megha Salazar, Norris, M.B., BScott. LAB BL OOD NON ADD-ON Final Result Performing Organization Address City/[facility] de Phone Number [facility] [address] [place], [place] [address] [address] [place] [address] [place] [address] * (ABNORMAL) Pyridoxal 5-Phosphate (PLP) (12/31/2024 7:28 AM SAUSAGE WRAPPER) Pyridoxal 5-Phosphate (PLP), P <2(L) 5 - 50 mcg/L 01/04/2025 3:48 PM CDT [facility] Comment: ----ADDITIONAL INFORMATION---- This test was developed and its performance characteristics determined by [facility] in a manner consistent with CLIA requirements. This test has not been cleared or approved by the U.S. Food and Drug Administration. Blood (Blood, Venous) 12/31/2024 7:28 AM SAUSAGE WRAPPER 12/31/2024 5:25 PM SAUSAGE WRAPPER Megha Salazar, Norris, M.B., B.Mika. LAB BL OOD NON ADD-ON Final Result Performing Organization Address City/[facility] de Phone Number [facility] [address] [place] [address] [facility] [address] [place] [address] [place] [address] * (ABNORMAL) Thiamine (Vitamin B1), Whole Blood (12/31/2024 7:28 AM SAUSAGE WRAPPER) Thiamine (Vitamin B1), WB 250(H) 70 - 180 nmol/L 01/02/2025 12:58 PM SAUSAGE WRAPPER [facility] Comment: ----ADDITIONAL INFORMATION---- This test was developed and its performance characteristics determined by [facility] in a manner consistent with CLIA requirements. This test has not been cleared or approved by the U.S. Food and Drug Administration. Blood (Blood, Venous) 12/31/2024 7:28 AM SAUSAGE WRAPPER 12/31/2024 10:08 AM SAUSAGE WRAPPER Megha Salazar, Norris, M.B., B.Chir. LAB BL OOD NON ADD-ON Final Result Performing Organization Address [facility] de Phone Number [facility] [address] [place] [address] [facility] [address] [place] [address] [place] [address] * (ABNORMAL) Selenium (12/31/2024 7:28 AM SAUSAGE WRAPPER) Pathologist [facility] Selenium, S 46(L) 110 - 165 mcg/L 12/31/2024 3:48 PM SAUSAGE WRAPPER [facility] Comment: ----ADDITIONAL INFORMATION---- This test was developed and its performance characteristics determined by [facility] in a manner consistent with CLIA requirements. This test has not been cleared or approved by the U.S. Food and Drug Administration. Blood (Blood, Venous) 12/31/2024 7:28 AM SAUSAGE WRAPPER 12/31/2024 10:50 AM SAUSAGE WRAPPER Megha Salazar, Norris, M.B., B.Chir. LAB BL OOD NON ADD-ON Final Result Performing Organization Address [facility]/ZIP Co de Phone Number [facility] [address] [place] [address] [facility] [address] [place] [address] [place] [address] * Ascorbic Acid (Vitamin C) (12/31/2024 7:28 AM SAUSAGE WRAPPER) Ascorbic Acid, P 0.6 0.4 - 2.0 mg/dL 01/01/2025 10:03 AM SAUSAGE WRAPPER [facility] Comment: ----ADDITIONAL INFORMATION---- This test was developed and its performance characteristics determined by [facility] in a manner consistent with CLIA requirements. This test has not been cleared or approved by the U.S. Food and Drug Administration. Blood (Blood, Venous) 12/31/2024 7:28 AM SAUSAGE WRAPPER 12/31/2024 4:07 PM SAUSAGE WRAPPER us Megha Salazar, B., M.B., B.Chir. LAB BL OOD NON ADD-ON Final Result Performing Organization Address [facility] Co de Phone Number [facility] [address] [place] [address] [facility] [address] [place] [address] [place] [address] * Lactate for Sepsis with Reflex (12/31/2024 12:56 AM SAUSAGE WRAPPER) Only the most recent of2 resultswithin the time period is included. Lactate, P 1.9 0.5 - 2.2 mmol/L 12/31/2024 1:39 AM SAUSAGE WRAPPER DTL Blood (Blood, Venous) 12/31/2024 12:56 AM SAUSAGE WRAPPER 12/31/2024 1:26 AM SAUSAGE WRAPPER Inga SalazarB.S. LAB BLOOD NON ADD-ON Final Result Performing Organization Address City/[facility]/ZIP Co de Phone Number [facility] [address] [place] [address], [facility] DTL [facility] [address] [place] [address] * (ABNORMAL) Pancreatic Elastase, Feces (12/30/2024 7:11 PM SAUSAGE WRAPPER) Pathologist [facility] Pancreatic Elastase, F <40(L) >200 (Normal) mcg/g 01/04/2025 2:23 PM CDT [facility] Comment: Interpretation: Abnormal (<100 mcg/g); Consistent with pancreatic insufficiency Stool (Stool) 12/30/2024 7:1 1 PM SAUSAGE WRAPPER 01/02/2025 1:30 PM SAUSAGE WRAPPER us Megha Salazar, B.Piyush., M.B., B.Chir. LAB BODY FLUIDS AND STOOLS ORDERABLES Final Result [facility] [address] [place] [address] [facility] [address] [place] [address] * (TTE) 2D ECHO DOPPLER COLOR AND CONTRAST (12/30/2024 4:59 PM SAUSAGE WRAPPER) Pathologist [facility] Ejection Fraction 46 MC CV EIMS Sinus [...] Region Laterality Modality Echocardiography 12/30/2024 3:32 PM SAUSAGE WRAPPER Impressions 12/30/2024 5:04 PM SAUSAGE WRAPPER There are no previous [facility] echocardiograms available for comparison. Ascites. LEFT VENTRICLE:Normal [...] per Echocardiography Contrast Administration Protocol Reference Document [id number] Rev 02/08/2022. Patient met an inclusion criterion and did not have contraindications in screening sections. For the complete report, see the Order-Level Documents. Narrative 12/30/2024 5:04 PM SAUSAGE WRAPPER For the complete report, see the Order-Level [...] collapse (>50%). 7. There are no previous [facility] echocardiograms available for comparison. Procedure Note Lindsay [...] inspiratory collapse(>50%). 7. There are no previous [facility] echocardiograms available forcomparison. Findings There are no previous [facility] echocardiograms available forcomparison. Ascites. LEFT VENTRICLE:Normal left [...] administered per Echocardiography Contrast Administration ProtocolReference Document [id number] Rev 02/08/2022. Patient met an inclusioncriterion and did not have contraindications in screening sections. For the complete report, see the Order-Level Documents. us Megha Salazar, B.Ch., M.B., B.Chir. CV ECH O PROCEDURES Final Result * US Kidneys with Renal Artery Doppler (12/30/2024 10:16 AM SAUSAGE WRAPPER) Anatomical Region Laterality Modality Abdomen, Renal, Ultrasound R ST LOS, Ultrasound ARZ LOS, Ultrasound FLA LOS, Procedural, Vascular Interventional NWWI LOS N/A Ultrasound Impressions 12/30/2024 11:29 AM SAUSAGE WRAPPER Limited study. 1. Renal measurements as above. [...] body wall edema. Narrative 12/30/2024 11:29 AM SAUSAGE WRAPPER EXAM: US KIDNEYS WITH RENAL ARTERY DOPPLER [...] Moderate ascites and diffuse body wall edema. us Megha Salazar, B.Ch., M.B., B.Chir. IMG US PROCEDURES Final Result * (ABNORMAL) Dipstick, Urine (12/30/2024 10:03 AM SAUSAGE WRAPPER) Only the most recent of2 resultswithin the time period is included. Hemoglobin, QL, U Negative Negative 12/30/2024 10:21 AM SAUSAGE WRAPPER DTL Leukocyte Esterase, U Moderate(A) Negative 12/30/2024 10:21 AM SAUSAGE WRAPPER DTL Nitrite, U Negative Negative 12/30/2024 10:21 AM SAUSAGE WRAPPER DTL Ketone, U Negative Negative mg/dL 12/30/2024 10:21 AM SAUSAGE WRAPPER DTL Glucose, U Negative Negative mg/dL 12/30/2024 10:21 AM SAUSAGE WRAPPER DTL Urine 12/30/2024 10:0 3 AM SAUSAGE WRAPPER 12/30/2024 10:04 AM SAUSAGE WRAPPER Megha Salazar, Norris, M.B., B.Chir. LAB UR INE ORDERABLES Final Result Performing Organization Address [facility] Co de Phone Number [facility] [address] DTFormerly named [facility] [address] [place] [address] * (ABNORMAL) Microscopic Automated (12/30/2024 10:03 AM SAUSAGE WRAPPER) Microscopy Abnormal 12/30/2024 10:21 AM SAUSAGE WRAPPER DTL RBC <3 <3 /hpf 12/30/2024 10:21 AM SAUSAGE WRAPPER DTL WBC 21-30(A) /hpf 12/30/2024 10:21 AM SAUSAGE WRAPPER DTL Comment: ----REFERENCE VALUE---- <4 (Males) <11 (Females) Casts, Hyaline 11-20 /lpf 12/30/2024 10:21 AM SAUSAGE WRAPPER DTL Urine 12/30/2024 10:0 3 AM SAUSAGE WRAPPER 12/30/2024 10:04 AM SAUSAGE WRAPPER Megha Salazar, Norris, M.B., B.Chir. LAB UR INE ORDERABLES Final Result Performing Organization Address [facility] Co de Phone Number [facility] [address] [place] [address], [facility] DTFormerly named [facility] [address] [place] [address] * pH, Urine (12/30/2024 10:03 AM SAUSAGE WRAPPER) Only the most recent of2 resultswithin the time period is included. pH, U 4.5 4.5 - 8.0 12/30/2024 10: 46 AM SAUSAGE WRAPPER DTL Urine 12/30/2024 10:0 3 AM SAUSAGE WRAPPER 12/30/2024 10:04 AM SAUSAGE WRAPPER Megha Salazar, Norris, M.B., B.Chir. LAB UR INE ORDERABLES Final Result Performing Organization Address [facility] de Phone Number [facility] [address] [place] [address], [facility] [address] [place] [address] * Osmolality, Urine (12/30/2024 10:03 AM SAUSAGE WRAPPER) Only the most recent of2 resultswithin the time period is included. Osmolality, U 310 150 - 1150 mOsm/kg 12/30/2024 10:46 AM SAUSAGE WRAPPER DTL Urine 12/30/2024 10:0 3 AM SAUSAGE WRAPPER 12/30/2024 10:04 AM SAUSAGE WRAPPER Megha Salazar, Norris, M.B., B.Chir. LAB UR INE ORDERABLES Final Result Performing Organization Address [facility] de Phone Number [facility] [address] [place] [address], [place] [address] * Urinalysis, with Microscopic: Urine, Catheter (12/30/2024 10:03 AM SAUSAGE WRAPPER) Only the most recent of2 resultswithin the time period is included. Source Urine, Urine, Catheter 12/30/2024 10:03 AM SAUSAGE WRAPPER DTL Color, U Yellow 12/30/2024 10:04 AM SAUSAGE WRAPPER DTL Clarity, U Clear 12/30/2024 10:04 AM SAUSAGE WRAPPER DTL Protein, U 7 <26 mg/dL 12/30/2024 10:50 AM SAUSAGE WRAPPER DTL Protein/Osmola lity 0.23 <0.42 ratio 12/30/2024 10:50 AM SAUSAGE WRAPPER DTL Predicted 24 HR Protein, U 173 <229 mg/24 h 12/30/2024 10:50 AM SAUSAGE WRAPPER DTL Predicted Range 43-701 mg/24 h 12/30/2024 10:50 AM SAUSAGE WRAPPER DTL Urine (Urine, Catheter) 12/30/2024 10:03 AM SAUSAGE WRAPPER 12/30/2024 10:03 AM SAUSAGE WRAPPER Megha Salazar, BMl., M.B., B.Chir. LAB UR INE ORDERABLES Final Result Performing Organization Address [facility] de Phone Number [facility] [address] [place] [address] * Protein/Creatinine Ratio, Random, Urine (12/30/2024 9:25 AM SAUSAGE WRAPPER) Protein, Total, Random, U 7 mg/dL 12/30/2024 1:12 PM SAUSAGE WRAPPER DTL Creatinine, Random, U 49 16 - 326 mg/dL 12/30/2024 1:12 PM SAUSAGE WRAPPER DTL Protein/Creatin ine Ratio 0.14 <0.18 mg/mg 12/30/2024 1:12 PM SAUSAGE WRAPPER DTL Urine (Urine, Midstream) 12/30/2024 9:25 AM SAUSAGE WRAPPER 12/30/2024 12:19 PM SAUSAGE WRAPPER Rajat Knott M.D. LAB URINE ORDERABLES Final Result Performing Organization Address [facility] de Phone Number [facility] [address] [place] [address] * (ABNORMAL) Copper (12/30/2024 4:48 AM SAUSAGE WRAPPER) Copper, S 74(L) 77 - 206 mcg/dL 12/30/2024 11:41 AM SAUSAGE WRAPPER [facility] Comment: ----ADDITIONAL INFORMATION---- This test was developed and its performance characteristics determined by [facility] in a manner consistent with CLIA requirements. This test has not been cleared or approved by the U.S. Food and Drug Administration. Blood (Blood, Venous) 12/30/2024 4:48 AM SAUSAGE WRAPPER 12/30/2024 8:18 AM SAUSAGE WRAPPER Bryan Pimentel M.D. LAB BLOOD NON ADD-ON F inal Result Performing Organization Address City/[facility]/ZIP Co de Phone Number [facility] [address] [place] [address] [facility] [address] [place] [address] [place] [address] * (ABNORMAL) 25-Hydroxyvitamin D2 and D3 (12/30/2024 4:48 AM SAUSAGE WRAPPER) 25-Hydroxy D2 <4.0 ng/mL 12/31/2024 9:39 AM SAUSAGE WRAPPER SDS 25-Hydroxy D3 6.7 ng/mL 12/31/2024 9:39 AM SAUSAGE WRAPPER [facility] 25-Hydroxy D Total 6.7(L) ng/mL 2024 9:39 AM SAUSAGE WRAPPER [facility] Comment: Interpretation: <10 ng/mL (severe deficiency) ----REFERENCE VALUE---- 25-HYDROXY D TOTAL (D2+D3) Optimum levels in the healthy population are 20-50. ----ADDITIONAL INFORMATION---- This test was developed and its performance characteristics determined by [facility] in a manner consistent with CLIA requirements. This test has not been cleared or approved by the U.S. Food and Drug Administration. Blood (Blood, Venous) 12/30/2024 4:48 AM SAUSAGE WRAPPER 12/30/2024 7:56 AM SAUSAGE WRAPPER us rByan Pimentel M.D. LAB BLOOD ADD-ON Final Result Performing Organization Address City/[facility]/ZIP Co de Phone Number [facility] [address] [place] [address] [facility] [address] [place] [address] [place] [address] * (ABNORMAL) Lactate (12/30/2024 4:48 AM SAUSAGE WRAPPER) Only the most recent of3 resultswithin the time period is included. Lactate, P 3.4(H) 0.5 - 2.2 mmol/L 12/30/2024 5:11 AM SAUSAGE WRAPPER STMA Blood 12/30/2024 4:48 AM SAUSAGE WRAPPER 12/30/2024 4:58 AM SAUSAGE WRAPPER us Bryan Pimentel M.D. LAB BLOOD NON ADD-ON F inal Result Performing Organization Address City/[facility]/ZIP Co de Phone Number [facility] [address] [place] [address], [facility] [address] [place] [address] * (ABNORMAL) Hemoglobin A1c (12/30/2024 4:48 AM SAUSAGE WRAPPER) [facility] Hemoglobin A1c, B 7.5(H) 4.0 - 5.6 % 12/30/2024 5:43 AM SAUSAGE WRAPPER DTL Comment: Hemoglobin A1c values greater than or equal to 6.5 percent are diagnostic for diabetes mellitus. Diagnosis should be confirmed by repeat testing. In diabetic patients, HbA1c goals should be discussed with healthcare provider. Blood (Blood, Venous) 12/30/2024 4:48 AM SAUSAGE WRAPPER 12/30/2024 5:20 AM SAUSAGE WRAPPER us Bryan Pimentel M.D. LAB BLOOD ADD-ON Final Result Performing Organization Address City/[facility]/ZIP Co de Phone Number [facility] [address] [place] [address], [facility] DTL [facility] [address] [place] [address] * Folate (12/30/2024 4:48 AM SAUSAGE WRAPPER) Pathologist [facility] Folate, S 16.4 >=4.0 mcg/L 12/30/2024 8: 03 AM SAUSAGE WRAPPER DTL Blood (Blood, Venous) 12/30/2024 4:48 AM SAUSAGE WRAPPER 12/30/2024 5:35 AM SAUSAGE WRAPPER us Arthur Anup-Glass M.D. LAB BLOOD ADD-ON Final Result Performing Organization Address [facility] [place] [address] * (ABNORMAL) Vitamin B12 Assay (12/30/2024 4:48 AM SAUSAGE WRAPPER) Pathologist [facility] Vitamin B12 Assay, S 1053(H) 180 - 914 ng/L 12/30/2024 8:11 AM SAUSAGE WRAPPER DT Comment: ----ADDITIONAL INFORMATION---- In patients being evaluated for vitamin B12 deficiency who have intrinsic factor blocking antibodies (IFBA), false elevations of B12 may occur due to IFBA interference thus potentially obscuring a physiological deficiency of B12. If observed B12 concentrations are discordant with clinical presentation, measurement of methylmalonic acid (MMA) should be considered. Blood (Blood, Venous) 12/30/2024 4:48 AM SAUSAGE WRAPPER 12/30/2024 5:35 AM SAUSAGE WRAPPER Bryan Pimentel M.D. LAB BLOOD ADD-ON Final Result Performing Organization Address [facility] Co de Phone Number [id number] [place] [id number] * Calcium, Ionized (12/30/2024 4:48 AM SAUSAGE WRAPPER) Pathologist [facility] Calcium, Ionized, S 4.69 4.57 - 5.43 mg/dL 12/30/2024 5:37 AM SAUSAGE WRAPPER DT Comment: ----ADDITIONAL INFORMATION---- This test has been modified from the microsoft bi consultant's instructions. Its performance characteristics were determined by [facility] in a manner consistent with CLIA requirements. This test has not been cleared or approved by the U.S. Food and Drug Administration. pH for Ionized Calcium 7.44 7.35 - 7.48 12/30/2024 5:37 AM SAUSAGE WRAPPER DTL Blood (Blood, Venous) 12/30/2024 4:48 AM SAUSAGE WRAPPER 12/30/2024 5:25 AM SAUSAGE WRAPPER us Bryan Pimentel M.D. LAB BLOOD NON ADD-ON F inal Result [facility] [address] [place] [address], [place] DTL [facility] [address] [place] [address] * DX Chest Portable 1 View (12/29/2024 10:54 PM SAUSAGE WRAPPER) Anatomical Region Laterality Modality Chest, Thoracic RST LOS, Tho racic ARZ LOS, Thoracic FLA LOS N/A Digital Radiography Impressions 12/30/2024 7:32 AM SAUSAGE WRAPPER No comparison chest radiograph is available. Trace left pleural effusion. No pneumothorax. Mild bibasilar atelectasis, left greater than right. No interstitial edema. Aortic calcifications. Narrative 12/30/2024 7:32 AM SAUSAGE WRAPPER EXAM: DX CHEST PORTABLE 1 VIEW Procedure Note Baldo Wallace M.D. - 12/30/2024 EXAM: DX CHEST PORTABLE 1 VIEW IMPRESSION: No comparison chest radiograph is available. Trace left pleural effusion.No pneumothorax. Mild bibasilar atelectasis, left greater than right. Nointerstitial edema. Aortic calcifications. us Bryan Pimentel M.D. IMG DIAGNOSTIC IMAGING PROCEDURES Final Result * Bacteria / Eusebia Culture, Blood #2 (12/29/2024 10:51 PM SAUSAGE WRAPPER) Only the most recent of2 resultswithin the time period is included. Bacteria/Lisa da Culture, Blood No growth after 5 days of incubation. 01/04/2025 1:02 AM CDT DTL Blood (Blood, Peripheral Draw) 12/29/2024 10:51 PM SAUSAGE WRAPPER 12/29/2024 11:26 PM SAUSAGE WRAPPER Comment:Specimen Source Site : Blood us Bryan Pimentel M.D. LAB MICROBIOLOGY - GEN ERAL ORDERABLES Final Result [facility] [address] [place] [address], [place] DTL [facility] [address] [place] [address] * CT Abdomen Pelvis with IV Contrast (12/29/2024 5:24 PM SAUSAGE WRAPPER) Anatomical Region Laterality Modality Abdomen, Pelvis, Abdominal R ST LOS, Abdominal ARZ LOS, Abdominal FLA LOS N/A Computed Tomograp hy, Computed Tomography 12/29/2024 5:16 PM SAUSAGE WRAPPER Impressions 12/29/2024 5:34 PM SAUSAGE WRAPPER 1. Cirrhotic appearance of moderately to severely [...] minimal esophageal varices. Narrative 12/29/2024 5:34 PM SAUSAGE WRAPPER REVISED REPORT: EXAM: CT ABDOMEN PELVIS WITH [...] gastric varices, spontaneous splenorenal shunting, minimalesophageal varices. Julia Chan P.A.-C. IMG CT PROCEDURES Xvaier mone Result - Final * AST (Aspartate Aminotransferase) (12/29/2024 4:37 PM SAUSAGE WRAPPER) Aspartate Aminotransferase (AST), S 31 8 - 43 U/L 12/29/2024 5:29 PM SAUSAGE WRAPPER DTL Blood 12/29/2024 4:37 PM SAUSAGE WRAPPER 12/29/2024 5:13 PM SAUSAGE WRAPPER Julia Chan P.A.-C. LAB BLOOD ADD-ON Carol l Result [facility] [address] [place] [address], [place] DTFormerly named [facility] [address] [place] [address] * Potassium (12/29/2024 4:37 PM SAUSAGE WRAPPER) Potassium, P 4.3 3.6 - 5.2 mmol/L 12/29/2024 5:00 PM SAUSAGE WRAPPER STMA Blood 12/29/2024 4:37 PM SAUSAGE WRAPPER 12/29/2024 4:47 PM SAUSAGE WRAPPER us Julia Chan P.A.-C. LAB BLOOD ADD-ON Carol l Result [facility] [address] [place] [address], [facility] STMA [facility] [address] [place] [address] * (ABNORMAL) Alkaline Phosphatase (12/29/2024 4:37 PM SAUSAGE WRAPPER) Pathologist [facility] Alkaline Phosphatase, S 231(H) 35 - 104 U/L 12/29/2024 5:29 PM SAUSAGE WRAPPER DTL Blood 12/29/2024 4:37 PM SAUSAGE WRAPPER 12/29/2024 5:13 PM SAUSAGE WRAPPER us Julia Chan P.A.-C. LAB BLOOD ADD-ON Carol l Result Performing Organization Address City/[facility]/ZIP Co de Phone Number [facility] [address] [place] [address], [facility] DTL [facility] [address] [place] [address] * (ABNORMAL) Bilirubin, Direct (12/29/2024 4:37 PM SAUSAGE WRAPPER) Pathologist [facility] Bilirubin, Direct, S 0.6(H) 0.0 - 0.3 mg/dL 12/29/2024 5:29 PM SAUSAGE WRAPPER DTL Blood 12/29/2024 4:37 PM SAUSAGE WRAPPER 12/29/2024 5:13 PM SAUSAGE WRAPPER us Julia Chan P.A.-C. LAB BLOOD ADD-ON Carol l Result [facility] [address] [place] [id number], [facility] DTL [facility] [address] [place] [address] * Paracentesis (12/29/2024 3:58 PM SAUSAGE WRAPPER) Narrative Katharina Mayorga M.D. - 12/29/2024 3:58 PM SAUSAGE WRAPPER Katharina Mayorag M.D. 12/29/2024 4:16 PM Paracentesis Performed by: Katharina aMyorga M.D. Authorized by: Earlene Sheridan M.D., M.S. [...] completed successfully: yes Complications: no apparent complications Earlene Sheridan M.D., M.S. PROCEDURE/M INOR SURGICAL ORDERABLES Edited Result - Final * ABD-Emergency Medicine Image Exam (12/29/2024 3:20 PM SAUSAGE WRAPPER) 12/29/2024 3:20 PM SAUSAGE WRAPPER Narrative IIMS - 12/29/2024 4:04 PM SAUSAGE WRAPPER This order has been created and auto-finalized to support the import of images acquired without order. The clinical documentation to support these images can be found on the encounter that produced images. us Provider Not In System IMG NON RAD IMAGING PROCE DURES Final Result II[facility] NA * (ABNORMAL) Dipstick, POCT, Urine (12/29/2024 2:34 PM SAUSAGE WRAPPER) Glucose, POCT, U 250(A) Negative mg/dL 12/29/2024 2:35 PM SAUSAGE WRAPPER PCED Ketone, POCT, U Negative Negative mg/dL 12/29/2024 2:35 PM SAUSAGE WRAPPER PCED Specific [place], POCT, U >=1.030 1.005 - 1.030 12/29/2024 2:35 PM SAUSAGE WRAPPER PCED Blood, POCT, U Negative Negative 12/29/2024 2:35 PM SAUSAGE WRAPPER PCED pH, POCT, Urine 5.0 5.0 - 8.0 12/29/2024 2:35 PM SAUSAGE WRAPPER PCED Protein, POCT, U Negative Negative mg/dL 12/29/2024 2:35 PM SAUSAGE WRAPPER PCED Nitrites, POCT, U Negative Negative 12/29/2024 2:35 PM SAUSAGE WRAPPER PCED Leukocytes, POCT, U Negative Negative 12/29/2024 2:35 PM SAUSAGE WRAPPER PCED Urine 12/29/2024 2:34 PM SAUSAGE WRAPPER 12/29/2024 2:35 PM SAUSAGE WRAPPER Unknown Provider LAB POCT ORDERABLES - DEVICE Fi nal Result [facility] [address] [place] [address], [place] PCED [facility] POC [address] [place] [address] * Microscopic Manual (12/29/2024 2:28 PM SAUSAGE WRAPPER) Microscopy Normal 12/29/2024 3:33 PM SAUSAGE WRAPPER DTL RBC <3 <3 /hpf 12/29/2024 3:33 PM SAUSAGE WRAPPER DTL WBC None Seen /hpf 12/29/2024 3:33 PM SAUSAGE WRAPPER DTL Comment: ----REFERENCE VALUE---- <4 (Males) <11 (Females) Casts, Hyaline 11-20 /lpf 12/29/2024 3:33 PM SAUSAGE WRAPPER DTL Crystals Calcium Oxalate crystals present 12/29/2024 3:33 PM SAUSAGE WRAPPER DTL Urine 12/29/2024 2:28 PM SAUSAGE WRAPPER 12/29/2024 2:54 PM SAUSAGE WRAPPER Julia Chan P.A.-C. LAB URINE ORDERABLES Final Result Performing Organization Address City/[facility]/ZIP Co de Phone Number [facility] [address] [place] [address] * Bacterial Culture, Aerobic + Susceptibility, Urine (12/29/2024 2:28 PM SAUSAGE WRAPPER) [facility] Urine Culture No growth after 1 day of incubation. 12/30/2024 10:04 AM SAUSAGE WRAPPER DTL Urine (Urine, Straight Catheter) 12/29/2024 2:28 PM SAUSAGE WRAPPER 12/29/2024 3:24 PM SAUSAGE WRAPPER Comment:Specimen Source Site : Urine uJlia Chan P.A.-C. LAB MICROBIOLOGY - NERAL ORDERABLES Final Result Performing Organization Address City/[facility]/ZIP Co de Phone Number [facility] [address] [place] [address] * Patient Status (12/29/2024 1:27 PM SAUSAGE WRAPPER) Pathologist [facility] FIO2 0.21 0.21=AIR 12/29/2024 1:38 PM SAUSAGE WRAPPER STMA Spont. breaths/min 13 12/29/2024 1:38 PM SAUSAGE WRAPPER STMA Blood 12/29/2024 1:27 PM SAUSAGE WRAPPER 12/29/2024 1:38 PM SAUSAGE WRAPPER Julia Chan P.A.-C. LAB BLOOD NON ADD-ON Final Result Performing Organization Address [facility] Co de Phone Number [facility] [address] [place] [address] * Blood Gas without Coox, Venous (12/29/2024 1:27 PM SAUSAGE WRAPPER) pO2, Venous, B 28 Not applicable mm Hg 12/29/2024 1:40 PM SAUSAGE WRAPPER STMA pCO2, Venous, B 41 41 - 51 mm Hg 12/29/2024 1:40 PM SAUSAGE WRAPPER STMA pH, Venous, B 7.33 7.32 - 7.43 pH 025 1:40 PM SAUSAGE WRAPPER STMA Base Excess, Venous, B -4 Not applicable mmol/L 12/29/2024 1:40 PM SAUSAGE WRAPPER STMA HCO3, Venous, B 22 Not applicable mmol/L 12/29/2024 1:40 PM SAUSAGE WRAPPER STMA Sample Site, Venous, B Venipunct 12/29/2024 1:38 PM SAUSAGE WRAPPER STMA Blood (Blood, Venous) 12/29/2024 1:27 PM SAUSAGE WRAPPER 12/29/2024 1:38 PM SAUSAGE WRAPPER Julia Chan P.A.-C. LAB BLOOD NON ADD-ON Final Result Performing Organization Address City/[facility] Co de Phone Number [facility] [address] [place] [address], [facility] [address] [place] [address] * (ABNORMAL) Lactate for Sepsis with Reflex, POCT (12/29/2024 1:25 PM SAUSAGE WRAPPER) Lactate, POCT 4.54(H) 0.50 - 2.20 mmol/L 12/29/2024 1:59 PM SAUSAGE WRAPPER PCLX Blood (Blood, Venous) 12/29/2024 1:25 PM SAUSAGE WRAPPER 12/29/2024 1:25 PM SAUSAGE WRAPPER Julia Chan P.A.-C. LAB POCT ORDERABLES - DEVICE Final Result Performing Organization Address [facility] Co de Phone Number [facility] [address] [place] [address], [facility] PCLX [facility] [address] [place] [address] * (ABNORMAL) NT-Pro B-Type Natriuretic Peptide (BNP) (12/29/2024 1:25 PM SAUSAGE WRAPPER) NT-Pro BNP 669(H) <=226 pg/mL 12/29/2024 2:47 PM SAUSAGE WRAPPER [facility] Comment: NT-proBNP values less than 300 pg/mL [...] failure. Blood (Blood, Venous) 12/29/2024 1:25 PM SAUSAGE WRAPPER 12/29/2024 1:38 PM SAUSAGE WRAPPER Julia Chan P.A.-C. LAB BLOOD ADD-ON Carol l Result Performing Organization Address City/[facility] Co de Phone Number [facility] [address] [place] [address], [facility] STMA [facility] [address] [place] [address] * (ABNORMAL) S-TSH (Thyroid-Stimulating Hormone - Sensitive) (12/29/2024 1:23 PM SAUSAGE WRAPPER) Pathologist [facility] TSH, Sensitive 4.3(H) 0.3 - 4.2 mIU/L 12/29/2024 3:23 PM SAUSAGE WRAPPER DTL Blood (Blood, Venous) 12/29/2024 1:23 PM SAUSAGE WRAPPER 12/29/2024 1:59 PM SAUSAGE WRAPPER Julia Chan P.A.-C. LAB BLOOD ADD-ON Carol l Result [facility] [address] [place] [address], [place] DTFormerly named [facility] [address] [place] [address] from [facility] Mon[facility] For more information, please contact: [phone] * Full Code (Latest Code Status on File) Date Activated Date Inactivated Comments 12/29/2024 9:23 PM 01/19/2025 3:55 PM Question Answer Comments Full Code: Discussed Care Teams Mathematics Technician Relationship Specialty Start Date End Date Elsewhere, Pcp PCP - General Internal Medicine 01/27/25
--- OUTSIDE RECORDS SUMMARY | 2025-03-28 14:35 | XMS_ITS | Clinical Summary ---
Author Organization [facility] [employer] Address [address] [facility] [place] [address] Care Team Providers Care Size Marker Name Role Phone Annia Walker DO Primary Care Provider Yoly Michelle MD Unavailable Sofi Josue MD Unavailable [phone] Shaista Rivero MD Unavailable [phone] Jamal Liriano MD Unavailable Sagar Whaley MD Unavailable [phone] Source Comments [facility],non-owned Affiliates and Associated Physician Practices is amultiple site organization consisting of ambulatory clinics and hospital sitesin [place], [place], [place] and [place]. This disclosure is being madepursuant to the Care Everywhere program and may not contain all information available regarding this patient. Last updated 18.[facility] [employer] Allergies Active Allergy Reactions Criticality Noted Date [...] mellitus with other specified complication, unspecified whether rn long term care insulin use (HCC) Use 1 kit as directed 1 kit 11/09/19 Active Additional Information Patient not taking.Reported on 12/28/2024 lancetsIndication s:Other specified diabetes mellitus with other specified complication, unspecified whether longterm insulin use (HCC) Use 1 (one) Each 4 times daily 200 Each 11 11/09/19 Active Additional Information Patient not taking.Reported on 12/28/2024 ondansetron (Zofran) 4 MG tablet Take 1 (one) tablet by mouth every 6 hours as needed for Nausea/Vomiting 30 tablet 01/22/20 Active blood glucose (Sendah DirectTouch Verio) test stripIndications: Other specified diabetes mellitus with other specified complication, unspecified whether longterm insulin use (HCC) Use 1 (one) strip 4 times daily 200 strip 11 03/21/20 Active Additional Information Patient not taking.Reported on 12/28/2024 Continuous Blood Gluc Spray Applicator (Dexcom G7 Spray Applicator) DEVIIndications:T ype 1 diabetes mellitus with hyperglycemia [...] mouth once daily Active Vitamins-Lipotrop ics (Complex D-708-[id number]) TBCR Take 1 tablet by mouth once [...] mellitus with other specified complication, unspecified whether rn long term care insulin use (HCC) 1 Each by Injection [...] Department Care Team Description 02/19/2025 Orders Only [facility] - Hematology/Oncology [address] [place] [address] Sofi Josue MD Primary pancreatic neuroendocrine tumor (HCC) 02/04/2025 Refill [facility] Family Medicine [address] [place] [address] Annia Walker, DO Refill Request 02/03/2025 Refill [facility] [address] [place] [address] Annia Walker, DO Refill Request 01/06/2025 Telephone [facility] - GI [address] [place] [address] Sagar Whaley MD No Show 12/28/2024 Transitional Care [facility] - Care Coordination [address] [place] [address] Cole Benton, [place] Transitions Of Care from Last 3 Months Immunizations Immunization Administration Dates Next Due COVID PFIZER BIVALENT 12Y+ 30mcg/0.3ML 3 Covid Moderna primary monovalent 12+ yr 0.5mL [...] Sex Assigned at Female 10/13/2020 10:25 AM NURSING PROGRAM COORDINATOR Legal Sex Female 1:13 PM CDT Gender Identity Female 10/13/2020 10:25 AM NURSING PROGRAM COORDINATOR Sexual Orientation Straight 10/13/2020 10 :25 AM NURSING PROGRAM COORDINATOR Last Filed Vital Signs Vital Sign Reading Time Taken Comments Blood Pressure 112/68 12/25/2024 12:13 PM NURSING PROGRAM COORDINATOR Pulse 121 12/25/2024 12:13 PM NURSING PROGRAM COORDINATOR Temperature 36.5 C (97.7 F) 12/25/2024 12:13 PM NURSING PROGRAM COORDINATOR Respiratory Rate 18 12/25/2024 12:13 PM NURSING PROGRAM COORDINATOR Oxygen Saturation 97% 12/25/2024 12:13 PM NURSING PROGRAM COORDINATOR Inhaled Oxygen Concentration 21% 04/07/2022 4 :05 AM CDT Weight 73.9 kg (163 lb) 12/24/2024 9:27 AM NURSING PROGRAM COORDINATOR Height 162.6 cm (5' 4) 12/21/2024 10:54 PM NURSING PROGRAM COORDINATOR Body Mass Index 27.98 12/21/2024 10:54 PM NURSING PROGRAM COORDINATOR Plan of Treatment Health Maintenance Due Date Last Done Comments COLOGUARD (AGES 45-75) - COLON CA SCREENING 1964 CT COLONOGRAPHY - COLON CA SCREENING 1965 FIT - COLON CA SCREENING 1965 FLEX SIG - COLON CA SCREENING 1965 PAP SMEAR 1965 DIABETES-FOOT EXAM WITH MONOFILAMENT 11/09/2023 11/09/2022, 04/03/2021 COVID-19 VACCINE (2023- season) 2024 04/28/2024, 06/24/2023, 08/15/2022, Additional history [...] this topic Medical Devices Implanted Type Area Dials Supervisor Device Identifier Shelf Expiration Date Model / Serial / Lot Stent Uret 6fr 26cm 2 Pgtl Crv 2 Drmtr Implanted:Qty: 1 on 10/14/2021 by Michael Douglass MD at [facility] Ureter [employer] Scimed 08/27/2024 [id number] / / [id number] Stent Uret 6fr 26cm Sft Tria Implanted:Qty: 1 on 07/21/2024 by Michael Douglass MD at [facility] Right: Ureter [employer] Shauna 05/06/2027 [id number] / / [id number] Explanted Type Area Dials Supervisor Device Identifier Shelf Expiration Date Model / Serial / Lot Stent Uret 6fr 26cm Sft Tria Implanted:Qty: 1 on 06/23/2024 by Michael Douglass MD at [facility] Explanted:Qty: 1 on 07/21/2024 by Michael Douglass MD at [facility] Right: Ureter [employer] Shauna 12/25/2026 [id number] / / [id number] Procedures Procedure Name Priority Date/Time Associated Diagnosis Comments COMPREHENSIVE METABOLIC PANEL AM Draw 12/25/2024 6:18 AM NURSING PROGRAM COORDINATOR Abnormal LFTs HEPATITIS C ANTIBODY Routine 12/24/2024 5:40 AM NURSING PROGRAM COORDINATOR Abnormal LFTs EYE EXAM 08/20/2024 MAMMO BILAT SCREENING W [...] Relevant to Health Maintenance Results * (ABNORMAL) COMPREHENSIVE METABOLIC PANEL (12/25/2024 6:18 AM [facility]) Glucose 141(H) 70 - 99 mg/dL 12/25/2024 6:[address] [facility] Sodium 132(L) 136 - 145 mmol/L 12/25/2024 6:[address] [facility] Potassium 3.1(L) 3.5 - 5.1 mmol/L 12/25/2024 6:[address] [facility] Chloride 104 98 - 107 mmol/L 12/25/2024 6:[address] [facility] CO2 21(L) 22 - 29 mmol/L 12/25/2024 6:[address] [facility] Calcium 7.5(L) 8.4 - 10.4 mg/dL 12/25/2024 6:[address] [facility] Anion Gap 7 6 - 16 mmol/L 12/25/2024 6:[address] [facility] BUN 13 7 - 26 mg/dL 12/25/2024 6:[address] [facility] Creatinine 0.77 0.57 - 1.11 mg/dL 12/25/2024 6:[address] [facility] Alkaline Phosphatase 203(H) 40 - 150 U/L 12/25/2024 6:[address] [facility] ALT 23 0 - 55 U/L 12/25/2024 6:[address] [facility] AST 31 5 - 34 U/L 12/25/2024 6:[address] [facility] Protein Total 4.8(L) 6.4 - 8.3 gm/dL 12/25/2024 6:[address] [facility] Albumin 1.9(L) 3.4 - 5.0 gm/dL 12/25/2024 6:[address] [facility] Bilirubin Total 1.1 0.2 - 1.2 mg/dL 12/25/2024 6:50 AM NURSING PROGRAM COORDINATOR [facility] eGFR by CKD-EPI 88(L) >=90 mL/min/1.7 3 m2 12/25/2024 6:50 AM NURSING PROGRAM COORDINATOR [facility] Blood BLOOD SPECIMEN / Unknown Lab Venipuncture / Unknown 12/25/2024 6:18 AM NURSING PROGRAM COORDINATOR 12/25/2024 6:20 AM NURSING PROGRAM COORDINATOR Sagar Whaley MD LAB - CHEMISTRY ORDERABLES Fin al Result Performing Organization Address City/[facility]/ZIP Co de Phone Number [facility] [address] [place] [address] * HEPATITIS C ANTIBODY (12/24/2024 5:40 AM NURSING PROGRAM COORDINATOR) HCV Antibody Screen Non Reactive Non Reactive 12/24/2024 10:35 AM NURSING PROGRAM COORDINATOR [facility] Blood BLOOD SPECIMEN / Unknown Lab Venipuncture / Unknown 12/24/2024 5:40 AM NURSING PROGRAM COORDINATOR 12/24/2024 5:57 AM NURSING PROGRAM COORDINATOR Narrative [facility] - 12/24/2024 10:35 AM NURSING PROGRAM COORDINATOR Non Reactive - Antibodies to Hepatitis C virus (HCV) were not detected, result does not exclude early acute HCV infection. Sagar Whaley MD LAB - CHEMISTRY ORDERABLES Fin al Result Performing Organization Address [facility] Co de Phone Number [facility] [address] [place] [address] * EYE EXAM (08/20/2024) Anatomical Region Laterality Modality Other 08/20/2024 Narrative 08/20/2024 Ordered by an unspecified provider. Scanned Document SCANNING ONLY Final Result * [...] MLO. Images interpreted with CAD. Following current SS protocol, 3D mammographic tomosynthesis images were obtained and reviewed on a dedicated viewing station. FINDINGS: Breast composition: Almost entirely fatty. No suspicious calcifications, masses, or areas of architectural distortion. us Annia Walker DO MAMMO ORDERABLES Final Resu lt * ENDOSCOPY, COLON, SCREENING (03/30/2024 8:15 AM CDT) Report Endoscopy POC Endoscopy Department Report _ Patient Name: Meron Amrao Procedure Date: 03/30/2024 8:15 AM Date of [...] bowel preparation was evaluated using the BBPS (Merna Bowel Preparation Scale) with scores of: Right [...] malignant neoplasm of colon CPT copyright 2021 [employer]. All rights reserved. The codes documented in this report are preliminary and upon accounts payable technician review may be revised to meet current compliance requirements. Suleman Sr MD 03/31/2024 4:37:54 PM Note Initiated On: 03/30/2024 8:15 AM Number of Addenda: 0 [facility] [address] [place], [place] [address] [place] [address] 03/30/2024 8:15 AM CDT Suleman Sr MD GI PROCEDURE ORDERABLES Edited Result - Final Performing Organization Address [facility] Co de Phone Number [facility] * HEMOGLOBIN A1C - POINT OF CARE (AMB) [facility] (02/27/2024 10:08 AM CDT) Hemoglobin A1c POCT 7.3 % [address] BLOOD SPECIMEN / Unknown 02/27/2024 10:08 AM CDT Jamal Liriano MD LAB - POINT OF CARE ORDERABLES F inal Result Performing Organization Address [facility] Co de Phone Number [address], [facility] [place] [address], [facility] [phone] * MICROALB/CREAT RATIO URINE RANDOM PANEL (07/18/2022 10:10 AM CDT) Creatinine Urine 57.19 mg/dL 07/18/20 2:08 PM CDT [facility] Microalbumin Urine 0.8 mg/dL 07/18/2022 2:08 PM CDT [facility] Microalbumin/Crea tinine Ratio 13 <30 mg/g 07/18/2022 2:08 PM CDT [facility] Urine URINE SPECIMEN OBTAINED BY CLEAN CATCH PROCEDURE / Unknown Collection / Unknown 07/18/2022 10:10 AM CDT 07/18/2022 1:39 PM CDT Dante Rodgers MD LAB - URINE CHEMISTRY KYRA RAMEY Final Result [facility] [address] [place] [address] from Last 3 Months or Most Recently Relevant to Health Maintenance Insurance MEDICAID - [facility] MANAGED MEDICARE [facility] Advance Directives * Full Code (Latest Code [...] 5:58 PM 03/11/2022 12:03 PM Care Teams Size Marker Relationship Specialty Start Date End Date Annia Walker DO [address] [place] [address] PCP - General Family Medicine 06/20/20 Yoly Michelle MD [address] [place] [address] General Surgery 03/08/22 Sofi Josue MD [address] [place] [address] Hematology and Oncology 08/30/22 Shaista Rivero MD [address] [place] [address] Surgical Oncology 08/30/22 Jamal Liriano MD [address] DIV [place] [address] Physician Endocrinology 06/24/23 Sagar Whaley MD [address] [place] [address] Gastroenterology 09/28/24
--- OUTSIDE RECORDS SUMMARY | 2025-03-28 14:35 | XMS_ITS | Referral Summary ---
Author Organization [facility] Address [address] [place] [address] Care Team Providers Care Public Health Training Assistant Name Role Phone No, Physician Primary Care Provider [phone] Allergies Active Allergy Reactions Criticality Noted Date [...] Not [place] [id number] [employer] MEDICARE HMO PPO [place] [id number] UHC MEDICARE ADVANTAGE Care Teams Public Health Training Assistant Relationship Specialty Start Date End Date No, Physician PCP - General 08/10/24
--- OUTSIDE RECORDS SUMMARY | 2025-03-28 14:35 | XMS_ITS | Encounter Summary ---
Author Organization [facility] Address [address] [place] [address] Care Team Providers Care Chemistry Lab Instructor Name Role Phone Elsewhere, Pcp Primary Care Provider Unavailabl e Reason for Visit * Reason Onset Date Comments Appt Request 02/22/2025 Encounter Details Date Type Department Care Team (Latest Contact Info) Description 02/22/2025 Clinical Communication Division of Gastroenterology in [place], [place] [address] [place] [phone] Inder Joshi III, M.D., Ph.D. [address] [place] [phone] Appt Request Social History Tobacco Use Types Packs/Day Years Used Date Smoking Tobacco: Former Cigarettes Smokeless Tobacco: Never Alcohol Use Standard Drinks/Week Comments Not Currently 0 (1 standard drink = 0.6 oz pur e alcohol) [facility] Utilities Answer Date Recorded In the past 12 months has [employer], gas, oil, or water [employer] threatened to shut off services in your [...] your living situation today? 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 [address] [place] [address] 03/31/2025 11:30 AM CDT Comprehensive Visit Department of Cardiovascular Diseases in [address] [address] Paul Fairbanks M.D. [address] [place] [address] Discharge Disposition: Home or Self Care 04/22/2025 8:30 AM CDT Telemedicine Department of Endocrinology in [place], [place] [address] [place] [phone] Verito Becker MPAS, P.A.-C., P.A. [address], [place] [address] Raj Gardner M.D. [address] [place] [phone] 05/28/2025 8:00 AM CDT Clinical Communication Virtual Review in [place], [place] 200 [place] [address] 05/31/2025 4:00 PM CDT Office Visit Division of Gastroenterology in [place], [place] [address] [place] [phone] Ranjna Anderson M.D., M.P.H. [address] [place] [phone] documented as of this encounter Visit Diagnoses Not on filedocumented in this encounter Care Teams Chemistry Lab Instructor Relationship Specialty Start Date End Date Elsewhere, Pcp PCP - General Internal Medicine 01/27/25 documented as of this encounter
--- OUTSIDE RECORDS SUMMARY | 2025-03-28 14:35 | XMS_ITS | Encounter Summary ---
Author Organization [facility] Address [address] [facility] [place] [address] Care Team Providers Care Elementary Supervisor Name Role Phone Aaron Annia Primary Care Provider Yoly Michelle MD Unavailable Sofi Josue MD Unavailable [phone] Shaista Rivero MD Unavailable Jamal Liriano MD Unavailable Sagar Whaley MD Unavailable [phone] Encounter Details Date Type Department Care Team (Late st Contact Info) Description 02/19/2025 Orders Only [facility] - Hematology/Oncology [address] [place] [address] Sofi Josue MD [address] [facility] 3 [place] [address] Primary pancreatic neuroendocrine tumor (HCC) [...] Sex Assigned at Female 10/13/2020 10:25 AM SUPERVISOR SKI PRODUCTION Legal Sex Female 1:13 PM CDT Gender Identity Female 10/13/2020 10:25 AM SUPERVISOR [employer]I [employer]ODUCTION Sexual Orientation Straight 10/13/2020 10 :25 AM SUPERVISOR SKI PRODUCTION documented as of this encounter Functional Status [...] site documented in this encounter Care Teams Elementary Supervisor Relationship Specialty Start Date End Date Annia Walker DO [address] [place] [phone] PCP - General Family Medicine 06/20/20 Yoly Michelle MD [address] [place] [address] General Surgery 03/08/22 Sofi Josue MD [address] [place] [address] Hematology and Oncology 08/30/22 Shaista Rivero MD [address] [place] [address] Surgical Oncology 08/30/22 Jamal Liriano MD [address] [place] [address] Physician Endocrinology 06/24/23 Sagar Whaley MD [address] [place] [address] Gastroenterology 09/28/24 documented as of this encounter
--- OUTSIDE RECORDS SUMMARY | 2025-03-28 14:35 | XMS_ITS | Encounter Summary ---
Author Organization [facility] Address [address] [place] [address] Care Team Providers Care Drainage Inspector Name Role Phone Elsewhere, Pcp Primary Care Provider Unavailabl e Reason for Visit * Reason Onset Date Comments Rx Prior Authorization 01/20/2025 LIDOCAINE PATCH Encounter Details Date Type Department Care Team (Latest Contact Info) Description 01/20/2025 Clinical Communication Division of Community Internal Medicine, [facility] in [place], [place] [address] [place] [address] Katiana Carson M.D. [address] [place] [phone] Rx Prior Authorization (LIDOCAINE PATCH ) Social History Tobacco Use Types Packs/Day Years Used Date Smoking Tobacco: Former Cigarettes Smokeless Tobacco: Never Alcohol Use Standard Drinks/Week Comments Not Currently 0 (1 standard drink = 0.6 oz pur e alcohol) [facility] Utilities Answer Date Recorded In the past 12 months has [employer], gas, oil, or water [employer] threatened to shut off services in your [...] your living situation today? I have a [facility] place to live 12/30/2024 Comments Unknown Sex and Gender Information Value Date Recorded Sex Assigned at Not on file Legal Sex Female 2:54 PM PEDIATRIC ONCOLOGY NURSE Gender Identity Not on file Sexual Orientation Not on file documented as of this encounter Plan of Treatment Upcoming Encounters Date Type Department Care Team (Latest Contact Info) Description 03/31/2025 11:00 AM CDT Appointment Department of Laboratory Medicine in [address] [address] Katiana Carson M.D. [address] [place] [phone] 03/31/2025 11:30 AM CDT Comprehensive Visit Department of Cardiovascular Diseases in [address] [address] Paul Fairbanks M.D. 200 [place] [phone] Discharge Disposition: Home or Self Care 04/22/2025 8:30 AM CDT Telemedicine Department of Endocrinology in [place], [place] [address] [place] [phone] Verito Becker, MPAS, P.A.-C., P.A. [address] [place] [phone] Raj Gardner M.D. [address] [place] [phone] 05/28/2025 8:00 AM CDT Clinical Communication Virtual Review in [place], [place] 200 [place] [address] 05/31/2025 4:00 PM CDT Office Visit Division of Gastroenterology in [place], [place] [address] [place] [phone] Ranjan Anderson M.D., M.P.H. [address] [place] [phone] documented as of this encounter Visit Diagnoses Not on filedocumented in this encounter Care Teams Drainage Inspector Relationship Specialty Start Date End Date Elsewhere, Pcp PCP - General Internal Medicine 01/27/25 documented as of this encounter
--- OUTSIDE RECORDS SUMMARY | 2025-03-28 14:36 | XMS_ITS | Encounter Summary ---
Author Organization [facility] Address [address] [facility] [place] [address] Care Team Providers Care School Patrol Name Role Phone Annia Walker DO Primary Care Provider Sagar Whaley MD Unavailable [phone] Annia Walker DO Unavailable Yoly Michelle MD Unavailable Ashlee Somers RN Unavailable Sofi Josue MD Unavailable [phone] Shaista Rivero MD Unavailable Annia Walker DO Unavailable Jamal Liriano MD Unavailable Annia Walker DO Unavailable Juhi Cook RN Unavailable Unavailable Sagar Whaley MD Unavailable [phone] Violet Ambrose Unavailable Cole Benton RN Unavailable Encounter Details Date Type Department Care Team (Late st Contact Info) Description 03/21/2022 Telephone [facility] General Surgery [address] [place] [address] Yoly Michelle MD [address] [address] Social History Tobacco Use Types Packs/Day Years [...] Sex Assigned at Female 10/13/2020 10:25 AM REVENUE AGENT Legal Sex Female 1:13 PM CDT Gender Identity Female 10/13/2020 10:25 AM REVENUE AGENT Sexual Orientation Straight 10/13/2020 10 :25 AM REVENUE AGENT documented as of this encounter Functional Status [...] Under Investigation 12/22/2024 12/22/2024 12/22/2024 2:43 AM REVENUE AGENT documented as of this encounter Care Teams School Patrol Relationship Specialty Start Date End Date Annia Walker DO [address] [facility] [address] PCP - General Family Medicine 06/20/20 Annia Walker DO [address] [place] [address] PCP - Attributed-UHC Commercial 01/26/21 08/07/22 Annia Walker DO [address] [place] [address] PCP - Attributed-UHC Medicaid STL 07/30/22 08/14/23 Annia Walker DO [address] [facility] [place] [address] PCP - Attributed-[place] Healthy [employer] Medicaid STL 08/28/23 10/14/24 Sagar Whaley MD [address] [place], [place] [phone] Gastroenterology 10/14/20 06/23/23 Yoly Michelle MD [address] [place] [address] General Surgery 03/08/22 Ashlee Somers RN Editor School Photograph 03/12/22 07/22/22 Sofi Josue MD [address] [place] [address] Hematology and Oncology 08/30/22 Shaista Rivero MD [address] [place] [address] Surgical Oncology 08/30/22 Jamal Liriano MD [address] [place] [phone] Physician Endocrinology 06/24/23 Juhi Cook, knitting machine fixer 09/28/24 09/30/24 Sagar Whaley MD [address] [facility] [address] [place] [address] Gastroenterology 09/28/24 Violet Ambrose Care Coordination Specialist Care Management 11/26/24 01/10/25 Cole Benton, [place] [address] [facility] [address] [place] [address] Editor School PhotographSoftware Test Engineer 12/28/24 12/28/24 documented as of this encounter
--- NOTE | 2025-03-28 14:43 | CRLHL7_ITS ---
For Patients: As a result of the Century Cures Act, medical imaging exams and procedure reports are released immediately into your electronic medical record. You may view this report before your referring provider. If you have questions, please contact your health care provider. INDICATION: Cirrhosis general abdominal pain TECHNIQUE: CT abdomen and pelvis with 56 mL Isovue 370 contrast. COMPARISON: CT 03/20/2024 FINDINGS: Lower chest: Unremarkable. Liver: Fatty appearance of the liver No focal mass. No biliary dilatation. Gallbladder and bile ducts: No stones or inflammation. No biliary dilatation. Pancreas: Status post Whipple procedure. Residual pancreas demonstrates calcifications and appears atrophic reflecting chronic pancreatitis changes Spleen: Normal in size. No masses. Adrenal glands: Normal in size. No nodules. Kidneys: Nonobstructing right renal calculi too small to characterize low-attenuation lesions in the right kidney. GI tract: Wall thickening of the proximal transverse colon ascending colon and cecum which may represent colitis. No obstruction. Normal appendix. Vasculature: Abdominal aorta is normal in caliber. Portal vein splenic vein patent. Upper abdominal varices. . Lymph nodes: No lymphadenopathy. Peritoneum/Abdominal Wall: Minimal ascites. Small fat containing inguinal hernias. Pelvis: Unremarkable. No pelvic masses. Bones: Mild superior endplate compression of L5 unchanged. No aggressive lesions are seen. IMPRESSION: 1. Postsurgical changes of Whipple procedure stable appearance. 2. Wall thickening of the proximal transverse colon ascending colon and cecum could be related to colitis. No obstruction seen. 3. Minimal ascites. Please note that all CT scans at this facility use dose modulation, iterative reconstruction, and/or weight-based dosing when appropriate to reduce radiation dose to as low as reasonably achievable. Dictated by Tami Monroe MD @ 03/28/2025 4:24:29 PM (Electronically Signed)
--- NOTE | 2025-03-28 14:48 | ED_ITS ---
HPI - General Adult General Chief complaint: Abdominal Pain Stated complaint: Hyperglycemia Time Seen by Provider: 03/28/25 14:36 History of Present Illness HPI narrative: [age] year white female with chronic medical problems including status post Whipple procedure for pancreatic cancer, cirrhosis, ascites, constipation, arteriosclerotic cardiovascular disease with history of AK, presents with elevated blood sugar. She also states she has intermittent pain in her left side of her abdomen. Her blood sugars been in the 3-400 range. Occasionally it has been up in the 600 range. She has been which she describes is intolerant insulin in the past and it sounds like has not been compliant with using insulin in the past. She denies fever, chills, shortness of breath or chest pain. She has the type 2 diabetic with not currently using insulin. She does take a dose of oxycodone before bed. Patient hopes that she can get some help for her blood sugar. Point of care blood sugar here is in the 400s. Related Data Home Medications ?Medication ?Instructions ?Recorded ?Confirmed aspirin 81 mg tablet,delayed 81 mg PO DAILY 10/25/24 0 03/09/25 release (Adult Low Dose Aspirin) multivitamin 1 tab PO QDAY 02/26/2503/09 selenium 200 mcg tablet 200 mcg PO QDAY 02/26/25 vitamin A 2,400 mcg capsule 2,400 mcg PO QDAY 02/26/25 03/09/25 Previous Rx's ?Medication ?Instructions ?Recorded furosemide 40 mg tablet 40 mg PO DAILY@0800 #30 tabs 10/29/24 amitriptyline 50 mg tablet 50 mg PO HS #90 tabs atorvastatin 40 mg tablet 40 mg PO HS #90 tabs 5 cetirizine 10 mg capsule 10 mg PO DAILY PRN allergy 0 01/27/25 symptoms #90 caps topiramate 50 mg tablet (Topamax) 50 mg PO HS #90 tabs 01/27/25 vitamin E 268 mg (400 unit) capsule 268 mg PO QDAY #90 caps 01/27/25 zinc sulfate 50 mg zinc (220 mg) 50 mg PO QDAY #90 tab s 01/28/25 tablet gabapentin 100 mg capsule 100 mg PO TID #100 caps 12/22 insulin glargine 100 unit/mL (3 10 unit (0.1 mL) subcu t QPM #15 mL 02/26/25 mL) subcutaneous pen (Lantus Solostar U-100 Insulin) lactulose 10 gram/15 mL oral 10 g (15 mL) PO QDAY #1,2 00 mL 02/26/25 solution zjjvaw-oootsbin-nnpetih 2 cap PO TID #200 caps 02/26 24,000-76,000-120,000 unit capsule,delayed rel pen needle, diabetic 31 gauge x #200 ea 02/26/2501/10 (Comfort EZ Pen Canal [place]) spironolactone 50 mg tablet 50 mg PO QAM #90 tabs 02/25 01/19 oxycodone 5 mg tablet 2.5 mg (1/2 x 5 mg) PO Q6H P RN 03/10/25 pain #28 tabs ketorolac 10 mg tablet 10 mg PO Q8H PRN pain #15 ta bs 03/20/25 polyethylene glycol 3350 17 17 g PO DAILY #238 grams 0 03/20/25 gram/dose oral powder (Miralax) sennosides 8.6 mg tablet (senna) 8.6 - 17.2 mg (1 - 2 x 8.6 mg) PO 03/20/25 DAILY PRN constipation #30 tabs Allergies Allergy/AdvReac Type Severity Reaction Status Date / Time omeprazole Allergy Vomiting Verified 03/20/25 12:03 Penicillins Allergy Hive Verified 03/20/25 12:03 Review of Systems Status of ROS: Reports: 6 or more systems reviewed and unremarkable except as noted in History and below [facility] Medical History Type 2 diabetes mellitus with insulin therapy ?E11.9 - Type 2 diabetes mellitus without complications (ICD-10) ?Z79.4 - oysterman (current) use of insulin (ICD-10) Pancreatic cancer ?C25.9 - Malignant neoplasm of pancreas, unspecified (ICD-10) Fibromyalgia ?M79.7 - Fibromyalgia (ICD-10) Chronic pain ?G89.29 - Other chronic pain (ICD-10) Migraines ?G43.909 - Migraine, unspecified, not intractable, without status migrainosus (ICD-10) C. difficile diarrhea ?A04.72 - Enterocolitis due to Clostridium difficile, not specified as recurrent (ICD-10) Hx of gastric ulcer ?Z87.11 - Personal history of peptic ulcer disease (ICD-10) Abdominal ascites ?R18.8 - Other ascites (ICD-10) Surgical History S/P cystoscopy with ureteral stent placement ?Z96.0 - Presence of urogenital implants (ICD-10) History of Whipple procedure ?Z90.410 - Acquired total absence of pancreas (ICD-10) ?Z90.49 - Acquired absence of other specified parts of digestive tract (ICD- 10) Family History Father Diabetes High blood pressure Mother Diabetes Heart disease High blood pressure Liver disease Kidney disease Maternal Grandfather Heart disease Social History Narrative: Single Education high school 2 children Retired What is your current living situation?: I presently have a place to live Problems where you live: no known problems Problems where you live details: none In the past 12 months, utilities in danger of being shut off: no In past 12 months, lack of transportation kept you from medical appts, meetings, work, or getting things needed for daily living: no In the past 12 mos, have been you worried that your food would run out before you had money to buy more?: never true In the past 12 mos, the food you bought just didn't last and you didn't have m oney to buy more?: never true Smoking Status: Former smoker What tobacco products do you use: cigarettes Smoking packs per day: 2 Smoking cigarettes per day: 40.0 Smoking quit date/years: <= 15 years ago Do you use any of these nicotine containing products: None Second hand tobacco smoke exposure: No How often do you have a drink containing alcohol: never AUDIT-C Alcohol total score: 0 Non-prescribed substance use: denies use How often does anyone, including family, friends and others, physically hurt you : never How often does anyone, including family, friends and others, insult or talk down to you: never How often does anyone, including family, friends and others, threaten you with harm: never How often does anyone, including family, friends and others, scream or curse at you: never service: No Exam Narrative: Exam Narrative: Objective in general patient is no apparent distress talk in even unlabored sentences No cyanosis HEENT shows no facial asymmetry mouth appears moist Neck is supple Pulse regular heart rhythm regular heart murmur Abdomen mildly distended no tympanum no obvious ascitic fluid wave No significant abdominal tenderness or rebound or peritonitis Extremities normal motion, neurologic nonfocal. Const: Vital Signs, click to edit/add: Vital Signs - 24 hr 03/28/25 14:39 03/28/25 14:40 03/28/25 14:45 Temperature 97.9 F Pulse Rate 96 92 Pulse Rate [Pulse Oximeter] 92 Respiratory Rate 18 Blood Pressure Blood Pressure [Ri ght Upper Arm] 115/72 Pulse Oximetry 100 99 99 Oxygen Delivery Me thod Room Air 03/28/25 15:00 03/28/25 15:06 03/28/25 15:30 Temperature Pulse Rate 94 88 Pulse Rate [Pulse Oximeter] Respiratory Rate 12 Blood Pressure Blood Pressure [Ri ght Upper Arm] Pulse Oximetry 99 100 99 Oxygen Delivery Me thod 03/28/25 15:45 03/28/25 16:00 03/28/25 16:15 Temperature Pulse Rate 90 90 91 Pulse Rate [Pulse Oximeter] Respiratory Rate 12 12 13 Blood Pressure Blood Pressure [Ri ght Upper Arm] Pulse Oximetry 99 99 99 Oxygen Delivery Me thod 03/28/25 16:30 03/28/25 16:45 03/28/25 17:00 Temperature Pulse Rate 94 99 98 Pulse Rate [Pulse Oximeter] Respiratory Rate 12 10 L 11 L Blood Pressure Blood Pressure [Ri ght Upper Arm] Pulse Oximetry 99 99 98 Oxygen Delivery Me thod 03/28/25 17:08 Temperature Pulse Rate Pulse Rate [Pulse Oximeter] Respiratory Rate 12 Blood Pressure 111/70 Blood Pressure [Ri ght Upper Arm] Pulse Oximetry Oxygen Delivery Me thod Course Vital Signs Vital signs: Initial Vital Signs Pulse Rate 96 03/28/25 14:39 Pulse Oximetry 100 03/28/25 14:39 Vital Signs Pulse Rate 96 03/28/25 14:39 Pulse Oximetry 100 03/28/25 14:39 Temperature 97.9 F 03/28/25 14:40 Pulse Rate 98 03/28/25 17:00 Respiratory Rate 12 03/28/25 17:08 Blood Pressure 111/70 03/28/25 17:08 Pulse Oximetry 98 03/28/25 17:00 Oxygen Delivery Method Room Air 03/28/25 14:40 Medications Administered Medications: Discontinued Medications Generic Name Dose Route Start Last Admin Trade Name Talha PRN Reason Stop Dose Admin Sodium Chloride 500 mls @ 500 mls/hr 03/28/25 14:43 03/28/25 16:48 0.9 % Sodium Chloride 500 Ml IV 03/28/25 15:42 Infused .Q1H ONE Infusion Insulin Human Regular 5 unit 03/28/25 14:45 03/28/25 15:32 Insulin Regular, Human 100 Unit/Ml Vial SUBCUT 03/28/25 14:46 5 unit ONCE ONE Administration Morphine Sulfate 2 mg 03/28/25 14:43 03/28/25 15:33 Morphine 4 Mg/Ml Inj IVP 03/28/25 14:44 2 mg ONCE ONE Administration Medical Decision Making MDM Narrative Medical decision making narrative: [age] year white female with history of pancreatic cancer, diabetes with poor history of control. Patient at this point will get IV fluid 1 L will give her 5 units of subcu insulin recheck her blood sugar. Will check a CT scan of abdomen pelvis given she has intermittent pain on the left side although her abdomen would not be consistent with a surgical abdomen or to I believe she has bacterial peritonitis. Will check on her level of thus ascites and make sure there is no diverticulitis or other intra-abdominal pathology. If this is negative likely discharge home, will need careful monitoring of her blood sugars will need follow-up with the clinic to discuss ongoing blood sugar management. She probably also should be on regular MiraLax so she does not get constipated given her regular narcotic use. Addendum 4:45 p.m.: Patient reports that she is not taking oxycodone any longer. She does have on CT scan minimal ascites, but she does have evidence of colitis. Discussed with hospitalist and together we decided it would be best if we put her on Flagyl and Cipro for home, will give her a few oxycodone to take as needed. The patient should follow-up with Dr. Amador in the next couple of days. I will write a prescription for a glucose monitor for her at home, she reports she does have insulin at home. Her blood sugars in the mid 300s now after a dose of regular insulin she could continue her regular monitoring. Discussed with Dr. Dee about her insulin usage in the future. Will dispense her medicines through [facility]. Labs look reassuring. Will add a CRP to simply trend if needed. Lab Data Labs: Lab Results 03/28/25 Range/Units 14:54 WBC 4.50 (4.50-11.00) K/uL RBC 4.03 (4.00-5.20) m/uL Hgb 12.8 (12.0-16.0) gm/dL Hct 37.8 (33.0-51.0) % MCV 94 (80-100) fL MCH 32 (26-34) pg MCHC 34 (32-36) gm/dL RDW Coeff of Konstantin 12.3 (11.5-15.5) % Plt Count 175 (140-440) K/uL Neut % (Auto) 53.8 (42.0-72.0) % Lymph % (Auto) 33.3 (20-44) % [place] % (Auto) 11.1 H (0.0-11.0) % Eos % (Auto) 0.7 (0.0-7.0) % Baso % (Auto) 0.2 (0.0-3.0) % Neut # (Auto) 2.42 (1.7-7.0) K/uL Lymph # (Auto) 1.50 (0.90-2.90) K/uL [place] # (Auto) 0.50 (0.00-0.90) K/UL Eos # (Auto) 0.03 (0.00-0.50) K/uL Baso # (Auto) 0.01 (0.00-0.30) K/uL Abs Immat Gran (auto) 0.04 (0.00-0.30) K/uL Imm/Tot Granulo (auto) 0.9 % INR 1.20 H (0.91-1.10) Sodium 130 L (135-149) mmol/L Potassium 4.7 (3.6-5.1) mmol/L Chloride 97 (96-114) mmol/L Carbon Dioxide 23 (20-32) mmol/L Anion Gap 10 (7-15) mEq/L BUN 13 (7-30) mg/dL Creatinine 0.7 (0.5-1.5) mg/dL Estimated Creat Clear 70.38 Estimated GFR 99 ml/min Glucose 469 H* (60-115) mg/dL Calcium 9.2 (8.4-10.6) mg/dL Total Bilirubin 1.0 (0.1-1.5) mg/dL Direct Bilirubin 0.5 (0.0-0.5) mg/dL AST 60 H (12-35) U/L ALT 49 H (4-35) U/L Alkaline Phosphatase 156 H (40-150) U/L C-Reactive Protein < 0.5 L (0.5-1.0) mg/dL Total Protein 7.3 (6.0-8.3) g/dL Albumin 4.1 (3.3-5.0) g/dL Amylase 44 (18-89) U/L Ethyl Alcohol < 0.01 (0.01-0.03) % Discharge Plan Discharge Clinical Impression: Hyperglycemia, Diabetes, Abdominal pain, Colitis Patient Disposition: Home w/ Parent or Adult Condition: Improved Additional Instructions: Light diet initially and then advance as tolerated, Cipro and Flagyl as prescribed, may use oxycodone up to twice a day for a couple of days. Follow-up with Dr. Amador next few days. Start using her Accu-Chek to monitor her blood sugars usually insulin as instructed prior. Return as needed Activity Level: Light activity Discharge Diet: Full Liquid Prescriptions: No Action atorvastatin 40 mg tablet 40 mg PO HS Qty: 90 3RF amitriptyline 50 mg tablet 50 mg PO HS Qty: 90 3RF cetirizine 10 mg capsule 10 mg PO DAILY PRN (Reason: allergy symptoms) Qty: 90 3RF topiramate [Topamax] 50 mg tablet 50 mg PO HS Qty: 90 3RF vitamin E 268 mg (400 unit) capsule 268 mg PO QDAY Qty: 90 3RF zinc sulfate 50 mg zinc (220 mg) tablet 50 mg PO QDAY Qty: 90 3RF selenium 200 mcg tablet 200 mcg PO QDAY vitamin A 2,400 mcg capsule 2,400 mcg PO QDAY multivitamin Tablet 1 tab PO QDAY insulin glargine [Lantus Solostar U-100 Insulin] 100 unit/mL (3 mL) insulin pen 10 unit subcut QPM Qty: 15 3RF gabapentin 100 mg capsule 100 mg PO TID Qty: 100 5RF puvpyz-wowozyyr-xtfbrws 24,000-76,000 -120,000 unit capsule,delayed release(DR/EC) 2 cap PO TID Qty: 200 5RF Rx Instructions: administer with meals and/or snacks lactulose 10 gram/15 mL solution 10 g PO QDAY Qty: 1200 4RF (DME) pen needle, diabetic [Comfort EZ Pen Canal [place]] 31 gauge x 3/16 needle See Rx Instructions .Route Qty: 200 5RF Rx Instructions: As directed, Whatever is covered, 4 times a day spironolactone 50 mg tablet 50 mg PO QAM Qty: 90 3RF aspirin [Adult Low Dose Aspirin] 81 mg tablet,delayed release (DR/EC) 81 mg PO DAILY furosemide 40 mg Tablet 40 mg PO DAILY@0800 Qty: 30 0RF polyethylene glycol 3350 [Miralax] 17 gram/dose powder 17 g PO DAILY Qty: 238 1RF Rx Instructions: 1 - 3 dosings daily each in at least 8 oz of liquid ketorolac 10 mg tablet 10 mg PO Q8H PRN (Reason: pain) Qty: 15 0RF Rx Instructions: maximum total duration of 5 days from all oral, intranasal, or parenteral formulations sennosides [senna] 8.6 mg tablet 8.6 - 17.2 mg PO DAILY PRN (Reason: constipation) Qty: 30 0RF oxycodone 5 mg tablet 2.5 mg PO Q6H PRN (Reason: pain) Qty: 28 0RF Follow Up/Referrals: Medardo Dee MD [Primary Care Provider, Family Practice] Stand Alone Forms: BASE Incth Info Instructions
[2025-03-28 15:02] LABS: Basophils Absolute Auto 0.01 K/uL (0.00-0.30); Basophils Percent Auto 0.2 % (0.0-3.0); Eosinophils Absolute Auto 0.03 K/uL (0.00-0.50); Eosinophils Percent Auto 0.7 % (0.0-7.0); Hematocrit 37.8 % (33.0-51.0); Hemoglobin* 12.8 gm/dL (12.0-16.0); Immature Granulocytes Abs Auto 0.04 K/uL (0.00-0.30); Immature Granulocytes Pct Auto 0.9 %; Lymphocytes Percent Auto 33.3 % (20-44); Mean Corpuscular HGB Conc 34 gm/dL (32-36); Mean Corpuscular Hemoglobin 32 pg (26-34); Mean Corpuscular Volume 94 fL (80-100); Monocytes Percent Auto 11.1 % (0.0-11.0); Neutrophils Absolute Auto 2.42 K/uL (1.7-7.0); Neutrophils Percent Auto 53.8 % (42.0-72.0); Platelet Count* 175 K/uL (140-440); RDW Coefficient of Variation % 12.3 % (11.5-15.5); Red Blood Count 4.03 m/uL (4.00-5.20)
[2025-03-28 15:16] LABS: Slide Review Reflex No
[2025-03-28 15:24] LABS: Albumin* 4.1 g/dL (3.3-5.0); Chloride* 97 mmol/L (96-114); Sodium* 130 mmol/L (135-149)
[2025-03-28 15:25] LABS: Potassium* 4.7 mmol/L (3.6-5.1)
[2025-03-28 15:26] LABS: Prothrombin Time 16.1 Seconds
[2025-03-28 15:27] LABS: Alanine Aminotransferase* 49 U/L (4-35); Alkaline Phosphatase* 156 U/L (40-150); Amylase* 44 U/L (18-89); Anion Gap 10 mEq/L (7-15); Aspartate Amino Transferase* 60 U/L (12-35); Bilirubin Direct* 0.5 mg/dL (0.0-0.5); Blood Urea Nitrogen* 13 mg/dL (7-30); Calcium* 9.2 mg/dL (8.4-10.6); Carbon Dioxide* 23 mmol/L (20-32); Creatinine* 0.7 mg/dL (0.5-1.5); Est. Creatinine Clearance* 70.38; Estimated Glomerular Filt Rate 99 ml/min; Total Protein* 7.3 g/dL (6.0-8.3)
[2025-03-28 15:30] LABS: Ethanol* < 0.01 % (0.01-0.03); Glucose* 469 mg/dL (60-115)
[2025-03-28] MEDS: INSULIN REGULAR, HUMAN 100 UNIT/ML VIAL SUBCUT (15:32)
[2025-03-28] MEDS: 0.9 % SODIUM CHLORIDE 500 ML 500 ML IV (15:32)
[2025-03-28] MEDS: MORPHINE 4 MG/ML INJ 2 MG IVP (15:33)
[2025-03-28 17:03] LABS: C Reactive Protein* < 0.5 mg/dL (0.5-1.0)
== END 2025-03-28 17:13 | disposition home or self-care (01) ==
PROVIDERS: Emergency Provider Family Medicine; PCP Family Medicine
DX: E11.65 Type 2 diabetes mellitus with hyperglycemia (principal); K52.9 Noninfective gastroenteritis and colitis, unspecified
CPT/HCPCS: 36415; 74177; 80048; 80076; 82077; 82150; 82962; 85025; 85610; 86140; 93005; 94761; 96374; 99285; J1815; J2270; J7030; Q9967